=== PATIENT | female | born 1950 | race Caucasian/White ===

== ENCOUNTER 2016-12-22 18:09 | Inpatient (IN) | payer OTHER ==
[2016-12-22] VITALS (7 sets, daily range): BP systolic 102–161; BP diastolic 65–124; PULSE 98–127; RESP 16–33; O2SAT 88–100
[~2016-12-22] VITALS: Ht 152.4 cm; Wt 63.0 kg
--- NOTE | 2016-12-22 18:13 | ED.REPORT ---
HPI-General Illness Date of Service Dec 22, 2016 ED Provider: Migue Nj MD A 66 year old female with a history of hypertension and COPD is brought to the ED via EMS due to unresponsiveness. The pt was found by EMS minimally responsive with a heart rate in the 130's and an oxygen saturation of 62% on room air. She also had a productive cough and coarse breath sounds. The pt was given a DuoNeb. History is severely limited due to pt condition. Nursing Notes Stated Complaint: ALTERED MENTAL STATUS Nursing Notes Reviewed: Yes Allergies: Coded Allergies: No Known Allergies (Unverified , 12/22/16) Scheduled Hydrochlorothiazide (Hydrochlorothiazide) 25 Mg Tablet 25 MG PO QAM Lisinopril (Lisinopril) 40 Mg Tablet 40 MG PO HS Metoprolol Tartrate (Metoprolol Tartrate) 50 Mg Tablet 100 MG PO QAM TAKE METOPROLOL 100 MG PO QAM, AND 50 MG PO QHS Metoprolol Tartrate (Metoprolol Tartrate) 50 Mg Tablet 50 MG PO QPM TAKE METOPROLOL 100 MG PO QAM, AND 50 MG PO QHS Tiotropium [place] (Spiriva Respimat) 4 Gm Mist.inhal 2 PUFFS INHALATION DAILY Scheduled PRN Albuterol Sulfate (Ventolin HFA Inhaler) 200 Puff/18 Gm Inhaler 2 PUFFS INHALATION Q4H PRN PRN For Shortness of Breath General Time Seen by MD: 18:12 Chief Complaint Other (Unresponsive) Hx Obtained From: EMS Arrived By: Ambulance Sudden in Onset?: No Onset Occurred: Onset unknown Symptom Duration: Since onset Recent Healthcare: No recent hospitalization, Recent doctor visit Similar Sx Previous: No Past Medical History Past Medical History COPD Hypertension Past Surgical History cyst removal Family History noncontributory Smoking History Current Every Day Smoker, Heavy Tobacco Smoker Social History Other Social History: Good social support, , Local resident Ambulatory Status Independent Review of Systems Unable to Obtain ROS Patient condition Physical Exam Vital Signs Vital Signs Date Time Temp Pulse Resp B/P Pulse Ox O2 Delivery O2 Flow Rate FiO2 12/22/16 18:16 36.6 127 33 160/104 88 Room Air Initial VS: Reviewed General/Constitutional: No acute distress Alertness: Positive: Somnolent 02 sat of 88% on 2 liters by nasal cannula unable to be aroused groans to sternal rub protecting airway Head / Eyes: Atraumatic, Normocephalic, PERRL, EOMI ENT: Atraumatic, Airway patent, Mucous membranes moist Neck: Atraumatic, Supple, Full range of motion Respiratory / Chest: Atraumatic, No respiratory distress coarse breath sounds throughout both lung wooten Cardiovascular: Heart rate NL, Regular rhythm, Heart sounds NL, No gallop, No murmurs, No rubs Abdomen: Atraumatic, Soft, Non-tender, No distention Back: Atraumatic, Full range of motion Upper Extremities Upper Extremity / MS: Atraumatic, Full range of motion Lower Extremity / Pelvis / MS: Atraumatic, Full range of motion, No swelling, Non-tender 2+ pitting edema of lower extremities Skin: Atraumatic, Color NL, No rash, Warm, Dry Neurologic: No motor deficits minimally responsive Interpretation & Diagnostics Lab Results Interpretation Result Diagram: 12/22/16 1830 12/22/162005 Test 12/22/16 18:30 12/22/16 18:46 12/22/16 20:06 White Blood Count 8.7th/mm3 (3.8-10.1) Red Blood Count 5.09mil/mm3 (3.90-5.20) Hemoglobin 16.7g/dL (12.0-15.6) Hematocrit 47.0% (35.0-46.0) Mean Corpuscular Volume 92.3fL (81-100) Mean Corpuscular Hemoglobin 32.8pg (27.0-35.0) Mean Corpuscular Hemoglobin Concent 35.5% (32.0-37.0) Red Cell Distribution Width 12.2% (12.3-15.4) Platelet Count 94bil/L (150-400) Neutrophils (%) (Auto) 58.3% (40-74) Lymphocytes (%) (Auto) 24.9% (14-46) Monocytes (%) (Auto) 13.6% (4-12) Eosinophils (%) (Auto) 1.7% (0-5) Basophils (%) (Auto) 0.6% (0-3) D-Dimer > 32.5mg/L (<0.50) Pro-B-Type Natriuretic Peptide 7256pg/mL (0-287) Alcohols < 10mg/dL (0-10) Lactic Acid Level 1.3mmol/L (0.4-2.0) Sodium Level 124mEq/L (134-144) Potassium Level 3.0mEq/L (3.5-5.2) Chloride Level 79mEq/L (97-108) Carbon Dioxide Level 30mmol/L (18-29) Blood Urea Nitrogen 17mg/dL (8-27) Creatinine 0.46mg/dL (0.57-1.00) Estimat Glomerular Filtration Rate 196mL/min (>59) Glucose Level 119mg/dL (60-99) Calcium Level 8.6mg/dL (8.5-10.1) Total Bilirubin 0.8mg/dL (0.0-1.2) Aspartate Amino Transf (AST/SGOT) 27U/L (0-50) Alanine Aminotransferase (ALT/SGPT) 13U/L (0-32) Alkaline Phosphatase 67U/L (25-165) Troponin T < 0.010ug/L (0.0-0.011) Total Protein 6.0g/dL (6.4-8.4) Albumin 3.3g/dL (3.4-5.0) Procalcitonin 0.04ng/mL (0.00-0.08) Lab Results Interpretation: blood gas 1955: pH 7.297/pCO2 78/pO2 79.5/cHCO3- 37.0/cBase 7.5 blood gas 2128: pH 7.476/pCO2 48/pO2 185.0/cHCO3- 35.1/cBase 10.1 ECG Interpretation ECG Interpretation: atrial fibrillation with a rate of 132 normal axis normal intervals no ST segment changes or T wave abnormalities poor baseline quality with occasional PVCs Time: 19:19 Interpreted by: ED physician X-Ray Chest Interpretation Chest Xray Interpretation: IMPRESSION: Small patchy airspace opacities in the right lung base and small right-sided pleural effusion suspicious for pneumonia. Dictated by: Rosaura Wisdom MD, PhD on 12/22/2016 at 18:51 Approved by: Rosaura Wisdom MD, PhD on 12/22/2016 at 18:52 Interpretation / Wet Read by: Interpret - Radiologist Chest Xray Interpretation: IMPRESSION: 1. ET tube 4.1 cm superior to the ifrah. 1. Nodular density projecting over left midlung and retrocardiac mass. Recommend standard 2 view of the chest when clinically feasible. Dictated by: Rosaura Wisdom MD, PhD on 12/22/2016 at 20:58 Approved by: Rosaura Wisdom MD, PhD on 12/22/2016 at 21:00 Interpretation / Wet Read by: Interpret - Radiologist CT Head Interpretation IMPRESSION: No acute intracranial disease process. Dictated by: Rosaura Wisdom MD, PhD on 12/22/2016 at 20:12 Approved by: Rosaura Wisdom MD, PhD on 12/22/2016 at 20:14 Interpretation / Wet Read by: Interpret - Radiologist Procedures Intubation Time: 20:12 Procedure Performed by: ED physician Consent / Setup / Site Prep: No consent - emergent, Time-out performed, Oxygen administered, Pulse oximeter applied, shelter monitor applied, Hand hygiene observed Patient Position: Neutral position Blade / ET Tube / Route: [place] scope Procedural Sedation/Analgesia: Sedation: Etomidate ET Confirmation: Direct visualization, CXR, Rising O2 sat Secured / Marked: Adhesive tape Complications: None Post-Procedure: Condition improved, Tolerated procedure well, Patient stable Re-Eval/Medical Decision Med Decision/Clinical Course A 66 year old female with a history of hypertension and COPD is brought to the ED via EMS due to unresponsiveness. The pt was found by EMS minimally responsive with a heart rate in the 130's and an oxygen saturation of 62% on room air. She also had a productive cough and coarse breath sounds. The pt was given a DuoNeb. History is limited due to her profound altered mental status. Upon arrival she groans and opens her eyes to sternal rub and appears to minimally be protecting her airway. She is hypoxic on room air tachycardic in the 130s and tachypnea with a respiratory rate of 33. Arterial blood gas demonstrates respiratory acidosis. EKG was obtained and interpreted by myself as documented above. Chest x-ray demonstrated small patchy airspace opacities in the right lung base and small right-sided pleural effusion suspicious for pneumonia. Patient was treated with the below medications: IV fluids ceftriaxone azithromycin DuoNeb Laboratory studies notable as below: cbc: no leukocytosis hematocrit 47 chloride 73 sodium 122 potassium 3.0 co2 34 creat .54 bun 18 lactate 1.3 neg trop bnp 7256 UA: positive benzodiazepines u dip unconvincing for UTI CT scan of the patient's had been treated no acute intracranial process. Patient's heart rate improved moderately with aggressive fluid resuscitation and she was started on broad-spectrum antibiotics for community-acquired pneumonia. Given the patient's profound respiratory failure and altered mental status she was emergently intubated using etomidate and rocuronium as documented above and she was placed on a propofol drip. She maintained good oxygen saturation with definitive airway. She remained hemodynamically stable. Cause of the patient's profound altered mental status remains unclear at this time though I suspect that acute respiratory failure with hypercarbia is a significant factor here. The patient has been admitted to the ICU for further workup and management. She was transferred in stabilized condition. Source of Hx: Old records Time of Eval: 20:12 Re-Evaluation/Progress Note: Pt rechecked, whose condition remains the same. Intubation is performed without complications. Consultation : Referral / Consult Name: Ramona Soto MD Consulted With: Hospitalist Call Returned at: 20:22 [place] Spot[place]: Agrees with eval, Agrees with plan, Accepts admit Note: Spoke with Dr. Soto, hospitalist, regarding pt's case. Dr. Soto agrees with the evaluation and agrees to admit the pt. Counseled Regarding: Diagnosis, Lab results, Need for admission Discharge & Departure Primary Impression: Altered mental status Altered mental status type: unspecified Qualified Code: R41.82 - Altered mental status, unspecified Additional Impressions: Pneumonia Pneumonia type: due to unspecified organism Laterality: unspecified laterality Lung location: unspecified part of lung Qualified Code: B99.9 - Unspecified infectious disease Atrial fibrillation with RVR Acute respiratory failure Respiratory failure complication: hypoxia and hypercapnia Qualified Code: J96.01 - Acute respiratory failure with hypoxia Hypoxia Hypercarbia Disposition: ADMITTED TO HOSPITAL Discharge Condition All VS Reviewed: Yes Condition: Stable Referrals: Feliz Mays MD (PCP) Crit Care Except Billable Proc Time Spent: 165-194 minutes Services Performed: Patient management by me, Time spent at bedside, Reviewing test results, Reviewing imaging, Discussing patient care, Documentation in record, Time with fam/surrogate Scribe Attestation Portions of this note were transcribed by Lara Morales. I, Dr. Nj personally performed the history, physical exam and medical decision-making; I reviewed and confirmed the accuracy of the information in the transcribed note. Signed by: Dariana Vicente, 12/23/2016 and 0006. copies to: Feliz Mays MD, Beck O MD Dec 22, 2016 18:13 LARA MORALES Dec 22, 2016 19:56
[2016-12-22 18:45] LABS: EOSINOPHILS % (AUTO) 1.7 % (0-5)
[2016-12-22 18:50] LABS: BASOPHILS % (AUTO) 0.6 % (0-3); MONOCYTES % (AUTO) 13.6 % (4-12); Mean Corpuscular Hemoglobin 32.8 pg (27.0-35.0); Mean Corpuscular Volume 92.3 fL (81-100); NEUTROPHILS % (AUTO) 58.3 % (40-74); Platelet Count 94 bil/L (150-400)
--- NOTE | 2016-12-22 18:54 | DRSVH ---
PROCEDURE: X-RAY CHEST ONE VIEW, PORTABLE ([id number]) INDICATIONS: cough TECHNIQUE: One view of the chest was acquired. COMPARISON: [facility], CR, XR CHEST 2VW, 12/12/2015, 9:03. FINDINGS: Surgical changes and devices: None. Lungs and pleura: Small right-sided pleural fluid collection is noted. Patchy airspace opacity note d in the right lung base. Mediastinum: Mediastinal contours appear normal. Heart size is normal. Bones and chest wall: No suspicious bony lesions. Overlying soft tissues appear unremarkable. IMPRESSION: Small patchy airspace opacities in the right lung base and small right-sided pleural eff usion suspicious for pneumonia. Dictated by: Rosaura Wisdom MD, PhD on 12/22/2016 at 18:51 Approved by: Rosaura Wisdom MD, PhD on 12/22/2016 at 18:52
[2016-12-22 19:11] LABS: TROPONIN T < 0.010 ug/L (0.0-0.011)
[2016-12-22] MEDS ORDERED: 0.9% Sodium Chloride 1,000 ML IV ONE (19:49)
[2016-12-22] MEDS ORDERED: cefTRIAXone Inj 2,000 MG in Dextrose 5% Minibag Plus 50 ML IV ONE (19:50)
[2016-12-22] MEDS ORDERED: Azithromycin Inj 500 MG in Dextrose 5% w/Vial Mate 250 ML IV ONE (19:50)
[2016-12-22] MEDS ORDERED: Albuterol-Ipratropium 3 mL Inhalation Solution NEB ONE (19:50)
[2016-12-22] MEDS ORDERED: Alum-Mag Hydrox-Simeth 30 mL Suspension PO PRN (19:50)
[2016-12-22] MEDS ORDERED: Ondansetron 2 mg/mL 2 mL Inj IVPUSH PRN (19:50)
--- NOTE | 2016-12-22 20:00 | ABG ---
DateTimeAnalyzed 19:56:00 -_ pH ____7.297 - 7.350 7.450 pCO2 ___77.9__ -mmHg 35.0 45.0 pO2 ___79.5__ -mmHg 69.0 116 HCO3- ___37.0__ -mmol/L 22.0 26.0 ABE ____7.5__ -mmol/L -2.0 2.0 tHb ___14.4__ -g/dL O2Hb ___90.6__ -% COHb ____2.8__ -% MetHb ____0.7__ -% sO2 ___93.9__ -% FIO2 ___36.0__ -% Drawn By AF - Date/Time Notified____ 20:00:00 -_ Spontaneous_RR ___27.0__ -b/min Oxygen Device 1 __CANNULA - Notified By AF - Notified Whom ___Dr. De Lamere - B 752 -mmHg tO2 ___18.4__ -Vol% Lance test _Positive -
[2016-12-22] MEDS ORDERED: Rocuronium 10 mg/mL 5 mL Inj IVPUSH ONE (20:05)
[2016-12-22] MEDS ORDERED: Propofol Inj 1,000,000 MCG in IV Premix 1 EACH IV SCH (20:05)
--- NOTE | 2016-12-22 20:15 | DRSVH ---
PROCEDURE: CT BRAIN WITHOUT CONTRAST ([id number]) INDICATIONS: Acute mental status changes. Unresponsive. TECHNIQUE: Noncontrast 4.5 mm thick angled axial sections acquired from the foramen magnum to the vertex, with c oronal reformats. COMPARISON: None. FINDINGS: Image quality: Excellent. CSF spaces: Basal cisterns are patent. No extra-axial fluid collections. The ventricles are symmet walt in size and shape. Brain: No intracranial bleeds or masses. There is cerebral volume loss for age, with resultant vent ricular and sulcal prominence. There are periventricular and deep white matter chronic small vessel ischemic changes. There is intracranial internal carotid artery and vertebral artery atherosclerosis . Skull and face: Calvarium and visualized facial bones appear intact, without suspicious lesions. Sinuses: Visualized sinuses and mastoids are clear. IMPRESSION: No acute intracranial disease process. Dictated by: Rosaura Wisdom MD, PhD on 12/22/2016 at 20:12 Approved by: Rosaura Wisdom MD, PhD on 12/22/2016 at 20:14
[2016-12-22] MEDS ORDERED: METO50TA3 PO ×2 (20:27)
[2016-12-22] MEDS ORDERED: HYDR25TA4 PO (20:27)
[2016-12-22] MEDS ORDERED: TIOT4MIS2 INHALATION (20:27)
[2016-12-22] MEDS ORDERED: LISI40TA PO (20:27)
[2016-12-22] MEDS ORDERED: ALBU18HF INHALATION (20:27)
[2016-12-22] MEDS ORDERED: Albuterol 2.5 mg/3 mL Inhalation Solution NEB PRN (20:55)
[2016-12-22] MEDS: Propofol Inj 1,000,000 MCG in IV Premix 1 EACH IV SCH (20:55)
[2016-12-22 20:58] LABS: TROPONIN T < 0.010 ug/L (0.0-0.011)
--- NOTE | 2016-12-22 21:01 | DRSVH ---
PROCEDURE: X-RAY CHEST ONE VIEW ([id number]) INDICATIONS: intubated TECHNIQUE: One view of the chest was acquired. COMPARISON: None. FINDINGS: Surgical changes and devices: ET tube projects 4.1 cm superior to the ifrah. Lungs and pleura: No pleural effusions or pneumothorax. Lungs are clear. Retrocardiac mass is noted which may represent hiatal hernia. Nodular density projects over the left midlung which may represe nt nipple. Mediastinum: Mediastinal contours appear normal. Heart size is normal. Bones and chest wall: No suspicious bony lesions. Overlying soft tissues appear unremarkable. IMPRESSION: 1. ET tube 4.1 cm superior to the ifrah. 1. Nodular density projecting over left midlung and retrocardiac mass. Recommend standard 2 view of the chest when clinically feasible. Dictated by: Rosaura Wisdom MD, PhD on 12/22/2016 at 20:58 Approved by: Rosaura Wisdom MD, PhD on 12/22/2016 at 21:00
--- NOTE | 2016-12-22 21:31 | ABG ---
DateTimeAnalyzed 21:29:00 -_ pH ____7.476 - 7.350 7.450 pCO2 ___48.1__ -mmHg 35.0 45.0 pO2 185 -mmHg 69.0 116 HCO3- ___35.1__ -mmol/L 22.0 26.0 ABE ___10.1__ -mmol/L -2.0 2.0 tHb ___14.2__ -g/dL O2Hb ___96.4__ -% COHb ____2.7__ -% MetHb ____0.7__ -% sO2 ___99.8__ -% FIO2 ___60.0__ -% PEEP ____5.0__ -cmH2O Set_RR ___18.0__ -b/min Vt __380.0__ -L Drawn By AF - Date/Time Notified____ 21:31:00 -_ Spontaneous_RR ___18.0__ -b/min Oxygen Device 1 VENTILATOR - Notified By AF - Notified Whom ___Dr. [place] - B 753 -mmHg tO2 ___19.6__ -Vol% Lance test _Positive -
[2016-12-22 21:34] LABS: APPEARANCE,URINE HAZY (CLEAR,HAZY); COLOR,URINE YELLOW (YELLOW); OCCULT BLOOD,URINE NEGATIVE (NEGATIVE); PH,URINE 6.5 (5.0-8.0)
[2016-12-22] MEDS ORDERED: Piperacillin-Tazo 3.375 Gm Inj 3.375 GM in Dextrose 5% Minibag Plus 50 ML IV SCH (21:35)
--- NOTE | 2016-12-22 21:50 | PCM.HPMED ---
Subjective Date of Service Dec 22, 2016 Primary Provider: Admitting Physician: Ramona Soto MD Primary Care Physician: Feliz Mays MD Attending Physician: Ramona Soto MD Admit Status: From the Emergency Department, Full Admit, Critical Care Chief Complaint: Increasing lethargy and hypoxic room air 62% History of Present Illness: Is a 66-year-old female who does have a history of COPD by previous records appears to not be steroid and O2 dependent. I am not able to get a history from her as she is intubated and is not reachable at this point in time. Apparently he did call 911 because his was having increasing lethargy over the past few days. When EMS got there her room air sat was 62%. She became less responsive while here and required intubation for respiratory failure and also for protection of her airway. Her chest x-ray did show possible right lower lobe infiltrate with right pleural effusion. EKG showed A. fib at a rate of 132. No old EKG for comparison. She has been afebrile here. Blood pressure initially 160/104 with a respiratory rate of 33. White count is 8.7 with 58% polys 25% lymphs. She was noted to be hyponatremic to 122 with a potassium of 3.0 chloride was 73 bicarbonate was 34. BUN was 18 creatinine 0.54 with a calculated GFR of 163. LFTs were normal troponin was less than 0.010. ProBNP was 7256. Lactic acid was 1.3. Initial ABG showed: RAPHAEL SLATER 1950 Female DateTimeAnalyzed 19:56:00 -_ pH ____7.297 - 7.350 7.450 pCO2 ___77.9__ -mmHg 35.0 45.0 pO2 ___79.5__ -mmHg 69.0 116 HCO3- ___37.0__ -mmol/L 22.0 26.0 ABE ____7.5__ -mmol/L -2.0 2.0 tHb ___14.4__ -g/dL O2Hb ___90.6__ -% COHb ____2.8__ -% MetHb ____0.7__ -% sO2 ___93.9__ -% FIO2 ___36.0__ -% Drawn By AF - Date/Time Notified____ 20:00:00 -_ Spontaneous_RR ___27.0__ -b/min Oxygen Device 1 __CANNULA - Notified By AF - Notified Whom ___Dr. [place] - B 752 -mmHg tO2 ___18.4__ -Vol% Lance test _Positive - The only finding was the patient did have some lower extremity edema left greater than right. Both sides had some mild erythema noted. Allergies Coded Allergies: No Known Allergies (Unverified , 12/22/16) Home Medications Ventolin HFA 2 puffs inhaled every 4 hours when necessary Hydrochlorothiazide 25 mg by mouth daily Lisinopril 40 mg by mouth daily Metoprolol 100 mg by mouth in a.m. and 50 mg by mouth in p.m. Spiriva 2 puffs inhaled daily PMH History of COPD History of hypertension Unable to discern any other history Family History Unobtainable Social History Hx Alcohol Use: Yes Alcoholic Drinks Per Day: 4 beers/day Hx Substance Use: No Smoking Status: Current Every Day Smoker, Heavy Tobacco Smoker Living Arrangement: with Family Exam Vital Signs Vital Sign - Last Date Time Temp Pulse Resp B/P Pulse Ox O2 Delivery O2 Flow Rate FiO2 12/22/16 21:17 36.2 101 18 138/87 100 Mechanical Ventilator ET Tube Exam Constitutional: Middle-aged woman who is currently intubated Head: Normocephalic atraumatic Neck: Carotids 2+ over 4 without bruits Chest: Diffuse rhonchi Cor: Irregular regular rate and rhythm S1-S2 without murmur Abdomen: Slightly distended but soft, bowel sounds hypoactive Extremities: 1+ bilateral pedal edema left greater than right with some erythema noted Skin: No rashes Psych: Unable to assess Neuro: She is intubated sedated as responding to painful stimuli in all extremities Lab and Diagnostics Labs Laboratory Tests 72 Hours Test 12/22/16 18:30 12/22/16 18:46 12/22/16 20:06 12/22/16 21:21 White Blood Count 8.7th/mm3 (3.8-10.1) Red Blood Count 5.09mil/mm3 (3.90-5.20) Hemoglobin 16.7g/dL (12.0-15.6) Hematocrit 47.0% (35.0-46.0) Mean Corpuscular Volume 92.3fL (81-100) Mean Corpuscular Hemoglobin 32.8pg (27.0-35.0) Mean Corpuscular Hemoglobin Concent 35.5% (32.0-37.0) Red Cell Distribution Width 12.2% (12.3-15.4) Platelet Count 94bil/L (150-400) Neutrophils (%) (Auto) 58.3% (40-74) Lymphocytes (%) (Auto) 24.9% (14-46) Monocytes (%) (Auto) 13.6% (4-12) Eosinophils (%) (Auto) 1.7% (0-5) Basophils (%) (Auto) 0.6% (0-3) Sodium Level 122mEq/L (134-144) 124mEq/L (134-144) Potassium Level 3.0mEq/L (3.5-5.2) 3.0mEq/L (3.5-5.2) Chloride Level 73mEq/L (97-108) 79mEq/L (97-108) Carbon Dioxide Level 34mmol/L (18-29) 30mmol/L (18-29) Blood Urea Nitrogen 18mg/dL (8-27) 17mg/dL (8-27) Creatinine 0.54mg/dL (0.57-1.00) 0.46mg/dL (0.57-1.00) Estimat Glomerular Filtration Rate 163mL/min (>59) 196mL/min (>59) Glucose Level 102mg/dL (60-99) 119mg/dL (60-99) Calcium Level 9.5mg/dL (8.5-10.1) 8.6mg/dL (8.5-10.1) Total Bilirubin 1.0mg/dL (0.0-1.2) 0.8mg/dL (0.0-1.2) Aspartate Amino Transf (AST/SGOT) 36U/L (0-50) 27U/L (0-50) Alanine Aminotransferase (ALT/SGPT) 17U/L (0-32) 13U/L (0-32) Alkaline Phosphatase 89U/L (25-165) 67U/L (25-165) Troponin T < 0.010ug/L (0.0-0.011) < 0.010ug/L (0.0-0.011) Pro-B-Type Natriuretic Peptide 7256pg/mL (0-287) Total Protein 7.5g/dL (6.4-8.4) 6.0g/dL (6.4-8.4) Albumin 4.2g/dL (3.4-5.0) 3.3g/dL (3.4-5.0) Lactic Acid Level 1.3mmol/L (0.4-2.0) Procalcitonin 0.04ng/mL (0.00-0.08) Urine Color Yellow (YELLOW) Urine Appearance Hazy (CLEAR,HAZY) Urine pH 6.5 (5.0-8.0) Urine Specific [place] 1.030 (1.003-1.035) Urine Protein 100mg/dL (NEG,TRACE) Urine Glucose (UA) Negativemg/dL (NEGATIVE) Urine Ketones Negativemg/dL (NEGATIVE) Urine Occult Blood Negative (NEGATIVE) Urine Nitrite Negative (NEGATIVE) Urine Bilirubin Negative (NEGATIVE) Urine Urobilinogen 2.0mg/dL (NORMAL) Urine Leukocyte Esterase Negative (NEGATIVE) Urine RBC 3-10/hpf (0-2) Urine WBC 0-5/hpf (0-5) Urine Epithelial Cells Few/hpf (NONE-MOD) Urine Crystals None seen (NONE SEEN) Urine Bacteria Few/hpf (NONE-FEW) Urine Hyaline Casts None/lpf (NONE) Urine Granular Casts None seen (NONE SEEN) Urine Waxy Casts None seen (NONE SEEN) Urine Red Blood Cell Casts None seen (NONE SEEN) Urine White Blood Cell Casts None seen (NONE SEEN) Urine Mucus None seen (None Seen) Urine Trichomonas None seen (NONE SEEN) Urine Yeast None (NONE SEEN) Urinalysis Comment None Urine Culture Reflexed Not indicated Urine Opiates Screen Negative Urine Methadone Screen Negative Urine Barbiturates Screen Negative Urine Amphetamines Screen Negative Urine Benzodiazepines Screen Negative Urine Cocaine Metabolite Screen Negative Urine Cannabinoids Screen Negative Result Diagram: 12/22/16 1830 12/22/162005 X-Rays, CTs and MRIs Patient Name: RAPHAEL SLATER MR#: [id number] Location: SED Ordering Phys: Migue Nj MD Date of Service: 12/22/16 1830 PROCEDURE: X-RAY CHEST ONE VIEW, PORTABLE ([id number]) INDICATIONS: cough TECHNIQUE: One view of the chest was acquired. COMPARISON: [facility], CR, XR CHEST 2VW, 12/12/2015, 9:03. FINDINGS: Surgical changes and devices: None. Lungs and pleura: Small right-sided pleural fluid collection is noted. Patchy airspace opacity noted in the right lung base. Mediastinum: Mediastinal contours appear normal. Heart size is normal. Bones and chest wall: No suspicious bony lesions. Overlying soft tissues appear unremarkable. IMPRESSION: Small patchy airspace opacities in the right lung base and small right-sided pleural effusion suspicious for pneumonia. Dictated by: Rosaura Wisdom MD, PhD on 12/22/2016 at 18:51 Approved by: Rosaura Wisdom MD, PhD on 12/22/2016 at 18:52 Patient Name: RAPHAEL SLATER MR#: [id number] Location: SED Ordering Phys: Migue Nj MD Date of Service: 12/22/16 1950 PROCEDURE: CT BRAIN WITHOUT CONTRAST ([id number]) INDICATIONS: Acute mental status changes. Unresponsive. TECHNIQUE: Noncontrast 4.5 mm thick angled axial sections acquired from the foramen magnum to the vertex, with coronal reformats. COMPARISON: None. FINDINGS: Image quality: Excellent. CSF spaces: Basal cisterns are patent. No extra-axial fluid collections. The ventricles are symmetric in size and shape. Brain: No intracranial bleeds or masses. There is cerebral volume loss for age , with resultant ventricular and sulcal prominence. There are periventricular and deep white matter chronic small vessel ischemic changes. There is intracranial internal carotid artery and vertebral artery atherosclerosis. Skull and face: Calvarium and visualized facial bones appear intact, without suspicious lesions. Sinuses: Visualized sinuses and mastoids are clear. IMPRESSION: No acute intracranial disease process. Dictated by: Rosaura Wisdom MD, PhD on 12/22/2016 at 20:12 Approved by: Rosaura Wisdom MD, PhD on 12/22/2016 at 20:14 12-lead ECG As noted in history of present illness Assessment & Plan # Acute on chronic respiratory failure with hypoxia and hypercapnia, present on admission - Patient does have a history of COPD and looking at her bicarbonate level she seems to be a possible CO2 retainer -Unable to get a good history of events at this time but possible right lower lobe pneumonia will cover with IV Zosyn and IV Levaquin -Check sputum studies including a PCR respiratory, urine for strep pneumonia, urine for Legionella, sputum Gram stain and culture - Patient currently requires ventilatory support will monitor blood gases and adjust accordingly - We will use IV propofol when necessary and IV fentanyl drip when necessary - We will get stat d-dimer and if elevated initiate IV heparin PE protocol and consider CT of chest PE protocol to further investigate -Also need to consider possible COPD exacerbation as etiology and will place on IV Solu-Medrol, duo nebs every 4 hours and albuterol nebs every 2 hours when necessary # Acute encephalopathy, present on admission - Possibly related to her hypercapnia but must also consider other etiologies - CT of head without contrast was negative -No focal deficits present on exam - Check alcohol level and urine tox screen # RVR A. fib, acute, present on admission - Not clear if she has a history of atrial fibrillation -We will write for IV metoprolol when necessary heart rate greater than 120 -Also evaluate for PE is possible etiology - Check serial troponins # Hyponatremia and acute, present on admission -Check TSH and Cortrosyn stim test - May be related to dehydration and will pursue giving IV normal saline at 125 mils per hour # Hypokalemia,Acute, present on admission - We will replete as needed # DVT prophylaxis - Week determination of subcutaneous prophylactic Lovenox versus IV heparin PE protocol #CODE STATUS Patient is full code Pain Evaluation: Adequate Pain Control GI Prophylaxis: H2 cielo VTE Prophylaxis: Other (currently assessing for stat d-dimer and possible need for IV heparin PE protocol) Resuscitation Status: CPR: Attempt Resuscitation Time spent 60 minutes Ramona Soto MD Dec 22, 2016 21:50
[2016-12-22] MEDS ORDERED: Heparin Protocol Boluses IVPUSH PRN (22:50)
[2016-12-22] MEDS ORDERED: Heparin Initial Bolus IVPUSH ONE (22:50)
[2016-12-22] MEDS: 0.9% Sodium Chloride 1,000 ML IV SCH (22:51)
[2016-12-22] MEDS: levoFLOXacin Inj 750 MG in IV Premix 1 EACH IV SCH (22:55)
[2016-12-22] MEDS ORDERED: KCl 40 mEq/500 mL D5W (K < 3 & Creat <2) IV ONE (22:55)
[2016-12-22] MEDS: fentaNYL 2,500 mCg/250 mL 2,500 MCG in IV Premix 1 EACH IV SCH (23:51)
[2016-12-22] MEDS: Albuterol-Ipratropium 3 mL Inhalation Solution NEB SCH (23:57)
[2016-12-23] VITALS (11 sets, daily range): BP systolic 93–141; BP diastolic 47–76; PULSE 66–138; RESP 16–20; O2SAT 96–100
[2016-12-23] MEDS ORDERED: Cosyntropin 0.25 mg/mL Inj IV ONE (00:15)
[2016-12-23] MEDS: Heparin 25K Unit/500mL 0.45 NS 25,000 UNIT in IV Premix 1 EACH IV SCH (02:05)
[2016-12-23] MEDS: Insulin Human REGular 300 Unit/3 mL Inj SUBQ SCH ×4 (02:30→20:30)
[2016-12-23] MEDS: MethylprednisoLONE Sodium Succinate 62.5 mg/mL 2 mL Inj IVPUSH SCH ×3 (03:06→16:29)
[2016-12-23] MEDS: Albuterol-Ipratropium 3 mL Inhalation Solution NEB SCH ×5 (04:04→22:00)
[2016-12-23] MEDS: MeTOProlol 1 mg/mL 5 mL Inj IVPUSH PRN (05:16)
[2016-12-23] MEDS: 0.9% Sodium Chloride 1,000 ML IV SCH ×2 (05:58→20:14)
[2016-12-23] MEDS ORDERED: MeTOProlol 1 mg/mL 5 mL Inj IV ONE (06:00)
[2016-12-23 08:10] LABS: Free Thyroxine Index 2.8 (1.2-4.9); Thyroxine (T4) 7.1 ug/dL (4.5-12.0)
--- NOTE | 2016-12-23 08:14 | DRSVH ---
PROCEDURE: X-RAY CHEST ONE VIEW, PORTABLE ([id number]) INDICATIONS: pnemonia,intubated TECHNIQUE: One view of the chest was acquired. COMPARISON: [facility], CR, XR CHEST 1VW, 12/22/2016, 20:17. [facility], CR, XR CHEST 1VW (PORTABLE), 12/22/2016, 18:39. FINDINGS: Surgical changes and devices: ETT tip projected 3.9 cm above the ifrah. Expected positioning of alejo ogastric tube. Lungs and pleura: Moderate edema is present similar prior examination. No pneumothorax. Mediastinum: Mediastinal contours appear normal. Heart size is enlarged. Bones and chest wall: No suspicious bony lesions. Overlying soft tissues appear unremarkable. IMPRESSION: Interval placement of nasogastric tube and moderate pulmonary edema persists. Differenti al include atypical infection. Correlate clinically. Dictated by: Shankar BARRETO Interpreted: Sobia Plunkett MD on 12/23/2016 at 8:12 Transcribed by: SILVANA on 12/23/2016 at 8:13 Approved by: Sobia Plunkett M.D. on 12/23/2016 at 21:20
[2016-12-23] MEDS ORDERED: ESMOLOL IV ONE (08:23)
[2016-12-23] MEDS ORDERED: SODIUM CHLORIDE IV ONE (08:23)
[2016-12-23] MEDS ORDERED: Amiodarone 150 mg/100 mL D5W Premix IV ONE (08:53)
[2016-12-23] MEDS ORDERED: Amiodarone 360 mg/200 mL D5W Premix IV ONE (08:54)
[2016-12-23] MEDS ORDERED: Dexmedetomidine 400 mCg/100 mL NS Premix IV ONE (09:39)
--- NOTE | 2016-12-23 09:58 | DRSVH ---
PROCEDURE: US VENOUS LEG DUPLEX BILATERAL INDICATIONS: edema TECHNIQUE: Real-time imaging, as well as color and pulse Doppler interrogation, were performed of the deep veins of both legs from the inguinal ligament to the popliteal fossa. COMPARISON: None. FINDINGS: The deep veins are normally compressible, and free of intraluminal thrombus. Color and pu lse Doppler demonstrate normal phasic intravascular flow. There is normal augmentation response to d istal compression maneuver. IMPRESSION: No deep venous thrombosis identified within either the left or right lower extremities. Dictated by: Shankar BARRETO Interpreted: Sobia Plunkett MD on 12/23/2016 at 9:58 Transcribed by: SILVANA on 12/23/2016 at 9:58 Approved by: Sobia Plunkett M.D. on 12/23/2016 at 21:49
[2016-12-23] MEDS ORDERED: Amiodarone 150 mg/100 mL D5W 150 MG in IV Premix 1 EACH IV ONE (10:15)
[2016-12-23] MEDS: Piperacillin-Tazo 3.375 Gm Inj 3.375 GM in Dextrose 5% Minibag Plus 50 ML IV SCH ×2 (10:47→16:33)
[2016-12-23] MEDS: Famotidine Inj 20 MG in IV Premix 1 EACH IV SCH ×2 (10:48→20:13)
[2016-12-23] MEDS: Dexmedetomidine 400 mCg/100 mL 400 MCG in IV Premix 1 EACH IV SCH (10:55)
--- NOTE | 2016-12-23 11:09 | DRSVH ---
[facility] [address] [place] [address] Echocardiogram Report Name: RAPHAEL SLATER KStudy Date: 12/23/2016 Height: 6 0 in Hospital Exam Location: [facility] Weight: 1 12 lb Gender: Female BSA: 1.5 m2 : 1950 Age: 66 yrs BP: 91/66 mmHg Reason For Study: Congestive Heart Failure Ordering Physician: [facility]PITALIST [facility] Performed By: Latesha Lua Referring Physician: Dr. Feliz Mays Interpretation Summary The ejection fraction is estimated to be 55-60%. Flattened septum is consistent with RV pressure/volume overload. The right ventricle is moderately dilated. Right ventricular systolic function is moderately reduced. The aortic valve is slightly calcified. The aortic valve is not well visualized. There is moderate tricuspid regurgitation. Right ventricular systolic pressure is estimated to be 39 mmHg plus the clinically estimated CVP which cannot be estimated on this exam. RV thrombus is suspected. Procedure: A two-dimensional transthoracic echocardiogram with color flow and Doppler was performed. The study quality was technically difficult. There is no prior echocardiogram noted for this patient. The patient had occasional PVCs during the exam. The patient was in atrial fibrillation with heart rates between 121-167 bpm during the exam. Left Ventricle: The left ventricular cavity is small. Left ventricular wall thickness is borderline increased. The ejection fraction is estimated to be 55-60%. Flattened septum is consistent with RV pressure/volume overload. Diastolic function could not be accurately assessed due to tachycardia. Right Ventricle: The right ventricle is moderately dilated. Right ventricular systolic function is moderately reduced. Atria: The left atrium is not well visualized. The left atrium grossly appears normal in size. The right atrium is mildly dilated. There is no Doppler evidence for an atrial septal defect. Mitral Valve: The mitral valve is normal in structure and function. There is trace mitral regurgitation. Aortic Valve: The aortic valve is not well visualized. The aortic valve is slightly calcified. Spectral Doppler could not be obtained due to suboptimal angle of interrogation. No aortic regurgitation is present. Tricuspid Valve: There is moderate tricuspid regurgitation. Right ventricular systolic pressure is estimated to be 39 mmHg plus the clinically estimated CVP which cannot be estimated on this exam. Pulmonic Valve: The pulmonic valve is not well visualized. Great Vessels: The aortic root is normal size. The ascending aorta could not be visualized. The IVC has a measurement of 21 mm. Inspiratory collapse cannot be assessed because of mechanical ventilation, thus CVP cannot be estimated.. Pericardium/ Pleura There is a trivial pericardial effusion noted. There is a small right-sided pleural effusion. MMode/2D Measurements & Calculations LVIDd: 3.3 cm RA long axis LVOT diam LVIDs: 2.2 cm LA A4 area: 18.0 cm FS: 33.1 % LA length (vol): 5.1 cm RA area AoV Opening IVSd: 0.85 cm IVC diam: 2.1 cm LVPWd: 1.0 cm : 16.3 cm Ao root diam RA vol: 47.7 ml: 3.2 cm RA : 32.7 mm2 LV kc. diameter/BSA LV sys. diameter/BSA RVD1 (basal) TAPSE: 1.2 cm (cm/m^2): 2.3 (cm/m^2): 1.5 Doppler Measurements & Calculations LVOT Max Colby MV E max colby Med Peak E' Colby TR max colby : 58.8 cm/sec : 71.9 cm/sec : 311.7 cm/sec E/E' med: 8.2 TR max PG : 39.0 mmHg PA V2 max : 62.9 cm/sec PA mean PG : 0.89 mmHg PA Accel Time : 0.06 sec MV dec time LV V1 max PG PA V2 mean : 0.09 sec : 44.3 cm/sec LV V1 VTI: 10.5 cm Electronically signed by: Isra Valdez on Reading Physician:12/23/2016 11:08 AM
[2016-12-23] MEDS ORDERED: Norepinephrine 8,000 mCg/250 mL NS Premix IV ONE (12:02)
--- NOTE | 2016-12-23 12:23 | DRSVH ---
PROCEDURE: X-RAY CHEST ONE VIEW, PORTABLE ([id number]) INDICATIONS: right IJ placed TECHNIQUE: One view of the chest was acquired. COMPARISON: [facility], CR, XR CHEST 1VW (PORTABLE), 12/23/2016, 5:18. FINDINGS: Surgical changes and devices: Right-sided central venous catheters present with distal tip overlying the proximal SVC. There has been interval placement of a second right-sided catheter lateral to the p reviously mentioned catheter with distal tip overlying the distal SVC. Nasogastric tube is unchanged. Lungs and pleura: Persistent appearance of edema. No pneumothorax. Mediastinum: Mediastinal contours appear normal. Heart size is normal. Bones and chest wall: No suspicious bony lesions. Overlying soft tissues appear unremarkable. IMPRESSION: Line placement as above. Dictated by: Sobia Plunkett M.D. on 12/23/2016 at 12:20 Approved by: Sobia Plunkett M.D. on 12/23/2016 at 12:22
[2016-12-23 12:35] LABS: BASOPHILS % (AUTO) 0.1 % (0-3); EOSINOPHILS % (AUTO) 0 % (0-5); MONOCYTES % (AUTO) 2.3 % (4-12); Mean Corpuscular Hemoglobin 32.2 pg (27.0-35.0); NEUTROPHILS % (AUTO) 92.3 % (40-74); Platelet Count 155 bil/L (150-400)
[2016-12-23] MEDS ORDERED: Sodium Chloride LOK Flush 10 mL Syringe IVFLUSH PRN ×2 (12:35)
[2016-12-23] MEDS: Norepineph 8,000 mCg/250 mL NS 8,000 MCG in IV Premix 1 EACH IV SCH (12:48)
[2016-12-23 13:18] LABS: TROPONIN T < 0.010 ug/L (0.0-0.011)
--- NOTE | 2016-12-23 13:40 | DRSVH ---
PROCEDURE: CT ANGIO CHEST PULMONARY EMBOLISM ([id number]) INDICATIONS: ACUTE RESPIRATORY FAILURE, likely PE TECHNIQUE: After the administration of intravenous contrast, 2 mm thick sections acquired from the pulmonary api jay to the posterior costophrenic angles. 3-dimensional maximum intensity projection (MIP) coronal a nd sagittal reformats were then acquired through the thorax. For radiation dose reduction, the follo wing was used: automated exposure control, adjustment of mA and/or kV according to patient size. COMPARISON: None. FINDINGS: Image quality: Excellent. Pulmonary arteries: Pulmonary arteries are normal in size, and demonstrate no intraluminal filling d efects to suggest central pulmonary embolism. Lungs and pleura: Small bilateral pleural effusions are present. No pneumothorax. Mild deep and bilat eral lower lobe atelectasis is present. There is mild diffuse interstitial pulmonary opacity. Mild em physema with apical predominance. There is a subpleural nodule within the left lower lobe posteriorly measuring 8 mm. Central and peripheral airways are patent. Mediastinum: Heart size is enlarged, without pericardial effusion. There is calcification of the cor onary vasculature. No mediastinal or hilar adenopathy. Thoracic aorta is normal in caliber and enhan cement. Esophagus is normal in caliber, without hiatal hernia. Bones and chest wall: No suspicious bony lesions. Ribs and thoracic spine appear intact throughout. Thyroid gland demonstrates multiple small low density nodules bilaterally. No axillary or supracla vicular adenopathy. Abdomen: Visualized portions of the upper abdomen demonstrate a small amount of ascites, as well as reflux of contrast into the hepatic venous vasculature. NGT within the gastric lumen is present. IMPRESSION: 1. No pulmonary embolus. 2. Mild pulmonary edema associated with small bilateral pleural effusions. 3. Small amount of ascites. 4. Coronary artery disease. Cardiomegaly. Right heart failure. Dictated by: Julieta Gunn M.D. on 12/23/2016 at 13:33 Approved by: Julieta Gunn M.D. on 12/23/2016 at 13:39
[2016-12-23 13:42] LABS: Magnesium 1.1 mg/dL (1.6-2.6)
[2016-12-23] MEDS ORDERED: 0.9% Sodium Chloride 1,000 ML IV SCH (13:50)
[2016-12-23] MEDS ORDERED: Magnesium Sulfate 4 Gm/100 mL Water Premix IV ONE (13:50)
[2016-12-23] MEDS ORDERED: Magnesium Sulf 4 Gm/100 mL H2O 4 GM in IV Premix 1 EACH IV ONE (13:50)
[2016-12-23] MEDS ORDERED: ESMOLOL IV PRN (14:00)
[2016-12-23] MEDS ORDERED: [UNRECOGNIZED DRUG - OTHER] IV PRN (14:00)
[2016-12-23] MEDS: Amiodarone 360 mg/200 mL D5W 360 MG in IV Premix 1 EACH IV SCH (16:39)
--- NOTE | 2016-12-23 16:42 | PCM.CHPMED ---
Subjective Date of Service: Dec 23, 2016 Provider requesting consult: Saritha Orr MD Primary Physician: Admitting Physician: Ramona Soto MD Primary Care Physician: Feliz Mays MD Attending Physician: Ramona Soto MD Chief Complaint: Chief Complaint: Ventilator Management. . History of Present Illness: Pulmonology/Intensive Care Consultation Note: Attending Dr. Mart Ling is a 66-year-old female with a past medical history significant for hypertension and COPD who was brought to [facility] Emergency Department due to unresponsiveness requiring intubation. Hospital day #1. Subjective exam and review of systems are unobtainable as the patient is intubated and sedated. . Review of Systems: A comprehensive review of systems was not obtained due to the patients status. . H Past Medical History Unable to obtain from patient due to the patient being intubated and sedated, therefore, obtained from history of present illness on admission: History of COPD History of hypertension . Surgical History Unobtainable due to the patient being intubated and sedated. . Home Medications Obtained from history of present illness on admission: Ventolin HFA 2 puffs inhaled every 4 hours when necessary Hydrochlorothiazide 25 mg by mouth daily Lisinopril 40 mg by mouth daily Metoprolol 100 mg by mouth in a.m. and 50 mg by mouth in p.m. Spiriva 2 puffs inhaled daily . Allergies: Coded Allergies: No Known Allergies (Unverified , 12/22/16) Family History Family History Unobtainable due to the patient being intubated and sedated. . Social History Hx Alcohol Use: YesAlcoholic Drinks Per Day: 4 beers/dayHx Substance Use: No Smoking Status: Current Every Day Smoker Heavy Tobacco Smoker Living Arrangement: with Family Exam Vital Signs Vital Sign - Last Date Time Temp Pulse Resp B/P Pulse Ox O2 Delivery O2 Flow Rate FiO2 12/23/16 15:26 130 96/61 98 40 12/23/16 12:30 Ventilator 12/23/16 12:00 37.0 12/23/16 08:30 20 Intake and Output 12/22/16 12/22/16 12/23/16 Cumulative From/Thru 15:00 23:00 07:00 12/22/16 18:16 - 12/23/16 06:30 Intake Total 500 ml 1902 ml 2402 ml Output Total 500 ml 500 ml Balance 500 ml 1402 ml 1902 ml Intake IV Total 500 ml 1902 ml 2402 ml Tube Feeding 0 ml 0 ml Output Urine Total 500 ml 500 ml # Voids 0 0 Additional Information: General: Middle-aged thin female lying in bed and in no acute distress, intubated and sedated. HEENT: Normocephalic, atraumatic. External ears without defect. Pupils equal, round, and reactive to light. Anicteric sclerae, moist conjunctivae, and no lid lag. Endotracheal and oropharyngeal tube in place. Neck: Supple. No lymphadenopathy or thyromegaly. Cardiovascular: Irregular rhythm without murmurs, rubs, or gallops appreciated. Pulmonary: Diffuse bronchial breath sounds in anterior lung wooten improved. No wheeze or crackles. Abdomen: Soft, nondistended, bowel sounds active. Genitourinary: Johnson catheter in place. Extremities: No cyanosis, clubbing, or edema. Neurologic: Opens eyes and follows commands. Ventilator settings: PRVC. Tidal volume 280. Respiratory rate 16. FiO2 40%. PEEP 5.0. ABG: PH 7.476. PCO2 48.1. PO2 185. HCO3 35.1. On PRVC an FiO2 of 60% with an SPO2 of 99.8% IV drips and Sedatives: Norepinephrine. Precedex. Fentanyl. IV lines: Right IJ. I&O: Net +1902 mL. Microbiology: Blood culture 2 pending. MRSA screen, streptococcus pneumoniae and legionella urine antigens, sputum culture, respiratory viral PCR pending. . Lab and Diagnostics Labs Item Value Date Time Calcium Level 8.0 mg/dL L 12/23/16 1120 Magnesium Level 1.1 mg/dL *L 12/23/16 1120 Total Bilirubin 0.8 mg/dL 12/23/16 1120 Aspartate Amino Transf (AST/SGOT) 21 U/L 12/23/16 1120 Alanine Aminotransferase (ALT/SGPT) 10 U/L 12/23/16 1120 Alkaline Phosphatase 53 U/L 12/23/16 1120 Troponin T < 0.010 ug/L 12/23/16 1120 Total Protein 5.1 g/dL L 12/23/16 1120 Albumin 2.9 g/dL L 12/23/16 1120 Prealbumin 9 mg/dL L 12/23/16 1120 Procalcitonin 0.06 ng/mL 12/23/16 1120 Result Diagram: 12/23/16 1228 12/23/16 1120 X-Rays, CTs and MRIs CT ANGIO CHEST PULMONARY EMBOLISM IMPRESSION: 1. No pulmonary embolus. 2. Mild pulmonary edema associated with small bilateral pleural effusions. 3. Small amount of ascites. 4. Coronary artery disease. Cardiomegaly. Right heart failure. Dictated by: Julieta Gunn M.D. on 12/23/2016 at 13:33 US VENOUS LEG DUPLEX BILATERAL IMPRESSION: No deep venous thrombosis identified within either the left or right lower extremities. Dictated by: Shankar Mandujano [facility] Interpreted: Sobia Plunkett MD on 12/23/2016 at 9: 58 CT BRAIN WITHOUT CONTRAST IMPRESSION: No acute intracranial disease process. Dictated by: Rosaura Wisdom MD, PhD on 12/22/2016 at 20:12 X-RAY CHEST ONE VIEW, PORTABLE IMPRESSION: Small patchy airspace opacities in the right lung base and small right-sided pleural effusion suspicious for pneumonia. Dictated by: Rosaura Wisdom MD, PhD on 12/22/2016 at 18:51 Approved by: Rosaura Wisdom MD, PhD on 12/22/2016 at 18:52 . Additional Diagnostics: Echocardiogram Interpretation Summary: The ejection fraction is estimated to be 55-60%. Flattened septum is consistent with RV pressure/volume overload. The right ventricle is moderately dilated. Right ventricular systolic function is moderately reduced. The aortic valve is slightly calcified. The aortic valve is not well visualized. There is moderate tricuspid regurgitation. Right ventricular systolic pressure is estimated to be 39 mmHg plus the clinically estimated CVP which cannot be estimated on this exam. RV thrombus is suspected. Electronically signed by: Isra Valdez on Reading Physician:12/23/2016 11:08 AM . Assessment & Plan Assessment Virginia Ling is a 66-year-old female with a past medical history significant for hypertension and COPD who was brought to [facility] Emergency Department due to unresponsiveness requiring intubation. Hospital day #1. 1. Acute shock, unclear etiology, present on admission. Active. - Possibly cardiogenic versus less likely septic as patient has no source of infection or infectious markers. - Patient clinically volume overloaded with JVD and peripheral edema with echocardiographic and radiographic evidence of right sided heart failure. - Echocardiogram shows dilated right ventricle with right ventricular thrombus, as above. 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 - IV fluids with NS at 100 mL.hr with cardiology recommendations and the central venous pressure of 15-16 mmHg. However, need to be cautious with fluid resuscitation due to RV overload and to avoid to rapid over correction of sodium level and central pontine myelinosis. 2. Acute on chronic hypoxemic and hypercapnia respiratory failure, present on admission. Active. - Patient does have a history of COPD and based on CO2 on admission was hypercapnic and likely CO2 retainer. Differential diagnosis includes: PE versus hepatic encephalopathy (CT showed abdominal ascites and history of alcohol use on HPI) versus unlikely CAP versus ACS. - Unable to get a good history of events at this time but possible right lower lobe pneumonia will cover with IV Zosyn and Levaquin. - Sputum culture and Gram stain, respiratory viral PCR, strep pneumoniae and legionella urine antigens, and blood cultures 2 pending. - D-dimer elevated at >32.3 and IV heparin PE protocol initiated. - Echocardiogram revealed RVSP of 34 mmHg with evidence of RV overload and septal flattening with possible thrombus, as above. - CT angiography was negative for PE and revealed mild pulmonary edema associated with small bilateral pleural effusions and right heart failure, as above. - Also need to consider possible COPD exacerbation as etiology IV Solu-Medrol, duo nebs every 4 hours and albuterol nebs every 2 hours when necessary. - Continue ventilator at settings above but consider increasing flow by decreasing Ti from 0.90 to 0.75 and increase TV to 320. - Continue to monitor ABG daily for vent management. - Continue fentanyl for sedation, as above. Consider sedation vacation and SBT once stable. 3. Acute encephalopathy, present on admission. Active. - Possibly related to her hypercapnia but must also consider other etiologies. Differential diagnosis includes: PE versus hepatic encephalopathy (CT showed abdominal ascites and history of alcohol use on HPI) versus unlikely CAP versus ACS. - CT brain without contrast was negative for any acute intracranial abnormality , as above. - Non-focal on exam. - Alcohol level and urine drug screen negative. - Cautious with fluid resuscitation due to RV overload and to avoid to rapid over correction of sodium level and central pontine myelinosis. - Discontinued Precedex. Continue Fentanyl for sedation for now. 4. Pulmonary hypertension, acuity unknown, present on admission. Active. - Likely secondary to COPD but possibly PE/RV thrombus. - Cautious with fluid resuscitation. - Echocardiogram revealed RVSP of 34 mmHg with evidence of RV overload and septal flattening with possible thrombus, as above. 5. Acute respiratory alkalosis with partial metabolic compensation, present on admission. - Continue ventilator with settings as above. - Treat COPD as above under problem #2. 6. Atrial fibrillation with RVR, acuity unknown, present on admission. Active. - Unclear if she has a history of atrial fibrillation. - PE possible based on echocardiogram, however, CTA revealed no PE. - Serial troponins have been negative. - Amiodarone gtt may be started per primary medical team. 7. Acute hyponatremia, present on admission. Active. - Likely related to dehydration and possible beer potomania. - Continuing IV normal saline at 100 mL/hr and monitor sodium level closely to avoid to rapid over correction central pontine myelinosis. - Monitor sodium level daily. 8. Acute hypokalemia, present on admission. Active. - Possibly secondary to beer potomania. - Replete as needed. - Monitor potassium level daily. 9. Acute hypomagnesemia, present on admission. Active. - Possibly secondary to beer potomania. - Replete as needed. - Monitor magnesium level daily. Chronic problems with management per primary team. Disposition: Several days and depending upon clinical course. . Problems: Pain Evaluation: Adequate Pain Control GI Prophylaxis: H2 cielo VTE Prophylaxis: Other (currently assessing for stat d-dimer and possible need for IV heparin PE protocol) VTE Mechanical Devices: Intermittant Pneumatic CD Resuscitation Status: CPR: Attempt Resuscitation Attending Statement The patient was seen and examined together with Dr. Greene on 12/23/2016 and I agree with the history, exam and plan as outlined in the note above. Nneka Greene DO Dec 23, 2016 16:42 Kyle Cevallos MD Jan 02, 2017 10:55
--- NOTE | 2016-12-23 18:01 | ABG ---
DateTimeAnalyzed 17:57:00 -_ pH ____7.323 - 7.350 7.450 pCO2 ___56.0__ -mmHg 35.0 45.0 pO2 ___93.5__ -mmHg 69.0 116 HCO3- ___28.2__ -mmol/L 22.0 26.0 ABE ____1.4__ -mmol/L -2.0 2.0 tHb ___14.4__ -g/dL O2Hb ___94.9__ -% COHb ____1.6__ -% MetHb ____0.7__ -% sO2 ___97.1__ -% FIO2 ___40.0__ -% PEEP ____5.0__ -cmH2O Set_RR ___16.0__ -b/min Vt __280.0__ -L Drawn By NB - Date/Time Notified____ 18:00:00 -_ Oxygen Device 1 VENTILATOR - Notified By nb - Notified Whom DR Kendregan - B 763 -mmHg tO2 ___19.3__ -Vol% Lance test _Positive -
[2016-12-23 19:03] LABS: Magnesium 2.8 mg/dL (1.6-2.6); Phosphorus 4.2 mg/dL (2.5-4.9)
[2016-12-23] MEDS ORDERED: Thiamine Inj 200 MG in Dextrose 5% 50 ML IV SCH (19:20)
--- NOTE | 2016-12-23 19:31 | PCM.PNMED ---
Subjective Date of Service Dec 23, 2016 Subjective overnight: Patient admitted overnight for acute on chronic respiratory failure intubated and sedated on propofol and fentanyl drips elevated d-dimer patient was placed on the heparin PE protocol. today: Patient remained intubated and sedated echocardiogram showed possible thrombus in the right ventricle with volume overload. Echo also showed a dilated right heart and mild right heart failure as well as mild pulmonary hypertension. Central line placed after echocardiogram for norepinephrine and lab draws. CT PE protocol ordered after central line placement showed no pulmonary embolus however showed diffuse pulmonary infiltrates possibly consistent with fibrosis likely causing pulmonary hypertension. Ultrasound of the legs performed overnight read as no DVT. Patient was started on amiodarone after unresponsive to esmolol for A. fib with RVR. Exam Vital Signs Vital Sign - Last Date Time Temp Pulse Resp B/P Pulse Ox O2 Delivery O2 Flow Rate FiO2 12/23/16 04:04 96 105/74 100 40 12/23/16 04:00 37.0 16 Mechanical Ventilator Intake and Output 12/22/16 12/22/16 12/23/16 Cumulative From/Thru 15:00 23:00 07:00 12/22/16 18:16 - 12/23/16 06:30 Intake Total 500 ml 1902 ml 2402 ml Output Total 500 ml 500 ml Balance 500 ml 1402 ml 1902 ml Intake IV Total 500 ml 1902 ml 2402 ml Tube Feeding 0 ml 0 ml Output Urine Total 500 ml 500 ml # Voids 0 0 Exam General: thin female lying in bed intubated and sedated. Eyes: Pupils equal, round, and reactive to light. anicteric sclerae, moist conjunctivae HENT: Normocephalic, atraumatic. Endotracheal and oropharyngeal tube in place. External ears without defect. Neck: Supple. Mild JVD trachea, midline, No lymphadenopathy or thyromegaly. Cardiovascular: tachycardia without murmurs, rubs, or gallops appreciated. Pulmonary: Relatively clear to auscultation bilaterally. No wheeze or crackles. Abdomen: Soft, nondistended, bowel sounds normoactive. Genitourinary: Johnson catheter in place. Extremities: Moderate pitting Edema noted in legs bilaterally, No cyanosis, clubbing Neurologic: Opens eyes and follows commands. Psych: Unable to assess Lab and Diagnostics Result Diagram: 12/22/16 1830 12/22/162005 X-Rays, CTs and MRIs PROCEDURE: X-RAY CHEST ONE VIEW, PORTABLE ([id number]) IMPRESSION: Small patchy airspace opacities in the right lung base and small right-sided pleural effusion suspicious for pneumonia. Dictated by: Rosaura Wisdom MD, PhD on 12/22/2016 at 18:51 Approved by: Rosaura Wisdom MD, PhD on 12/22/2016 at 18:52 PROCEDURE: CT BRAIN WITHOUT CONTRAST ([id number]) IMPRESSION: No acute intracranial disease process. Dictated by: Rosaura Wisdom MD, PhD on 12/22/2016 at 20:12 Approved by: Rosaura Wisdom MD, PhD on 12/22/2016 at 20:14 PROCEDURE: US VENOUS LEG DUPLEX BILATERAL IMPRESSION: No deep venous thrombosis identified within either the left or right lower extremities. Dictated by: Shankar BARRETO Interpreted: Sobia Plunkett MD on 12/23/2016 at 9: 58 Transcribed by: SILVANA on 12/23/2016 at 9:58 PROCEDURE: CT ANGIO CHEST PULMONARY EMBOLISM ([id number]) IMPRESSION: 1. No pulmonary embolus. 2. Mild pulmonary edema associated with small bilateral pleural effusions. 3. Small amount of ascites. 4. Coronary artery disease. Cardiomegaly. Right heart failure. Dictated by: Julieta Gunn M.D. on 12/23/2016 at 13:33 Approved by: Julieta Gunn M.D. on 12/23/2016 at 13:39 12-lead ECG As noted in history of present illness Cardiac Echo Impressions Echocardiogram Report Interpretation Summary The ejection fraction is estimated to be 55-60%. Flattened septum is consistent with RV pressure/volume overload. The right ventricle is moderately dilated. Right ventricular systolic function is moderately reduced. The aortic valve is slightly calcified. The aortic valve is not well visualized. There is moderate tricuspid regurgitation. Right ventricular systolic pressure is estimated to be 39 mmHg plus the clinically estimated CVP which cannot be estimated on this exam. RV thrombus is suspected. Electronically signed by: Isra Valdez on Reading Physician:12/23/2016 11:08 AM Assessment & Plan 66-year-old female past medical history remarkable for COPD hypertension and alcohol dependency presents with acute respiratory failure. 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 - Pressor support with norepinephrine drip - IV fluids running at 100 mL's per hour, with cardiology recommendations and the central venous pressure of 15-16 mmHg - Consider formal cardiology consult tomorrow, without improvement - IV normal saline at 100 mils per hour with nursing checking CVP with goal of 15-16 # Acute on chronic respiratory failure with hypoxia and hypercapnia, present on admission, stable - Patient does have a history of COPD and looking at her bicarbonate level at admission she is likely CO2 retainer - CT PE protocol ordered failed to reveal pulmonary embolus - Unable to get a good history of events at this time but possible right lower lobe pneumonia will cover with IV Zosyn and IV Levaquin, sputum Gram stain and culture pending - a PCR respiratory, urine for strep pneumonia, urine for Legionella, all negative - Patient currently requires ventilatory support will monitor blood gases and adjust accordingly - We will use IV propofol drip when necessary and IV fentanyl drip when necessary - for possible COPD exacerbation as etiology continue IV Solu-Medrol, duo nebs every 4 hours and albuterol nebs every 2 hours when necessary - Even right heart failure consider likelihood for cor pulmonale with possible pulmonary fibrosis # Possible Right ventricular thrombus, present on admission, unstable - Seen on echocardiogram ordered for apparent volume overload due to right heart failure - CT PE protocol ordered failed to reveal pulmonary embolus - Heparin drip initially started for possible PE continued due to right ventricular thrombus # Acute encephalopathy, present on admission, considered stable - Possibly related to her hypercapnia but must also consider other etiologies - CT of head without contrast was negative - No focal deficits present on exam at admission - Patient remains intubated and sedated at this time - urine tox screen negative #Atrial fibrillation with rapid ventricular response, acute, present on admission, under evaluation stable - Not clear if she has a history of atrial fibrillation - Amiodarone drip # Hyponatremia and acute, present on admission, stable - May be related to dehydration and will pursue giving IV normal saline at 100 mils per hour with nursing checking CVP with goal of 15-16 # Alcohol dependency, present on admission, unstable - CIWA protocol ordered however patient is currently on fentanyl drip - Thiamine IV daily # Hypokalemia,Acute, present on admission - replete as needed DVT prophylaxis - IV heparin drip for right ventricular thrombus GI prophylaxis famotidine #CODE STATUS Patient is full code Disposition: patient will likely be inpatient for several more days requiring evaluation and treatment. GI Prophylaxis: H2 cielo VTE Prophylaxis: Other (currently assessing for stat d-dimer and possible need for IV heparin PE protocol) VTE Mechanical Devices: Intermittant Pneumatic CD Resuscitation Status: CPR: Attempt Resuscitation Attending Statement The patient was seen and examined together with Dr. Schneider on 12-23-16 and I agree with the history, exam and plan as outlined in the note above. Parth Schneider DO Dec 23, 2016 06:43 Saritha Orr MD Dec 24, 2016 12:35
--- NOTE | 2016-12-23 19:38 | PCM.PROC ---
Procedure Note Date of Service: Dec 23, 2016 Pre Procedure Diagnosis: Cardiogenic shock secondary to right sided heart failure Post Procedure Diagnosis: Cardiogenic shock secondary to right sided heart failure Procedure: Right central venous internal jugular line placement Provider and Assistant Professor Of Surgery: Dr. Parth Orr Indication for Procedure: Cardiogenic shock requiring intravenous pressor support Procedural Analgesia: 3mL of 1% lidocaine instilled in the subcutaneous skin Procedure Details: The patient was placed supine in a dependent position with her head rotated left appropriate for central line placement based on the right internal jugular vein to be cannulated. The patient's right IJ was then localized using ultrasound imaging and marked with a skin marker. The patients right neck was prepped with chlorhexidine and draped in sterile fashion. 1% Lidocaine was used to anesthetize the surrounding skin area. Initially a large bore introduction needle was used to gain access to the right IJ and the guide wire was able to successfully tread into the right IJ. An 11 blade scalpel was then used to phil the skin for the dilater catheter to be threaded over the guidewire. A triple lumen 7 cymro triple lumen catheter was the introduced into the the internal jugular using the Seldinger technique and under ultrasound guidance with a sterile probe cover. The catheter was threaded smoothly over the guide wire to the 4cm cristofer and appropriate blood return was obtained. Each lumen of the catheter was evacuated of air and flushed with sterile saline. The catheter was then secured in place to the skin with a sterile Tegaderm dressing applied. Perfusion to the extremity distal to the point of catheter insertion was checked and found to be adequate. Dr. Mario Alberto Cruz was present for the entire procedure. Dr. Orr was not present but immediately available for the entire procedure. Estimated Total Blood Loss: <15mL> A follow up chest xray resulted showed good placement of the catheter tip and no pneumothorax. The patient tolerated the procedure well and there were no complications. Post Procedure Plan: Stat chest x-ray to evaluate for pneumothorax and catheter tip placement Attending Statement The patient was seen and examined together with Dr. Schneider on 12-23-16 and I agree with the procedual note as written. I was available on the same floor, PCU?CCU, during the entirety of this procedure. Patient tolerated this procedure well, no complications noted, and placement was successful. Parth Schneider DO Dec 23, 2016 19:38 Saritha Orr MD Dec 24, 2016 16:51
[2016-12-23] MEDS: Thiamine Inj 200 MG in Dextrose 5% 50 ML IV SCH (20:13)
[2016-12-23] MEDS: Propofol Inj 1,000,000 MCG in IV Premix 1 EACH IV SCH (20:48)
[2016-12-23] MEDS: levoFLOXacin Inj 750 MG in IV Premix 1 EACH IV SCH (21:44)
[2016-12-24] VITALS (12 sets, daily range): BP systolic 105–165; BP diastolic 59–87; PULSE 116–138; RESP 16–17; O2SAT 95–98
[2016-12-24] MEDS: Albuterol-Ipratropium 3 mL Inhalation Solution NEB SCH ×5 (00:10→15:51)
[2016-12-24] MEDS: MethylprednisoLONE Sodium Succinate 62.5 mg/mL 2 mL Inj IVPUSH SCH ×3 (00:19→16:35)
[2016-12-24] MEDS: Piperacillin-Tazo 3.375 Gm Inj 3.375 GM in Dextrose 5% Minibag Plus 50 ML IV SCH ×3 (00:20→16:34)
[2016-12-24] MEDS: fentaNYL 2,500 mCg/250 mL 2,500 MCG in IV Premix 1 EACH IV SCH (00:26)
[2016-12-24] MEDS: Dexmedetomidine 400 mCg/100 mL 400 MCG in IV Premix 1 EACH IV SCH ×2 (00:26→11:32)
[2016-12-24] MEDS ORDERED: Amiodarone 150 mg/100 mL D5W 150 MG in IV Premix 1 EACH IV ONE ×2 (01:05→12:40)
[2016-12-24] MEDS: Insulin Human REGular 300 Unit/3 mL Inj SUBQ SCH ×4 (02:30→20:23)
[2016-12-24] MEDS: Heparin 25K Unit/500mL 0.45 NS 25,000 UNIT in IV Premix 1 EACH IV SCH (03:41)
[2016-12-24] MEDS: Amiodarone 360 mg/200 mL D5W 360 MG in IV Premix 1 EACH IV SCH ×2 (03:42→16:02)
[2016-12-24 05:27] LABS: BASOPHILS % (AUTO) 0 % (0-3); EOSINOPHILS % (AUTO) 0 % (0-5); Mean Corpuscular Hemoglobin 32.3 pg (27.0-35.0); Mean Corpuscular Volume 94.5 fL (81-100); NEUTROPHILS % (AUTO) 89.6 % (40-74); Platelet Count 142 bil/L (150-400)
[2016-12-24] MEDS: 0.9% Sodium Chloride 1,000 ML IV SCH (06:14)
[2016-12-24 06:28] LABS: Magnesium 1.9 mg/dL (1.6-2.6)
[2016-12-24] MEDS ORDERED: Potassium Chloride 40 mEq/100 mL Premix IV ONE ×2 (08:23→14:25)
[2016-12-24] MEDS ORDERED: KCl 40 mEq/100 mL (CENTRAL) 20 MEQ in IV Premix 1 EACH IV ONE (08:25)
[2016-12-24] MEDS: Famotidine Inj 20 MG in IV Premix 1 EACH IV SCH ×2 (08:25→20:21)
--- NOTE | 2016-12-24 09:08 | DRSVH ---
PROCEDURE: X-RAY CHEST ONE VIEW, PORTABLE ([id number]) INDICATIONS: pnemonia,intubated TECHNIQUE: One view of the chest was acquired. COMPARISON: [facility], CR, XR CHEST 1VW (PORTABLE), 12/23/2016, 5:18. [facility], CR, XR CHEST 1VW (PORTABLE), 12/22/2016, 18:39. [facility], CR, XR CHEST 1VW (PORT ABLE), 12/23/2016, 12:02. [facility], CT, CT ANGIO CHEST PE, 12/23/2016, 12:47. FINDINGS: Surgical changes and devices: Stable positioning of ETT, nasogastric tube and right IJ CVL. Lungs and pleura: Trace pleural effusions and bibasilar airspace opacities present medially slightly increased from prior chest radiograph. Mild edema redemonstrated. No pneumothorax. Mediastinum: Mediastinal contours appear normal. Heart size is normal. Bones and chest wall: No suspicious bony lesions. Overlying soft tissues appear unremarkable. IMPRESSION: 1. Persistent mild edema. 2. Small basal pleural effusions and airspace opacities consistent with patchy pulmonary edema versus atelectasis or pneumonia. Dictated by: Shankar Mandujano RRA Interpreted: Julieta Gunn MD on 12/24/2016 at 9:06 Transcribed by: ROB on 12/24/2016 at 9:07 Approved by: Julieta Gunn M.D. on 12/24/2016 at 11:07
--- NOTE | 2016-12-24 10:45 | PCM.PNMED ---
Subjective Date of Service Dec 24, 2016 Subjective Intensive Care/Pulmonology Consultation Note: Attending Dr. Aaliyah Ling is a 66-year-old female with a past medical history significant for hypertension and COPD who was brought to [facility] Emergency Department due to unresponsiveness requiring intubation. We were consulted for ventilator management. Hospital day #2. Overnight: The patient was given Ativan 2 mg IV 1 for agitation. There were no acute events. Telemetry overnight was atrial fibrillation, heart rate in 150s but slowly decreased to low 100s early this morning, with rare PVC. Subjective exam and review of systems are unobtainable as the patient is intubated and sedated. . Exam Vital Signs Vital Sign - Last Date Time Temp Pulse Resp B/P Pulse Ox O2 Delivery O2 Flow Rate FiO2 12/24/16 08:15 104 132/76 97 40 12/24/16 08:00 36.6 16 Mechanical Ventilator Intake and Output 12/23/16 12/23/16 12/24/16 Cumulative From/Thru 15:00 23:00 07:00 12/22/16 18:16 - 12/24/16 06:33 Intake Total 2227 ml 1969 ml 6598 ml Output Total 500 ml 750 ml 1750 ml Balance 1727 ml 1219 ml 4848 ml Intake IV Total 2227 ml 1969 ml 6598 ml Tube Feeding 0 ml Output Urine Total 450 ml 750 ml 1700 ml Gastric Drainage Total 50 ml 50 ml # Voids 0 Exam General: Middle-aged thin female lying in bed and in no acute distress, intubated and sedated. HEENT: Normocephalic, atraumatic. External ears without defect. Pupils equal, round, and reactive to light. Anicteric sclerae, moist conjunctivae, and no lid lag. Endotracheal and nasopharyngeal tube in place. Neck: Supple. Right IJ. Cardiovascular: Irregular rhythm without murmurs, rubs, or gallops appreciated. Pulmonary: Diffuse bronchial breath sounds in anterior lung wooten improved. No wheeze or crackles. Abdomen: Soft, nondistended, bowel sounds active. Genitourinary: Johnson catheter in place. Extremities: No cyanosis, clubbing, or edema. Neurologic: Easily arousable, opens eyes and follows commands. Ventilator settings: PRVC. Tidal volume 320. Respiratory rate 16. FiO2 40%. PEEP 5.0. ABG: PH 7.323. PCO2 56. PO2 93.5. HCO3 28.2. On PRVC an FiO2 of 40% with an SPO2 of 97.1% IV drips and Sedatives: Norepinephrine 0.2 mcg/kg/min. Precedex 0.7 mcg/kg/hr. Fentanyl 100mcg/hr. IV lines: Right IJ. I&O: Net +4848 mL. . IVs and Medications Medications Reviewed: Medications were reviewed in detail Lab and Diagnostics Item Value Date Time Calcium Level 8.4 mg/dL L 12/24/16 0500 Magnesium Level 1.9 mg/dL 12/24/16 0500 Total Bilirubin 0.7 mg/dL 12/24/16 0500 Aspartate Amino Transf (AST/SGOT) 18 U/L 12/24/16 0500 Alanine Aminotransferase (ALT/SGPT) 10 U/L 12/24/16 0500 Alkaline Phosphatase 52 U/L 12/24/16 0500 Total Protein 5.9 g/dL L 12/24/16 0500 Albumin 3.3 g/dL L 12/24/16 0500 Result Diagram: 12/24/16 0500 12/24/16 0500 Microbiology Blood culture 2 pending. MRSA screen negative. Streptococcus pneumoniae and legionella urine antigens negative. Sputum culture growing light normal prince. Respiratory viral PCR negative. . X-Rays, CTs and MRIs CT ANGIO CHEST PULMONARY EMBOLISM IMPRESSION: 1. No pulmonary embolus. 2. Mild pulmonary edema associated with small bilateral pleural effusions. 3. Small amount of ascites. 4. Coronary artery disease. Cardiomegaly. Right heart failure. Dictated by: Julieta Gunn M.D. on 12/23/2016 at 13:33 VENOUS LEG DUPLEX BILATERAL IMPRESSION: No deep venous thrombosis identified within either the left or right lower extremities. Dictated by: Shankar Mandujano [facility] Interpreted: Sobia Plunkett MD on 12/23/2016 at 9: 58 CT BRAIN WITHOUT CONTRAST IMPRESSION: No acute intracranial disease process. Dictated by: Rosaura Wisdom MD, PhD on 12/22/2016 at 20:12 X-RAY CHEST ONE VIEW, PORTABLE IMPRESSION: Small patchy airspace opacities in the right lung base and small right-sided pleural effusion suspicious for pneumonia. Dictated by: Rosaura Wisdom MD, PhD on 12/22/2016 at 18:51 Approved by: Rosaura Wisdom MD, PhD on 12/22/2016 at 18:52 . Cardiac Echo Impressions Echocardiogram Interpretation Summary: The ejection fraction is estimated to be 55-60%. Flattened septum is consistent with RV pressure/volume overload. The right ventricle is moderately dilated. Right ventricular systolic function is moderately reduced. The aortic valve is slightly calcified. The aortic valve is not well visualized. There is moderate tricuspid regurgitation. Right ventricular systolic pressure is estimated to be 39 mmHg plus the clinically estimated CVP which cannot be estimated on this exam. RV thrombus is suspected. Electronically signed by: Isra Valdez on Reading Physician:12/23/2016 11:08 AM . Assessment & Plan Virginia Ling is a 66-year-old female with a past medical history significant for hypertension and COPD who was brought to [facility] Emergency Department due to unresponsiveness requiring intubation. Hospital day #2. 1. Acute shock, unclear etiology, present on admission. Active. - Possibly cardiogenic versus less likely septic as patient has no source of infection or infectious markers. - Patient clinically volume overloaded with JVD and peripheral edema with echocardiographic and radiographic evidence of right sided heart failure. - Echocardiogram shows dilated right ventricle with right ventricular thrombus, as above. 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 - IV fluids with NS at 100 mL.hr with cardiology recommendations and the central venous pressure of 15-16 mmHg. However, need to be cautious with IV fluid resuscitation due to RV overload and to avoid to rapid over correction of sodium level and central pontine myelinosis. - Ordered VBG to assess etiology of shock, pending. 2. Acute on chronic hypoxemic and hypercapnia respiratory failure, present on admission. Active. - Patient does have a history of COPD and based on CO2 on admission was hypercapnic and likely CO2 retainer. Differential diagnosis includes: PE versus hepatic encephalopathy (CT showed abdominal ascites and history of alcohol use on HPI) versus unlikely CAP versus ACS. - Unable to get a good history of events at this time but possible right lower lobe pneumonia will cover with IV Zosyn and Levaquin. Per primary medical team may consider discontinuing. - Sputum culture and Gram stain, respiratory viral PCR, strep pneumoniae and legionella urine antigens all negative. Blood cultures 2 pending. - D-dimer elevated at >32.3 and IV heparin PE protocol initiated. - Echocardiogram revealed RVSP of 34 mmHg with evidence of RV overload and septal flattening with possible thrombus, as above. - CT angiography was negative for PE and revealed mild pulmonary edema associated with small bilateral pleural effusions and right heart failure, as above. - Also need to consider possible COPD exacerbation as etiology IV Solu-Medrol, duo nebs every 4 hours and albuterol nebs every 2 hours when necessary - Continue ventilator at settings above but consider increasing TV from 320 to 350. - Continue to monitor ABG daily for vent management. - Continue fentanyl and Precedex for sedation, as above. Consider sedation vacation and SBT once stable. 3. Acute encephalopathy, present on admission. Active. - Possibly related to her hypercapnia but must also consider other etiologies. Differential diagnosis includes: PE versus hepatic encephalopathy (CT showed abdominal ascites and history of alcohol use on HPI) versus unlikely CAP versus ACS. - CT brain without contrast was negative for any acute intracranial abnormality , as above. - Non-focal on exam. - Alcohol level and urine drug screen negative. - Cautious IV fluid resuscitation due to RV overload and to avoid to rapid over correction of sodium level and central pontine myelinosis. - Discontinued Precedex. Continue Fentanyl for sedation for now. 4. Pulmonary hypertension, acuity unknown, present on admission. Active. - Likely secondary to COPD but possibly PE/RV thrombus. - Cautious with fluid resuscitation. - Echocardiogram revealed RVSP of 34 mmHg with evidence of RV overload and septal flattening with possible thrombus, as above. 5. Acute respiratory alkalosis with partial metabolic compensation, present on admission. - Continue ventilator with settings as above. - Treat COPD as above under problem #2. - Also treat underlying etiology of shock under problem #1. 6. Atrial fibrillation with RVR, acuity unknown, present on admission. Active. - Unclear if she has a history of atrial fibrillation. - PE possible based on echocardiogram, however, CTA revealed no PE. - Serial troponins have been negative. - Amiodarone gtt started per primary medical team. 7. Acute hyponatremia, present on admission. Active. - Likely related to dehydration and possibly beer potomania. - Continuing IV normal saline at 100 mL/hr and monitor sodium level closely to avoid to rapid over correction central pontine myelinosis. - Monitor sodium level daily. 8. Acute hypokalemia, present on admission. Active. - Possibly secondary to beer potomania. - Replete as needed. - Monitor potassium level daily. 8. Acute hypomagnesemia, present on admission. Active. - Possibly secondary to beer potomania. - Replete as needed. - Monitor magnesium level daily. Chronic problems with management per primary team. Disposition: Several days and depending upon clinical course. . GI Prophylaxis: H2 cielo VTE Prophylaxis: Other (currently assessing for stat d-dimer and possible need for IV heparin PE protocol) VTE Mechanical Devices: Intermittant Pneumatic CD Resuscitation Status: CPR: Attempt Resuscitation Attending Statement I have seen and examined this patient with the resident physician. Vital signs , labs, imaging have been reviewed. I agree with the assessment and plan above. Please refer to my separately dictated progress note for any modifications to above. Yamini Fischer M.D. Pulmonary and Critical Care medicine Pager [phone] Nneka Greene DO Dec 24, 2016 10:45 Yamini Fischer MD Dec 24, 2016 18:10
--- NOTE | 2016-12-24 11:43 | ABG ---
DateTimeAnalyzed 06:00:00 -_ pH ____7.343 - 7.350 7.450 pCO2 ___52.6__ -mmHg 35.0 45.0 pO2 ___72.7__ -mmHg 69.0 116 HCO3- ___27.8__ -mmol/L 22.0 26.0 ABE ____1.5__ -mmol/L -2.0 2.0 tHb ___14.3__ -g/dL O2Hb ___91.8__ -% COHb ____1.4__ -% MetHb ____0.7__ -% sO2 ___93.8__ -% FIO2 ___21.0__ -% PEEP ____5.0__ -cmH2O Set_RR ___16.0__ -b/min Vt __320.0__ -L Drawn By MD - Date/Time Notified____ 11:43:00 -_ Spontaneous_RR ___16.0__ -b/min Oxygen Device 1 VENTILATOR - Notified By MD - Notified Whom MEGAN HERLICKSON, RN -_ B 760 -mmHg tO2 ___18.5__ -Vol% Lance test _Positive -
--- NOTE | 2016-12-24 11:44 | ABG ---
DateTimeAnalyzed 11:40:00 -_ pH ____7.392 - pCO2 ___49.2__ -mmHg pO2 ___42.9__ -mmHg HCO3- ___29.3__ -mmol/L ABE ____3.9__ -mmol/L tHb ___13.9__ -g/dL O2Hb ___76.9__ -% COHb ____1.4__ -% MetHb ____0.8__ -% sO2 ___78.6__ -% FIO2 ___40.0__ -% PEEP ____5.0__ -cmH2O Set_RR ___16.0__ -b/min Vt __400.0__ -L Drawn By as - Date/Time Notified____ 11:44:00 -_ Spontaneous_RR ___16.0__ -b/min Oxygen Device 1 VENTILATOR - Notified By AMS - Notified Whom YUSUF FONTANEZ, RN -__ B 756 -mmHg tO2 ___15.0__ -Vol% Lance test N/A -
[2016-12-24] MEDS: Norepineph 8,000 mCg/250 mL NS 8,000 MCG in IV Premix 1 EACH IV SCH (11:55)
[2016-12-24] MEDS ORDERED: Amiodarone 150 mg/100 mL D5W 150 MG in IV Premix 1 EACH IV PRN (12:41)
[2016-12-24] MEDS ORDERED: Furosemide 10 mg/mL 2 mL Inj IV ONE (14:00)
[2016-12-24] MEDS: Furosemide Inj 100 MG in 0.9% Sodium Chloride 90 ML IVPUSH SCH (15:22)
[2016-12-24] MEDS ORDERED: Sodium Chloride LOK Flush 10 mL Syringe IVFLUSH PRN (16:10)
[2016-12-24] MEDS: Chlorhexidine 0.12% 15 mL Oral Solution MT SCH ×2 (16:34→20:21)
--- NOTE | 2016-12-24 17:27 | PROG NOTE ---
[address] [address] PROGRESS NOTE PATIENT: RAPHAEL SLATER : 1950 MR#: [id number] ADMIT: 12/22/2016 JOB ID: [id number] DATE: 12/24/2016 PULMONARY CRITICAL CARE PROGRESS NOTE: The patient is a 66-year-old woman with a history of COPD, admitted with acute respiratory failure. The patient was seen and evaluated with resident physician, Nneka Greene DO. Please refer to her separate detailed note for additional information. INTERVAL HISTORY: She was successfully weaned off of vasopressors this morning. INTERVAL HISTORY: She was successfully weaned off of her vasopressor this morning. Remains in rapid atrial fibrillation, however, with heart rates around 150 despite amiodarone drip. REVIEW OF SYSTEMS: Unable to obtain since the patient is intubated. PHYSICAL EXAMINATION: Vital signs reviewed. Temperature 36.6, pulse 132, respirations 16, BP 126/60, saturation 96% on FiO2 40%, PEEP of 5 cm. General: Intubated sedated unresponsive. Chest: Bilateral wheezing. LABORATORIES: Reviewed. WBC 10.5. Chemistry also reviewed. Sodium is 126, potassium 2.9, creatinine 0.72. Procalcitonin 0.05 on three separate checks. Cultures: Respiratory viral PCR panel is negative. MRSA screen is negative. Blood cultures negative. Sputum cultures negative. Chest x-ray from today shows some patchy basilar infiltrates, but no focal abnormality. Cardiomegaly. Right IJ line in appropriate position. ET tube in appropriate position. CT of the chest, PE protocol, from December 23, 2016 shows no pulmonary embolism but the pulmonary artery diameter is large at 3.1 cm and larger than aortic diameter. She has small bilateral pleural effusions. She has interlobular septal thickening, more so in the upper lung zones, consistent with pulmonary edema/volume overload. Right ventricle is dilated, with flattening of the interventricular septum and reflux of contrast down the IVC into the hepatic vein consistent with RV pressure overload findings. ASSESSMENT: 1. Acute hypoxic respiratory failure. 2. Biventricular failure, likely right heart failure due to cor pulmonale and diastolic heart failure. 3. Shock, septic versus cardiogenic. 4. Rapid atrial fibrillation. RECOMMENDATIONS: This 66-year-old woman with history of COPD presented in respiratory failure with echo and CT evidence of RV dysfunction and high pressures, and also evidence of pulmonary edema based on BNP of [address] findings of interlobular septal thickening. I really think we should start diuresing her. We stopped all the IV fluids. We started Lasix drip and will titrate this up as tolerated now that she is off pressors. I still do not have a good explanation for her hypotension. Certainly seems to be no evidence of pneumonia and her procalcitonin has been negative times x3, as have been all cultures. She remains on antibiotics and if all of her testing remains negative then I think it is okay to stop antibiotics at this point, especially since she is off pressors. We tried increasing her PEEP slightly from 5 to 10 but this seemed to worsen her heart rate, so we went back down to five. She is on amiodarone drip at this point and we repeated a 2nd amiodarone bolus of 150 IV but her heart rate remains in the 150s. We may have to add a 2nd agent such as diltiazem if this does not help either. TIME: Critical care time 60 minutes.
[2016-12-24] MEDS ORDERED: Digoxin 0.25 mg/mL 2 mL Inj IV ONE ×2 (17:50→23:40)
[2016-12-24] MEDS: MeTOProlol 1 mg/mL 5 mL Inj IVPUSH PRN (20:20)
[2016-12-24] MEDS: Thiamine Inj 200 MG in Dextrose 5% 50 ML IV SCH (20:21)
[2016-12-24] MEDS: Propofol Inj 1,000,000 MCG in IV Premix 1 EACH IV SCH (20:55)
--- NOTE | 2016-12-24 21:41 | PCM.PNMED ---
Subjective Date of Service Dec 24, 2016 Subjective overnight: Heart rate increased to 160 to 180 with amiodarone bolus given, Ativan and Precedex treated restlessness heart rate improved. No acute events otherwise Today: Central venous oxygenation increased consideration for sepsis continued. Patient was able to be titrated off norepinephrine pressor support. Atrial fibrillation treated towards the end of the day with digoxin 0.25 mg with recommendations to try another 0.25 mg bolus after 6 hours of horizontal improve. We will consider cardiology evaluation in the a.m. IV Lasix drip started for volume overload. Exam Vital Signs Vital Sign - Last Date Time Temp Pulse Resp B/P Pulse Ox O2 Delivery O2 Flow Rate FiO2 12/24/16 04:00 36.0 121 16 125/59 98 Mechanical Ventilator 40 Intake and Output 12/23/16 12/23/16 12/24/16 Cumulative From/Thru 15:00 23:00 07:00 12/22/16 18:16 - 12/24/16 06:33 Intake Total 2227 ml 1969 ml 6598 ml Output Total 500 ml 750 ml 1750 ml Balance 1727 ml 1219 ml 4848 ml Intake IV Total 2227 ml 1969 ml 6598 ml Tube Feeding 0 ml Output Urine Total 450 ml 750 ml 1700 ml Gastric Drainage Total 50 ml 50 ml # Voids 0 Exam General: thin female lying in bed intubated and sedated. Eyes: Pupils equal, round, and reactive to light. anicteric sclerae, moist conjunctivae HENT: Normocephalic, atraumatic. Endotracheal and oropharyngeal tube in place. External ears without defect. Neck: Supple. Mild JVD trachea, midline, No lymphadenopathy or thyromegaly. Cardiovascular: tachycardia without murmurs, rubs, or gallops appreciated. Pulmonary: Relatively clear to auscultation bilaterally. No wheeze or crackles. Abdomen: Soft, nondistended, bowel sounds normoactive. Genitourinary: Johnson catheter in place. Extremities: Pulses intact in radial and and decreased dorsalis pedis bilaterally. Moderate pitting Edema noted in legs bilaterally worse on right than left, No cyanosis, clubbing Neurologic: Unable to assess Psych: Unable to assess Lab and Diagnostics Result Diagram: 12/24/16 0500 12/24/16 0500 X-Rays, CTs and MRIs PROCEDURE: X-RAY CHEST ONE VIEW, PORTABLE ([id number]) IMPRESSION: Small patchy airspace opacities in the right lung base and small right-sided pleural effusion suspicious for pneumonia. Dictated by: Rosaura Wisdom MD, PhD on 12/22/2016 at 18:51 Approved by: Rosaura Wisdom MD, PhD on 12/22/2016 at 18:52 PROCEDURE: CT BRAIN WITHOUT CONTRAST ([id number]) IMPRESSION: No acute intracranial disease process. Dictated by: Rosaura Wisdom MD, PhD on 12/22/2016 at 20:12 Approved by: Rosaura Wisdom MD, PhD on 12/22/2016 at 20:14 PROCEDURE: US VENOUS LEG DUPLEX BILATERAL IMPRESSION: No deep venous thrombosis identified within either the left or right lower extremities. Dictated by: Shankar Mandujano [facility] Interpreted: Sobia Plunkett MD on 12/23/2016 at 9: 58 Transcribed by: SILVANA on 12/23/2016 at 9:58 PROCEDURE: CT ANGIO CHEST PULMONARY EMBOLISM ([id number]) IMPRESSION: 1. No pulmonary embolus. 2. Mild pulmonary edema associated with small bilateral pleural effusions. 3. Small amount of ascites. 4. Coronary artery disease. Cardiomegaly. Right heart failure. Dictated by: Julieta Gunn M.D. on 12/23/2016 at 13:33 Approved by: Julieta Gunn M.D. on 12/23/2016 at 13:39 12-lead ECG As noted in history of present illness Cardiac Echo Impressions Echocardiogram Report Interpretation Summary The ejection fraction is estimated to be 55-60%. Flattened septum is consistent with RV pressure/volume overload. The right ventricle is moderately dilated. Right ventricular systolic function is moderately reduced. The aortic valve is slightly calcified. The aortic valve is not well visualized. There is moderate tricuspid regurgitation. Right ventricular systolic pressure is estimated to be 39 mmHg plus the clinically estimated CVP which cannot be estimated on this exam. RV thrombus is suspected. Electronically signed by: Isra Valdez on Reading Physician:12/23/2016 11:08 AM Assessment & Plan 66-year-old female past medical history remarkable for COPD hypertension and alcohol dependency presents with acute respiratory failure. 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 - Patient was able to be titrated off Pressor support with norepinephrine drip - Consider formal cardiology consult tomorrow, without improvement - Discontinued IV normal saline at 100 mils per hour given appearance of volume overload and now no longer requiring pressors - Two amiodarone boluses given today with limited improvement in heart rate - Digoxin 0.25 mg given with recommendations to readminister 0.25 mg if her heart rate fails to improve overnight - Discontinue of nebulizers given possibility of tachycardia due to albuterol - Initiate Lasix drip IV therapy for volume overload # Acute on chronic respiratory failure with hypoxia and hypercapnia, present on admission, stable - Patient does have a history of COPD and looking at her bicarbonate level at admission she is likely CO2 retainer - CT PE protocol ordered failed to reveal pulmonary embolus - Unable to get a good history of events at this time but possible right lower lobe pneumonia will cover with IV Zosyn and IV Levaquin, sputum Gram stain and culture pending - a PCR respiratory, urine for strep pneumonia, urine for Legionella, all negative - Patient currently requires ventilatory support will monitor blood gases and adjust accordingly - We will use IV propofol drip when necessary and IV fentanyl drip when necessary - for possible COPD exacerbation as etiology continue IV Solu-Medrol, however discontinue duo nebs every 4 hours and albuterol nebs every 2 hours due to tachycardia described above - right heart failure consider likelihood for cor pulmonale with possible pulmonary fibrosis - Initiate Lasix drip IV therapy for volume overload # Possible Right ventricular thrombus, present on admission, unstable - Seen on echocardiogram ordered for apparent volume overload due to right heart failure - CT PE protocol ordered failed to reveal pulmonary embolus - Heparin drip initially started for possible PE continued due to right ventricular thrombus # Acute encephalopathy, present on admission, considered stable - Possibly related to her hypercapnia but must also consider other etiologies - CT of head without contrast was negative - No focal deficits present on exam at admission - Patient remains intubated and sedated at this time - urine tox screen negative #Atrial fibrillation with rapid ventricular response, acute, present on admission, under evaluation stable - Not clear if she has a history of atrial fibrillation - Amiodarone drip - Two amiodarone boluses given today with limited improvement in heart rate - Digoxin 0.25 g given with recommendations to readminister 0.25 mg if her heart rate fails to improve overnight - Discontinue of nebulizers given possibility of tachycardia due to albuterol # Hyponatremia and acute, present on admission, stable - May be related to dehydration - Discontinue IV normal saline at 100 mils per hour given volume overload # Alcohol dependency, present on admission, unstable - CIWA protocol ordered however patient is currently on fentanyl drip - Thiamine IV daily # Hypokalemia,Acute, present on admission - replete as needed DVT prophylaxis - IV heparin drip for right ventricular thrombus GI prophylaxis famotidine #CODE STATUS Patient is full code Disposition: patient will likely be inpatient for several more days requiring evaluation and treatment. GI Prophylaxis: H2 cielo VTE Prophylaxis: Other (currently assessing for stat d-dimer and possible need for IV heparin PE protocol) VTE Mechanical Devices: Intermittant Pneumatic CD Resuscitation Status: CPR: Attempt Resuscitation Attending Statement The patient was seen and examined together with Dr. Schneider on 12-24-16 and I agree with the history, exam and plan as outlined in the note above. Parth Schneider DO Dec 24, 2016 07:57 Saritha Orr MD Dec 25, 2016 13:29
[2016-12-24] MEDS: levoFLOXacin Inj 750 MG in IV Premix 1 EACH IV SCH (22:15)
[2016-12-24] MEDS: Ipratropium 0.02% 0.5 mg/2.5 mL Inhalation Solution NEB PRN (23:24)
[2016-12-25] VITALS (12 sets, daily range): BP systolic 84–181; BP diastolic 44–111; PULSE 89–125; RESP 10–16; O2SAT 93–99
[2016-12-25] MEDS: Chlorhexidine 0.12% 15 mL Oral Solution MT SCH ×6 (00:12→21:01)
[2016-12-25] MEDS: Piperacillin-Tazo 3.375 Gm Inj 3.375 GM in Dextrose 5% Minibag Plus 50 ML IV SCH ×3 (00:14→16:04)
[2016-12-25] MEDS: MethylprednisoLONE Sodium Succinate 62.5 mg/mL 2 mL Inj IVPUSH SCH ×3 (00:35→16:03)
[2016-12-25] MEDS: Insulin Human REGular 300 Unit/3 mL Inj SUBQ SCH ×4 (02:30→21:05)
[2016-12-25] MEDS: MeTOProlol 1 mg/mL 5 mL Inj IVPUSH PRN ×2 (03:52→08:03)
[2016-12-25] MEDS: KCl 40 mEq/100 mL IV Premix (K < 3 & Creat <2) IV SCH ×2 (03:52→07:36)
[2016-12-25] MEDS: Amiodarone 360 mg/200 mL D5W 360 MG in IV Premix 1 EACH IV SCH ×2 (03:52→12:25)
[2016-12-25] MEDS: fentaNYL 2,500 mCg/250 mL 2,500 MCG in IV Premix 1 EACH IV SCH ×2 (06:52→20:55)
[2016-12-25 06:55] LABS: BASOPHILS % (AUTO) 0.1 % (0-3); EOSINOPHILS % (AUTO) 0 % (0-5); Mean Corpuscular Hemoglobin 32.4 pg (27.0-35.0); Mean Corpuscular Volume 93.6 fL (81-100); NEUTROPHILS % (AUTO) 93.1 % (40-74); Platelet Count 145 bil/L (150-400)
[2016-12-25] MEDS: Thiamine Inj 200 MG in Dextrose 5% 50 ML IV SCH (07:36)
[2016-12-25] MEDS: Dexmedetomidine 400 mCg/100 mL 400 MCG in IV Premix 1 EACH IV SCH ×3 (07:39→20:56)
[2016-12-25 07:40] LABS: Magnesium 1.2 mg/dL (1.6-2.6)
[2016-12-25] MEDS: Furosemide Inj 100 MG in 0.9% Sodium Chloride 90 ML IVPUSH SCH ×2 (07:44→14:48)
[2016-12-25] MEDS: Famotidine Inj 20 MG in IV Premix 1 EACH IV SCH ×2 (07:49→20:57)
[2016-12-25] MEDS ORDERED: Magnesium Sulf 4 Gm/100 mL H2O 4 GM in IV Premix 1 EACH IV ONE (08:05)
--- NOTE | 2016-12-25 08:32 | ABG ---
DateTimeAnalyzed 08:29:00 -_ pH ____7.536 - 7.350 7.450 pCO2 ___42.6__ -mmHg 35.0 45.0 pO2 ___57.8__ -mmHg 69.0 116 HCO3- ___36.0__ -mmol/L 22.0 26.0 ABE ___11.9__ -mmol/L -2.0 2.0 tHb ___14.7__ -g/dL O2Hb ___89.7__ -% COHb ____1.6__ -% MetHb ____0.9__ -% sO2 ___92.0__ -% FIO2 ___40.0__ -% PEEP ____5.0__ -cmH2O Set_RR ___16.0__ -b/min Vt __400.0__ -L Drawn By as - Date/Time Notified____ 08:32:00 -_ Spontaneous_RR ___16.0__ -b/min Oxygen Device 1 VENTILATOR - Notified By AMS - Notified Whom DR HASANDRAS - B 748 -mmHg tO2 ___18.5__ -Vol% Lance test _Positive -
[2016-12-25] MEDS: Norepineph 8,000 mCg/250 mL NS 8,000 MCG in IV Premix 1 EACH IV SCH (09:05)
--- NOTE | 2016-12-25 09:14 | DRSVH ---
PROCEDURE: X-RAY CHEST ONE VIEW, PORTABLE ([id number]) INDICATIONS: pnemonia,intubated TECHNIQUE: One view of the chest was acquired. COMPARISON: [facility], CR, XR CHEST 1VW (PORTABLE), 12/24/2016, 5:16. FINDINGS: Surgical changes and devices: Tubes and lines are stable compared to prior examination. Lungs and pleura: Patchy opacity noted in the left lung base which could represent atelectasis, pneum onia or aspiration. Right basilar opacity has almost completely resolved. Mediastinum: Mediastinal contours appear normal. Heart size is normal. Bones and chest wall: No suspicious bony lesions. Overlying soft tissues appear unremarkable. IMPRESSION: Stable left basilar opacity suspicious for aspiration versus pneumonia. Right basilar opa city has resolved. Dictated by: Rosaura Wisdom MD, PhD on 12/25/2016 at 9:12 Approved by: Rosaura Wsidom MD, PhD on 12/25/2016 at 9:13
[2016-12-25] MEDS: Heparin 25K Unit/500mL 0.45 NS 25,000 UNIT in IV Premix 1 EACH IV SCH (10:27)
--- NOTE | 2016-12-25 10:32 | ABG ---
DateTimeAnalyzed 10:29:00 -_ pH ____7.494 - 7.350 7.450 pCO2 ___45.9__ -mmHg 35.0 45.0 pO2 ___67.4__ -mmHg 69.0 116 HCO3- ___35.0__ -mmol/L 22.0 26.0 ABE ___10.3__ -mmol/L -2.0 2.0 tHb ___14.8__ -g/dL O2Hb ___91.8__ -% COHb ____1.5__ -% MetHb ____0.9__ -% sO2 ___94.1__ -% FIO2 ___40.0__ -% PEEP ___10.0__ -cmH2O Set_RR ___10.0__ -b/min Vt __400.0__ -L Drawn By as - Date/Time Notified____ 10:32:00 -_ Spontaneous_RR ___13.0__ -b/min Oxygen Device 1 VENTILATOR - Notified By ams - Notified Whom DR HASANDRAS - B 751 -mmHg tO2 ___19.1__ -Vol% Lance test _Positive -
[2016-12-25 12:51] LABS: Magnesium 3.1 mg/dL (1.6-2.6)
[2016-12-25] MEDS: KCl 40 mEq/100 mL Premix (K 3 - 3.7 & Creat < 2) IV SCH ×2 (14:07→17:14)
--- NOTE | 2016-12-25 14:55 | PROG NOTE ---
[address] [address] PROGRESS NOTE PATIENT: RAPHAEL SLATER : 1950 MR#: [id number] ADMIT: 12/22/2016 JOB ID: [id number] DATE: 12/25/2016 PROBLEMS: 1. Shock. 2. Acute on chronic hypoxemic hypercarbic respiratory failure. 3. Encephalopathy. 4. Pulmonary hypertension. Mild to moderate. 5. Atrial fibrillation with rapid ventricular response. 6. Hyponatremia. 7. Hypokalemia. 8. Hypomagnesemia. SUBJECTIVE: None. OBJECTIVE: Temperature 37.6, with T-max 38.5. Pulse 86-105. Respiratory rate 14-16. Blood pressure 139/85. O2 sat on FiO2 of 40%, PEEP of 10 is 95%. General appearance: Sedated on the ventilator. Responds to touch though no cognitive function. Chest: Somewhat decreased breath sounds. There are diffuse crackles throughout both lung wooten with a high-pitched expiratory crackle as well. Heart relatively regular rhythm. Heart tones seem normal. Abdomen soft. Bowel tones present. Extremities: No pretibial edema. LABORATORY DATA: Shows a white count of 18,300, which has been increasing. Marked neutrophilia with 93 polymorphonuclears, 2, lymphs, 4 monos. Hemoglobin 14.2 and stable over the last two days. Platelet count 145,000 and stable. Sodium 131, potassium 3.4, chloride 87, CO2 30, BUN 16, with a creatinine 0.7. Last lactate drawn yesterday at noon was 2.2. Calcium 8.6. Magnesium initially 1.2 but has risen to 3.1. Transaminases and alkaline phosphatase are normal. Procalcitonin is 0.06. Chest x-ray shows some patchy infiltrates at the left lower lung field. Improved right basilar opacity. ASSESSMENT: 1. Shock. Has resolved. Etiology of his shock unclear. Perhaps sepsis. Most likely a multifactorial problem. Remain concerned about pulmonary embolism as that might have broken up moved peripherally with reduction in the central pressures, but it is hard to put together all her findings and come up with cor pulmonale causing shock. 2. COPD. Likely severe. Peak inspiratory pressure is 30, with a plateau of 21, suggesting some degree of airflow obstruction. Will consider bronchodilators. Currently receiving ipratropium p.r.n., last administered dose being last night. 3. Rapid atrial fibrillation. Seems to have resolved. Now has an appropriate ventricular rate. Presumably due to the antiarrhythmics but may be just as important to have the oxygenation and ventilation controlled. 4. Cor pulmonale. Mild to moderate in degree of pressure elevation. Presumably from her COPD. However, I do not think that in and of itself adequately explains the initial shock. Probably due to ventricular rate, possibly PE. Does not seem to have significant underlying left ventricular cardiac disease. 5. Acute on chronic hypoxemic hypercarbic respiratory failure. On generous ventilator settings at this point. No evidence of auto PEEP. Has some mild to moderate obstructive airways disease. Will consider bronchodilators using the antimuscarinics in order to try to avoid a precipitation of repeat tachyarrhythmias. PLAN: 1. Continue current regimen. 2. Consider more frequent dosing of ipratropium. 3. Agree with continued diuresis. Time spent so far in critical care 64 minutes.
--- NOTE | 2016-12-25 16:39 | PCM.PNMED ---
Subjective Date of Service Dec 25, 2016 Subjective overnight: Patient alert rate sustained in the 150s given a second loading dose of digoxin 0.25 mg at midnight heart rate remained elevated overnight then gave 5 mg metoprolol with improved heart rate. No acute events otherwise noted. Today: Heart rate has stabilized in the 90s. Patient no longer required pressor support actually converted to more hypertensive pressures in the 160s. Metoprolol IV used to control both heart rate and blood pressure at this point. Discussed with pharmacy about the need for additional digoxin but appears to this is a 6 hour drug most likely out of the system at this point will no longer be required to control A. fib with RVR. This morning the patient developed a fever of 38.5 and the axillary, chest x-ray has improved on the right but still remains with a left lower pneumonia possibility. ProcalAmine started today. Leukocytosis originally thought to be due to steroid use could now be a sign of pneumonia. Patient has had hypertension with systolic blood pressures in the 160s improved on only Ativan likely consistent with alcohol withdrawal. Exam Vital Signs Vital Sign - Last Date Time Temp Pulse Resp B/P Pulse Ox O2 Delivery O2 Flow Rate FiO2 12/25/16 04:38 105 161/84 96 40 12/24/16 20:15 37.8 16 Mechanical Ventilator Intake and Output 12/24/16 12/24/16 12/25/16 Cumulative From/Thru 15:00 23:00 07:00 12/22/16 18:16 - 12/25/16 06:22 Intake Total 1812 ml 1143 ml 9553 ml Output Total 1255 ml 1625 ml 4630 ml Balance 557 ml -482 ml 4923 ml Intake IV Total 1812 ml 1143 ml 9553 ml Tube Feeding 0 ml 0 ml Output Urine Total 1250 ml 1625 ml 4575 ml Gastric Drainage Total 5 ml 55 ml # Voids 0 # Bowel Movements 0 0 0 Exam General: thin female lying in bed intubated and sedated. Eyes: Pupils equal, round, and reactive to light. anicteric sclerae, moist conjunctivae HENT: Normocephalic, atraumatic. Endotracheal and oropharyngeal tube in place. External ears without defect. Neck: Supple. no JVD, trachea, midline, No lymphadenopathy or thyromegaly. Cardiovascular: tachycardia without murmurs, rubs, or gallops appreciated. Pulmonary: Mild coarse breath sounds on the left lower axillary base clear on right to auscultation. Wheezing has improved. Abdomen: Soft, nondistended, bowel sounds normoactive. Genitourinary: Johnson catheter in place. Extremities: Pulses intact in radial and and decreased dorsalis pedis bilaterally. Moderate pitting Edema noted in legs bilaterally worse on right than left, No cyanosis, clubbing Neurologic: Unable to assess Psych: Unable to assess Lab and Diagnostics Result Diagram: 12/25/16 0625 12/25/16 0145 Microbiology Blood culture 2 pending. MRSA screen negative. Streptococcus pneumoniae and legionella urine antigens negative. Sputum culture growing light normal prince. Respiratory viral PCR negative. . X-Rays, CTs and MRIs PROCEDURE: X-RAY CHEST ONE VIEW, PORTABLE ([id number]) IMPRESSION: Small patchy airspace opacities in the right lung base and small right-sided pleural effusion suspicious for pneumonia. Dictated by: Rosaura Wisdom MD, PhD on 12/22/2016 at 18:51 Approved by: Rosaura Wisdom MD, PhD on 12/22/2016 at 18:52 PROCEDURE: CT BRAIN WITHOUT CONTRAST ([id number]) IMPRESSION: No acute intracranial disease process. Dictated by: Rosaura Wisdom MD, PhD on 12/22/2016 at 20:12 Approved by: Rosaura Wisdom MD, PhD on 12/22/2016 at 20:14 PROCEDURE: US VENOUS LEG DUPLEX BILATERAL IMPRESSION: No deep venous thrombosis identified within either the left or right lower extremities. Dictated by: Shankar BARRETO Interpreted: Sobia Plunkett MD on 12/23/2016 at 9: 58 Transcribed by: SILVANA on 12/23/2016 at 9:58 PROCEDURE: CT ANGIO CHEST PULMONARY EMBOLISM ([id number]) IMPRESSION: 1. No pulmonary embolus. 2. Mild pulmonary edema associated with small bilateral pleural effusions. 3. Small amount of ascites. 4. Coronary artery disease. Cardiomegaly. Right heart failure. Dictated by: Julieta Gunn M.D. on 12/23/2016 at 13:33 Approved by: Julieta Gunn M.D. on 12/23/2016 at 13:39 PROCEDURE: X-RAY CHEST ONE VIEW, PORTABLE ([id number]) IMPRESSION: Stable left basilar opacity suspicious for aspiration versus pneumonia. Right basilar opacity has resolved. Dictated by: Rosaura Wisdom MD, PhD on 12/25/2016 at 9:12 Approved by: Rosaura Wisdom MD, PhD on 12/25/2016 at 9:13 Cardiac Echo Impressions Echocardiogram Report Interpretation Summary The ejection fraction is estimated to be 55-60%. Flattened septum is consistent with RV pressure/volume overload. The right ventricle is moderately dilated. Right ventricular systolic function is moderately reduced. The aortic valve is slightly calcified. The aortic valve is not well visualized. There is moderate tricuspid regurgitation. Right ventricular systolic pressure is estimated to be 39 mmHg plus the clinically estimated CVP which cannot be estimated on this exam. RV thrombus is suspected. Electronically signed by: Isra Valdez on Reading Physician:12/23/2016 11:08 AM Assessment & Plan 66-year-old female past medical history remarkable for COPD hypertension and alcohol dependency presents with acute respiratory failure. 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 - Patient was able to be titrated off Pressor support with norepinephrine drip - Consider formal cardiology consult tomorrow, without improvement - Discontinued IV normal saline at 100 mils per hour given appearance of volume overload and now no longer requiring pressors - Two amiodarone boluses given today with limited improvement in heart rate - Digoxin 0.25 g given with readministered 0.25 mg due to to continued tachycardia - Discontinue of albuterol nebulizers given possibility of tachycardia due to albuterol, continue with ipratropium advisors - continue Lasix drip IV therapy for volume overload - Heart rate has been maintained on amiodarone drip with 1 dose of metoprolol 5 mg given today we will attempt to control heart rate with amiodarone only - Given time course between last dosing of digoxin please consult with pharmacy prior to any readministration of digoxin 2 Acute on chronic respiratory failure with hypoxia and hypercapnia, present on admission, stable - Patient does have a history of COPD and looking at her bicarbonate level at admission she is likely CO2 retainer - CT PE protocol ordered failed to reveal pulmonary embolus - Unable to get a good history of events at this time but possible right lower lobe pneumonia will cover with IV Zosyn and IV Levaquin, sputum Gram stain and culture pending - a PCR respiratory, urine for strep pneumonia, urine for Legionella, all negative - Patient currently requires ventilatory support will monitor blood gases and adjust accordingly - We will use IV propofol drip when necessary and IV fentanyl drip when necessary - for possible COPD exacerbation as etiology continue IV Solu-Medrol, however discontinue duo nebs every 4 hours and albuterol nebs every 2 hours due to tachycardia described above - right heart failure consider likelihood for cor pulmonale with possible pulmonary fibrosis - Initiate Lasix drip IV therapy for volume overload - Cannot discount the possibility of a pneumonia given consistent findings in Left lower lung on x-ray 3 Possible Right ventricular thrombus, present on admission, unstable - Seen on echocardiogram ordered for apparent volume overload due to right heart failure - CT PE protocol ordered failed to reveal pulmonary embolus - Heparin drip initially started for possible PE continued due to right ventricular thrombus 4 possible pneumonia, present on admission, considered stable - X-ray imaging after diuresis shows a possible left lower lobe pneumonia - Procalcitonin remains negative however increasing white blood cell count could be attributed to an infection in addition to steroid use for COPD exacerbation - Continue Zosyn 5 Acute encephalopathy, present on admission, considered stable - Possibly related to her hypercapnia but must also consider other etiologies - CT of head without contrast was negative - No focal deficits present on exam at admission - Patient remains intubated and sedated at this time - urine tox screen negative 6 Atrial fibrillation with rapid ventricular response, acute, present on admission, under evaluation stable - Not clear if she has a history of atrial fibrillation - Continue Amiodarone drip - Two amiodarone boluses given 12/24 with limited improvement in heart rate - Digoxin 0.25 g given with readministered 0.25 mg due to to continued tachycardia - Discontinue of albuterol nebulizers given possibility of tachycardia due to albuterol, continue with ipratropium neb - Heart rate has been maintained on amiodarone drip with 1 dose of metoprolol 5 mg given today we will attempt to control heart rate with amiodarone only - Given time course between last dosing of digoxin please consult with pharmacy prior to any readministration of digoxin 7 Hyponatremia and acute, present on admission, stable - May be related to dehydration - Discontinue IV normal saline at 100 mils per hour given volume overload 8 Alcohol dependency, present on admission, unstable - CIWA protocol ordered however patient is currently on fentanyl drip - Ativan 2 mg scheduled every 6 hours given improvement in blood pressure and history of alcohol withdrawal - Okay to decrease Ativan dosing on 12/26 consider Ativan 2 mg every 8 hours - Thiamine IV daily 9 Hypokalemia,Acute, present on admission - replete as needed DVT prophylaxis - IV heparin drip for right ventricular thrombus GI prophylaxis famotidine #CODE STATUS Patient is full code Disposition: patient will likely be inpatient for several more days requiring evaluation and treatment. GI Prophylaxis: H2 cielo VTE Prophylaxis: Other (currently assessing for stat d-dimer and possible need for IV heparin PE protocol) VTE Mechanical Devices: Intermittant Pneumatic CD Resuscitation Status: CPR: Attempt Resuscitation Attending Statement The patient was seen and examined together with Dr. Schneider on 12-25-16 and I agree with the history, exam and plan as outlined in the note above. Parth Schneider DO Dec 25, 2016 07:07 Saritha Orr MD Dec 26, 2016 10:36
[2016-12-25] MEDS: Propofol Inj 1,000,000 MCG in IV Premix 1 EACH IV SCH (20:55)
[2016-12-25] MEDS: levoFLOXacin Inj 750 MG in IV Premix 1 EACH IV SCH (22:11)
[2016-12-26] VITALS (12 sets, daily range): BP systolic 76–142; BP diastolic 43–69; PULSE 97–136; RESP 10–12; O2SAT 92–99
[2016-12-26] MEDS: Amiodarone 360 mg/200 mL D5W 360 MG in IV Premix 1 EACH IV SCH (00:28)
[2016-12-26] MEDS: Chlorhexidine 0.12% 15 mL Oral Solution MT SCH ×6 (00:30→20:57)
[2016-12-26] MEDS: Piperacillin-Tazo 3.375 Gm Inj 3.375 GM in Dextrose 5% Minibag Plus 50 ML IV SCH ×3 (00:35→15:30)
[2016-12-26] MEDS: MethylprednisoLONE Sodium Succinate 40 mg/mL Inj IVPUSH SCH ×3 (00:35→16:30)
[2016-12-26 01:25] LABS: Magnesium 1.6 mg/dL (1.6-2.6)
[2016-12-26] MEDS: Insulin Human REGular 300 Unit/3 mL Inj SUBQ SCH ×4 (02:30→20:57)
[2016-12-26] MEDS ORDERED: KCl 40 mEq/100 mL Premix (K 3 - 3.7 & Creat < 2) IV ONE (02:30)
[2016-12-26] MEDS: Ipratropium 0.02% 0.5 mg/2.5 mL Inhalation Solution NEB PRN ×5 (03:52→21:09)
[2016-12-26 03:54] LABS: BASOPHILS % (AUTO) 0.1 % (0-3); EOSINOPHILS % (AUTO) 0 % (0-5); MONOCYTES % (AUTO) 4.6 % (4-12); Mean Corpuscular Hemoglobin 32.4 pg (27.0-35.0); Mean Corpuscular Volume 97.6 fL (81-100); NEUTROPHILS % (AUTO) 92.2 % (40-74); Platelet Count 114 bil/L (150-400)
--- NOTE | 2016-12-26 03:58 | ABG ---
DateTimeAnalyzed 03:55:00 -_ pH ____7.427 - 7.350 7.450 pCO2 ___58.9__ -mmHg 35.0 45.0 pO2 ___89.8__ -mmHg 69.0 116 HCO3- ___38.2__ -mmol/L 22.0 26.0 ABE ___12.0__ -mmol/L -2.0 2.0 tHb ___10.8__ -g/dL O2Hb ___95.1__ -% COHb ____1.5__ -% MetHb ____0.9__ -% sO2 ___97.4__ -% FIO2 ___21.0__ -% PEEP ____5.0__ -cmH2O Set_RR ___10.0__ -b/min Vt __400.0__ -L Drawn By MD - Date/Time Notified____ 03:58:00 -_ Spontaneous_RR ___10.0__ -b/min Oxygen Device 1 VENTILATOR - Notified By MD - Notified Whom RN A.JEANNETTE - B 763 -mmHg tO2 ___14.6__ -Vol% Lance test N/A -
[2016-12-26 04:25] LABS: Magnesium 1.5 mg/dL (1.6-2.6)
[2016-12-26] MEDS ORDERED: Digoxin 0.25 mg/mL 2 mL Inj IV ONE (05:05)
[2016-12-26] MEDS: Norepineph 8,000 mCg/250 mL NS 8,000 MCG in IV Premix 1 EACH IV SCH (06:21)
[2016-12-26] MEDS ORDERED: Mag Sulf 4 Gm/100 mL IV Premix (Mag < 1.6 & Creat < 2) IV ONE (07:00)
--- NOTE | 2016-12-26 10:13 | PCM.PNMED ---
Subjective Date of Service Dec 26, 2016 Subjective Patient is intubated and sedated in the ICU so no ROS could be obtained. Overnight, patient became more hypotensive with a. fib with RVR. Lasxi drip was stopped and norepinephrine was increased again. One dose of digoxin was given for better rate control. Patient tolerated these interventions well. PEEP lowered to 5 due to hypotension. Low grade fever noted and treated with Tylenol. Tube feeding has continued at 45 ml/hr and patient is tolerating this well. Exam Vital Signs Vital Sign - Last Date Time Temp Pulse Resp B/P Pulse Ox O2 Delivery O2 Flow Rate FiO2 12/26/16 08:38 112 142/69 95 30 12/26/16 04:30 37.8 10 Mechanical Ventilator Intake and Output 12/25/16 12/25/16 12/26/16 Cumulative From/Thru 15:00 23:00 07:00 12/22/16 18:16 - 12/26/16 06:45 Intake Total 1315 ml 2427 ml 51706 ml Output Total 3200 ml 2100 ml 9930 ml Balance -1885 ml 327 ml 3365 ml Intake IV Total 1089 ml 1674 ml 70291 ml Tube Feeding 186 ml 593 ml 779 ml Tube Irrigant 40 ml 160 ml 200 ml Output Urine Total 3200 ml 2100 ml 9875 ml Gastric Drainage Total 55 ml # Voids 0 # Bowel Movements 0 Exam General: thin female lying in bed intubated and sedated. Eyes: PERRLA. Anicteric sclerae, moist conjunctivae HENT: Normocephalic, atraumatic. Endotracheal and oropharyngeal tube in place. External ears without defect. Neck: Supple. no JVD, trachea, midline, No lymphadenopathy or thyromegaly. Right IJ line in place. Cardiovascular: tachycardia without murmurs, rubs, or gallops appreciated. Pulmonary: Mild coarse breath sounds on the left lower axillary base clear on right to auscultation. Wheezing still present. Abdomen: Soft, nondistended, bowel sounds normoactive. Genitourinary: Johnson catheter in place. Extremities: Pulses intact in radial and and decreased dorsalis pedis bilaterally. Mild pitting edema noted in legs bilaterally, no cyanosis, clubbing Neuro: patient spontaneously moves upper extremities in bed despite restraints being in place Ventilator settings: FiO2 .40, PEEP 5, Rate 10, TV 400. IVs and Medications Medications Reviewed: Medications were reviewed in detail Lab and Diagnostics Result Diagram: 12/26/16 0345 12/26/16 0345 X-Rays, CTs and MRIs PROCEDURE: CT BRAIN WITHOUT CONTRAST ([id number]) IMPRESSION: No acute intracranial disease process. Dictated by: Rosaura Wisdom MD, PhD on 12/22/2016 at 20:12 PROCEDURE: US VENOUS LEG DUPLEX BILATERAL IMPRESSION: No deep venous thrombosis identified within either the left or right lower extremities. Dictated by: Shankar Mandujano [facility] Interpreted: Sobia Plunkett MD on 12/23/2016 at 9: 58 PROCEDURE: CT ANGIO CHEST PULMONARY EMBOLISM ([id number]) IMPRESSION: 1. No pulmonary embolus. 2. Mild pulmonary edema associated with small bilateral pleural effusions. 3. Small amount of ascites. 4. Coronary artery disease. Cardiomegaly. Right heart failure. Dictated by: Julieta Gunn M.D. on 12/23/2016 at 13:33 PROCEDURE: X-RAY CHEST ONE VIEW, PORTABLE ([id number]) IMPRESSION: Stable left basilar opacity suspicious for aspiration versus pneumonia. Right basilar opacity has resolved. Dictated by: Rosaura Wisdom MD, PhD on 12/25/2016 at 9:12 Cardiac Echo Impressions Echocardiogram Report Interpretation Summary The ejection fraction is estimated to be 55-60%. Flattened septum is consistent with RV pressure/volume overload. The right ventricle is moderately dilated. Right ventricular systolic function is moderately reduced. The aortic valve is slightly calcified. The aortic valve is not well visualized. There is moderate tricuspid regurgitation. Right ventricular systolic pressure is estimated to be 39 mmHg plus the clinically estimated CVP which cannot be estimated on this exam. RV thrombus is suspected. Electronically signed by: Isra Valdez on Reading Physician:12/23/2016 11:08 AM Assessment & Plan 66-year-old female past medical history remarkable for COPD hypertension and alcohol dependency presents with acute respiratory failure. Hospital day 5. 1. Acute shock, present on admission, ongoing. - Multifactorial with elements of septic and cardiogenic shock. - Patient appears volume overloaded with JVD and peripheral edema consistent with right heart failure. Now also has new fever, leukocytosis and continued hypotension. 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 Giving 500 ml bolus of LR with 100 ml/hr started as maintenance fluids. - Norepinephrine stopped and switched to phenylephrine drip. Will still attempt to titrate as tolerated by patient. Goal MAP >60. - Follow CBC, procalcitonin. - Repeat blood cultures, urine culture, and sputum culture. - Will consider CT chest/abd/pelvis, viral PCR tomorrow based on lab results. 2. Acute on chronic respiratory failure with hypoxia and hypercapnia, present on admission, ongoing. - Patient does have a history of COPD/emphysema and she is likely CO2 retainer. - ABG to be done in AM and as needed for ventilator management. - Fentanyl and Precedex for sedation. Titrate down dosing as tolerated by patient. Not using propofol due to hypotension. - Continue solu-medrol taper. 40 mg Q8 today. 40 mg Q12 tomorrow. Then 40 mg daily on 12/28. We will see if we can convert to PO prednisone at that time. - Atrovent nebs available Q6. - Dr. Cevallos of pulmonology has been consulted for assistance with vent management. 3. Possible Right ventricular thrombus, present on admission, unstable - Seen on echocardiogram ordered for apparent volume overload due to right heart failure. - Could consider ANA ROSA prior to extubation for better view of the RV. - Continue Heparin PE protocol drip for presumed RV thrombus. 4. Possible pneumonia, present on admission, improving. - X-ray imaging after diuresis shows a possible left lower lobe pneumonia. - Procalcitonin remains negative however increasing white blood cell count could be attributed to an infection or steroid use for COPD exacerbation - Continue Zosyn (day 4). Could consider stopping after tomorrow after 5 days of administration. 5. Acute encephalopathy, present on admission, considered stable - Possibly related to her hypercapnia but must also consider reversible other etiologies such as toxic ingestion, hypothyroidism. - Patient remains intubated and sedated at this time so this is difficult to fully evaluate. 6. Atrial fibrillation with rapid ventricular response, acute, present on admission, improving. - Not clear if she has a history of atrial fibrillation. - Continue Amiodarone drip. - Digoxin 0.25 g given with readministered 0.25 mg due to to continued tachycardia. Will re-evaluate need for continued doses and consult with pharmacy as needed. 7. Hyponatremia, acute, present on admission, improving. - May be related to dehydration - Continue to monitor BMP. 8. Alcohol dependency, present on admission, unstable - CIWA protocol ordered however patient is currently intubated and sedated. - Ativan 2 mg scheduled every 6 hours given improvement in blood pressure and history of alcohol withdrawal. - Continue thiamine IV daily. 9. Hypokalemia, acute, present on admission. Ongoing. - Continue to monitor with BMP and replete as needed. 10. Hypothyroidism, acute, present on admission. - Likely secondary to being critically ill. - Will need follow up labs approximately 6-8 weeks after hospital discharge. 11. Possible adrenal insufficiency, acute, present on admission. - ACTH-stim test shows low level of cortisol. - Patient already undergoing treatment with IV steroids. Will need to plan for slow taper and close outpatient follow up. - Antiemetic available PRN. - Antacid available PRN. - Tylenol available PRN mild pain, fever. Disposition: patient will likely continue to be in the CCU for several more days of mechanical ventilation and treatment of shock. GI Prophylaxis: H2 cielo VTE Prophylaxis: SCDs, Other (currently assessing for stat d-dimer and possible need for IV heparin PE protocol) Resuscitation Status: CPR: Attempt Resuscitation Attending Statement The patient was seen and examined together with Dr. Pierce on 12-26-16 and I agree with the history, exam and plan as outlined in the note above. Tiffanie Pierce DO Dec 26, 2016 10:13 Saritha Orr MD Jan 10, 2017 16:07 DVT prophylaxis - IV heparin drip for right ventricular thrombus GI prophylaxis famotidine #CODE STATUS Patient is full code Disposition: patient will likely be inpatient for several more days requiring evaluation and treatment. GI Prophylaxis: H2 cielo VTE Prophylaxis: Other (currently assessing for stat d-dimer and possible need for IV heparin PE protocol) VTE Mechanical Devices: Intermittant Pneumatic CD Resuscitation Status: CPR: Attempt Resuscitation Tiffanie Pierce DO Dec 26, 2016 10:13
[2016-12-26] MEDS: Famotidine Inj 20 MG in IV Premix 1 EACH IV SCH ×2 (10:14→20:56)
[2016-12-26] MEDS: Furosemide Inj 100 MG in 0.9% Sodium Chloride 90 ML IVPUSH SCH (10:16)
[2016-12-26] MEDS: Dexmedetomidine 400 mCg/100 mL 400 MCG in IV Premix 1 EACH IV SCH ×2 (10:17→18:49)
--- NOTE | 2016-12-26 11:13 | DRSVH ---
PROCEDURE: X-RAY CHEST ONE VIEW, PORTABLE ([id number]) INDICATIONS: pnemonia,intubated TECHNIQUE: One view of the chest was acquired. COMPARISON: [facility], CR, XR CHEST 1VW (PORTABLE), 12/25/2016, 3:59. FINDINGS: Surgical changes and devices: The endotracheal pubis 4.6 cm above ifrah. The nasogastric tube tip is in the stomach. There is an IJ central line in stable position. Lungs and pleura: Bilateral interstitial infiltrates. There is left basilar consolidation and small left pleural effusion, increased. Mediastinum: Mediastinal contours appear normal. Heart size is normal. Bones and chest wall: No suspicious bony lesions. Overlying soft tissues appear unremarkable. IMPRESSION: Increased left basilar consolidation and small left pleural effusion consistent with wors ening of pneumonia. Dictated by: Santiago Montanez M.D. on 12/26/2016 at 11:10 Approved by: Santiago Montanez M.D. on 12/26/2016 at 11:11
[2016-12-26 12:48] LABS: Magnesium 6.9 mg/dL (1.6-2.6)
[2016-12-26 13:16] LABS: APPEARANCE,URINE CLEAR (CLEAR,HAZY); COLOR,URINE STRAW (YELLOW); OCCULT BLOOD,URINE NEGATIVE (NEGATIVE); UROBILINOGEN,URINE NORMAL (NORMAL)
[2016-12-26 15:06] LABS: Magnesium 3.1 mg/dL (1.6-2.6)
[2016-12-26] MEDS ORDERED: KCl 40 mEq/100 mL (CENTRAL) 40 MEQ in IV Premix 1 EACH IV ONE (15:10)
[2016-12-26] MEDS ORDERED: Lactated Ringer's 500 ML IV ONE (15:10)
[2016-12-26] MEDS: Phenylephrine Inj 20,000 MCG in 0.9% Sodium Chloride 250 ML IV SCH (15:15)
--- NOTE | 2016-12-26 16:51 | PROG NOTE ---
[address] [address] PROGRESS NOTE PATIENT: RAPHAEL SLATER : 1950 MR#: [id number] ADMIT: 12/22/2016 JOB ID: [id number] DATE: 12/26/2016 PULMONARY CRITICAL CARE FOLLOWUP NOTE: PROBLEM LIST 1. Shock, multifactorial. 1. Acute on chronic hypoxemic hypercarbic respiratory failure. 2. Encephalopathy, probably due to alcoholism. 3. Pulmonary hypertension, mild to moderate. 4. Atrial fibrillation with rapid ventricular response. 5. Multiple electrolyte abnormalities. SUBJECTIVE: None. OBJECTIVE: Temperature 39.1, pulse 112-142, respiratory rate 10-12 with ventilator set at 10. Blood pressure 92/55 on nor epi at 0.1 mcg/kg/minute. O2 sat on FiO2 of 30%, PEEP of 10 is 92%. I and O shows 2.4 L in, 4.8 L out. General appearance: Sedated, on ventilator. Chest somewhat diminished breath sounds. Inspiratory high-pitched squeaks as well as some lower crackles. Expiratory sounds are inaudible. With tidal volume of 400, PEEP of 10, peak inspiratory pressure 33, plateau 24. PEEP is set at 10, measured at 10. Heart: Irregular rhythm. Abdomen soft. A few bowel tones noted. Extremities: Feet ar slightly cool. Some duskiness to toes. Seems more like this is due to trauma than hypoxemia. LABORATORY DATA: Shows a white count of 14,200 with marked neutrophilia. Hemoglobin 11, down from 14; subsequently 9.8. Platelet count 114,000 and dropping. Sodium 134, potassium 3.4, repeated after replacement, and remains 3.4, chloride 88, CO2 37, BUN 27 and rising. Creatinine 0.94 and rising. Lactic acid 1.8. Calcium 7.7 with an albumin of 2.5. Magnesium 1.5, repleted with 4 grams of magnesium resulting in a value of 6.9. Transaminases are normal as is the alkaline phosphatase. Pre-albumin low at 14. Procalcitonin low at 0.07. Sputum Gram stain shows few polys. Few normal prince. Viral respiratory panel is negative. Chest x-ray continues to show bilateral interstitial infiltrates with some increased opacification at left base. Arterial blood gases on unknown concentration of oxygen or PEEP since the blood gases do not reflect the current ventilator settings and are likely abnormal. Shows a pO2 of 89, pCO2 of 58, pH 7.42. (We will have to verify the FiO2 and PEEP of these blood gases in order to attempt interpretation.) ASSESSMENT: 1. Acute hypoxic respiratory failure with acute on chronic hypercarbic ventilatory failure. Doing reasonably well. In fact, with CO2 of 58, she remains normal pH, suggesting her normal CO2 might be in the mid 60s. I think we can back off her minute ventilation. Perhaps dropping the tidal volume which would help with decreasing the mean pleural pressure. That might improve venous return. In addition, might consider decreasing PEEP, raising FiO2 to keep an adequate O2 sat which, too, might improve venous return. Might help with the blood pressure and pressor needs. 2. Lab work. A bit difficult to believe today's lab work. Showing a significant anemia, electrolyte abnormalities tat are a little bit difficult to reliably evaluate with magnesium that defies explanation. I think we should just repeat the whole panel as the whole thing is unclear. Need to ascertain whether there has been a significant drop in hemoglobin. She is only about 2.5 to 3 L positive and I would not think the dilution would account for the significant drop in hemoglobin. 3. Thrombocytopenia. Likely represents DIC. She has been on heparin since admission. That was three days ago. A little short for HIT, though possible. PLAN: 1. Consider raising FiO2, dropping PEEP. 2. Consider dropping tidal volume, maybe by 50 mL. 3. Continue current pressors and fluids. 4. Repeat CBC, diff, platelets, as well as a BNP (would have to redraw for a full CMP). 5. Verify ventilator settings on last gas. Time spent so far in critical care is 46 minutes.
[2016-12-26] MEDS ORDERED: 0.9% Sodium Chloride 250 ML ONE ×2 (16:52→16:53)
[2016-12-26] MEDS: fentaNYL 2,500 mCg/250 mL 2,500 MCG in IV Premix 1 EACH IV SCH (18:00)
[2016-12-26] MEDS: Lactated Ringer's 1,000 ML IV SCH (18:15)
[2016-12-26] MEDS: Thiamine Inj 200 MG in Dextrose 5% 50 ML IV SCH (18:47)
[2016-12-26] MEDS: Heparin 25K Unit/500mL 0.45 NS 25,000 UNIT in IV Premix 1 EACH IV SCH (18:51)
[2016-12-26 21:00] LABS: BASOPHILS % (AUTO) 0.1 % (0-3); EOSINOPHILS % (AUTO) 0 % (0-5); MONOCYTES % (AUTO) 6.9 % (4-12); Mean Corpuscular Volume 101.5 fL (81-100); Platelet Count 103 bil/L (150-400)
[2016-12-26 22:03] LABS: Magnesium 2.6 mg/dL (1.6-2.6)
[2016-12-26] MEDS: levoFLOXacin Inj 750 MG in IV Premix 1 EACH IV SCH (22:33)
[2016-12-26] MEDS: Propofol Inj 1,000,000 MCG in IV Premix 1 EACH IV SCH (22:33)
[2016-12-27] VITALS (21 sets, daily range): BP systolic 77–123; BP diastolic 44–93; PULSE 85–130; RESP 10–14; O2SAT 99–100
[2016-12-27] MEDS: Amiodarone 360 mg/200 mL D5W 360 MG in IV Premix 1 EACH IV SCH ×2 (00:51→13:16)
[2016-12-27] MEDS: Chlorhexidine 0.12% 15 mL Oral Solution MT SCH ×6 (00:51→22:48)
[2016-12-27] MEDS: MethylprednisoLONE Sodium Succinate 40 mg/mL Inj IVPUSH SCH ×3 (00:53→22:49)
[2016-12-27] MEDS: Piperacillin-Tazo 3.375 Gm Inj 3.375 GM in Dextrose 5% Minibag Plus 50 ML IV SCH ×3 (00:53→16:19)
[2016-12-27] MEDS: Lactated Ringer's 1,000 ML IV SCH ×3 (00:54→22:51)
[2016-12-27] MEDS: Ipratropium 0.02% 0.5 mg/2.5 mL Inhalation Solution NEB PRN ×4 (01:25→16:25)
[2016-12-27] MEDS: Insulin Human REGular 300 Unit/3 mL Inj SUBQ SCH ×4 (02:32→22:49)
[2016-12-27] MEDS: Phenylephrine Inj 20,000 MCG in 0.9% Sodium Chloride 250 ML IV SCH ×3 (02:33→22:50)
[2016-12-27] MEDS ORDERED: 0.9% Sodium Chloride 250 ML ONE ×2 (03:39→22:39)
[2016-12-27] MEDS: Dexmedetomidine 400 mCg/100 mL 400 MCG in IV Premix 1 EACH IV SCH ×2 (05:06→16:28)
[2016-12-27 06:32] LABS: Phosphorus 3.1 mg/dL (2.5-4.9)
--- NOTE | 2016-12-27 07:35 | ABG ---
DateTimeAnalyzed 02:25:00 -_ pH ____7.295 - 7.350 7.450 pCO2 ___78.2__ -mmHg 35.0 45.0 pO2 109 -mmHg 70.0 100 HCO3- ___36.9__ -mmol/L 22.0 26.0 ABE ____9.5__ -mmol/L -2.0 2.0 tHb ____7.6__ -g/dL 12.0 18.0 O2Hb ___96.4__ -% 95.0 COHb ____1.5__ -% 1.5 MetHb ____0.9__ -% 0.4 1.5 sO2 ___98.8__ -% FIO2 ___50.0__ -% PRVC 370 - PEEP ____7.0__ -cmH2O Set_RR ___11.0__ -b/min Vt __370.0__ -L Drawn By jh - Date/Time Notified____ 02:28:00 -_ Spontaneous_RR ___10.0__ -b/min Oxygen Device 1 VENTILATOR - Notified By jh - Notified Whom ___abu rn - B 761 -mmHg tO2 ___10.5__ -Vol% Lance test _Positive -
[2016-12-27 08:19] LABS: BASOPHILS % (AUTO) 0.1 % (0-3); EOSINOPHILS % (AUTO) 0 % (0-5); MONOCYTES % (AUTO) 8.8 % (4-12); Mean Corpuscular Hemoglobin 31.6 pg (27.0-35.0); Mean Corpuscular Volume 97.8 fL (81-100); NEUTROPHILS % (AUTO) 84.6 % (40-74); Platelet Count 68 bil/L (150-400)
[2016-12-27] MEDS: Famotidine Inj 20 MG in IV Premix 1 EACH IV SCH ×2 (08:31→22:49)
--- NOTE | 2016-12-27 09:35 | DRSVH ---
PROCEDURE: X-RAY CHEST ONE VIEW, PORTABLE ([id number]) INDICATIONS: intubated patient, monitor tubes, lines TECHNIQUE: One view of the chest was acquired. COMPARISON: [facility], CR, XR CHEST 1VW (PORTABLE), 12/26/2016, 5:25. FINDINGS: Surgical changes and devices: A well-positioned ETT and right IJ CVL. Nasogastric tube tip traverses the GE junction. Lungs and pleura: Increase in size of moderate left pleural effusion and there is persistent left bas ilar consolidation as well as rounded focal opacity in mass cannot be excluded. Right lung is clear. No pneumothorax. Mediastinum: Mediastinal contours appear normal. Heart size is enlarged. Bones and chest wall: No suspicious bony lesions. Overlying soft tissues appear unremarkable. IMPRESSION: 1. Increase in size of moderate loculated left pleural effusion and persistent left basilar consolida tion as well as focal opacity and mass cannot be excluded. Continued radiographic surveillance to res olution is recommended. Dictated by: Shankar Mandujano [facility] Interpreted: Rosaura Wisdom MD on 12/27/2016 at 9:33 Transcribed by: JENNIFER on 12/27/2016 at 9:35 Approved by: Rosaura Wisdom MD, PhD on 12/27/2016 at 16:31
--- NOTE | 2016-12-27 10:14 | ABG ---
DateTimeAnalyzed 10:10:00 -_ pH ____7.380 - 7.350 7.450 pCO2 ___59.6__ -mmHg 35.0 45.0 pO2 ___91.6__ -mmHg 69.0 116 HCO3- ___34.5__ -mmol/L 22.0 26.0 ABE ____8.5__ -mmol/L -2.0 2.0 tHb ____8.7__ -g/dL O2Hb ___95.7__ -% COHb ____1.5__ -% MetHb ____1.0__ -% sO2 ___98.2__ -% FIO2 ___50.0__ -% PRVC 370 - PEEP ____7.0__ -cmH2O Set_RR ___14.0__ -b/min Drawn By JJ - Date/Time Notified____ 10:13:00 -_ Spontaneous_RR ___14.0__ -b/min Oxygen Device 1 VENTILATOR - Notified By JJ - Notified Whom DR HASSANDRA - B 758 -mmHg tO2 ___11.8__ -Vol% Lance test _Positive -
--- NOTE | 2016-12-27 10:23 | PCM.PNMED ---
Subjective Date of Service Dec 27, 2016 Subjective Intensive Care/Pulmonology Consultation Note: Attending Dr. Mart Ling is a 66-year-old female with a past medical history significant for hypertension and COPD who was brought to [facility] Emergency Department due to unresponsiveness requiring intubation. We were consulted for ventilator management. Hospital day #5. Overnight: The patient was hypotensive and the phenylephrine had to be increased. The patient received 1 unit of PRBC and a 500 mL LR bolus with good BP response and the phenylephrine was then titrated down. Telemetry overnight was atrial fibrillation, 80 to 100's, without ectopy. Subjective exam and review of systems are unobtainable as the patient is intubated and sedated. . Exam Vital Signs Vital Sign - Last Date Time Temp Pulse Resp B/P Pulse Ox O2 Delivery O2 Flow Rate FiO2 12/27/16 08:16 38.0 88 14 103/47 100 Mechanical Ventilator 12/27/16 07:22 50 Intake and Output 12/26/16 12/26/16 12/27/16 Cumulative From/Thru 15:00 23:00 07:00 12/22/16 18:16 - 12/27/16 06:08 Intake Total 2896 ml 4026 ml 54887 ml Output Total 865 ml 650 ml 45428 ml Balance 2031 ml 3376 ml 8772 ml Intake IV Total 1913 ml 2971 ml 98718 ml Tube Feeding 863 ml 655 ml 2297 ml Packed Cells 280 ml 280 ml Tube Irrigant 120 ml 120 ml 440 ml Output Urine Total 850 ml 650 ml 50927 ml Gastric Drainage Total 15 ml 70 ml # Voids 0 # Bowel Movements 0 0 Exam General: Middle-aged thin female lying in bed and in no acute distress, intubated and sedated. HEENT: Normocephalic, atraumatic. External ears without defect. Pupils equal, round, and reactive to light. Anicteric sclerae, moist conjunctivae, and no lid lag. Endotracheal and nasopharyngeal tube in place. Neck: Supple. Right IJ. Cardiovascular: Irregular rhythm without murmurs, rubs, or gallops appreciated. Pulmonary: Inspiratory high-pitched squeaks and bronchial breath sounds in anterior lung wooten and bibasilar crackles. No wheeze. Abdomen: Soft, nondistended, bowel sounds active. Genitourinary: Johnson catheter in place. Extremities: Mottled upper and lower extremities. No edema, cyanosis, or clubbing. Neurologic: Easily arousable, opens eyes and follows commands. Ventilator settings: PRVC. Tidal volume 370. Respiratory rate 14. FiO2 50%. PEEP 7.0. ABG: PH 7.295. PCO2 78.2. PO2 109. HCO3 36.9. On PRVC an FiO2 of 50% with an SPO2 of 98.8% IV drips and Sedatives: Norepinephrine 0.2 mcg/kg/min. Precedex 0.7 mcg/kg/hr. Fentanyl 100mcg/hr. IV lines: Right IJ. I&O: Net +8772 mL. . IVs and Medications Medications Reviewed: Medications were reviewed in detail Lab and Diagnostics Item Value Date Time Calcium Level 7.1 mg/dL L 12/27/16 0550 Phosphorus Level 3.1 mg/dL 12/27/16 0550 Magnesium Level 2.0 mg/dL 12/27/16 0550 Total Bilirubin 0.7 mg/dL 12/27/16 0550 Aspartate Amino Transf (AST/SGOT) 43 U/L 12/27/16 0550 Alanine Aminotransferase (ALT/SGPT) 15 U/L 12/27/16 0550 Alkaline Phosphatase 22 U/L L 12/27/16 0550 Total Protein 3.7 g/dL L 12/27/16 0550 Albumin 2.2 g/dL L 12/27/16 0550 Lipase 90 U/L H 12/27/16 0550 Procalcitonin 0.10 ng/mL H 12/27/16 0550 Result Diagram: 12/27/16 0800 12/27/16 0550 Microbiology Repeat sputum culture has no growth to date. Repeat blood culture 2 pending. Blood culture 2 showed no growth after 2 days. Sputum culture grew light normal prince. MRSA screen negative. Strep coccus pneumoniae and legionella urine antigens negative. Respiratory viral PCR negative. . X-Rays, CTs and MRIs X-RAY CHEST ONE VIEW, PORTABLE IMPRESSION: 1. Increase in size of moderate right pleural effusion and persistent right basilar consolidation as well as focal opacity and mass cannot be excluded. Continued radiographic surveillance to resolution is recommended. Dictated by: Shankar Mandujano RRAisha Interpreted: Rosaura Wisdom MD on 12/27/2016 at 9:33 CT ANGIO CHEST PULMONARY EMBOLISM IMPRESSION: 1. No pulmonary embolus. 2. Mild pulmonary edema associated with small bilateral pleural effusions. 3. Small amount of ascites. 4. Coronary artery disease. Cardiomegaly. Right heart failure. Dictated by: Julieta Gunn M.D. on 12/23/2016 at 13:33 US VENOUS LEG DUPLEX BILATERAL IMPRESSION: No deep venous thrombosis identified within either the left or right lower extremities. Dictated by: Shankar Mandujano RRA Interpreted: Sobia Plunkett MD on 12/23/2016 at 9: 58 CT BRAIN WITHOUT CONTRAST IMPRESSION: No acute intracranial disease process. Dictated by: Rosaura Wisdom MD, PhD on 12/22/2016 at 20:12 X-RAY CHEST ONE VIEW, PORTABLE IMPRESSION: Small patchy airspace opacities in the right lung base and small right-sided pleural effusion suspicious for pneumonia. Dictated by: Rosaura Wisdom MD, PhD on 12/22/2016 at 18:51 Approved by: Rosaura Wisdom MD, PhD on 12/22/2016 at 18:52 . Cardiac Echo Impressions Echocardiogram Interpretation Summary: The ejection fraction is estimated to be 55-60%. Flattened septum is consistent with RV pressure/volume overload. The right ventricle is moderately dilated. Right ventricular systolic function is moderately reduced. The aortic valve is slightly calcified. The aortic valve is not well visualized. There is moderate tricuspid regurgitation. Right ventricular systolic pressure is estimated to be 39 mmHg plus the clinically estimated CVP which cannot be estimated on this exam. RV thrombus is suspected. Electronically signed by: Isra Valdez on Reading Physician:12/23/2016 11:08 AM . Assessment & Plan Virginia Ling is a 66-year-old female with a past medical history significant for hypertension and COPD who was brought to [facility] Emergency Department due to unresponsiveness requiring intubation. Hospital day #5. 1. Acute shock, unclear etiology, present on admission. Active. - Possibly cardiogenic/obstructive versus septic shock. - Patient clinically volume overloaded with JVD and peripheral edema with echocardiographic and radiographic evidence of right sided heart failure. - Echocardiogram shows dilated right ventricle with right ventricular thrombus, as above. - Continue phenylephrine for vasopressor support and titrate off as tolerated. - IV fluids with LR at 100 mL/hr. Had to be cautious with IV fluid resuscitation due to RV overload and to avoid to rapid over correction of sodium level and central pontine myelinosis. - VBG showed an sVO2 of 78% which makes sepsis more likely or a mixed etiology with an obstructive/cardiogenic component. 2. Acute on chronic hypoxemic and hypercapnia respiratory failure, present on admission. Active. - Patient does have a history of COPD and based on CO2 on admission was hypercapnic and likely CO2 retainer. Differential diagnosis includes: PE versus hepatic encephalopathy (CT showed abdominal ascites and history of alcohol use on HPI) versus CAP versus ACS. - Blood glucose normal on admission. - Continue IV Zosyn and Levaquin per primary medical team. ID consulted in ICU rounds. - Sputum culture and Gram stain, respiratory viral PCR, strep pneumoniae and legionella urine antigens all negative. Blood cultures 2 pending. - D-dimer elevated at >32.3 and IV heparin PE protocol initiated. - Echocardiogram revealed RVSP of 34 mmHg with evidence of RV overload and septal flattening with suspected thrombus, as above. - CT angiography was negative for PE and revealed mild pulmonary edema associated with small bilateral pleural effusions and right heart failure, as above. - Also need to consider possible COPD exacerbation as etiology IV Solu-Medrol, duo nebs every 4 hours and albuterol nebs every 2 hours when necessary - Continue ventilator at settings above but consider increasing TV from 320 to 350. - Continue to monitor ABG daily for vent management. - Continue fentanyl and Precedex for sedation, as above. Consider sedation vacation and SBT once stable. 3. Acute encephalopathy, present on admission. Active. - Likely multifactorial and related to her hypercapnia, hyponatremia and possibly hepatic encephalopathy (CT showed abdominal ascites and history of alcohol use on HPI) and PE. Unlikely differentials include overdose and epilepsy. No trauma. - CT brain without contrast was negative for any acute intracranial abnormality , as above. Patient was also non-focal on exam, therefore, CVA very unlikely. - Alcohol level and urine drug screen negative. - IV fluids with LR at 100 mL/hr. Had to be cautious with IV fluid resuscitation due to RV overload and to avoid to rapid over correction of sodium level and central pontine myelinosis. - Continue Precedex and fentanyl for sedation. 4. Pulmonary hypertension, acuity unknown, present on admission. Active. - Likely secondary to COPD but possibly PE/RV thrombus. - Cautious with fluid resuscitation. - Echocardiogram revealed RVSP of 34 mmHg with evidence of RV overload and septal flattening with possible thrombus, as above. 5. Acute respiratory alkalosis with partial metabolic compensation, present on admission. - Continue ventilator with settings as above. - Treat COPD as above under problem #2. - Also treat underlying etiology of shock under problem #1. 6. Atrial fibrillation with RVR, acuity unknown, present on admission. Active. - Unclear if she has a history of atrial fibrillation. - RV thrombus possible based on echocardiogram. CTA revealed no PE. - Serial troponins have been negative. - Continue Amiodarone gtt for rhythm control per primary medical team. 7. Acute hyponatremia, present on admission. Active. - Likely related to dehydration and possibly beer potomania. - Continuing IV normal saline at 100 mL/hr and monitor sodium level closely to avoid to rapid over correction central pontine myelinosis. - Monitor sodium level daily. 8. Acute hypokalemia, present on admission. Active. - Possibly secondary to beer potomania. - Replete as needed. - Monitor potassium level daily. 8. Acute hypomagnesemia, present on admission. Active. - Possibly secondary to beer potomania. - Replete as needed. - Monitor magnesium level daily. Chronic problems with management per primary team. Disposition: Several days and depending upon clinical course. Critical Care time spent 45 minutes. . GI Prophylaxis: H2 cielo VTE Prophylaxis: SCDs, Other (currently assessing for stat d-dimer and possible need for IV heparin PE protocol) VTE Mechanical Devices: Intermittant Pneumatic CD Resuscitation Status: CPR: Attempt Resuscitation Attending Statement The patient was seen and examined together with Dr. Greene on 12/27/2016 and I agree with the history, exam and plan as outlined in the note above. Nneka Greene DO Dec 27, 2016 10:23 Kyle Cevallos MD Jan 02, 2017 11:09
--- NOTE | 2016-12-27 11:37 | CONS ---
[address] [address] CONSULTATION REPORT PATIENT: RAPHAEL SLATER : 1950 MR#: [id number] ADMIT: 12/22/2016 JOB ID: [id number] DATE OF SERVICE: 12/27/[address] Cevallos for this consult REASON FOR CONSULTATION: Ventilatory dependent respiratory failure, shock and high spiking fevers. HISTORY OF PRESENT ILLNESS: The patient is a complex, 66-year-old woman, who was admitted on December 22. At that time, she was found to be extremely short of breath after 911 was summoned to her house. She required emergent intubation for respiratory failure. Initial evaluation found that the patient was in atrial fibrillation with rapid ventricular response. A CT scan of the chest showed very tiny bilateral pleural effusions without much in the way of pulmonary infiltrate. It was thought that the patient had suffered a severe COPD exacerbation. An echocardiogram was obtained shortly after that admission which showed right ventricular failure with elevated RV pressures and volume overload. Also noted was what appeared to be a right ventricular thrombus, and the patient was started on anticoagulation in addition to her ongoing ventilator dependence. The patient was started on very broad-spectrum antibiotics with Zosyn and levofloxacin because of the possibility of infection, though there was no apparent preceding history of infection and initially the patient was afebrile. During her first couple of days in the ICU, the patient was free of any fever, but since then, she started to have progressive fevers, which have now reached 39.4 axillary this morning. These fevers have been associated with softening of the blood pressure requiring variable doses of vasopressor agents and, this morning, the patient's vasopressor requirements are much increased as her mean arterial pressure has been dropping. Throughout this admission, the main going diagnoses have been COPD exacerbation with ventilatory dependent respiratory failure as well as right heart failure secondary to pulmonary hypertension, with the clot in the right ventricle as another issue. This morning on rounds, there was considerable discussion of this case and what to do with her antibiotics as well as her now increasing fevers and decreasing blood pressure. A complicating feature of this case is that there is little family available. The patient's is not available today and apparently will not be for the remainder of the day, and so no more questioning can be done with him, and, of course, the patient herself is intubated, sedated and unable to provide any additional history. PAST MEDICAL HISTORY: 1. COPD, but not oxygen dependent COPD at home. 2. Hypertension. 3. 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 4. RV clot detected during this admission. SOCIAL HISTORY: The patient is a heavy consumer of alcohol in the form of beer, as well as an ongoing heavy cigarette smoker. She lives at home with her in the local area. FAMILY HISTORY: Cannot be obtained from this intubated, sedated woman. REVIEW OF SYSTEMS: Cannot be done in this intubated, sedated woman. PHYSICAL EXAMINATION: Reveals a critically ill woman, lying supine in the ICU. Her current temperature is 38.0 axillary, but earlier this morning she was 39.4 axillary. Pulse is currently in the 80s, and it is irregular, and atrial fibrillation seen on the monitor. She is currently on 50% FiO2 and 7 of PEEP. Blood pressure is 103/47 an hour ago, but right now, her mean arterial pressure has dropped into the low to mid 50s. During the time I was examining the patient, the cable installation technician was there and we carefully looked at the abdomen. The patient has very distended bowel with obvious peristalsis through the bowel. No peritoneal fluid whatsoever is seen. Additionally, with the help of 5 or 6 other people, sat the patient up to evaluate her pleural spaces. On the right, there is no pleural fluid at all. On the left, there is considerable loculated pleural effusion which the therapy technician felt would not be amenable to thoracentesis by ultrasound guidance. Examination of the patient's head reveals no temporal wasting nor evident trauma. The eyes are without conjunctivitis or scleral icterus. No conjunctival abnormalities are noted, though there is a hint of proptosis bilaterally. The neck is without adenopathy. There is bilateral JVD. The oral cavity is notable for the endotracheal tube and oral gastric tube. The right neck has a CVP type line in place which appears free of infection. In the left forearm, there is a peripheral IV which has been bleeding a bit. There is no A line and no chest tube is present. Lungs are notable for coarse breath sounds at the left base. Cardiac tones irregular rate and rhythm without notable murmur. The abdomen is somewhat distended without appreciable organomegaly. No ascites is noted. There is no suprapubic fullness. The patient has a Johnson catheter. External genitalia appear normal. There is no inguinal adenopathy. The patient has a mottled appearance to her skin, both on the arms and legs, and her feet are cool to touch with absent peripheral pulses. Very slow capillary refill is noted. The joints are without evidence of synovitis or inflammation. Aside from the mottling, there is no skin rash noted. The patient is completely unresponsive as she is heavily sedated as well as intubated at this point. There is no available neurologic exam for that reason. The thyroid is not appreciably large. LABORATORIES: Include a white count that was normal when she came in and remained normal for three days before rising. It is currently 13,000, which is off the peak of 16,000 yesterday. The diff includes 85% segs, but of course she is on steroids. The patient's platelet count came in at 155 and has continued to drop, and is now 68,000. Her creatinine is 1.08. Her LFTs are normal. Albumin 2.2. Procalcitonin has been normal x6 measurements, and at 0.1 today. Urine tox screen was negative. Urine Legionella antigen was negative. Urine pneumococcal antigen negative. Micro includes numerous negative blood cultures, negative MRSA screen, negative respiratory viral panel and 2 negative sputum samples without polys, growing only normal prince. Chest x-rays have shown right-sided infiltrate. That includes today's chest x-ray. The CT scan of the chest was done shortly after admission, on the , and showed no pulmonary embolism but there was some mild pulmonary edema and small pleural effusions as well as a very small amount of ascites. IMPRESSION: This is a difficult case of a woman who was admitted with what sounds like straightforward respiratory failure with atrial fibrillation and rapid ventricular response in the setting of underlying severe lung disease, and ongoing cigarette smoking. Unfortunately, the case has become more complicated over the past two or three days as she started to spike fevers and have a rising white count, as well as dropping platelets. Obviously, this would suggest some form of nosocomial infection or perhaps worsening of her pre-existing infection she was admitted with. All of this has occurred in spite of broad-spectrum antibiotics including levofloxacin and Zosyn for the last five days, and with normal procalcitonin. The differential diagnosis here is broad, but I am concerned about what we saw while examining the patient with the hand coremaker today. The patient has a loculated and unexplained left pleural effusion, and I am concerned that this could represent some infectious process which will not improve without drainage. Other possible sources of infection here would, of course, include a fungemia, as she has been in the hospital for several days on broad-spectrum antibiotics, pancreatitis, an Aspergillus infection involving the left chest, line infection, drug fever, or Clostridium diff. Clostridium diff seems unlikely as, even though the patient has distended bowel, she has not had any bowel movements whatsoever since admission. RECOMMENDATIONS: 1. We can continue the Zosyn and levofloxacin, at least through the next day or so while we attempt to sort things out, but I doubt these are producing much benefit in this patient who has actually developed fevers and worsening leukocytosis while on these antibiotics. 2. I see no reason to add a MRSA drug at this point, as the patient's MRSA screen was negative and she has not been a frequent flyer in the hospital or apparently a person who uses antibiotics often. 3. Fungal blood cultures will be ordered x2. 4. Lipase will be ordered. 5. Galactomannan will be checked as well as Aspergillus antibodies. 6. Urgent evaluation of the left pleural space is indicated as the initial CT scan showed only a small pleural effusion bilaterally, and we now have no pleural effusion on the right, but quite an extensive left-sided pleural effusion with loculation, which would be very worrisome for perhaps a serious empyema which is in need of drainage. Possible organisms here could include Staph, Strep or one of the Strep milleri specific pathogens. Gram-negative empyema or perhaps even mycobacterial or fungal process is also possible, especially given her normal procalcitonin. 7. We will also add a QuantiFERON Gold. Thank you very much for this complex consultation. Note that this case was discussed with the ICU team on rounds this morning as well as at the bedside with nursing, Radiology and the primary team. ANN MARIE
--- NOTE | 2016-12-27 13:22 | DRSVH ---
PROCEDURE: US CHEST/PLEURAL SONOGRAM INDICATIONS: left pleural effusion COMPARISON: [facility], CR, XR CHEST 1VW (PORTABLE), 12/26/2016, 5:25. [facility], CR, XR CHEST 1VW (PORTABLE), 12/27/2016, 5:31. FINDINGS: There are small loculated complex left pleural effusion, suspicious for hemothorax. IMPRESSION: Small loculated complex left pleural effusion consistent with hemothorax. Dictated by: Santiago Montanez M.D. on 12/27/2016 at 13:19 Approved by: Santiago Montanez M.D. on 12/27/2016 at 13:21
--- NOTE | 2016-12-27 15:03 | DRSVH ---
[facility] [address] [place] [address] Echocardiogram Report Name: RAPHAEL SLATER KStudy Date: 12/27/2016 Height: 60 in Hospital Exam Location: [facility] Weight: 122 lb Gender: Female BSA: 1.5 m2 : 1950 Age: 66 yrs BP: 93/56 mmHg Reason For Study: Thrombus Ordering Physician: HOSPITALIST SVHPerformed By: Maya Don Referring Physician: Yamini Fischer Interpretation Summary Probable large left abdominal ascites possibly surrounding the spleen. There are moderate-sized bilateral pleural effusions noted. There is no thrombus seen in the right ventricle. A calcified moderator band and papillary muscle are visualized. Borderline right ventricular enlargement. Right ventricular systolic function is mild to moderately reduced. The right ventricular systolic pressure is estimated at 68 mmHg assuming a right atrial pressure of 15 mm Hg. RVSP has increased increase since prior study. Procedure: A two-dimensional transthoracic echocardiogram with color flow and Doppler was performed in limited views only. The study quality was technically adequate. Comparison is made with the echocardiogram of 12/23/16. The patient was in normal sinus rhythm during the exam. Left Ventricle: The left ventricle is normal in size. The ejection fraction is estimated to be 65-70%. Flattened septum is consistent with RV pressure/volume overload. Right Ventricle: There is no thrombus seen in the right ventricle. A calcified moderator band and papillary muscle are visualized. Borderline right ventricular enlargement. Right ventricular systolic function is mild to moderately reduced. Tricuspid Valve: There is severe tricuspid regurgitation. The right ventricular systolic pressure is estimated at 68 mmHg assuming a right atrial pressure of 15 mm Hg. Great Vessels: The IVC is dilated (diameter is greater than 2.1 cm) and it collapses less than 50% with a sniff. This suggests a high right atrial pressure of 15 mm Hg. Pericardium/ Pleura There is no pericardial effusion. There are moderate- sized bilateral pleural effusions noted. Probable large left abdominal ascites possibly surrounding the spleen. MMode/2D Measurements & Calculations IVC diam: 2.5 cm RVDd major: 5.1 cm RVD1 (basal): 3.1 cm RVD2 (mid): 3.0 cm Doppler Measurements & Calculations TR max mary: 364.7 cm/sec TR max P.2 mmHg Reading Physician:HIRAM
[2016-12-27 17:08] LABS: Mean Corpuscular Hemoglobin 31.2 pg (27.0-35.0); Mean Corpuscular Volume 98.8 fL (81-100)
[2016-12-27 17:29] LABS: INR 1.33 ratio
--- NOTE | 2016-12-27 19:19 | CONS ---
[address] [address] CONSULTATION REPORT PATIENT: RAPHAEL SLATER : 1950 MR#: [id number] ADMIT: 12/22/2016 JOB ID: [id number] DATE OF SERVICE: 12/27/2016 REASON FOR CONSULTATION: I was asked to see the patient in consultation for a left pleural effusion. She has recent complex history. My history is obtained through the chart as the patient is intubated and there is no family present. HISTORY OF PRESENT ILLNESS: She has developed a left pleural effusion which is described as moderate and by ultrasound today is described as multiloculated and of a density suggestive of blood. In addition to that, she has been on full anticoagulation and she has developed thrombocytopenia with a platelet count of 68,000 today. Her hematocrit has dropped from 33 yesterday to 26 today. She has not had any left pleural space procedures. She is intubated because of combined respiratory and ventilatory failure in what is assumed to be a background of COPD with CO2 retention. There is also concern of her possibly having an empyema. The specific question that I was asked to address is whether she needs a chest tube today. She is currently on broad-spectrum antibiotics with Zosyn and Levaquin. She has been seen in consultation by Dr. Alo Magallanes from Infectious Disease. She is also followed by the hospitalist and CCU team. Her imaging studies from today are a chest x-ray and an ultrasound. She had a CT scan PE protocol on December 23 that showed small bilateral effusions. She has not had a repeat CT scan. PAST MEDICAL HISTORY: Unobtainable from the patient and, again, no family is present. I reviewed the chart which lists a history of COPD and hypertension. HABITS: According to her chart, she drinks up to four beers per day and she is a daily heavy tobacco smoker. REVIEW OF SYSTEMS: Unobtainable. CURRENT PHYSICAL EXAMINATION: VITAL SIGNS: Temperature 38.1, brachial blood pressure is 120/53, pulse 104, AFib, respiratory rate 14 on the ventilator. O2 sat 100%. BMI 23.4. HEENT: Sedated, intubated, feeding tube. LUNGS: Bilateral rhonchi. CARDIAC EXAM: Irregular rhythm. I did not appreciate any murmurs. ABDOMEN: Soft, nontender. LABORATORY RESULTS: As listed above. IMPRESSION: She very well may need a chest tube, but I do not think this is the time to do it as she has been on a heparin infusion until just now, and she has developed thrombocytopenia. If fluid is needed to rule out left pleural space infection, I would recommend a thoracentesis. I would also recommend repeating laboratories tomorrow and also consider repeating a CT scan of her chest to further evaluate her left pleural space.
--- NOTE | 2016-12-27 19:25 | PCM.PNMED ---
Subjective Date of Service Dec 27, 2016 Subjective overnight: Patient became tachycardic and hypotensive overnight phenylephrine drip and 500 mL bolus of normal saline corrected. Hemoglobin continued to drop overnight patient transfused 1 units packed RBCs and heparin drip stopped. Today: Hemoglobin stabilized. Chest x-ray shows worsening left pleural effusion. Abdominal ultrasound negative for free fluid and thoracic ultrasound shows loculated moderate pleural effusion consistent with hemothorax and possibly developing empyema. Gen. surgery consulted at this time for possible chest tube placement which was decided against given heparin use with thrombocytopenia. DIC panel ordered and pending. Exam Vital Signs Vital Sign - Last Date Time Temp Pulse Resp B/P Pulse Ox O2 Delivery O2 Flow Rate FiO2 12/27/16 06:00 39.4 85 14 123/53 12/27/16 04:33 100 50 12/27/16 04:30 Mechanical Ventilator Intake and Output 12/26/16 12/26/16 12/27/16 Cumulative From/Thru 15:00 23:00 07:00 12/22/16 18:16 - 12/27/16 06:08 Intake Total 2896 ml 4026 ml 41043 ml Output Total 865 ml 650 ml 34872 ml Balance 2031 ml 3376 ml 8772 ml Intake IV Total 1913 ml 2971 ml 10822 ml Tube Feeding 863 ml 655 ml 2297 ml Packed Cells 280 ml 280 ml Tube Irrigant 120 ml 120 ml 440 ml Output Urine Total 850 ml 650 ml 47904 ml Gastric Drainage Total 15 ml 70 ml # Voids 0 # Bowel Movements 0 0 Exam General: thin female appearing older than stated age lying in bed intubated and sedated. Eyes: PERRLA. Anicteric sclerae, moist conjunctivae HENT: Normocephalic, atraumatic. Endotracheal and oropharyngeal tube in place. External ears without defect. Neck: Supple. no JVD, trachea, midline, No lymphadenopathy or thyromegaly. Right IJ line in place. Cardiovascular: Irregular rhythm tachycardia without murmurs, rubs, or gallops appreciated. Pulmonary: Moderate coarse breath sounds with decreased air movement on the left lower axillary base, clear on right to auscultation. Diffuse Wheezing still present. Abdomen: Soft, nondistended, bowel sounds normoactive. Genitourinary: Johnson catheter in place. Extremities: Decreased pulses in radial and and decreased dorsalis pedis bilaterally. Mild pitting edema noted in legs bilaterally right worse than left , mild cyanosis and distal digits bilaterally, no clubbing Neuro: Unable to assess Lab and Diagnostics Result Diagram: 12/27/16 0155 12/27/16 0550 X-Rays, CTs and MRIs PROCEDURE: CT BRAIN WITHOUT CONTRAST ([id number]) IMPRESSION: No acute intracranial disease process. Dictated by: Rosaura Wisdom MD, PhD on 12/22/2016 at 20:12 PROCEDURE: US VENOUS LEG DUPLEX BILATERAL IMPRESSION: No deep venous thrombosis identified within either the left or right lower extremities. Dictated by: Shankar PELAEZ Interpreted: Sobia Plunkett MD on 12/23/2016 at 9: 58 PROCEDURE: CT ANGIO CHEST PULMONARY EMBOLISM ([id number]) IMPRESSION: 1. No pulmonary embolus. 2. Mild pulmonary edema associated with small bilateral pleural effusions. 3. Small amount of ascites. 4. Coronary artery disease. Cardiomegaly. Right heart failure. Dictated by: Julieta Gunn M.D. on 12/23/2016 at 13:33 PROCEDURE: X-RAY CHEST ONE VIEW, PORTABLE ([id number]) IMPRESSION: Stable left basilar opacity suspicious for aspiration versus pneumonia. Right basilar opacity has resolved. Dictated by: Rosaura Wisdom MD, PhD on 12/25/2016 at 9:12 Cardiac Echo Impressions Echocardiogram Report Interpretation Summary The ejection fraction is estimated to be 55-60%. Flattened septum is consistent with RV pressure/volume overload. The right ventricle is moderately dilated. Right ventricular systolic function is moderately reduced. The aortic valve is slightly calcified. The aortic valve is not well visualized. There is moderate tricuspid regurgitation. Right ventricular systolic pressure is estimated to be 39 mmHg plus the clinically estimated CVP which cannot be estimated on this exam. RV thrombus is suspected. Electronically signed by: Isra Valdez on Reading Physician:12/23/2016 11:08 AM Additional Diagnostics PROCEDURE: US CHEST/PLEURAL SONOGRAM FINDINGS: There are small loculated complex left pleural effusion, suspicious for hemothorax. IMPRESSION: Small loculated complex left pleural effusion consistent with hemothorax. Dictated by: Santiago Montanez M.D. on 12/27/2016 at 13:19 Approved by: Santiago Montanez M.D. on 12/27/2016 at 13:21 Assessment & Plan 66-year-old female past medical history remarkable for COPD hypertension and alcohol dependency presents with acute respiratory failure. Hospital day 6 1. Acute shock, present on admission, ongoing. - Multifactorial with elements of septic and cardiogenic shock. - Patient appears volume overloaded with JVD and peripheral edema consistent with right heart failure. Now also has new fever, leukocytosis and continued hypotension. 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 Giving 500 ml bolus of LR with 100 ml/hr started as maintenance fluids. - Norepinephrine stopped and switched to phenylephrine drip. Will still attempt to titrate as tolerated by patient. Goal MAP >60. - Follow CBC, procalcitonin. - Repeat blood cultures, urine culture, and sputum culture. - Chest x-ray on 12/27/2016 shows a worsening left pleural effusion, ultrasound used to fine fluid collection shows moderate loculations consistent with hemothorax possible developing empyema - Dropping hemoglobin, heparin drip discontinued with packed RBCs given 2. Acute blood loss anemia, not present on admission - Initial echo showed possible right ventricular thrombus - Heparin drip initiated for possible right ventricular thrombus - Decreasing hemoglobin from 12/25/2016 with hemoglobin of 14, to 12/27/2016 with hemoglobin of 7.6 heparin drip discontinued packed RBCs given - Chest x-ray on 12/27/2016 shows a worsening left pleural effusion, ultrasound used to fine fluid collection shows moderate loculations consistent with hemothorax possible developing empyema - Gen. surgery consulted for possible chest tube placement, will be reconsidered on 12/27/2016 - DIC panel ordered with note of bleeding from all IV sites - Haptoglobin pending fibrillation decreased but above 100 elevated d-dimer elevated PT INR and PTT consistent with acute DIC 1 unit of fresh frozen plasma given 3. Acute on chronic respiratory failure with hypoxia and hypercapnia, present on admission, ongoing. - Patient does have a history of COPD/emphysema and she is likely CO2 retainer. - ABG to be done in AM and as needed for ventilator management. - Fentanyl and Precedex for sedation. Titrate down dosing as tolerated by patient. Not using propofol due to hypotension. - Continue solu-medrol taper. 40 mg Q8 today. 40 mg Q12 tomorrow. Then 40 mg daily on 12/28. We will see if we can convert to PO prednisone at that time. - Atrovent nebs available Q6. - Dr. Cevallos of pulmonology has been consulted for assistance with vent management. - Chest x-ray on 12/27/2016 shows a worsening left pleural effusion, ultrasound used to fine fluid collection shows moderate loculations consistent with hemothorax possible developing empyema 4. Possible Right ventricular thrombus, present on admission, unstable - Seen on echocardiogram ordered for apparent volume overload due to right heart failure. - Discontinue Heparin PE protocol drip for presumed RV thrombus. - Limited echo fails to reveal right ventricular thrombus 5. Possible pneumonia, present on admission, improving. - X-ray imaging after diuresis shows a possible left lower lobe pneumonia. - Procalcitonin remains negative however increasing white blood cell count could be attributed to an infection or steroid use for COPD exacerbation - Continue Zosyn (day 5) - ultrasound used to fine fluid collection shows moderate loculations consistent with hemothorax possible developing empyema 6. Atrial fibrillation with rapid ventricular response, acute, present on admission, improving. - Not clear if she has a history of atrial fibrillation. - Continue Amiodarone drip. - Digoxin 0.25 g given with readministered 0.25 mg due to to continued tachycardia. Will re-evaluate need for continued doses and consult with pharmacy as needed. 7. Hyponatremia, acute, present on admission, improving. - May be related to dehydration - Continue to monitor BMP. 8. Alcohol dependency, present on admission, unstable - CIWA protocol ordered however patient is currently intubated and sedated. - Ativan 2 mg scheduled every 6 hours given improvement in blood pressure and history of alcohol withdrawal. - Continue thiamine IV daily. 9. Hypokalemia, acute, present on admission. Ongoing. - Continue to monitor with BMP and replete as needed. 10. Hypothyroidism, acute, present on admission. - Likely secondary to being critically ill. - Will need follow up labs approximately 6-8 weeks after hospital discharge. 11. Possible adrenal insufficiency, acute, present on admission. - ACTH-stim test shows low level of cortisol. - Patient already undergoing treatment with IV steroids. Will need to plan for slow taper and close outpatient follow up. 12. Acute encephalopathy, present on admission, considered stable - Possibly related to her hypercapnia but must also consider reversible other etiologies such as toxic ingestion, hypothyroidism. - Patient remains intubated and sedated at this time so this is difficult to fully evaluate. - Antiemetic available PRN. - Antacid available PRN. - Tylenol available PRN mild pain, fever. Disposition: patient will likely continue to be in the CCU for several more days of mechanical ventilation and treatment of shock. GI Prophylaxis: H2 cielo VTE Prophylaxis: SCDs, Other (currently assessing for stat d-dimer and possible need for IV heparin PE protocol) VTE Mechanical Devices: Intermittant Pneumatic CD Resuscitation Status: CPR: Attempt Resuscitation Attending Statement The patient was seen and examined together with Dr. Schneider on 12/27/2016 and I agree with the history, exam and plan as outlined in the note above. . Parth Schneider DO Dec 27, 2016 07:01 Feliz Rawls MD Jan 01, 2017 18:16
[2016-12-27] MEDS: Propofol Inj 1,000,000 MCG in IV Premix 1 EACH IV SCH (20:55)
[2016-12-27] MEDS: Thiamine Inj 200 MG in Dextrose 5% 50 ML IV SCH (22:48)
[2016-12-27] MEDS: levoFLOXacin Inj 750 MG in IV Premix 1 EACH IV SCH (22:50)
[2016-12-28] VITALS (21 sets, daily range): BP systolic 94–141; BP diastolic 44–65; PULSE 80–114; RESP 11–16; O2SAT 96–100
[2016-12-28] MEDS: fentaNYL 2,500 mCg/250 mL 2,500 MCG in IV Premix 1 EACH IV SCH ×2 (01:06→20:55)
[2016-12-28] MEDS: Piperacillin-Tazo 3.375 Gm Inj 3.375 GM in Dextrose 5% Minibag Plus 50 ML IV SCH ×3 (01:06→19:25)
[2016-12-28] MEDS: Chlorhexidine 0.12% 15 mL Oral Solution MT SCH ×6 (01:07→20:38)
[2016-12-28] MEDS: Amiodarone 360 mg/200 mL D5W 360 MG in IV Premix 1 EACH IV SCH (01:13)
--- NOTE | 2016-12-28 05:33 | ABG ---
DateTimeAnalyzed 05:30:00 -_ pH ____7.365 - 7.350 7.450 pCO2 ___62.5__ -mmHg 35.0 45.0 pO2 ___85.9__ -mmHg 69.0 116 HCO3- ___34.8__ -mmol/L 22.0 26.0 ABE ____8.8__ -mmol/L -2.0 2.0 tHb ____7.5__ -g/dL O2Hb ___95.1__ -% COHb ____1.4__ -% MetHb ____1.0__ -% sO2 ___97.4__ -% FIO2 ___21.0__ -% PRVC 370 - PEEP ____7.0__ -cmH2O Set_RR ___14.0__ -b/min Drawn By MD - Date/Time Notified____ 05:33:00 -_ Spontaneous_RR ___14.0__ -b/min Oxygen Device 1 VENTILATOR - Notified By MD - Notified Whom RN A.JEANNETTE - B 751 -mmHg tO2 ___10.1__ -Vol% Lance test N/A -
[2016-12-28] MEDS: Insulin Human REGular 300 Unit/3 mL Inj SUBQ SCH ×4 (06:01→20:30)
[2016-12-28] MEDS: Lactated Ringer's 1,000 ML IV SCH ×3 (06:01→12:46)
[2016-12-28 06:36] LABS: BASOPHILS % (AUTO) 0.1 % (0-3); EOSINOPHILS % (AUTO) 0.1 % (0-5); Mean Corpuscular Hemoglobin 31.2 pg (27.0-35.0); Mean Corpuscular Volume 98.7 fL (81-100); Platelet Count 69 bil/L (150-400)
[2016-12-28 06:49] LABS: D-DIMER 1.8 mg/L (<0.50); INR 1.27 ratio
[2016-12-28 07:19] LABS: Magnesium 1.9 mg/dL (1.6-2.6)
[2016-12-28] MEDS: Phenylephrine Inj 20,000 MCG in 0.9% Sodium Chloride 250 ML IV SCH ×2 (07:39→19:24)
[2016-12-28] MEDS: Famotidine Inj 20 MG in IV Premix 1 EACH IV SCH ×2 (07:41→20:38)
--- NOTE | 2016-12-28 09:57 | DRSVH ---
PROCEDURE: US ABDOMEN, LIMITED ([id number]) INDICATIONS: possible intra-abdominal bleed TECHNIQUE: Real-time focused scanning was performed of the abdomen, with image documentation. COMPARISON: None. FINDINGS: No peritoneal fluid is identified, although there is fluid-filled bowel seen throughout the abdomen and pelvis which limits the exam. The retroperitoneal base inadequately visualized. IMPRESSION: No free intraperitoneal fluid identified. If indicated CT could be performed to further assess for possible intraperitoneal or retroperitoneal bleed. Dictated by: Shankar BARRETO Interpreted: Harshil Pacheco MD on 12/28/2016 at 9:55 Transcribed by: GENE on 12/28/2016 at 9:56 Approved by: Harshil Pacheco M.D. on 12/28/2016 at 17:07
--- NOTE | 2016-12-28 10:29 | PROG NOTE ---
[address] [address] PROGRESS NOTE PATIENT: RAPHAEL SLAETR : 1950 MR#: [id number] ADMIT: 12/22/2016 JOB ID: [id number] DATE: 12/28/2016 INFECTIOUS DISEASE FOLLOW UP NOTE: REASON FOR FOLLOW UP: Ventilatory dependent respiratory failure, shock, fever and left pleural space process. INTERVAL HISTORY: Recall this is a very complicated patient we saw in consultation yesterday. She had been admitted for what was a COPD exacerbation with respiratory failure. Initially, she was free of any fever but then started to develop high fevers, shock and worsening respiratory failure. Yesterday during rounds, we were able to see the manufacturing technician, evaluate her pleural space and it was noted she had a very complex left pleural effusion which is going to require evaluation as we were concerned this could represent empyema though the possibility of a hemithorax still exists. Overnight, the patient has continued to be critically ill. She remains ventilator dependent on vasopressors and requiring vasopressor support. Her extremities continue to be mottled and cool and she remains in AFib/flutter. The patient was discussed in detail during ICU rounds and with the nurses at the bedside this morning. She is obviously not able to provide any additional history. PHYSICAL EXAMINATION: Reveals an intubated and sedated critically ill woman in the ICU with phenylephedrine going as of vasopressor agent. She was 38.5 earlier this morning, 38.2 axillary now. Pulse in the 90s, looks like flutter on the monitor. FiO2 50, PEEP 7, saturating 98%. Blood pressure 134/60. Examination of the eyes reveals no change. Oral endotracheal tube and orogastric tube are present. Central line is in good position. The patient does not have an A-line but probably needs one. Her hands and feet are cool and mottled bilaterally. The lungs are notable for decreased breath sounds diffusely but especially at the left base. Cardiac tones: Irregular rate and rhythm in the 90s. Abdomen without focal mass or apparent tenderness. She does have a Johnson catheter and modest urine output. LABORATORIES: Include a white count stable at 15,000, mild left shift. Creatinine 1.04. LFTs normal. BNP 1000. Procalcitonin 0.11. Urine pneumococcal antigen is negative. Urine Legionella antigen likewise negative. Cryptococcal antigen, Aspergillus antibodies and QuantiFERON Gold are all pending. Fungal blood cultures we had ordered yesterday are negative. Blood cultures negative. Respiratory viral PCR panel negative. IMAGING: Repeat chest x-ray is pending. I cannot see the images today but I understand that a surgeon has already seen him and has plans to put a chest tube into this abnormal pleural space as we saw on the ultrasound yesterday. The radiology report on the ultrasound from yesterday says probable hemothorax. IMPRESSION: This is an extremely complex woman with severe underlying cardiac as well as pulmonary disease who is intubated with ongoing shock requiring vasopressor agents, dropping platelet count, dropping hematocrit and evidence of a left pleural space abnormality which may be hemothorax or empyema. She has been receiving broad-spectrum antibiotics now for going on six days with levo and Zosyn but continues to spike fevers. Our evaluation for fungemia is underway and we have some specialized serologies pending but I think by far the most important thing here is to go ahead and sample whatever is going on in her left pleural space to make sure there is not empyema. RECOMMENDATIONS: 1. Will continue with Zosyn and levo but I am increasingly concerned these are not having any salutary effect. 2. I see no reason to add a MRSA drugs. 3. We await the many serologies and additional cultures that have been ordered. 4. Especially important here is the evaluation of the left pleural space which will be done later today reportedly utilizing a chest tube with appropriate samples and cultures to be obtained at that time.
--- NOTE | 2016-12-28 10:41 | DRSVH ---
PROCEDURE: X-RAY CHEST ONE VIEW, PORTABLE ([id number]) INDICATIONS: acute respiratory failure TECHNIQUE: One view of the chest was acquired. COMPARISON: [facility], CR, XR CHEST 1VW (PORTABLE), 12/27/2016, 5:31. FINDINGS: Surgical changes and devices: Endotracheal tube tip projected 0.3 cm above the ifrah. Stable positi oning of right IJ CVL and nasogastric tube tip traverses the GE junction. Lungs and pleura: Persistent loculated left pleural effusion and there is dense mid and basilar left lung airspace opacity as before. Right lung is clear. No pneumothorax. Mediastinum: Mediastinal contours appear normal. Heart size is normal. Bones and chest wall: No suspicious bony lesions. Overlying soft tissues appear unremarkable. IMPRESSION: 1. Persistent loculated left pleural effusion and mid/basilar consolidation likely related to stephen sive atelectasis but pneumonia or neoplasm cannot be excluded. Followup recommended. Dictated by: Shankar Mandujano Aisha Interpreted: Harshil Pacheco MD on 12/28/2016 at 10:39 Transcribed by: GENE on 12/28/2016 at 10:41 Approved by: Harshil Pacheco M.D. on 12/28/2016 at 17:08
--- NOTE | 2016-12-28 10:46 | PCM.PNMED ---
Subjective Date of Service Dec 28, 2016 Subjective Intensive Care/Pulmonology Consultation Note: Attending Dr. Mart Ling is a 66-year-old female with a past medical history significant for hypertension and COPD who was brought to [facility] Emergency Department due to unresponsiveness requiring intubation. We were consulted for ventilator management. Hospital day #6. Overnight: The patient continued to be febrile and hypotensive with the phenylephrine at 0.8 g/kg/min. The patient received 1 unit of FFP for probable DIC. Telemetry overnight was atrial fibrillation, 90's, without ectopy. Subjective exam and review of systems are unobtainable as the patient is intubated and sedated. . Exam Vital Signs Vital Sign - Last Date Time Temp Pulse Resp B/P Pulse Ox O2 Delivery O2 Flow Rate FiO2 12/28/16 08:07 90 134/60 98 50 12/28/16 08:02 Ventilator 12/28/16 07:55 38.2 14 Intake and Output 12/27/16 12/27/16 12/28/16 Cumulative From/Thru 15:00 23:00 07:00 12/22/16 18:16 - 12/28/16 06:30 Intake Total 2583 ml 3427 ml 54180 ml Output Total 500 ml 550 ml 46652 ml Balance 2083 ml 2877 ml 24437 ml Intake IV Total 1983 ml 2527 ml 36744 ml Tube Feeding 478 ml 567 ml 3342 ml Packed Cells 280 ml FFP 215 ml 215 ml Tube Irrigant 122 ml 118 ml 680 ml Output Urine Total 500 ml 550 ml 50952 ml Gastric Drainage Total 70 ml # Voids 0 # Bowel Movements 0 0 Exam General: Middle-aged thin female lying in bed and in no acute distress, intubated and sedated. HEENT: Normocephalic, atraumatic. External ears without defect. Pupils equal, round, and reactive to light. Anicteric sclerae, moist conjunctivae, and no lid lag. Endotracheal and nasopharyngeal tube in place. Neck: Supple. Right IJ. Cardiovascular: Irregular rhythm without murmurs, rubs, or gallops appreciated. Pulmonary: Inspiratory high-pitched squeaks and bronchial breath sounds in anterior lung wooten and bibasilar crackles. No wheeze. Abdomen: Soft, nondistended, bowel sounds active. Genitourinary: Johnson catheter in place. Extremities: Mottled upper and lower extremities. No edema, cyanosis, or clubbing. Neurologic: Unarousable, sedated. Ventilator settings: PRVC. Tidal volume 370. Respiratory rate 14. FiO2 50%. PEEP 7.0. Peak 38. Plateau 27. ABG: PH 7.365. PCO2 62.5. PO2 85.9. HCO3 34.8. On PRVC with an FiO2 of 50%, PEEP of 7.0 and a SPO2 of 97.4% IV drips and Sedatives:Phenylephrine 0.8 mcg/kg/min. Precedex 0.7 mcg/kg/hr. Fentanyl 100mcg/hr. IV lines: Right IJ. I&O: Net +72875 mL. . IVs and Medications Medications Reviewed: Medications were reviewed in detail Lab and Diagnostics Item Value Date Time Prothromb Time International Ratio 1.33 ratio 12/27/16 1655 Prothromb Time International Ratio 1.27 ratio 12/28/16 0610 Item Value Date Time Fibrinogen 112 mg/dL L 12/27/16 1655 Fibrinogen 148 mg/dL L 12/28/16 0610 Item Value Date Time D-Dimer 1.0 mg/L H 12/27/16 1655 D-Dimer 1.8 mg/L H 12/28/16 0610 Item Value Date Time Calcium Level 8.1 mg/dL L 12/28/16 0610 Magnesium Level 1.9 mg/dL 12/28/16 0610 Total Bilirubin 0.4 mg/dL 12/28/16 0610 Aspartate Amino Transf (AST/SGOT) 43 U/L 12/28/16 0610 Alanine Aminotransferase (ALT/SGPT) 22 U/L 12/28/16 0610 Alkaline Phosphatase 23 U/L L 12/28/16 0610 Ammonia 83 ug/dL H 12/27/16 1015 Pro-B-Type Natriuretic Peptide 998.5 pg/mL H 12/28/16 0610 Total Protein 4.3 g/dL L 12/28/16 0610 Albumin 2.7 g/dL L 12/28/16 0610 Procalcitonin 0.11 ng/mL H 12/28/16 0610 Lipase 90 U/L H 12/27/16 0550 Result Diagram: 12/28/16 0610 12/28/16 0610 Microbiology Repeat sputum culture has no growth to date. Repeat blood culture 2 have no growth after 24 hours. Blood culture 2 have no growth after 2 days. Sputum culture grew light normal prince. MRSA screen negative. Strep coccus pneumoniae and legionella urine antigens negative. Respiratory viral PCR negative. . X-Rays, CTs and MRIs X-RAY CHEST ONE VIEW, PORTABLE IMPRESSION: 1. Persistent loculated left pleural effusion and mid/basilar consolidation likely related to compressive atelectasis but pneumonia or neoplasm cannot be excluded. Followup recommended. Dictated by: Shankar BARRETO Interpreted: Harshil Pacheco MD on 12/28/2016 at 10 :39 US ABDOMEN, LIMITED IMPRESSION: No free intraperitoneal fluid identified. If indicated CT could be performed to further assess for possible intraperitoneal or retroperitoneal bleed Dictated by: Shankar BARRETO Interpreted: Harshil Pacheco MD on 12/28/2016 at 9: 55 US CHEST/PLEURAL SONOGRAM IMPRESSION: Small loculated complex left pleural effusion consistent with hemothorax. Dictated by: Santiago Montanez M.D. on 12/27/2016 at 13:19 CT ANGIO CHEST PULMONARY EMBOLISM IMPRESSION: 1. No pulmonary embolus. 2. Mild pulmonary edema associated with small bilateral pleural effusions. 3. Small amount of ascites. 4. Coronary artery disease. Cardiomegaly. Right heart failure. Dictated by: Julieta Gunn M.D. on 12/23/2016 at 13:33 US VENOUS LEG DUPLEX BILATERAL IMPRESSION: No deep venous thrombosis identified within either the left or right lower extremities. Dictated by: Shankar BARRETO Interpreted: Sobia Plunkett MD on 12/23/2016 at 9: 58 CT BRAIN WITHOUT CONTRAST IMPRESSION: No acute intracranial disease process. Dictated by: Rosaura Wisdom MD, PhD on 12/22/2016 at 20:12 X-RAY CHEST ONE VIEW, PORTABLE IMPRESSION: Small patchy airspace opacities in the right lung base and small right-sided pleural effusion suspicious for pneumonia. Dictated by: Rosaura Wisdom MD, PhD on 12/22/2016 at 18:51 Approved by: Rosaura Wisdom MD, PhD on 12/22/2016 at 18:52 . Cardiac Echo Impressions Echocardiogram Interpretation Summary: Probable large left abdominal ascites possibly surrounding the spleen. There are moderate-sized bilateral pleural effusions noted. There is no thrombus seen in the right ventricle. A calcified moderator band and papillary muscle are visualized. Borderline right ventricular enlargement. Right ventricular systolic function is mild to moderately reduced. The right ventricular systolic pressure is estimated at 68 mmHg assuming a right atrial pressure of 15 mm Hg. RVSP has increased increase since prior study. Reading Physician:PM Echocardiogram Interpretation Summary: The ejection fraction is estimated to be 55-60%. Flattened septum is consistent with RV pressure/volume overload. The right ventricle is moderately dilated. Right ventricular systolic function is moderately reduced. The aortic valve is slightly calcified. The aortic valve is not well visualized. There is moderate tricuspid regurgitation. Right ventricular systolic pressure is estimated to be 39 mmHg plus the clinically estimated CVP which cannot be estimated on this exam. RV thrombus is suspected. Electronically signed by: Isra Valdez on Reading Physician:12/23/2016 11:08 AM . Assessment & Plan Virginia Ling is a 66-year-old female with a past medical history significant for hypertension and COPD who was brought to [facility] Emergency Department due to unresponsiveness requiring intubation. Hospital day #6. 1. Acute shock, unclear etiology, present on admission. Active. - VBG showed an sVO2 of 78% likely employer relations representative of septic shock or a mixed etiology with an obstructive/cardiogenic component. - Patient clinically volume overloaded with JVD and peripheral edema with echocardiographic and radiographic evidence of right sided heart failure. - Repeat limited echocardiogram revealed worsening RV overload with increased RVSP of 64 mmHg without evidence of RV thrombus, as above. - Continue phenylephrine for vasopressor support and titrate off as tolerated. - IV fluids with LR at 100 mL/hr. Had to be cautious with IV fluid resuscitation due to RV overload and to avoid to rapid over correction of sodium level and central pontine myelinosis. 2. Acute on chronic hypoxemic and hypercapnia respiratory failure, present on admission. Active. - Patient does have a history of COPD and based on CO2 on admission was hypercapnic and likely CO2 retainer. Differential diagnosis includes: Hepatic encephalopathy (CT showed abdominal ascites and history of alcohol use on HPI) versus less likely PE versus CAP versus ACS. - Blood glucose normal on admission. - Sputum culture and Gram stain, blood culture x 4, respiratory viral PCR, strep pneumoniae and legionella urine antigens all negative. - D-dimer elevated at >32.3 and IV heparin PE protocol initiated. - Initial echocardiogram revealed RVSP of 34 mmHg with evidence of RV overload and septal flattening with suspected thrombus, as above. Repeat limited echocardiogram revealed worsening RV overload with increased RVSP of 64 mmHg without evidence of RV thrombus, as above. - CT angiography was negative for PE and revealed mild pulmonary edema associated with small bilateral pleural effusions and right heart failure, as above. - Also need to consider possible COPD exacerbation as etiology IV Solu-Medrol, duo nebs every 4 hours and albuterol nebs every 2 hours when necessary - The patient was auto PEEPing, therefore, RR and TV were decreased and flow was increased by decreasing Ti from 0.80 to 0.75. - Continue to monitor ABG daily for vent management. - Continue fentanyl and Precedex for sedation, as above. Consider sedation vacation and SBT once stable. - Continue levofloxacin and Zosyn per ID. - ID consulted and following we appreciate their time and care of the patient. 3. Acute moderate pleural effusion, present on admission. Active. - Likely employer relations representative of hemothorax but could possibly be an emphysema. - Ultrasound revealed small loculated complex left pleural effusion consistent with hemothorax. - Has been discussed with IR for possible diagnostic thoracentesis which is too small to tap. - Surgery has been consulted for possible chest tube placement today. 4. Acute encephalopathy, present on admission. Active. - Likely multifactorial and related to her hypercapnia, hyponatremia and possibly hepatic encephalopathy (CT showed abdominal ascites and history of alcohol use on HPI) and PE. Unlikely differentials include overdose and epilepsy. No trauma. - CT brain without contrast was negative for any acute intracranial abnormality , as above. Patient was also non-focal on exam, therefore, CVA very unlikely. - Alcohol level and urine drug screen negative. - IV fluids with LR at 100 mL/hr. Had to be cautious with IV fluid resuscitation due to RV overload and to avoid to rapid over correction of sodium level and central pontine myelinosis. - Continue Precedex and fentanyl for sedation. 5. Pulmonary hypertension, acuity unknown, present on admission. Active. - Likely secondary to COPD but possibly PE/RV thrombus. - Cautious with fluid resuscitation. - Repeat limited echocardiogram revealed worsening RV overload with increased RVSP of 64 mmHg without evidence of RV thrombus, as above. 6. Acute respiratory alkalosis with partial metabolic compensation, present on admission. - Continue ventilator with settings as above. - Treat COPD as above under problem #2. - Also treat underlying etiology of shock under problem #1. 7. Atrial fibrillation with RVR, acuity unknown, present on admission. Active. - Unclear if she has a history of atrial fibrillation. - RV thrombus possible based on echocardiogram. CTA revealed no PE. - Serial troponins have been negative. - Switch Amiodarone gtt to PO for rhythm control per primary medical team. 8. Acute hyponatremia, present on admission. Active. - Likely related to dehydration and possibly beer potomania. - Continuing IV normal saline at 100 mL/hr and monitor sodium level closely to avoid to rapid over correction central pontine myelinosis. - Monitor sodium level daily. 8. Acute hypokalemia, present on admission. Active. - Possibly secondary to beer potomania. - Replete as needed. - Monitor potassium level daily. 9. Acute hypomagnesemia, present on admission. Active. - Possibly secondary to beer potomania. - Replete as needed. - Monitor magnesium level daily. Chronic problems with management per primary team. Disposition: Several days and depending upon clinical course. Total critical care time spent 60 minutes. . GI Prophylaxis: H2 cielo VTE Prophylaxis: SCDs, Other (currently assessing for stat d-dimer and possible need for IV heparin PE protocol) VTE Mechanical Devices: Intermittant Pneumatic CD Resuscitation Status: CPR: Attempt Resuscitation Attending Statement The patient was seen and examined together with Dr. Greene on 12/28/2016 and I agree with the history, exam and plan as outlined in the note above. Nneka Greene DO Dec 28, 2016 10:46 Kyle Cevallos MD Jan 02, 2017 11:08 4. Possible Right ventricular thrombus, present on admission, unstable - Seen on echocardiogram ordered for apparent volume overload due to right heart failure. - Discontinue Heparin PE protocol drip for presumed RV thrombus. - Limited echo fails to reveal right ventricular thrombus 5. Possible pneumonia, present on admission, improving. - X-ray imaging after diuresis shows a possible left lower lobe pneumonia. - Procalcitonin remains negative however increasing white blood cell count could be attributed to an infection or steroid use for COPD exacerbation - Continue Zosyn (day 5) - ultrasound used to fine fluid collection shows moderate loculations consistent with hemothorax possible developing empyema 6. Atrial fibrillation with rapid ventricular response, acute, present on admission, improving. - Not clear if she has a history of atrial fibrillation. - Continue Amiodarone drip. - Digoxin 0.25 g given with readministered 0.25 mg due to to continued tachycardia. Will re-evaluate need for continued doses and consult with pharmacy as needed. 7. Hyponatremia, acute, present on admission, improving. - May be related to dehydration - Continue to monitor BMP. 8. Alcohol dependency, present on admission, unstable - CIWA protocol ordered however patient is currently intubated and sedated. - Ativan 2 mg scheduled every 6 hours given improvement in blood pressure and history of alcohol withdrawal. - Continue thiamine IV daily. 9. Hypokalemia, acute, present on admission. Ongoing. - Continue to monitor with BMP and replete as needed. 10. Hypothyroidism, acute, present on admission. - Likely secondary to being critically ill. - Will need follow up labs approximately 6-8 weeks after hospital discharge. 11. Possible adrenal insufficiency, acute, present on admission. - ACTH-stim test shows low level of cortisol. - Patient already undergoing treatment with IV steroids. Will need to plan for slow taper and close outpatient follow up. 12. Acute encephalopathy, present on admission, considered stable - Possibly related to her hypercapnia but must also consider reversible other etiologies such as toxic ingestion, hypothyroidism. - Patient remains intubated and sedated at this time so this is difficult to fully evaluate. - Antiemetic available PRN. - Antacid available PRN. - Tylenol available PRN mild pain, fever. Disposition: patient will likely continue to be in the CCU for several more days of mechanical ventilation and treatment of shock. GI Prophylaxis: H2 cielo VTE Prophylaxis: SCDs, Other (currently assessing for stat d-dimer and possible need for IV heparin PE protocol) VTE Mechanical Devices: Intermittant Pneumatic CD Resuscitation Status: CPR: Attempt Resuscitation Nneka Greene DO Dec 28, 2016 10:46
[2016-12-28 11:08] LABS: Cryptococcal Ag Negative (Negative)
--- NOTE | 2016-12-28 11:44 | PCM.CONPAL ---
Date of Service Dec 28, 2016 Date of Hospital Admission: Dec 22, 2016 at 20:56 Date of Palliative Consult: Dec 28, 2016 Requesting Provider: Feliz Rawls MD Reason Palliative Care Consult: Goals of Care Discussion Hospital Unit @time of consult: Critical Care Palliative Care Recommendation 66-year-old woman with history of COPD, chronic and ongoing tobacco use, hypertension, possible chronic alcohol abuse- admitted from home where she had become progressively lethargic over several days. Intubated in the emergency department due to her decreased level of consciousness and evidence of hypercarbic respiratory failure. Continues to be evaluated for potential contributing diagnoses while receiving ongoing aggressive intensive care. Palliative medicine consulted to assist the patient's family and determination of goals of care Summary of palliative recommendations: -Symptom management (Pain/other)- no evidence of distress at this time. Continued management per her medical/critical care teams. -DPOA/Advanced Directives/POLST- unknown what sort of documentation may exist. Will continue to try to contact her spouse/significant other Ezio Robles. Per her brother, would likely want to continue current treatment as long as there is reasonable chance of survival/recovery. Palliative medicine will continue to follow an attempt to communicate with family members. -Family/emotional support- spouse/significant other reports to nurses that he is too unnerved by looking at the patient in critical care setting and so cannot visit. We will continue to try to reach him by phone. -Spiritual support- offered and declined Contact info: Ezio Robles (significant other/spouse) [phone] Nicolas Ling (brother, closest living blood relative) [phone] Patient Goals: 1. Patient's family wants to be told the truth about her illness, even if it is unpleasant. 2. Patient's family would like to be told prognosis when it can be predicted, to better guide treatment decisions. Additional Medical Diagnoses with primary management by Hospitalist team include : 1. Acute shock, present on admission, ongoing. 2. Acute blood loss anemia, not present on admission 3. Acute on chronic respiratory failure with hypoxia and hypercapnia, present on admission, ongoing. 4. Possible Right ventricular thrombus, present on admission, unstable 5. Possible pneumonia, present on admission, improving. 6. Atrial fibrillation with rapid ventricular response, acute, present on admission, improving. 7. Hyponatremia, acute, present on admission, improving. 8. Alcohol dependency, present on admission, unstable 9. Hypokalemia, acute, present on admission. Ongoing. 10. Hypothyroidism, acute, present on admission. 11. Possible adrenal insufficiency, acute, present on admission. 12. Acute encephalopathy, present on admission, considered stable Problems: End of Life Preferences For now, continue full aggressive care pending further conversations with patient's family members Goals of Care Continue to appropriately evaluate and treat Disposition To be determined Resuscitation Status Resuscitation Status: CPR: Attempt Resuscitation POLST Updates/Changes Previous POLST?: No . Advanced Care Planning Address: POLST, Durable Power of [employer] Pain: None Symptom management: Drowsiness/sleepiness, Dyspnea Pt History History of Present Illness Per admission H&P: 66-year-old female who does have a history of COPD by previous records appears to not be steroid and O2 dependent. I am not able to get a history from her as she is intubated and is not reachable at this point in time. Apparently he did call 911 because his was having increasing lethargy over the past few days. When EMS got there her room air sat was 62%. She became less responsive while here and required intubation for respiratory failure and also for protection of her airway. Her chest x-ray did show possible right lower lobe infiltrate with right pleural effusion. EKG showed A. fib at a rate of 132. No old EKG for comparison. She has been afebrile here. Blood pressure initially 160/104 with a respiratory rate of 33. White count is 8.7 with 58% polys 25% lymphs. She was noted to be hyponatremic to 122 with a potassium of 3.0 chloride was 73 bicarbonate was 34. BUN was 18 creatinine 0.54 with a calculated GFR of 163. LFTs were normal troponin was less than 0.010. ProBNP was 7256. Lactic acid was 1.3. Patient has remained intubated and mechanically ventilated. She has developed persistent fevers with slowly rising WBC and modest elevation of procalcitonin, as well as enlarging left pleural effusion, raising concerns of empyema or other infection. Her level of consciousness has deteriorated since admission as well. Palliative medicine was consulted to assist patient's family in determination of goals of care. Prior to visiting, I reviewed her records in the EMR in detail, spoke with her medical/critical care teams as well as her bedside nurse. On my arrival, patient is sedated, unresponsive, lying in bed, intubated. No evidence of distress at this time. Through the day, I made multiple attempts to contact her spouse/significant other Ezio Robles but was unable to reach him. He had spoken with nurse in the casting and curing operator and left new contact phone number, for which voicemail is, unfortunately, not enabled. I was able to eventually reach her brother Nicolas Ling, however, and I reviewed her current status with him in detail, answered questions he had, and obtained more social history from him. 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 Despite multiple attempts, I have thus far been unable to reach him by telephone Patient has 1 sibling, her brother Nicolas Ling. Her parents are Nicolas's sense of her wishes is that, while she would be willing to be treated aggressively for 1-2 weeks, she would not want to be kept alive on machines or if she did not have a reasonable probability of full recovery and ability to return home to independent living. Of course, we will try to confirm and elaborate on this once have had a chance to speak with Mr. Robles Contact info: Ezio Robles [phone] Nicolas Ling [phone] Social Support: As noted Living Situation: Lives with her spouse/significant other Ezio Robles- we have conflicting information regarding whether or not they are formally They have been together greater than 20 years Her brother notes that they enjoy fishing, gardening and also have some farm animals Ezio is apparently medically disabled Spiritual Support Spiritual Support Her brother reports that the patient belongs to no roman catholic community/does not attend worship Palliative Performance Scale PPS Patient Status: Baseline PPS Ambulation: Reduced (limited by exertional dyspnea) PPS Activity: Unable to do normal job/work PPS Self-Care: Full Self Care PPS Intake: Normal PPS Conscious Level: Full Performance Scale: 70% ADLs ADL Patient Status: Baseline ADL Ambulation: Reduced ADL Dressing: Full ADL Feeding: Full ADL Hygene/bathing: Full ADL Transfers: Full POLST at Time of Admission Previous POLST?: No Allergy Allergies Reviewed: Yes Medications Current Medications: Current Medications Methylprednisolone Sodium Succinate 40 mg Q8 IVPUSH Last administered on 00:53; Admin Dose 40 MG; Start 12/26/16 at 16:30; Stop 12/27/16 at 00:30; Status DC Methylprednisolone Sodium Succinate 40 mg 40 mg Q12 IVPUSH Last administered on 12/27/16 22:49; Admin Dose 40 MG; Start 12/27/16 at 08:30; Stop 12/27/16 at 20: 31; Status DC Phenylephrine HCl 99491 mcg/Sodium Chloride 252 ml @ 19.54 mls/ hr [id number] IV Last administered on 12/28/16 07:39; Admin Dose 19.54 MLS/HR; Start 12/26/16 at 15:10 Lactated Ringer's 1,000 ml @ 100 mls/hr Q10H IV Last administered on 12/28/16 07:39; Admin Dose 100 MLS/HR; Start 12/26/16 at 15:10; Stop 12/28/16 at 10:28; Status DC Lactated Ringer's 1,000 ml @ 10 mls/hr Q24H IV; Start 12/28/16 at 10:30 Polyethylene Glycol 17 gm BID PO; Start 12/28/16 at 10:29 Scheduled Hydrochlorothiazide (Hydrochlorothiazide) 25 Mg Tablet 25 MG PO QAM Lisinopril (Lisinopril) 40 Mg Tablet 40 MG PO HS Metoprolol Tartrate (Metoprolol Tartrate) 50 Mg Tablet 100 MG PO QAM TAKE METOPROLOL 100 MG PO QAM, AND 50 MG PO QHS Metoprolol Tartrate (Metoprolol Tartrate) 50 Mg Tablet 50 MG PO QPM TAKE METOPROLOL 100 MG PO QAM, AND 50 MG PO QHS Tiotropium Fedora (Spiriva Respimat) 4 Gm Mist.inhal 2 PUFFS INHALATION DAILY Scheduled PRN Albuterol Sulfate (Ventolin HFA Inhaler) 200 Puff/18 Gm Inhaler 2 PUFFS INHALATION Q4H PRN PRN For Shortness of Breath Current Treatments Ventilator: Yes Oxygen: Yes IV Fluids: Yes Antibiotics: Yes Restraints: Yes Telemetry: Yes Critical Care Unit: Yes Objective Findings Exam Vital Sign - Last Date Time Temp Pulse Resp B/P Pulse Ox O2 Delivery O2 Flow Rate FiO2 12/28/16 10:42 101 110/52 99 50 12/28/16 08:02 Ventilator 12/28/16 07:55 38.2 14 Intake and Output 12/27/16 12/27/16 12/28/16 Cumulative From/Thru 15:00 23:00 07:00 12/22/16 18:16 - 12/28/16 06:30 Intake Total 2583 ml 3427 ml 51468 ml Output Total 500 ml 550 ml 53125 ml Balance 2083 ml 2877 ml 55993 ml Intake IV Total 1983 ml 2527 ml 29009 ml Tube Feeding 478 ml 567 ml 3342 ml Packed Cells 280 ml FFP 215 ml 215 ml Tube Irrigant 122 ml 118 ml 680 ml Output Urine Total 500 ml 550 ml 81359 ml Gastric Drainage Total 70 ml # Voids 0 # Bowel Movements 0 0 Objective Thin woman lying in CCU bed, intubated, unresponsive on sedation. Vital signs noted. Continues on IV phenylephrine. HEENT exam noncontributory-no acute changes noted. Pupils are small and minimally reactive. Scleral edema evident. Skin pale, warm and dry. Lungs with coarse rhonchi diffusely. Heart sounds regular and rapid. Chest is bony. Abdomen is rounded, without tenderness or rigidity. Bowel sounds quiet. Extremities diffusely with edema and puffiness. Neurologic exam limited due to heavy sedation. Lab/Diagnostics Lab and Imaging results reviewed in detail in EMR. Time spent Total time 75 minutes; >50% face to face with patient and family, providing counselling regarding plans and recommendations, and in care coordination with her medical teams. Of the above total time, 15 minutes counseling for advanced care planning with the patient's brother, reviewing his understanding of her wishes for care copies to: Feliz Mays MD, David F MD Dec 28, 2016 11:44
[2016-12-28] MEDS: Polyethylene Glycol (PEG) 17 Gm Powder PO SCH ×2 (12:47→20:38)
--- NOTE | 2016-12-28 12:47 | ABG ---
DateTimeAnalyzed 12:43:00 -_ pH ____7.282 - 7.350 7.450 pCO2 ___77.4__ -mmHg 35.0 45.0 pO2 ___73.1__ -mmHg 69.0 116 HCO3- ___35.4__ -mmol/L 22.0 26.0 ABE ____8.0__ -mmol/L -2.0 2.0 tHb ____7.2__ -g/dL O2Hb ___92.0__ -% COHb ____1.3__ -% MetHb ____0.9__ -% sO2 ___94.1__ -% FIO2 ___50.0__ -% PRVC 340 - PEEP ____7.0__ -cmH2O Set_RR ___11.0__ -b/min Vt __354.0__ -L Drawn By jmw - Date/Time Notified____ 12:46:00 -_ Spontaneous_RR ___11.0__ -b/min Oxygen Device 1 VENTILATOR - Notified By jmw - Notified Whom DR KENDREGAN - B 749 -mmHg tO2 ____9.5__ -Vol% OrderingPhysicianInitials bak - Lance test _Positive -
[2016-12-28] MEDS ORDERED: Lidocaine 1%-Epi 1:100,000 10 mL Inj NERVEBLOCK ONE (13:15)
--- NOTE | 2016-12-28 14:09 | PROG NOTE ---
[address] [address] PROGRESS NOTE PATIENT: RAPHAEL LING : 1950 MR#: [id number] ADMIT: 12/22/2016 JOB ID: [id number] DATE: 12/28/2016 SUBJECTIVE: The patient is seen in followup. She is off of heparin. She was given some FFP. Her hematocrit has dropped some more. Her platelet count is stable at 69,000. Her chest x-ray shows an increasing left pleural effusion. PHYSICAL EXAMINATION: Temperature is 38.5, brachial blood pressure 114/51, pulse 115, respiratory rate on the vent 111, O2 sat 98%. FiO2 0.5. IMPRESSION: Left hemothorax, increasing in size. PLAN: I discussed this with her brother as the patient is intubated and unable to speak for herself. I did speak with her brother, Nicolas Ling. I also called the phone number for Ezio Robles, who is listed as her significant other, but there was no answer. Shantal Wisdom RN,also confirmed with Nicolas Ling his permission to proceed with a left chest tube. I will place a left chest tube today. Will send it for culture, cell counts, and total protein and LDH. I explained to her brother the complications include, but are not limited to, perforation of the lung, bleeding, prolonged air leak. Patient seen for decision to operate. [facility] H[facility]PITALSaritha
[2016-12-28] MEDS: Dexmedetomidine 400 mCg/100 mL 400 MCG in IV Premix 1 EACH IV SCH ×2 (14:39→21:40)
[2016-12-28] MEDS ORDERED: 0.9% Sodium Chloride 250 ML IV SCH (14:55)
[2016-12-28 14:59] LABS: TOTAL PROTEIN,PLEURAL FLUID 3.5 g/dL
[2016-12-28 15:08] LABS: BFWBC 1889 /mm3; MONOCYTES,BODY FLUID 4 %; OTHER CELLS,BODY FLUID 0
--- NOTE | 2016-12-28 17:13 | DRSVH ---
PROCEDURE: X-RAY CHEST ONE VIEW, PORTABLE ([id number]) INDICATIONS: Post chest tube placement TECHNIQUE: One view of the chest was acquired. COMPARISON: [facility], CR, XR CHEST 1VW (PORTABLE), 12/28/2016, 2:14. FINDINGS: Surgical changes and devices: Left pleural drain has been placed. Stable positioning of ETT, nasogas tric tube and right IJ CVL. Lungs and pleura: Much of the loculated left pleural effusion has been evacuated with residual involv ing the left lung base where there also is likely compressive atelectasis versus pneumonia or neoplas m. Mediastinum: Mediastinal contours appear normal. Heart size is normal. Bones and chest wall: No suspicious bony lesions. Overlying soft tissues appear unremarkable. IMPRESSION: Placement of left pleural drain with significant reduction in size of loculated left pleu ral effusion. No pneumothorax. Dictated by: Shankar BARRETO Interpreted: Harshil Pacheco MD on 12/28/2016 at 17:10 Transcribed by: GENE on 12/28/2016 at 17:11 Approved by: Harshil Pacheco M.D. on 12/30/2016 at 10:09
--- NOTE | 2016-12-28 17:58 | OP ---
[address] [address] OPERATIVE REPORT PATIENT: RAPHAEL LING : 1950 MR#: [id number] ADMIT: 12/22/2016 JOB ID: [id number] DATE OF SURGERY: 12/28/2016 PREOPERATIVE DIAGNOSIS(ES): Left hemothorax. POSTOPERATIVE DIAGNOSIS(ES): Left hemothorax. PROCEDURE: Left thoracostomy tube. SURGEON: Blake Lazcano MD INDICATIONS: A 66-year-old female who is critically ill, on the ventilator. She was on a heparin infusion. She got a prolonged PTT and also developed thrombocytopenia. That led to the development of a large left pleural effusion and falling hematocrit. The combination was totally consistent with a left hemothorax. Her heparin was stopped and then today her pleural effusion appeared to increase. Although she has moderate thrombocytopenia, which is stable, I elected to proceed with placement of a left chest tube. Informed consent was obtained with her brother, Nicolas Ling, witnessed by Shantal Wisdom RN. FINDINGS: Large amount of liquified blood was drained, initially 2019-3669 mL. It was sent for culture, LDH, total protein, and cell counts. DESCRIPTION OF PROCEDURE: In the intensive care unit, a time-out was called. Her left side was marked. Essential imaging had been confirmed. She was sedated because of the ventilator. Her left chest was prepped with Betadine, infiltrated with 1% lidocaine with epinephrine. Along the anterior axillary line a transverse incision was made. Subcutaneous dissection was done up to approximately the 4th intercostal space. The left pleural space was entered bluntly and then a 28-Bengali chest tube was placed and secured with 2-0 nylon. Fluid was obtained for laboratories and cultures as stated above. It was connected to a reservoir which immediately drained 8809-5584 mL. The patient tolerated the procedure well. No apparent complications. The needles were all secured. A chest x-ray will be ordered.
[2016-12-28] MEDS: 0.9% Sodium Chloride 250 ML IV SCH (19:25)
[2016-12-28] MEDS: Thiamine Inj 200 MG in Dextrose 5% 50 ML IV SCH (20:38)
--- NOTE | 2016-12-28 20:48 | PCM.PNMED ---
Subjective Date of Service Dec 28, 2016 Subjective overnight: Patient remained febrile overnight while on continual pressor support with phenylephrine drip. No acute events otherwise noted Today: Seen by surgery with chest tube placement approximately 2 L of blood drained from the left thoracic cavity. 2 units of packed red blood cells and 1 unit of platelets given. Palliative care to get involved today. Exam Vital Signs Vital Sign - Last Date Time Temp Pulse Resp B/P Pulse Ox O2 Delivery O2 Flow Rate FiO2 12/28/16 07:55 38.2 87 14 119/63 100 Mechanical Ventilator 12/28/16 04:30 50 Intake and Output 12/27/16 12/27/16 12/28/16 Cumulative From/Thru 15:00 23:00 07:00 12/22/16 18:16 - 12/28/16 06:30 Intake Total 2583 ml 3427 ml 26885 ml Output Total 500 ml 550 ml 92112 ml Balance 2083 ml 2877 ml 47397 ml Intake IV Total 1983 ml 2527 ml 00011 ml Tube Feeding 478 ml 567 ml 3342 ml Packed Cells 280 ml FFP 215 ml 215 ml Tube Irrigant 122 ml 118 ml 680 ml Output Urine Total 500 ml 550 ml 85408 ml Gastric Drainage Total 70 ml # Voids 0 # Bowel Movements 0 0 Exam (Performed prior to chest tube placement) General: thin female appearing older than stated age lying in bed intubated and sedated. Eyes: PERRLA. Anicteric sclerae, moist conjunctivae HENT: Normocephalic, atraumatic. Endotracheal and oropharyngeal tube in place. External ears without defect. Neck: Supple. no JVD, trachea, midline, No lymphadenopathy or thyromegaly. Right IJ line in place. Cardiovascular: Irregular rhythm tachycardia without murmurs, rubs, or gallops appreciated. Pulmonary: Moderate coarse breath sounds with decreased air movement on the left lower axillary base, clear on right to auscultation. Diffuse Wheezing still present. Abdomen: Soft, nondistended, bowel sounds normoactive. Genitourinary: Johnson catheter in place. Extremities: Decreased pulses in radial and and decreased dorsalis pedis bilaterally. Mild pitting edema noted in right leg no edema in left, mild cyanosis and distal digits bilaterally, no clubbing Neuro: Unable to assess Lab and Diagnostics Result Diagram: 12/28/16 0610 12/28/16 0610 Microbiology Repeat sputum culture has no growth to date. Repeat blood culture 2 pending. Blood culture 2 showed no growth after 2 days. Sputum culture grew light normal prinec. MRSA screen negative. Strep coccus pneumoniae and legionella urine antigens negative. Respiratory viral PCR negative. . X-Rays, CTs and MRIs PROCEDURE: CT BRAIN WITHOUT CONTRAST ([id number]) IMPRESSION: No acute intracranial disease process. Dictated by: Rosaura Wisdom MD, PhD on 12/22/2016 at 20:12 PROCEDURE: US VENOUS LEG DUPLEX BILATERAL IMPRESSION: No deep venous thrombosis identified within either the left or right lower extremities. Dictated by: Shankar Mandujano [facility] Interpreted: Sobia Plunkett MD on 12/23/2016 at 9: 58 PROCEDURE: CT ANGIO CHEST PULMONARY EMBOLISM ([id number]) IMPRESSION: 1. No pulmonary embolus. 2. Mild pulmonary edema associated with small bilateral pleural effusions. 3. Small amount of ascites. 4. Coronary artery disease. Cardiomegaly. Right heart failure. Dictated by: Julieta Gunn M.D. on 12/23/2016 at 13:33 PROCEDURE: X-RAY CHEST ONE VIEW, PORTABLE ([id number]) IMPRESSION: Stable left basilar opacity suspicious for aspiration versus pneumonia. Right basilar opacity has resolved. Dictated by: Rosaura Wisdom MD, PhD on 12/25/2016 at 9:12 PROCEDURE: X-RAY CHEST ONE VIEW, PORTABLE ([id number]) IMPRESSION: Placement of left pleural drain with significant reduction in size of loculated left pleural effusion. No pneumothorax. Dictated by: Shankar Mandujano [facility]RA Interpreted: Harshil Pacheco MD on 12/28/2016 at 17 :10 Transcribed by: GENE on 12/28/2016 at 17:11 Cardiac Echo Impressions Echocardiogram Report Interpretation Summary The ejection fraction is estimated to be 55-60%. Flattened septum is consistent with RV pressure/volume overload. The right ventricle is moderately dilated. Right ventricular systolic function is moderately reduced. The aortic valve is slightly calcified. The aortic valve is not well visualized. There is moderate tricuspid regurgitation. Right ventricular systolic pressure is estimated to be 39 mmHg plus the clinically estimated CVP which cannot be estimated on this exam. RV thrombus is suspected. Electronically signed by: Isra Valdez on Reading Physician:12/23/2016 11:08 AM Additional Diagnostics PROCEDURE: US CHEST/PLEURAL SONOGRAM FINDINGS: There are small loculated complex left pleural effusion, suspicious for hemothorax. IMPRESSION: Small loculated complex left pleural effusion consistent with hemothorax. Dictated by: Santiago Montanez M.D. on 12/27/2016 at 13:19 Approved by: Santiago Montanez M.D. on 12/27/2016 at 13:21 Assessment & Plan 66-year-old female past medical history remarkable for COPD hypertension and alcohol dependency presents with acute respiratory failure. Hospital day 7 1. Acute shock, present on admission, ongoing. - Multifactorial with elements of septic and cardiogenic shock. - Patient appears volume overloaded with JVD and peripheral edema consistent with right heart failure. Now also has new fever, leukocytosis and continued hypotension. 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 Giving 500 ml bolus of LR with 100 ml/hr started as maintenance fluids. - Norepinephrine stopped and switched to phenylephrine drip. Will still attempt to titrate as tolerated by patient. Goal MAP >60. - Follow CBC, procalcitonin. - Repeat blood cultures, urine culture, and sputum culture. - Chest x-ray on 12/27/2016 shows a worsening left pleural effusion, ultrasound used to fine fluid collection shows moderate loculations consistent with hemothorax possible developing empyema - Dropping hemoglobin, heparin drip discontinued with packed RBCs given - General surgery placed a left-sided chest tube today with 2 L of blood it out immediately. 2 units of packed RBCs given with 1 unit of platelets 2. Acute blood loss anemia, not present on admission - Initial echo showed possible right ventricular thrombus - Heparin drip initiated for possible right ventricular thrombus - Decreasing hemoglobin from 12/25/2016 with hemoglobin of 14, to 12/27/2016 with hemoglobin of 7.6 heparin drip discontinued packed RBCs given - Chest x-ray on 12/27/2016 shows a worsening left pleural effusion, ultrasound used to fine fluid collection shows moderate loculations consistent with hemothorax possible developing empyema - Gen. surgery consulted for possible chest tube placement, will be reconsidered on 12/27/2016 - DIC panel ordered with note of bleeding from all IV sites - Haptoglobin pending fibrillation decreased but above 100 elevated d-dimer elevated PT INR and PTT consistent with acute DIC 1 unit of fresh frozen plasma given - General surgery placed a left-sided chest tube today with 2 L of blood it out immediately. 2 units of packed RBCs given with 1 unit of platelets 3. Acute on chronic respiratory failure with hypoxia and hypercapnia, present on admission, ongoing. - Patient does have a history of COPD/emphysema and she is likely CO2 retainer. - ABG to be done in AM and as needed for ventilator management. - Fentanyl and Precedex for sedation. Titrate down dosing as tolerated by patient. Not using propofol due to hypotension. - Continue solu-medrol taper. 40 mg Q8 today. 40 mg Q12 tomorrow. Then 40 mg daily on 12/28. We will see if we can convert to PO prednisone at that time. - Atrovent nebs available Q6. - Dr. Cevallos of pulmonology has been consulted for assistance with vent management. - Chest x-ray on 12/27/2016 shows a worsening left pleural effusion, ultrasound used to fine fluid collection shows moderate loculations consistent with hemothorax possible developing empyema - General surgery placed a left-sided chest tube today with 2 L of blood it out immediately. 2 units of packed RBCs given with 1 unit of platelets 4. Left sided Hemothorax, not present on admission, drained considered stable - Initial protein evaluation 3.5 compared to total protein of blood 4.3 consistent with exudative effusion - Substantial RBCs consistent with hemothorax - Pleural fluid sent for cultures - Consider likely secondary to heparin drip - Patient has a noted air leak consistent with a pneumothorax given hemothorax and severe emphysema noted on CT, possible ventilator lung injury from increase tidal volume initiated around admission 5. Possible pneumonia, present on admission, improving. - X-ray imaging after diuresis shows a possible left lower lobe pneumonia. - Procalcitonin remains negative however increasing white blood cell count could be attributed to an infection or steroid use for COPD exacerbation - Continue Zosyn (day 6) - ultrasound used to fine fluid collection shows moderate loculations consistent with hemothorax possible developing empyema 6. Atrial fibrillation with rapid ventricular response, acute, present on admission, improving. - Not clear if she has a history of atrial fibrillation. - Discontinue Amiodarone drip. - Digoxin 0.25 g given with readministered 0.25 mg due to to continued tachycardia. - Convert to amiodarone orally through 2 7. Hyponatremia, acute, present on admission, improving. - May be related to dehydration - Continue to monitor BMP. 8. Alcohol dependency, present on admission, unstable - CIWA protocol ordered however patient is currently intubated and sedated. - Ativan 2 mg scheduled every 6 hours given improvement in blood pressure and history of alcohol withdrawal. - Continue thiamine IV daily. 9. Hypokalemia, acute, present on admission. Ongoing. - Continue to monitor with BMP and replete as needed. 10. Hypothyroidism, acute, present on admission. - Likely secondary to being critically ill. - Will need follow up labs approximately 6-8 weeks after hospital discharge. 11. Possible adrenal insufficiency, acute, present on admission. - ACTH-stim test shows low level of cortisol. - Patient already undergoing treatment with IV steroids. Will need to plan for slow taper and close outpatient follow up. 12. Acute encephalopathy, present on admission, considered stable - Possibly related to her hypercapnia but must also consider reversible other etiologies such as toxic ingestion, hypothyroidism. - Patient remains intubated and sedated at this time so this is difficult to fully evaluate. 13. Possible Right ventricular thrombus, present on admission, unstable - Seen on echocardiogram ordered for apparent volume overload due to right heart failure. - Discontinue Heparin PE protocol drip for presumed RV thrombus. - Limited echo fails to reveal right ventricular thrombus - Consideration for either no thrombus on initial echo versus less likely dislodge of thrombis likely now PE given no increased oxygen requirements - Antiemetic available PRN. - Antacid available PRN. - Tylenol available PRN mild pain, fever. Disposition: patient will likely continue to be in the CCU for several more days of mechanical ventilation and treatment of shock. GI Prophylaxis: H2 cielo VTE Prophylaxis: SCDs VTE Mechanical Devices: Intermittant Pneumatic CD Resuscitation Status: CPR: Attempt Resuscitation Attending Statement The patient was seen and examined together with Dr. Schneider on 12/28/2016 and I agree with the history, exam and plan as outlined in the note above. . Parth Schneider DO Dec 28, 2016 07:59 Feliz Rawls MD Jan 01, 2017 18:19
[2016-12-28] MEDS: Propofol Inj 1,000,000 MCG in IV Premix 1 EACH IV SCH (20:55)
[2016-12-28] MEDS: levoFLOXacin Inj 750 MG in IV Premix 1 EACH IV SCH (21:41)
[2016-12-29] VITALS (14 sets, daily range): BP systolic 89–124; BP diastolic 46–64; PULSE 76–120; RESP 11–17; O2SAT 95–100
[2016-12-29] MEDS: Chlorhexidine 0.12% 15 mL Oral Solution MT SCH ×6 (00:52→19:44)
[2016-12-29] MEDS: Piperacillin-Tazo 3.375 Gm Inj 3.375 GM in Dextrose 5% Minibag Plus 50 ML IV SCH ×3 (00:52→17:00)
[2016-12-29] MEDS: Insulin Human REGular 300 Unit/3 mL Inj SUBQ SCH ×4 (02:30→19:52)
--- NOTE | 2016-12-29 03:55 | ABG ---
DateTimeAnalyzed 03:50:00 -_ pH ____7.313 - 7.350 7.450 pCO2 ___73.1__ -mmHg 35.0 45.0 pO2 139 -mmHg 69.0 116 HCO3- ___36.0__ -mmol/L 22.0 26.0 ABE ____8.3__ -mmol/L -2.0 2.0 tHb ___10.2__ -g/dL O2Hb ___97.0__ -% COHb ____1.2__ -% MetHb ____1.0__ -% sO2 ___99.2__ -% FIO2 ___50.0__ -% PRVC 340 - PEEP ____7.0__ -cmH2O Set_RR ___11.0__ -b/min Vt __411.0__ -L Drawn By RB - Date/Time Notified____ 03:54:00 -_ Spontaneous_RR ___11.0__ -b/min Oxygen Device 1 VENTILATOR - Notified By RB - Notified Whom MICHELLE K, RN - B 749 -mmHg tO2 ___14.2__ -Vol% Lance test _Positive -
[2016-12-29 04:09] LABS: BASOPHILS % (AUTO) 0.2 % (0-3); EOSINOPHILS % (AUTO) 0 % (0-5); MONOCYTES % (AUTO) 12.2 % (4-12); Mean Corpuscular Hemoglobin 30.7 pg (27.0-35.0); Mean Corpuscular Volume 93.5 fL (81-100); NEUTROPHILS % (AUTO) 78.5 % (40-74); Platelet Count 92 bil/L (150-400)
[2016-12-29] MEDS: Polyethylene Glycol (PEG) 17 Gm Powder PO SCH ×2 (08:34→19:47)
[2016-12-29] MEDS: Famotidine Inj 20 MG in IV Premix 1 EACH IV SCH ×2 (08:34→19:52)
--- NOTE | 2016-12-29 08:47 | PROG NOTE ---
[address] [address] PROGRESS NOTE PATIENT: RAPHAEL SLATER : 1950 MR#: [id number] ADMIT: 12/22/2016 JOB ID: [id number] DATE: 12/29/2016 INFECTIOUS DISEASE FOLLOW UP NOTE: REASON FOR FOLLOWUP: Shock, ventilator dependent respiratory failure, fever and multiple possible sources of infection. INTERVAL HISTORY: Overnight, the patient has remained critically ill in the ICU. She remains sedated on the ventilator. The unexplained left pleural effusion is now explained as a chest tube was placed by Dr. Lazcano yesterday. In between and 2 L of bloody fluid was evacuated. This confirms the suspicion that this was a hemothorax but there was always concern that this could represent an empyema but that apparently is not the case. Meanwhile the patient remains on low-dose vasopressor agents as well as amiodarone, is receiving blood products including red cells and platelets. This case was discussed at the bedside with the ICU nurse and with the ICU attending. The patient remains intubated, sedated, no additional history is available from her and no family members are available to discuss the case with. PHYSICAL EXAMINATION: The patient has been afebrile now for about 24 hours. Recall she had high spiking fevers prior to that time, which we are trying to sort out. Current temperature 36.2, pulse 82. Blood pressure 108/52, on low-dose phenylephedrine. She is on 40% FiO2 and 7 of PEEP and saturating 99%. The patient's eyes without notable abnormality. The oral endotracheal tube, orogastric tube in good position. Her IV lines appear benign. New left chest tube is present. Lungs with decreased breath sounds at the left base which is hard to auscultate now as there is a massive reinforced dressing over the left hemothorax. Cardiac tones: Marginally regular though what appears on the monitor is A flutter. The patient's abdomen is slightly distended without focal mass or evident ascites. Johnson catheter is present. The extremities are mottled and cool though not as bad as yesterday. LABORATORIES: Include a white count still 18,000, platelet 92,000. The differential is largely unremarkable on that white count. Creatinine 0.87. LFTs entirely normal. Albumin 2.7. Pro calcitonin 0.09. Urine without white cells. Crypto antigen has returned negative. Urine Legionella antigen negative. Aspergillus antibodies and QuantiFERON Gold pending. Many cultures are negative. In fact all cultures are negative including multiple cultures of blood and sputum. Respiratory viral PCR negative. MRSA screen negative and blood fungal cultures from the negative. The pleural fluid Gram stain from yesterday shows no polys and organisms and was primarily just blood. IMAGING: Was carefully reviewed on the view screen today. I see a decrease in the left pleural effusion, of course, with the chest tube now present. No new infiltrates are seen elsewhere. IMPRESSION: I am beginning to doubt that the patient has any infection. She is a terribly complex woman with cardiac as well as pulmonary disease and a coagulopathy. She has had fevers over the past several days in association with the development of a large left pleural effusion which turns out to be hemothorax related to her coagulopathy. The etiology of her persistent fevers, which now seem to be resolving, remains unclear. We have many negative cultures as well as white count which is probably completely explained by her steroids and multiple negative procalcitonin levels. There is no evidence for pancreatitis, line infection or C. difficile at this point. She has received roughly one week of levofloxacin plus Zosyn without any significant positive or negative effect that I can discern and I think we are nearing the point where he could reasonably consider stopping antibiotics and observing, though I am a bit reluctant to in someone so critically ill, who recently had fevers without explanation. RECOMMENDATIONS: 1. Will allow one more day for cultures to mature. 2. Depending on her clinical course overnight, we may consider stopping all antibiotics and observing tomorrow. 3. This case discussed in detail with the ICU team as well as Dr. Cevallos and the ICU nurse.
--- NOTE | 2016-12-29 08:56 | DRSVH ---
PROCEDURE: X-RAY CHEST ONE VIEW, PORTABLE ([id number]) INDICATIONS: acute respiratory failure TECHNIQUE: One view of the chest was acquired. COMPARISON: [facility], CR, XR CHEST 1VW (PORTABLE), 12/28/2016, 14:00. FINDINGS: Surgical changes and devices: Stable position of left pleural drain, ETT, right IJ CVL and nasogastri c tube with the side-port likely positioned within the distal esophagus. Lungs and pleura: No left pneumothorax. Decreasing left basilar airspace opacity. Right lung remain s clear. Mediastinum: Mediastinal contours appear normal. Heart size is enlarged. Bones and chest wall: No suspicious bony lesions. Overlying soft tissues appear unremarkable. Gase ous distention of bowel in the upper abdomen. IMPRESSION: 1. Stable position of left pleural drain and no left pneumothorax is present. 2. Decreasing retrocardiac atelectasis versus pneumonia. 3. Of note, gaseous distention of bowel loops within the upper abdomen noted. Recommend clinical cor relation and if indicated acute abdominal series could be performed for further bowel characterizatio n. Dictated by: Shankar Mandujano [facility] Interpreted: Santiago Montanez MD on 12/29/2016 at 8:54 Transcribed by: LEANNA on 12/29/2016 at 8:56 Approved by: Santiago Montanez M.D. on 12/29/2016 at 13:43
--- NOTE | 2016-12-29 09:53 | PROG NOTE ---
[address] [address] PROGRESS NOTE PATIENT: RAPHAEL SLATER : 1950 MR#: [id number] ADMIT: 12/22/2016 JOB ID: [id number] DATE: 12/29/2016 SUBJECTIVE: The patient is seen following placed of a left chest tube for a hemothorax. She drained 2320 cc yesterday of old blood and overnight 270 cc. There is no air leak. Examination: Remains on the ventilator. Her chest tube is secure and again no air leak. 270 cc of serosanguineous fluid. Chest x-ray shows excellent drainage of her left hemothorax. She still has some basilar atelectasis. IMPRESSION: Improved. DATE: PLAN: Leave chest tube in today.
[2016-12-29] MEDS: Budesonide 0.5 mg/2 mL Inhalation Solution NEB SCH ×2 (10:07→20:05)
[2016-12-29] MEDS: Lactated Ringer's 1,000 ML IV SCH (10:30)
[2016-12-29] MEDS: Sodium Biphos-Phos 133 mL Enema RECTAL PRN (10:36)
[2016-12-29] MEDS: Dexmedetomidine 400 mCg/100 mL 400 MCG in IV Premix 1 EACH IV SCH (11:12)
--- NOTE | 2016-12-29 11:27 | PROG NOTE ---
[address] [address] PROGRESS NOTE PATIENT: RAPHAEL SLATER : 1950 MR#: [id number] ADMIT: 12/22/2016 JOB ID: [id number] DATE: 12/29/2016 PULMONARY CRITICAL CARE FOLLOW UP NOTE: PROBLEM LIST: 1. Hypoxemic hypercarbic respiratory failure requiring intubation and mechanical ventilation. 2. Pulmonary hypertension, mild to moderate. 3. Alcohol abuse. 4. Encephalopathy. 5. Atrial fibrillation. 6. Multiple electrolyte abnormalities. SUBJECTIVE: None. OBJECTIVE: Temperature 36.8. Pulse mid 80s. Respiratory rate 11-17 with ventilator set at 11. Blood pressure 110/57, on phenylephrine 0.03 mcg/kg per minute. O2 sat on FiO2 40%, PEEP of 7, is 100%. General appearance: Frail, chronically ill female. Unresponsive to tactile stimuli. Other examiners report she follows commands. Eyes: Conjunctivae are pink. No scleral icterus. Pupils react to light. Chest: Markedly diminished breath sounds. Coarse crackles throughout both lung wooten, maybe more so on the left. Chest tube draining serosanguineous fluid. No air leak. Heart: Regular rhythm though monitor shows atrial fibrillation but there is a reasonably regular ventricular rate. Heart tones seem normal. Abdomen is soft. Nondistended. Nontender. Liver not palpable. Bowel tones active. Extremities: No pedal edema. Mottling of knees and to some extent the feet and hands. LABORATORY DATA: Shows a white count of 18,400 with 78 polymorphonuclears, no bands, 8 lymphocytes, 12 monocytes. Hemoglobin 9.9 and slowly rising. Platelet count at 92,000 after a 6 unit of platelet transfusion to 91,000. Stable over six hours. Sodium 142, potassium 4.6, chloride 101, CO2 is 33, BUN 38, creatinine 0.8. Calcium 8.4 with albumin of 2.7. Transaminases normal at 46 and 26 respectively. AST and ALT, total bilirubin normal at 0.7. Alkaline phos normal at 25. Ammonia level moderately elevated at 83. Arterial blood gases on an FiO2 of 0.5 tidal volume of 340, respiratory rate of 11 and PEEP of 7 show a pO2 of 139, a pCO2 of 73, pH of 7.31. ASSESSMENT: 1. Hypoxemic hypercarbic respiratory failure, probably acute on chronic. Some stabilization of the situation. Acid base status is not particularly terrible with pH of 7.31. PCO2 is 73, bicarbonate of 36. It is probably a little higher CO2 than she is used to but probably runs CO2s in the low to mid 60s. Continue the current vent settings. Flow volume loops on the ventilator show severe obstructive airways disease with marked impediment of expiratory flow. Will increase ipratropium, add inhaled steroids to her already scheduled systemic steroids. Hopefully, we can reduce the latter soon. 2. Hepatic failure. Has an elevated ammonia level. Bleeding from all IV sites and the chest tube site. Chest tube site has been reinforced. Suspect we are dealing with fibrinolysis. In addition, we gave her platelets yesterday with some affect maybe. She had already received fresh frozen plasma. Bleeding seems to have abated at this point. Platelets were given because of the active bleed and the question of functional platelets in a patient who is actively bleeding. Consideration was given to cryoprecipitate and possibly even tranexamic acid. However, neither were felt to be warranted as the bleeding seems to have abated. However, I think she is at high risk of hematologic problems given her underlying liver disease. Fibrinogen looks pretty good at this point. PTT has normalized as has INR to some extent. PT still seems a little long, hard to tell DIC from liver disease. She has been wandering around with a platelet count of 50,000-60,000. Whether this represents toxic effect of alcohol with marrow suppression, sepsis, splenic sequestration is unclear. Abdominal ultrasound done two days ago shows no peritoneal fluid. There is marked fluid filled bowel. She had been getting heparin as were operating under the specter of a right intraventricular thrombus that is best treated with thrombolytic therapy. She did, however, not receive that but rather received regular anticoagulation which drops mortality rate from the 40% to the 20% level though not as good as with thrombolytic therapy where mortality rate is closer to 10%. In any case, that seems to have been a spectral abnormality now resolved either by its imaginary presence, the affect of heparin or possibly fragmentation with peripheral embolization. Doubt the latter as I would expect that to have been a terminal event in this patient. 3. Creatinine is improving. BUN rising. Probably related to the amount of bleeding. Situation rather unclear at this point. Unclear whether there is blood in the gut. Certainly she is impacted and perhaps more aggressive therapy would be warranted. If there is no sense of a structural impaction, perhaps a lower bowel attack on her significant fluid-filled bowel would be in order. 4. Hypertension. Doing better with the lower dose of phenylephrine. Monitoring system seems to have abandoned us and I do not believe any of its values. Therefore, can be ignored. Would consider a saline bolus to see how she did. Will talk to the hospitalist about a one individual directed attack on her hypotension be it pressors or fluids as our predominant modality. 5. Ventilatory failure. Still auto peeping to some extent. Measured PEEP is around 12 or 13 with a set PEEP being 7. Will add increased bronchodilators as she is on minimal tidal volumes and rates. With a CO2 already at 73, would be concerned about giving her a more severe respiratory acidosis. PLAN: 1. Consider a saline bolus fluid. 2. Nebulized Atrovent q.6 hours and nebulized budesonide q.2 hours. TIME SPENT: So far in critical care is 47 minutes.
--- NOTE | 2016-12-29 11:32 | PCM.PALLBR ---
Palliative Care Recommendation 66-year-old woman with history of COPD, chronic and ongoing tobacco use, hypertension, possible chronic alcohol abuse- admitted from home where she had become progressively lethargic over several days. Intubated in the emergency department due to her decreased level of consciousness and evidence of hypercarbic respiratory failure. Status post left chest tube placement for apparent hemothorax on 12/28. Clinically slightly improved today. Palliative medicine consulted to assist the patient's family and determination of goals of care Summary of palliative recommendations: -Symptom management (Pain/other)- no evidence of distress at this time. Continued management per her medical/critical care teams. -DPOA/Advanced Directives/POLST- confirmed today with her partner/significant other Ezio that there is no formal documentation of their relationship, nor of her care wishes. Ezio and the patient never and so her brother Nicolas Ling is default POA. I reviewed her status in detail with Mr. Ling today. Ezio tells me that the patient had told him in the past that she never wanted to be in the hospital on machines; this has also been her brother's perception of her wishes, though there is no documentation regarding these wishes. Mr. Ling and I talked at length today about patient's status, both in hospital and premorbid. Consistent with the patient's previously stated wishes and with the agreement of both her significant other Ezio and her brother/POA Nicolas, I have changed her CODE STATUS to DO NOT RESUSCITATE/DO NOT REINTUBATE, which best reflects her previously stated wishes. If she recovers sufficiently to participate in discussions, we will review these decisions with her when she is decisional. -Family/emotional support- significant other reports to nurses that he is too unnerved by looking at the patient in critical care setting and so cannot visit. -Spiritual support- offered and declined Contact info: Ezio Travis (significant other/house mate though they have no legal andrade) (Note that Ezio admits that he cannot read or write and does not understand much of what is going on, so very willingly deferred decision-making to patient's brother) Nicolas Ling (brother, closest biological relative) [phone](lives in [place]) Patient Goals: 1. Patient's family wants to be told the truth about her illness, even if it is unpleasant. 2. Patient's family would like to be told prognosis when it can be predicted, to better guide treatment decisions. Additional Medical Diagnoses with primary management by Hospitalist team include : 1. Acute shock, present on admission, ongoing. 2. Acute blood loss anemia, not present on admission 3. Acute on chronic respiratory failure with hypoxia and hypercapnia, present on admission, ongoing. 4. Possible Right ventricular thrombus (now disproved) 5. Possible pneumonia, present on admission, improving. 6. Atrial fibrillation with rapid ventricular response, acute, present on admission, improving. 7. Hyponatremia, acute, present on admission, improving. 8. Alcohol dependency, present on admission, unstable 9. Hypokalemia, acute, present on admission. Ongoing. 10. Hypothyroidism, acute, present on admission. 11. Possible adrenal insufficiency, acute, present on admission. 12. Acute encephalopathy, present on admission, considered stable 13. Left hemothorax, status post chest tube placement Problems: End of Life Preferences DO NOT RESUSCITATE/DO NOT REINTUBATE- continue other current medical treatment Goals of Care Hope for improvement and recovery Disposition To be determined Resuscitation Status Resuscitation Status: DNR/DNI:Do Not Resuscitate/Intubate POLST Updates/Changes Previous POLST?: No . Advanced Care Planning Address: Code status change, Durable Power of Emergency Management Consultant Pain: None Symptom management: Drowsiness/sleepiness, Dyspnea Total time 80 minutes; >50% face to face with patient and family, providing counselling regarding plans and recommendations, and in care coordination with her medical teams. Of the above total time, 50 minutes counseling for advanced care planning with the patient's significant other and brother, reviewing POA status and advanced resuscitation issues Palliative Brief Note Date of Service Dec 29, 2016 . Returned to reevaluate patient. Prior to visiting, reviewed her updated records in the EMR in detail, reviewed her course in status with the medical/critical care team was on morning rounds, and spoke with her bedside nurse. I also contacted her significant other Ezio Robles by phone, spoke with him at length, and then contacted her brother/default POA Nicolas Ling by phone and reviewed her status with him. Also informed him that the patient and Ezio had never and for that reason Mr. Ling would be patient's POA by default. He understood this and accepted it and expressed his willingness to continue helping however he could. Patient today is a bit more alert and intermittently responds to simple commands. She remains intubated and mechanically ventilated with sedation being reduced. Vital signs noted. Skin is pink, warm and dry. Chest tube output markedly diminished. Head and neck exam without acute focal findings. Lungs with scattered rhonchi bilaterally and a few scattered wheezes. Heart sounds rapid and irregular. Abdomen is rounded, soft, without apparent tenderness or rigidity. Extremities with diffuse edema and puffiness. Neurologic exam limited. Reviewed in detail her lab, imaging and other specialists notes. Manuel Calzada MD Dec 29, 2016 11:32
[2016-12-29] MEDS: 0.9% Sodium Chloride 1,000 ML IV SCH ×2 (11:37→22:02)
[2016-12-29] MEDS: Ipratropium 0.02% 0.5 mg/2.5 mL Inhalation Solution NEB SCH ×3 (12:10→20:04)
[2016-12-29] MEDS: Micafungin Inj 100 MG in 0.9% Sodium Chloride 100 ML IV SCH (13:17)
[2016-12-29] MEDS: 0.9% Sodium Chloride 250 ML IV SCH (15:34)
--- NOTE | 2016-12-29 18:05 | PCM.PNMED ---
Subjective Date of Service Dec 29, 2016 Subjective overnight: Patient was maintained on phenylephrine drip overnight patient continued in a regular A. fib flutter with PVCs. Chest tube continued with drainage approximately 270 mL out, without air leak or respiratory tidal volume variation. Patient tolerated 2 units of blood transfusion 1 units of platelets and 1 unit of fresh frozen plasma post chest tube placement with overnight blood counts stable. Today: Patient was able to follow some commands today which is improvement over previous days. Patient was able to be titrated off phenylephrine drip. Cultures came back positive for fungating anemia ID following discussed case will pull central venous line and culture tip and start micafungin. Continue with sedation vacations and pressure support trials. Surgery following chest tube placement will leave chest tube in place on more day minimal. Exam Vital Signs Vital Sign - Last Date Time Temp Pulse Resp B/P Pulse Ox O2 Delivery O2 Flow Rate FiO2 12/29/16 04:30 36.2 82 11 108/52 99 Mechanical Ventilator 40 Intake and Output 12/28/16 12/28/16 12/29/16 Cumulative From/Thru 15:00 23:00 07:00 12/22/16 18:16 - 12/29/16 05:12 Intake Total 3235 ml 1913 ml 27995 ml Output Total 2970 ml 720 ml 61305 ml Balance 265 ml 1193 ml 55523 ml Intake IV Total 1651 ml 623 ml 19946 ml Tube Feeding 632 ml 1050 ml 5024 ml Packed Cells 280 ml FFP 215 ml Platelets 792 ml 792 ml Tube Irrigant 160 ml 240 ml 1080 ml Output Urine Total 650 ml 450 ml 31445 ml Gastric Drainage Total 70 ml Chest Tube Drainage Total 2320 ml 270 ml 2590 ml # Voids 0 # Bowel Movements 0 0 0 Exam General: thin female appearing older than stated age lying in bed intubated and sedated. Eyes: PERRLA. Anicteric sclerae, moist conjunctivae HENT: Normocephalic, atraumatic. Endotracheal and oropharyngeal tube in place. External ears without defect. Neck: Supple. no JVD, trachea, midline, No lymphadenopathy or thyromegaly. Cardiovascular: Irregular rhythm tachycardia without murmurs, rubs, or gallops appreciated. Pulmonary: Moderate coarse breath sounds bilaterally with decreased air movement on the left lower axillary base with clean dry bandage and chest tube with serosanguineous fluid and limited tidal volume variation in tubing with no early. No wheezing noted Abdomen: Soft, nondistended, bowel sounds normoactive. Genitourinary: Johnson catheter in place. Extremities: Decreased pulses in radial and and decreased dorsalis pedis bilaterally. Mild pitting edema noted in right leg no edema in left, mild cyanosis and distal digits bilaterally, no clubbing Neuro: Pupils equal round reactive to light follow some commands able to move hands and feet Lab and Diagnostics Result Diagram: 12/29/16 0400 12/29/16 0400 Microbiology Repeat sputum culture has no growth to date. Sputum culture grew light normal prince. MRSA screen negative. Strep coccus pneumoniae and legionella urine antigens negative. Respiratory viral PCR negative. _ Microbiology DAVE CULT BLOOD FUNGUS Preliminary 12/29/16-1132 Organism 1 POSITIVE BLOOD CULTURE GRAM STAIN RESULT YEAST BC BOTTLE Isolated from Aerobic Bottle of Set Drawn DATE CALLED: 12/29/16 TIME CALLED: 1129 CALLED BY: VS FLOOR/DOCTOR: DIDIER/MANDEEP ZHANG READ BACK Y TYPE OF DRAW PERIPHERAL DRAW TIME OF POSITIVITY 1112 _ X-Rays, CTs and MRIs PROCEDURE: CT BRAIN WITHOUT CONTRAST ([id number]) IMPRESSION: No acute intracranial disease process. Dictated by: Rosaura Wisdom MD, PhD on 12/22/2016 at 20:12 PROCEDURE: US VENOUS LEG DUPLEX BILATERAL IMPRESSION: No deep venous thrombosis identified within either the left or right lower extremities. Dictated by: Shankar BARRETO Interpreted: Sobia Plunkett MD on 12/23/2016 at 9: 58 PROCEDURE: CT ANGIO CHEST PULMONARY EMBOLISM ([id number]) IMPRESSION: 1. No pulmonary embolus. 2. Mild pulmonary edema associated with small bilateral pleural effusions. 3. Small amount of ascites. 4. Coronary artery disease. Cardiomegaly. Right heart failure. Dictated by: Julieta Gunn M.D. on 12/23/2016 at 13:33 PROCEDURE: X-RAY CHEST ONE VIEW, PORTABLE ([id number]) IMPRESSION: Stable left basilar opacity suspicious for aspiration versus pneumonia. Right basilar opacity has resolved. Dictated by: Rosaura Wisdom MD, PhD on 12/25/2016 at 9:12 PROCEDURE: X-RAY CHEST ONE VIEW, PORTABLE ([id number]) IMPRESSION: Placement of left pleural drain with significant reduction in size of loculated left pleural effusion. No pneumothorax. Dictated by: Shankar BARRETO Interpreted: Harshil Pacheco MD on 12/28/2016 at 17 :10 Transcribed by: GENE on 12/28/2016 at 17:11 Cardiac Echo Impressions Echocardiogram Report Interpretation Summary The ejection fraction is estimated to be 55-60%. Flattened septum is consistent with RV pressure/volume overload. The right ventricle is moderately dilated. Right ventricular systolic function is moderately reduced. The aortic valve is slightly calcified. The aortic valve is not well visualized. There is moderate tricuspid regurgitation. Right ventricular systolic pressure is estimated to be 39 mmHg plus the clinically estimated CVP which cannot be estimated on this exam. RV thrombus is suspected. Electronically signed by: Isra Valdez on Reading Physician:12/23/2016 11:08 AM Additional Diagnostics PROCEDURE: US CHEST/PLEURAL SONOGRAM FINDINGS: There are small loculated complex left pleural effusion, suspicious for hemothorax. IMPRESSION: Small loculated complex left pleural effusion consistent with hemothorax. Dictated by: Santiago Montanez M.D. on 12/27/2016 at 13:19 Approved by: Santiago Montanez M.D. on 12/27/2016 at 13:21 Assessment & Plan 66-year-old female past medical history remarkable for COPD hypertension and alcohol dependency presents with acute respiratory failure. Hospital day 9 1. Acute shock, present on admission, ongoing. - Multifactorial with elements of septic and cardiogenic shock. - Patient appeared volume overloaded at admission with JVD and peripheral edema consistent with right heart failure. Now also has new fever, leukocytosis and continued hypotension. 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 Giving 500 ml bolus of LR with 100 ml/hr started as maintenance fluids. - Norepinephrine stopped and switched to phenylephrine drip which was able to be discontinued 12/29/2016 - urine culture, and sputum culture negative today - Chest x-ray on 12/27/2016 shows a worsening left pleural effusion, ultrasound used to fine fluid collection shows moderate loculations consistent with hemothorax possible developing empyema - Dropping hemoglobin, heparin drip discontinued with packed RBCs given - General surgery placed a left-sided chest tube today with 2 L of blood it out immediately. 2 units of packed RBCs given with 1 unit of platelets, blood count 2 stable after transfusions - blood cultures shows decreased in one of 3 bottles drawn from peripheral site - Follow CBC, procalcitonin. 2. Acute blood loss anemia, not present on admission - Initial echo showed possible right ventricular thrombus - Heparin drip initiated for possible right ventricular thrombus - Decreasing hemoglobin from 12/25/2016 with hemoglobin of 14, to 12/27/2016 with hemoglobin of 7.6 heparin drip discontinued packed RBCs given - Chest x-ray on 12/27/2016 shows a worsening left pleural effusion, ultrasound used to fine fluid collection shows moderate loculations consistent with hemothorax possible developing empyema - Gen. surgery consulted for possible chest tube placement, will be reconsidered on 12/27/2016 - DIC panel ordered with note of bleeding from all IV sites - Haptoglobin pending fibrillation decreased but above 100 elevated d-dimer elevated PT INR and PTT consistent with acute DIC 1 unit of fresh frozen plasma given - General surgery placed a left-sided chest tube today with 2 L of blood it out immediately. 2 units of packed RBCs given with 1 unit of platelets - blood count stable 2 after transfusions 3. Acute on chronic respiratory failure with hypoxia and hypercapnia, present on admission, ongoing. - Patient does have a history of COPD/emphysema and she is likely CO2 retainer. - ABG to be done in AM and as needed for ventilator management. - Fentanyl and Precedex for sedation. Titrate down dosing as tolerated by patient. Not using propofol due to hypotension. - Continue solu-medrol taper. 40 mg Q8 today transition to 40 mg Q12 tomorrow. Now at 40 mg daily. Convert to oral when possible - Atrovent nebs available Q6. - Dr. Cevallos of pulmonology has been consulted for assistance with vent management. - Chest x-ray on 12/27/2016 shows a worsening left pleural effusion, ultrasound used to fine fluid collection shows moderate loculations consistent with hemothorax possible developing empyema - General surgery placed a left-sided chest tube today with 2 L of blood it out immediately. 2 units of packed RBCs given with 1 unit of platelets - Post chest tube placement x-rays show stable lung volumes with improved left pleural effusion 4. Left sided Hemothorax, not present on admission, drained considered stable - Initial protein evaluation 3.5 compared to total protein of blood 4.3 consistent with exudative effusion - Substantial RBCs consistent with hemothorax - Pleural fluid sent for cultures - Consider likely secondary to heparin drip - Patient had a noted air leak consistent with a pneumothorax and given findings consistent with hemothorax and severe emphysema noted on CT, possible barotrauma ventilator lung injury from increase tidal volume initiated around admission 5. Possible pneumonia, present on admission, improving. - X-ray imaging after diuresis shows a possible left lower lobe pneumonia. - Procalcitonin remains negative however increasing white blood cell count could be attributed to an infection or steroid use for COPD exacerbation - Continue Zosyn 1 more day (day 7) - ultrasound used to fine fluid collection shows moderate loculations consistent with hemothorax possible developing empyema - Yeast in blood not consistent with pneumonia as a source, candidiasis does not cause pneumonia 6. Atrial fibrillation with rapid ventricular response, acute, present on admission, improving. - Not clear if she has a history of atrial fibrillation. - Discontinue Amiodarone drip. - Digoxin 0.25 g given with readministered 0.25 mg due to to continued tachycardia. - Convert to amiodarone orally through 2 7. Fungemia, likely present on admission, under evaluation - 1 out of 3 bottles from December 27 positive for yeast likely Lashae - Initiate micafungin IV - Infectious disease following - Lashae is not a likely pathogen that causes pneumonia. Central venous line removed and sent for culture. 8. Alcohol dependency, present on admission, unstable - CIWA protocol ordered however patient is currently intubated and sedated. - Ativan 2 mg scheduled every 6 hours given improvement in blood pressure and history of alcohol withdrawal. - Continue thiamine IV daily. 9. Hypokalemia, acute, present on admission. Ongoing. - Continue to monitor with BMP and replete as needed. 10. Hypothyroidism, acute, present on admission. - Likely secondary to being critically ill. - Will need follow up labs approximately 6-8 weeks after hospital discharge. 11. Possible adrenal insufficiency, acute, present on admission. - ACTH-stim test shows low level of cortisol. - Patient already undergoing treatment with IV steroids. Will need to plan for slow taper and close outpatient follow up. 12. Acute encephalopathy, present on admission, considered stable - Possibly related to her hypercapnia but must also consider reversible other etiologies such as toxic ingestion, hypothyroidism. - Patient remains intubated and sedated at this time so this is difficult to fully evaluate. 13. Possible Right ventricular thrombus, present on admission, unstable - Seen on echocardiogram ordered for apparent volume overload due to right heart failure. - Discontinue Heparin PE protocol drip for presumed RV thrombus. - Limited echo fails to reveal right ventricular thrombus - Consideration for either no thrombus on initial echo versus less likely dislodge of thrombis likely now PE given no increased oxygen requirements 14. Hyponatremia, acute, present on admission, improving. - May be related to dehydration - Continue to monitor BMP. - Antiemetic available PRN. - Antacid available PRN. - Tylenol available PRN mild pain, fever. Disposition: patient will likely continue to be in the CCU for several more days of mechanical ventilation and treatment of shock. GI Prophylaxis: H2 cielo VTE Prophylaxis: SCDs VTE Mechanical Devices: Intermittant Pneumatic CD Resuscitation Status: CPR: Attempt Resuscitation Attending Statement The patient was seen and examined together with Dr. Schneider on 12/29/2016 and I agree with the history, exam and plan as outlined in the note above. . Parth Schneider DO Dec 29, 2016 06:43 Feliz Rawls MD Jan 01, 2017 18:19
[2016-12-29] MEDS: fentaNYL-PF 50 mCg/mL 2 mL Inj IVPUSH PRN ×2 (18:31→19:08)
[2016-12-29] MEDS ORDERED: fentaNYL-PF 50 mCg/mL 2 mL Inj IVPUSH ONE (19:05)
[2016-12-29] MEDS: Phenylephrine Inj 20,000 MCG in 0.9% Sodium Chloride 250 ML IV SCH (19:47)
[2016-12-29] MEDS: levoFLOXacin Inj 750 MG in IV Premix 1 EACH IV SCH (22:02)
[2016-12-30] VITALS (12 sets, daily range): BP systolic 117–156; BP diastolic 52–83; PULSE 90–121; RESP 14–18; O2SAT 94–99
[2016-12-30] MEDS: Piperacillin-Tazo 3.375 Gm Inj 3.375 GM in Dextrose 5% Minibag Plus 50 ML IV SCH (00:18)
[2016-12-30] MEDS: Chlorhexidine 0.12% 15 mL Oral Solution MT SCH ×6 (00:18→21:09)
[2016-12-30] MEDS: Ipratropium 0.02% 0.5 mg/2.5 mL Inhalation Solution NEB SCH ×6 (01:06→19:59)
[2016-12-30] MEDS: Dexmedetomidine 400 mCg/100 mL 400 MCG in IV Premix 1 EACH IV SCH ×3 (01:12→22:50)
[2016-12-30 02:09] LABS: Hepatitis A Antibody IgM Negative (Negative); Hepatitis B Core Antibody IgM Negative (Negative)
[2016-12-30] MEDS: Insulin Human REGular 300 Unit/3 mL Inj SUBQ SCH ×4 (02:38→22:04)
[2016-12-30 04:50] LABS: Magnesium 1.6 mg/dL (1.6-2.6)
--- NOTE | 2016-12-30 04:59 | ABG ---
DateTimeAnalyzed 04:47:00 -_ pH ____7.393 - 7.350 7.450 pCO2 ___60.5__ -mmHg 35.0 45.0 pO2 ___85.7__ -mmHg 69.0 116 HCO3- ___36.1__ -mmol/L 22.0 26.0 ABE ____9.8__ -mmol/L -2.0 2.0 tHb ___10.4__ -g/dL O2Hb ___95.3__ -% COHb ____1.8__ -% MetHb ____0.9__ -% sO2 ___97.9__ -% FIO2 ___30.0__ -% PRVC 340 - PEEP ____7.0__ -cmH2O Set_RR ___11.0__ -b/min Vt __411.0__ -L Drawn By RB - Date/Time Notified____ 04:58:00 -_ Spontaneous_RR ___11.0__ -b/min Oxygen Device 1 VENTILATOR - Notified By RB - Notified Whom MICHELLE K, RN - B 758 -mmHg tO2 ___14.1__ -Vol% Lance test _Positive -
[2016-12-30 05:59] LABS: BASOPHILS % (AUTO) 1.3 % (0-3); EOSINOPHILS % (AUTO) 0.6 % (0-5); MONOCYTES % (AUTO) 14.2 % (4-12); Mean Corpuscular Hemoglobin 31.3 pg (27.0-35.0); Mean Corpuscular Volume 93.4 fL (81-100); NEUTROPHILS % (AUTO) 71.5 % (40-74); Platelet Count 113 bil/L (150-400)
[2016-12-30] MEDS ORDERED: MethylprednisoLONE Sodium Succinate 40 mg/mL Inj IVPUSH ONE (07:05)
[2016-12-30] MEDS: Budesonide 0.5 mg/2 mL Inhalation Solution NEB SCH ×2 (07:28→19:59)
[2016-12-30] MEDS: Polyethylene Glycol (PEG) 17 Gm Powder PO SCH ×2 (08:30→21:09)
[2016-12-30] MEDS: Micafungin Inj 100 MG in 0.9% Sodium Chloride 100 ML IV SCH (08:58)
[2016-12-30] MEDS: Famotidine Inj 20 MG in IV Premix 1 EACH IV SCH ×2 (08:58→21:09)
[2016-12-30] MEDS: 0.9% Sodium Chloride 1,000 ML IV SCH ×2 (08:58→16:56)
--- NOTE | 2016-12-30 09:04 | PROG NOTE ---
[address] [address] PROGRESS NOTE PATIENT: RAPHAEL SLATER : 1950 MR#: [id number] ADMIT: 12/22/2016 JOB ID: [id number] DATE: 12/30/2016 INFECTIOUS DISEASE FOLLOW UP NOTE: REASON FOR FOLLOWUP: Complex ICU patient with persistent fever and tachycardia. INTERVAL HISTORY: Late yesterday we received word that one of our up fungal blood cultures we had ordered as part of a fever workup a couple days ago had returned positive for yeast. On this basis, I spoke to the perea team and recommended micafungin be started immediately and that her central line be discontinued. These things were done. Today, the patient seems a bit more stable. She continues to be heavily sedated, however, and in speaking to the nurses, they report when her sedation is lightened in any way, she becomes quite agitated and difficult to manage on the ventilator. Therefore, the patient is not arousable this morning as her sedation is being maintained at steady levels. This case was discussed, however, with the ICU team and the nurse as well as respiratory therapy in great detail. PHYSICAL EXAMINATION: Reveals a chronically ill-appearing woman lying supine and intubated in the ICU. Her current temperature is 36.5, and she has not been febrile now for roughly 48 hours. Her vasopressor agents have been stopped and her blood pressure is 145/77. Pulse is currently 120 and appears regular. She is on 30% and 7 of PEEP which is improved over yesterday. Examination of the eyes reveal no conjunctival abnormalities. The oral endotracheal tube and orogastric tube are in good position. The central line has been discontinued. Two peripheral IV lines have been substituted. The lungs are notable for decreased breath sounds on the left side where the chest tube remains present and is draining small amounts of bloody pleural fluid. Cardiac tones notable for tachycardia and I cannot appreciate a murmur at these high rates. The abdomen is not distended and there is no focal mass. Tenderness cannot be assessed as the patient is sedated. She has a Johnson catheter. Extremities seem reasonably well perfused this morning. LABORATORIES: Include a white count of 21,000. Platelet count has risen to 113,000. Creatinine is 0.67, which is much improved over the last couple of days. LFTs are normal. BNP is 2775. Procalcitonin remains extremely low at less than 0.1. Hep C negative. Micro studies include many negative blood cultures dating back to her admission now almost nine days ago. We also have negative sputum cultures, negative MRSA swab, negative viral PCR and numerous endotracheal aspirates which had minimal white cells and normal prince. The pleural fluid that was obtained on the is culture negative at two days. AFB smears on that were negative. One of two fungal blood cultures from the , however, is now growing a yeast and I have asked the lab to identify this and send it to the [facility] for susceptibility testing. IMAGING: Includes yesterday's x-ray which shows left chest tube and decreasing atelectasis on the left side. Distention of the bowel loops is noted. I personally reviewed today's chest x-ray on the screen and note the presence of the left chest drain with a minimal left lower lobe infiltrate but really nothing else of significance. Note this has not yet been officially read. IMPRESSION: This has been a mystifying case over the last several days with persistent fevers despite negative procalcitonins and cultures. Three days ago we worked on her fever workup that included fungal blood cultures and one of these has now returned positive for yeast which I think explains her fever, tachycardia and many other untoward events of the last several days. Also we had evaluated her left pleural space which was thought to be either hemothorax or empyema and turns out to be clearly hemothorax. At this point there is no evidence for bacterial infection and she has received basically a week of very broad-spectrum antibiotics without any clear-cut diagnosis. Undoubtedly these broad-spectrum antibiotics as well as central lines in her critical illness contributed to her fungemia. In fact, we plan to go ahead and discontinue all antibacterial agents today and to treat the patient with micafungin while we await fungal susceptibilities and identification. RECOMMENDATIONS: 1. Stop the levofloxacin and Zosyn that she has been receiving for a week or so. 2. Will continue with micafungin on a once daily basis while we await our fungal susceptibilities. 3. Will continue to closely follow the many cultures which are pending which include, of course, her pleural fluid cultures but at this point, I am not especially concerned about the possibility of an untreated bacterial infection and I am focusing on the treatment of the fungal infection and hopefully getting the patient extubated and her chest tube removed over the next few days.
[2016-12-30] MEDS: Phenylephrine Inj 20,000 MCG in 0.9% Sodium Chloride 250 ML IV SCH ×2 (09:28→22:22)
--- NOTE | 2016-12-30 09:50 | PCM.PNMED ---
Subjective Date of Service Dec 30, 2016 Subjective Intensive Care/Pulmonology Consultation Note: Attending Dr. Mart Ling is a 66-year-old female with a past medical history significant for hypertension and COPD who was brought to [facility] Emergency Department due to unresponsiveness requiring intubation. We were consulted for ventilator management. Hospital day #9. Overnight: The patient had a peripheral IV leak and became increasingly agitated and tachycardic as she was not receiving Precedex. A new IV was started , Precedex was resumed, and the patient rested more comfortably. Telemetry overnight was atrial fibrillation, 90-120's, with RVR up to 150's and bigeminal PVC's. Subjective exam and review of systems are unobtainable as the patient is intubated and sedated. An SBT was initiated yesterday but the patient failed miserably within 1 minute due to tachypnea. . Exam Vital Signs Vital Sign - Last Date Time Temp Pulse Resp B/P Pulse Ox O2 Delivery O2 Flow Rate FiO2 12/30/16 05:06 106 145/77 99 30 12/30/16 04:30 Ventilator 12/30/16 04:30 36.5 17 Intake and Output 12/29/16 12/29/16 12/30/16 Cumulative From/Thru 15:00 23:00 07:00 12/22/16 18:16 - 12/30/16 05:10 Intake Total 1628 ml 2383 ml 24763 ml Output Total 825 ml 710 ml 99727 ml Balance 803 ml 1673 ml 44333 ml Intake IV Total 992 ml 1690 ml 68522 ml Tube Feeding 556 ml 573 ml 6153 ml Packed Cells 280 ml FFP 215 ml Platelets 792 ml Tube Irrigant 80 ml 120 ml 1280 ml Output Urine Total 600 ml 650 ml 12206 ml Gastric Drainage Total 70 ml Chest Tube Drainage Total 225 ml 60 ml 2875 ml # Voids 0 # Bowel Movements 2 1 3 Exam General: Middle-aged thin female lying in bed and in no acute distress, intubated and sedated. HEENT: Normocephalic, atraumatic. External ears without defect. Pupils equal, round, and reactive to light. Anicteric sclerae, moist conjunctivae, and no lid lag. Endotracheal and nasopharyngeal tube in place. Neck: Supple. Right IJ. Cardiovascular: Irregular rhythm without murmurs, rubs, or gallops appreciated. Pulmonary: Inspiratory high-pitched squeaks and bronchial breath sounds in anterior lung wooten and bibasilar crackles. No wheeze. Abdomen: Soft, nondistended, bowel sounds active. Genitourinary: Johnson catheter in place. Extremities: Mottled upper and lower extremities. No edema, cyanosis, or clubbing. Neurologic: Unarousable, sedated. Ventilator settings: PRVC. Tidal volume 340. Respiratory rate 11. FiO2 30%. PEEP 7.0. Peak 37. Plateau 27. ABG:PH 7.393. PCO2 60.5. PO2 85.7. HCO3 36.1. On PRVC with an FiO2 30%, PEEP of 7.0, and SPO2 97.9%. IV drips and Sedatives: Precedex 0.7 mcg/kg/hr. Fentanyl gtt off. Phenylephrine off. IV lines: Left foot and right radial peripheral IV. I&O: Net +42200 mL. . IVs and Medications Medications Reviewed: Medications were reviewed in detail Lab and Diagnostics Item Value Date Time Calcium Level 8.2 mg/dL L 12/30/16 0340 Phosphorus Level 3.0 mg/dL 12/30/16 0340 Magnesium Level 1.6 mg/dL 12/30/16 0340 Total Bilirubin 0.7 mg/dL 12/30/16 0340 Aspartate Amino Transf (AST/SGOT) 36 U/L 12/30/16 0340 Alanine Aminotransferase (ALT/SGPT) 21 U/L 12/30/16 0340 Alkaline Phosphatase 22 U/L L 12/30/16 0340 Total Protein 3.6 g/dL L 12/30/16 0340 Albumin 2.1 g/dL L 12/30/16 0340 Result Diagram: 12/30/16 0530 12/30/16 0340 Microbiology Sputum culture grew light normal prince. Repeat sputum culture has no growth to date. MRSA screen negative. Strep coccus pneumoniae and legionella urine antigens negative. Respiratory viral PCR negative. Blood culture 2 has no growth after 5 days. Repeat blood culture 2 has no growth after 2 days. Fungal blood culture positive for Lashae. Pleural fungal culture pending. Pleural acid-fast culture negative. . X-Rays, CTs and MRIs X-RAY CHEST ONE VIEW, PORTABLE IMPRESSION: 1. Stable position of left pleural drain and no left pneumothorax is present. 2. Decreasing retrocardiac atelectasis versus pneumonia. 3. Of note, gaseous distention of bowel loops within the upper abdomen noted. Recommend clinical correlation and if indicated acute abdominal series could be performed for further bowel characterization. Dictated by: Shankar BARRETO Interpreted: Santiago Montanez MD on 12/29/2016 at 8:54 US ABDOMEN, LIMITED IMPRESSION: No free intraperitoneal fluid identified. If indicated CT could be performed to further assess for possible intraperitoneal or retroperitoneal bleed Dictated by: Shankar BARRETO Interpreted: Harshil Pacheco MD on 12/28/2016 at 9: 55 US CHEST/PLEURAL SONOGRAM IMPRESSION: Small loculated complex left pleural effusion consistent with hemothorax. Dictated by: Santiago Montanez M.D. on 12/27/2016 at 13:19 CT ANGIO CHEST PULMONARY EMBOLISM IMPRESSION: 1. No pulmonary embolus. 2. Mild pulmonary edema associated with small bilateral pleural effusions. 3. Small amount of ascites. 4. Coronary artery disease. Cardiomegaly. Right heart failure. Dictated by: Julieta Gunn M.D. on 12/23/2016 at 13:33 US VENOUS LEG DUPLEX BILATERAL IMPRESSION: No deep venous thrombosis identified within either the left or right lower extremities. Dictated by: Shankar BARRETO Interpreted: Sobia Plunkett MD on 12/23/2016 at 9: 58 CT BRAIN WITHOUT CONTRAST IMPRESSION: No acute intracranial disease process. Dictated by: Rosaura Wisdom MD, PhD on 12/22/2016 at 20:12 X-RAY CHEST ONE VIEW, PORTABLE IMPRESSION: Small patchy airspace opacities in the right lung base and small right-sided pleural effusion suspicious for pneumonia. Dictated by: Rosaura Wisdom MD, PhD on 12/22/2016 at 18:51 Approved by: Rosaura Wisdom MD, PhD on 12/22/2016 at 18:52 . Cardiac Echo Impressions Echocardiogram Interpretation Summary: Probable large left abdominal ascites possibly surrounding the spleen. There are moderate-sized bilateral pleural effusions noted. There is no thrombus seen in the right ventricle. A calcified moderator band and papillary muscle are visualized. Borderline right ventricular enlargement. Right ventricular systolic function is mild to moderately reduced. The right ventricular systolic pressure is estimated at 68 mmHg assuming a right atrial pressure of 15 mm Hg. RVSP has increased increase since prior study. Reading Physician:PM Echocardiogram Interpretation Summary: The ejection fraction is estimated to be 55-60%. Flattened septum is consistent with RV pressure/volume overload. The right ventricle is moderately dilated. Right ventricular systolic function is moderately reduced. The aortic valve is slightly calcified. The aortic valve is not well visualized. There is moderate tricuspid regurgitation. Right ventricular systolic pressure is estimated to be 39 mmHg plus the clinically estimated CVP which cannot be estimated on this exam. RV thrombus is suspected. Electronically signed by: Isra Valdez on Reading Physician:12/23/2016 11:08 AM . Assessment & Plan Virginia Ling is a 66-year-old female with a past medical history significant for hypertension and COPD who was brought to [facility] Emergency Department due to unresponsiveness requiring intubation. Hospital day #9. 1. Acute shock, unclear etiology, present on admission. Active. - VBG showed an sVO2 of 78% likely medical field representative of septic shock or a mixed etiology with an obstructive/cardiogenic component. - Patient clinically volume overloaded with JVD and peripheral edema with echocardiographic and radiographic evidence of right sided heart failure. - Repeat limited echocardiogram revealed worsening RV overload with increased RVSP of 64 mmHg without evidence of RV thrombus, as above. - Off phenylephrine for vasopressor support but needed this for extended period of approximately 8 days. - IV fluids with LR at 100 mL/hr. Had to be cautious with IV fluid resuscitation due to RV overload and to avoid to rapid over correction of sodium level and central pontine myelinosis. 2. Acute on chronic hypoxemic and hypercapnia respiratory failure, present on admission. Active. - Patient does have a history of COPD and based on CO2 on admission was hypercapnic and likely CO2 retainer. Differential diagnosis includes: Hepatic encephalopathy (CT showed abdominal ascites and history of alcohol use on HPI) versus less likely PE versus CAP versus ACS. - Blood glucose normal on admission. - Sputum culture and Gram stain, blood culture x 4, respiratory viral PCR, strep pneumoniae and legionella urine antigens all negative. - D-dimer elevated at >32.3 and IV heparin PE protocol initiated. - Initial echocardiogram revealed RVSP of 34 mmHg with evidence of RV overload and septal flattening with suspected thrombus, as above. Repeat limited echocardiogram revealed worsening RV overload with increased RVSP of 64 mmHg without evidence of RV thrombus, as above. - CT angiography was negative for PE and revealed mild pulmonary edema associated with small bilateral pleural effusions and right heart failure, as above. - Also need to consider possible COPD exacerbation as etiology IV Solu-Medrol, duo nebs every 4 hours and albuterol nebs every 2 hours when necessary - The patient continues to have airway issue and is auto PEEPing secondary to severe COPD, therefore, considering tracheostomy. - Continue to monitor ABG daily for vent management. - Continue Precedex gtt and fentanyl pushes for sedation, as above. Consider sedation vacation and SBT again today. - Discontinue antibiotics today per ID. - ID consulted and following we appreciate their time and care of the patient. 3. Acute left sided hemothorax, not present on admission. Active. - Initial echocardiogram was read as suspected right ventricular thrombus, therefore, a heparin gtt was initiated. - Decreasing hemoglobin from 12/25/2016 with hemoglobin of 14 to 12/27/2016 with hemoglobin of 7.6. Heparin drip discontinued and the patient was given 2 units of PRBCs. - Chest x-ray on 12/27/2016 demonstrated an acute worsening left pleural effusion with an ultrasound revealing small loculated complex left pleural effusion consistent with hemothorax. - General surgery was consulted for chest tube placement with 2 L of blood status post placement. Given 2 units of PRBCs and 1 unit of platelets. - Hemoglobin and hematocrit stable status post transfusions. 4. Acute blood loss anemia, not present on admission. Stable. - Likely secondary to hyperfibrinolysis from liver disease and heparin gtt. - Chest x-ray on 12/27/2016 demonstrated an acute worsening left pleural effusion with an ultrasound revealing small loculated complex left pleural effusion consistent with hemothorax. - General surgery was consulted for chest tube placement with 2 L of blood status post placement. Given 2 units of PRBCs and 1 unit of platelets. - Hemoglobin and hematocrit stable status post transfusions. 5. Acute fungemia, not present on admission. Active - 1:3 bottles from 12/27/2016 positive for yeast likely Lashae. - Continue micafungin x 2 weeks after negative blood cultures are obtained per ID. - Central venous line removed and sent for culture without growth as above. - ID consulted and following we appreciate their time and care of the patient. 6. Alcohol dependency, present on admission. Presumed stable. - CIWA protocol was in place but outside of withdrawal window at this point. - Ativan 2 mg every 6 hours was given but discontinued to allow her to be less sedated and to assess her cognition. - Continue thiamine IV daily. 7. Acute encephalopathy, present on admission. Presumed stable. - Likely multifactorial and related to her hypercapnia, hyponatremia and possibly hepatic encephalopathy (CT showed abdominal ascites and history of alcohol use on HPI) and PE. Unlikely differentials include overdose and epilepsy. No trauma. - CT brain without contrast was negative for any acute intracranial abnormality , as above. Patient was also non-focal on exam, therefore, CVA very unlikely. - Alcohol level and urine drug screen negative. - IV fluids with LR at 100 mL/hr. Had to be cautious with IV fluid resuscitation due to RV overload and to avoid to rapid over correction of sodium level and central pontine myelinosis. - Continue Precedex and fentanyl for sedation. 8. Pulmonary hypertension, acuity unknown, present on admission. Active. - Likely secondary to COPD but possibly PE/RV thrombus. - Cautious with fluid resuscitation. - Repeat limited echocardiogram revealed worsening RV overload with increased RVSP of 64 mmHg without evidence of RV thrombus, as above. 9. Acute respiratory alkalosis with partial metabolic compensation, present on admission. Resolved. - Continue ventilator with settings as above. - Treat COPD as above under problem #2. - Also treat underlying etiology of shock under problem #1. 10. Atrial fibrillation with RVR, acuity unknown, present on admission. Active. - Unclear if she has a history of atrial fibrillation. - RV thrombus possible based on echocardiogram. CTA revealed no PE. - Serial troponins have been negative. - Continue amiodarone PO for rhythm control per primary medical team. 11. Acute hyponatremia, present on admission. Active. - Likely related to dehydration and possibly beer potomania. - Continuing IV normal saline at 100 mL/hr and monitor sodium level closely to avoid to rapid over correction central pontine myelinosis. - Monitor sodium level daily. 12. Acute hypokalemia, present on admission. Active. - Possibly secondary to beer potomania. - Replete as needed. - Monitor potassium level daily. 13. Acute hypomagnesemia, present on admission. Active. - Possibly secondary to beer potomania. - Replete as needed. - Monitor magnesium level daily. Chronic problems with management per primary team. Disposition: Several days and depending upon clinical course. Total critical care time spent 60 minutes. . GI Prophylaxis: H2 cielo VTE Prophylaxis: SCDs VTE Mechanical Devices: Intermittant Pneumatic CD Resuscitation Status: CPR: Attempt Resuscitation Attending Statement The patient was seen and examined together with Dr. Greene on 12/30/2016 and I agree with the history, exam and plan as outlined in the note above. Nneka Greene DO Dec 30, 2016 09:49 Kyle Cevallos MD Jan 31, 2017 13:02 4. Left sided Hemothorax, not present on admission, drained considered stable - Initial protein evaluation 3.5 compared to total protein of blood 4.3 consistent with exudative effusion - Substantial RBCs consistent with hemothorax - Pleural fluid sent for cultures - Consider likely secondary to heparin drip - Patient had a noted air leak consistent with a pneumothorax and given findings consistent with hemothorax and severe emphysema noted on CT, possible barotrauma ventilator lung injury from increase tidal volume initiated around admission 5. Possible pneumonia, present on admission, improving. - X-ray imaging after diuresis shows a possible left lower lobe pneumonia. - Procalcitonin remains negative however increasing white blood cell count could be attributed to an infection or steroid use for COPD exacerbation - Continue Zosyn 1 more day (day 7) - ultrasound used to fine fluid collection shows moderate loculations consistent with hemothorax possible developing empyema - Yeast in blood not consistent with pneumonia as a source, candidiasis does not cause pneumonia 6. Atrial fibrillation with rapid ventricular response, acute, present on admission, improving. - Not clear if she has a history of atrial fibrillation. - Discontinue Amiodarone drip. - Digoxin 0.25 g given with readministered 0.25 mg due to to continued tachycardia. - Convert to amiodarone orally through 2 7. Fungemia, likely present on admission, under evaluation - 1 out of 3 bottles from December 27 positive for yeast likely Lashae - Initiate micafungin IV - Infectious disease following - Lashae is not a likely pathogen that causes pneumonia. Central venous line removed and sent for culture. 8. Alcohol dependency, present on admission, unstable - CIWA protocol ordered however patient is currently intubated and sedated. - Ativan 2 mg scheduled every 6 hours given improvement in blood pressure and history of alcohol withdrawal. - Continue thiamine IV daily. 9. Hypokalemia, acute, present on admission. Ongoing. - Continue to monitor with BMP and replete as needed. 10. Hypothyroidism, acute, present on admission. - Likely secondary to being critically ill. - Will need follow up labs approximately 6-8 weeks after hospital discharge. 11. Possible adrenal insufficiency, acute, present on admission. - ACTH-stim test shows low level of cortisol. - Patient already undergoing treatment with IV steroids. Will need to plan for slow taper and close outpatient follow up. 12. Acute encephalopathy, present on admission, considered stable - Possibly related to her hypercapnia but must also consider reversible other etiologies such as toxic ingestion, hypothyroidism. - Patient remains intubated and sedated at this time so this is difficult to fully evaluate. 13. Possible right ventricular thrombus, present on admission, unstable - Seen on echocardiogram ordered for apparent volume overload due to right heart failure. - Discontinue Heparin PE protocol drip for presumed RV thrombus. - Limited echo fails to reveal right ventricular thrombus - Consideration for either no thrombus on initial echo versus less likely dislodge of thrombis likely now PE given no increased oxygen requirements 14. Hyponatremia, acute, present on admission, improving. - May be related to dehydration - Continue to monitor BMP. GI Prophylaxis: H2 cielo VTE Prophylaxis: SCDs VTE Mechanical Devices: Intermittant Pneumatic CD Resuscitation Status: CPR: Attempt Resuscitation Nneka Greene DO Dec 30, 2016 09:49
--- NOTE | 2016-12-30 10:41 | DRSVH ---
PROCEDURE: X-RAY CHEST ONE VIEW, PORTABLE ([id number]) INDICATIONS: acute respiratory failure TECHNIQUE: One view of the chest was acquired. COMPARISON: [facility], CR, XR CHEST 1VW (PORTABLE), 12/29/2016, 5:34. FINDINGS: Surgical changes and devices: Stable position of left pleural drain, ETT, right IJ CVL and nasogastri c tube with the side-port likely positioned within the distal esophagus. Lungs and pleura: No left pneumothorax. Decreasing left basilar airspace opacity. Right lung remain s clear. Mediastinum: Mediastinal contours appear normal. Heart size is enlarged. Bones and chest wall: No suspicious bony lesions. Overlying soft tissues appear unremarkable. Gase ous distention of bowel in the upper abdomen. IMPRESSION: 1. Stable position of left pleural drain. 2. Decreased retrocardiac opacity. 3. Gaseous distention of bowel loops within the upper abdomen redemonstrated. Dictated by: Shankar Mandujano [facility] Interpreted: Rosaura Wisdom MD on 12/30/2016 at 10:40 Transcribed by: JENNIFER on 12/30/2016 at 10:40 Approved by: Rosaura Wisdom MD, PhD on 12/30/2016 at 16:51
--- NOTE | 2016-12-30 11:34 | PROG NOTE ---
[address] [address] PROGRESS NOTE PATIENT: RAPHAEL SLATER : 1950 MR#: [id number] ADMIT: 12/22/2016 JOB ID: [id number] DATE: 12/30/2016 SUBJECTIVE: The patient is seen in followup of her left chest tube placed for hemothorax. She remains intubated. Yesterday, she had 500 cc out her chest tube, the first 8 hours of today 60 cc. DATE: IMPRESSION: So far left chest tube doing its job. PLAN: I would leave the tube in today but maybe in the next several days it can be removed if drainage becomes minimal.
[2016-12-30] MEDS: Lactated Ringer's 1,000 ML IV SCH (12:15)
[2016-12-30] MEDS: fentaNYL 2,500 mCg/250 mL 2,500 MCG in IV Premix 1 EACH IV SCH (13:10)
--- NOTE | 2016-12-30 14:56 | PATH ---
SURGICAL PATHOLOGY Attending Physician:Bhakti Fernández CASE STATUS: Signed Out PATIENT NAME: Virginia Ling PID: [id number] : 1950 DATE COLLECTED:12/28/2016 00:00 SPECIMEN: Pleural Fluid CLINICAL HISTORY: Pleural Fluid-- Left Lung Chest Tube ICD-10 code not given FINAL DIAGNOSIS: LEFT PLEURAL FLUID (ONE THINPREP SLIDE, ONE CYTOCENTRIFUGE PREPARATION, AND ONE CELL BLOCK: NEGATIVE FOR MALIGNANT CELLS. MESOTHELIAL CELLS AND INFLAMMATORY CELLS ARE PRESENT. ICD10 CODE J90 GROSS DESCRIPTION: Received fresh on 12/29/2016 is approximately 30 cc of cloudy hemorrhagic fluid. Prepared are one cell block, one ThinPrep and one Cytospin slides. Vo ICD-9 CODES: CPT CODES: 1: 98769, 37589, 72007 Electronically Signed Out Michael Crowe MD [facility] Pathology [facility] [address], [place] [address] Technical component performed at [facility], [facility] [address], [place], [address]
--- NOTE | 2016-12-30 18:30 | PCM.PNMED ---
Subjective Date of Service Dec 30, 2016 Subjective overnight: Patient remains intubated and sedated on Precedex nursing staff notes patient is mildly responsive. Chest to continues to put out serous fluid approximately 170 mL overnight. No acute events otherwise noted Today: Patient continued on ventilator. Patient is likely considered to be a long ventilator state given her poor chronic lung function with severe emphysema and now hemothorax with her chest tube placement. Her brother was called to discuss the likely requirement of a tracheostomy and possible transfer to a long-term care facility. The brother agreed to both of these plans but will require consent prior to tracheostomy. Exam Vital Signs Vital Sign - Last Date Time Temp Pulse Resp B/P Pulse Ox O2 Delivery O2 Flow Rate FiO2 12/30/16 05:06 106 145/77 99 30 12/30/16 04:30 Ventilator 12/30/16 04:30 36.5 17 Intake and Output 12/29/16 12/29/16 12/30/16 Cumulative From/Thru 15:00 23:00 07:00 12/22/16 18:16 - 12/30/16 05:10 Intake Total 1628 ml 2383 ml 42295 ml Output Total 825 ml 710 ml 69428 ml Balance 803 ml 1673 ml 12564 ml Intake IV Total 992 ml 1690 ml 74173 ml Tube Feeding 556 ml 573 ml 6153 ml Packed Cells 280 ml FFP 215 ml Platelets 792 ml Tube Irrigant 80 ml 120 ml 1280 ml Output Urine Total 600 ml 650 ml 49417 ml Gastric Drainage Total 70 ml Chest Tube Drainage Total 225 ml 60 ml 2875 ml # Voids 0 # Bowel Movements 2 1 3 Exam General: thin female appearing older than stated age lying in bed intubated and sedated. Eyes: PERRLA. Anicteric sclerae, moist conjunctivae HENT: Normocephalic, atraumatic. Endotracheal and oropharyngeal tube in place. External ears without defect. Neck: Supple. no JVD, trachea, midline, No lymphadenopathy or thyromegaly. Cardiovascular: Irregular rhythm tachycardia without murmurs, rubs, or gallops appreciated. Pulmonary: Moderate coarse breath sounds bilaterally with decreased air movement on the left lower axillary base with clean dry bandage and chest tube with serosanguineous fluid and limited tidal volume variation in tubing with no early. No wheezing noted Abdomen: Soft, nondistended, bowel sounds normoactive. Genitourinary: Johnson catheter in place. Extremities: Decreased pulses in radial and and decreased dorsalis pedis bilaterally. Mild pitting edema noted in right leg no edema in left, mild cyanosis and distal digits bilaterally, no clubbing Neuro: Pupils equal round reactive to light not following commands at this time Lab and Diagnostics Result Diagram: 12/30/16 0530 12/30/16 0340 Microbiology Repeat sputum culture has no growth to date. Sputum culture grew light normal prince. MRSA screen negative. Strep coccus pneumoniae and legionella urine antigens negative. Respiratory viral PCR negative. _ Microbiology DAVE CULT BLOOD FUNGUS Preliminary 12/29/16-1132 Organism 1 POSITIVE BLOOD CULTURE GRAM STAIN RESULT YEAST BC BOTTLE Isolated from Aerobic Bottle of Set Drawn DATE CALLED: 12/29/16 TIME CALLED: 1129 CALLED BY: VS FLOOR/DOCTOR: DIDIER/MANDEEP ZHANG READ BACK Y TYPE OF DRAW PERIPHERAL DRAW TIME OF POSITIVITY 1112 _ X-Rays, CTs and MRIs PROCEDURE: CT BRAIN WITHOUT CONTRAST ([id number]) IMPRESSION: No acute intracranial disease process. Dictated by: Rosaura Wisdom MD, PhD on 12/22/2016 at 20:12 PROCEDURE: US VENOUS LEG DUPLEX BILATERAL IMPRESSION: No deep venous thrombosis identified within either the left or right lower extremities. Dictated by: Shankar BARRETO Interpreted: Sobia Plunkett MD on 12/23/2016 at 9: 58 PROCEDURE: CT ANGIO CHEST PULMONARY EMBOLISM ([id number]) IMPRESSION: 1. No pulmonary embolus. 2. Mild pulmonary edema associated with small bilateral pleural effusions. 3. Small amount of ascites. 4. Coronary artery disease. Cardiomegaly. Right heart failure. Dictated by: Julieta Gunn M.D. on 12/23/2016 at 13:33 PROCEDURE: X-RAY CHEST ONE VIEW, PORTABLE ([id number]) IMPRESSION: Stable left basilar opacity suspicious for aspiration versus pneumonia. Right basilar opacity has resolved. Dictated by: Rosaura Wisdom MD, PhD on 12/25/2016 at 9:12 PROCEDURE: X-RAY CHEST ONE VIEW, PORTABLE ([id number]) IMPRESSION: Placement of left pleural drain with significant reduction in size of loculated left pleural effusion. No pneumothorax. Dictated by: Shankar BARRETO Interpreted: Harshil Pacheco MD on 12/28/2016 at 17 :10 Transcribed by: GENE on 12/28/2016 at 17:11 Cardiac Echo Impressions Echocardiogram Report Interpretation Summary The ejection fraction is estimated to be 55-60%. Flattened septum is consistent with RV pressure/volume overload. The right ventricle is moderately dilated. Right ventricular systolic function is moderately reduced. The aortic valve is slightly calcified. The aortic valve is not well visualized. There is moderate tricuspid regurgitation. Right ventricular systolic pressure is estimated to be 39 mmHg plus the clinically estimated CVP which cannot be estimated on this exam. RV thrombus is suspected. Electronically signed by: Isra Valdez on Reading Physician:12/23/2016 11:08 AM Additional Diagnostics PROCEDURE: US CHEST/PLEURAL SONOGRAM FINDINGS: There are small loculated complex left pleural effusion, suspicious for hemothorax. IMPRESSION: Small loculated complex left pleural effusion consistent with hemothorax. Dictated by: Santiago Montanez M.D. on 12/27/2016 at 13:19 Approved by: Santiago Montanez M.D. on 12/27/2016 at 13:21 Assessment & Plan 66-year-old female past medical history remarkable for COPD hypertension and alcohol dependency presents with acute respiratory failure. Hospital day 10 1. Acute shock, present on admission, ongoing. - Multifactorial with elements of septic and cardiogenic shock. - Patient appeared volume overloaded at admission with JVD and peripheral edema consistent with right heart failure. Now also has new fever, leukocytosis and continued hypotension. 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 Giving 500 ml bolus of LR with 100 ml/hr started as maintenance fluids. - Norepinephrine stopped and switched to phenylephrine drip which was able to be discontinued 12/29/2016 - urine culture, and sputum culture negative today - Chest x-ray on 12/27/2016 shows a worsening left pleural effusion, ultrasound used to fine fluid collection shows moderate loculations consistent with hemothorax possible developing empyema - Dropping hemoglobin, heparin drip discontinued with packed RBCs given - General surgery placed a left-sided chest tube today with 2 L of blood it out immediately. 2 units of packed RBCs given with 1 unit of platelets, blood count 2 stable after transfusions - blood cultures shows yeast in one of 3 bottles drawn from peripheral site - Follow CBC, procalcitonin. 2. Acute blood loss anemia, not present on admission - Initial echo showed possible right ventricular thrombus - Heparin drip initiated for possible right ventricular thrombus - Decreasing hemoglobin from 12/25/2016 with hemoglobin of 14, to 12/27/2016 with hemoglobin of 7.6 heparin drip discontinued packed RBCs given - Chest x-ray on 12/27/2016 shows a worsening left pleural effusion, ultrasound used to fine fluid collection shows moderate loculations consistent with hemothorax possible developing empyema - Gen. surgery consulted for possible chest tube placement, will be reconsidered on 12/27/2016 - DIC panel ordered with note of bleeding from all IV sites - Haptoglobin increased fibrillation decreased but above 100 elevated d-dimer elevated PT INR and PTT consistent with acute DIC 1 unit of fresh frozen plasma given - General surgery placed a left-sided chest tube today with 2 L of blood it out immediately. 2 units of packed RBCs given with 1 unit of platelets - blood count stable after chest tube and transfusions 3. Acute on chronic respiratory failure with hypoxia and hypercapnia, present on admission, ongoing. - Patient does have a history of COPD/emphysema and she is likely CO2 retainer. - ABG to be done in AM and as needed for ventilator management. - Fentanyl and Precedex for sedation. Titrate down dosing as tolerated by patient. Not using propofol due to hypotension. - Continue solu-medrol taper. 40 mg Q8 today transition to 40 mg Q12 tomorrow. Now at 40 mg daily. Convert to oral when possible - Atrovent nebs available Q6. - Dr. Cevallos of pulmonology has been consulted for assistance with vent management. - Chest x-ray on 12/27/2016 shows a worsening left pleural effusion, ultrasound used to fine fluid collection shows moderate loculations consistent with hemothorax possible developing empyema - General surgery placed a left-sided chest tube today with 2 L of blood it out immediately. 2 units of packed RBCs given with 1 unit of platelets - Post chest tube placement x-rays show stable lung volumes with improved left pleural effusion - Brother called today to discuss possible need for tracheostomy and transfer patient to long-term care facility, brother was entered in agreement that this is the proper course of action after explaining risks and benefits 4. Left sided Hemothorax, not present on admission, drained considered stable - Initial protein evaluation 3.5 compared to total protein of blood 4.3 consistent with exudative effusion - Substantial RBCs consistent with hemothorax - Pleural fluid sent for cultures - Consider likely secondary to heparin drip - Patient had a noted air leak consistent with a pneumothorax and given findings consistent with hemothorax and severe emphysema noted on CT, possible barotrauma ventilator lung injury from increase tidal volume initiated around admission 5. Possible pneumonia, present on admission, improving. - X-ray imaging after diuresis shows a possible left lower lobe pneumonia. - Procalcitonin remains negative however increasing white blood cell count could be attributed to an infection or steroid use for COPD exacerbation - discontinue Zosyn - ultrasound used to fine fluid collection shows moderate loculations consistent with hemothorax possible developing empyema - Yeast in blood not consistent with pneumonia as a source, candidiasis does not cause pneumonia 6. Atrial fibrillation with rapid ventricular response, acute, present on admission, improving. - Not clear if she has a history of atrial fibrillation. - Discontinue Amiodarone drip. - Digoxin 0.25 g given with readministered 0.25 mg due to to continued tachycardia. - Convert to amiodarone orally through 2 7. Fungemia, likely present on admission, under evaluation - 1 out of 3 bottles from December 27 positive for yeast likely Lashae - Initiate micafungin IV - Infectious disease following - Lashae is not a likely pathogen that causes pneumonia. Central venous line removed and sent for culture. 8. Alcohol dependency, present on admission, unstable - CIWA protocol ordered however patient is currently intubated and sedated. - Ativan 2 mg scheduled every 6 hours given improvement in blood pressure and history of alcohol withdrawal. - Continue thiamine IV daily. 9. Hypokalemia, acute, present on admission. Ongoing. - Continue to monitor with BMP and replete as needed. 10. Hypothyroidism, acute, present on admission. - Likely secondary to being critically ill. - Will need follow up labs approximately 6-8 weeks after hospital discharge. 11. Possible adrenal insufficiency, acute, present on admission. - ACTH-stim test shows low level of cortisol. - Patient already undergoing treatment with IV steroids. Will need to plan for slow taper and close outpatient follow up. 12. Acute encephalopathy, present on admission, considered stable - Possibly related to her hypercapnia but must also consider reversible other etiologies such as toxic ingestion, hypothyroidism. - Patient remains intubated and sedated at this time so this is difficult to fully evaluate. 13. Possible Right ventricular thrombus, present on admission, unstable - Seen on echocardiogram ordered for apparent volume overload due to right heart failure. - Discontinue Heparin PE protocol drip for presumed RV thrombus. - Limited echo fails to reveal right ventricular thrombus - Consideration for either no thrombus on initial echo versus less likely dislodge of thrombis likely now PE given no increased oxygen requirements 14. Hyponatremia, acute, present on admission, improving. - May be related to dehydration - Continue to monitor BMP. - Antiemetic available PRN. - Antacid available PRN. - Tylenol available PRN mild pain, fever. Disposition: patient will likely continue to be in the CCU for several more days of mechanical ventilation and treatment of shock. GI Prophylaxis: H2 cielo VTE Prophylaxis: SCDs VTE Mechanical Devices: Intermittant Pneumatic CD Resuscitation Status: CPR: Attempt Resuscitation Attending Statement The patient was seen and examined together with Dr. Schneider on 12/30/2016 and I agree with the history, exam and plan as outlined in the note above. . Parth Schneider DO Dec 30, 2016 07:00 Feliz Rawls MD Jan 01, 2017 08:42
--- NOTE | 2016-12-30 18:30 | PCM.PALLBR ---
Palliative Care Recommendation 66-year-old woman with history of COPD, chronic and ongoing tobacco use, hypertension, possible chronic alcohol abuse- admitted from home where she had become progressively lethargic over several days. Intubated in the emergency department due to her decreased level of consciousness and evidence of hypercarbic respiratory failure. Status post left chest tube placement for apparent hemothorax on 12/28. Clinically slightly improved today. Palliative medicine consulted to assist the patient's family and determination of goals of care Summary of palliative recommendations: 12/30/16-- patient not doing well on weaning parameters and Dr. Cevallos suggested evaluation for tracheostomy. Antibiotic therapy winding down antifungal therapy to continue-ID following Will most likely need long-term ventilator support based on severity of lung disease Disposition now aiming for [facility] if possible. -Symptom management (Pain/other)- no evidence of distress at this time. Continued management per her medical/critical care teams. -DPOA/Advanced Directives/POLST- confirmed today with her partner/significant other Ezio that there is no formal documentation of their relationship, nor of her care wishes. Ezio and the patient never and so her brother Nicolas Ling is default POA. I reviewed her status in detail with Mr. Ling today. Ezio tells me that the patient had told him in the past that she never wanted to be in the hospital on machines; this has also been her brother's perception of her wishes, though there is no documentation regarding these wishes. Mr. Ling and I talked at length today about patient's status, both in hospital and premorbid. Consistent with the patient's previously stated wishes and with the agreement of both her significant other Ezio and her brother/POA Nicolas, I have changed her CODE STATUS to DO NOT RESUSCITATE/DO NOT REINTUBATE, which best reflects her previously stated wishes. If she recovers sufficiently to participate in discussions, we will review these decisions with her when she is decisional. -Family/emotional support- significant other reports to nurses that he is too unnerved by looking at the patient in critical care setting and so cannot visit. -Spiritual support- offered and declined Contact info: Ezio Robles (significant other/house mate though they have no legal andrade) (Note that Ezio admits that he cannot read or write and does not understand much of what is going on, so very willingly deferred decision-making to patient's brother) Nicolas Ling (brother, closest biological relative) [phone](lives in [place]) Patient Goals: 1. Patient's family wants to be told the truth about her illness, even if it is unpleasant. 2. Patient's family would like to be told prognosis when it can be predicted, to better guide treatment decisions. Additional Medical Diagnoses with primary management by Hospitalist team include : 1. Acute shock, present on admission, ongoing. 2. Acute blood loss anemia, not present on admission 3. Acute on chronic respiratory failure with hypoxia and hypercapnia, present on admission, ongoing. 4. Possible Right ventricular thrombus (now disproved) 5. Possible pneumonia, present on admission, improving. 6. Atrial fibrillation with rapid ventricular response, acute, present on admission, improving. 7. Hyponatremia, acute, present on admission, improving. 8. Alcohol dependency, present on admission, unstable 9. Hypokalemia, acute, present on admission. Ongoing. 10. Hypothyroidism, acute, present on admission. 11. Possible adrenal insufficiency, acute, present on admission. 12. Acute encephalopathy, present on admission, considered stable 13. Left hemothorax, status post chest tube placement Problems: End of Life Preferences DO NOT RESUSCITATE/DO NOT REINTUBATE- continue other current medical treatment Goals of Care Case management checking on possible oscar placement Disposition To be determined Resuscitation Status Resuscitation Status: DNR/DNI:Do Not Resuscitate/Intubate POLST Updates/Changes Previous POLST?: No Total time 20 minutes; >50% face to face with patient and/or family, providing counselling regarding plans and recommendations, and in care coordination with his/her medical teams. I also spent an additional [ ] minutes counseling for advanced care planning with the patient/the patients family/the surrogate decision maker. Palliative Brief Note Date of Service Dec 30, 2016 . 66-year-old patient with known severe COPD ongoing smoker history of alcohol overuse admitted for altered mental status requiring intubation for respiratory failure chest tube for hemopneumothorax and amiodarone for A. fib with RVR. Was started on antibiotics for pneumonia Zosyn just finishing course. She is now a DNR/DNI see Dr. Calzada's prior note. O: Intubated on vent A. fib heart rate in the 90s unresponsive decrease breath sounds Anasarca including abdominal wall edema. Abdomen somewhat distended right upper quadrant firm with presumed hepatomegaly Chest tube in place Positive blood cultures for Lashae Echo noting right heart failure INR of 1.33 Elevated ammonia Josiane Eaton MD Dec 30, 2016 18:30
[2016-12-31] VITALS (15 sets, daily range): BP systolic 122–163; BP diastolic 64–95; PULSE 78–115; RESP 14–33; O2SAT 95–100
[2016-12-31] MEDS: Chlorhexidine 0.12% 15 mL Oral Solution MT SCH ×6 (00:05→20:57)
[2016-12-31] MEDS: Ipratropium 0.02% 0.5 mg/2.5 mL Inhalation Solution NEB SCH ×6 (00:33→21:13)
[2016-12-31] MEDS: Insulin Human REGular 300 Unit/3 mL Inj SUBQ SCH ×4 (02:30→20:30)
--- NOTE | 2016-12-31 04:38 | ABG ---
DateTimeAnalyzed 04:33:00 -_ pH ____7.456 - 7.350 7.450 pCO2 ___54.4__ -mmHg 35.0 45.0 pO2 ___79.5__ -mmHg 69.0 116 HCO3- ___37.8__ -mmol/L 22.0 26.0 ABE ___12.3__ -mmol/L -2.0 2.0 tHb ___10.4__ -g/dL O2Hb ___94.5__ -% COHb ____2.0__ -% MetHb ____0.9__ -% sO2 ___97.3__ -% FIO2 ___30.0__ -% PRVC 11 - CPAP ____7.0__ -cmH2O Vt __340.0__ -L Drawn By RB - Spontaneous_RR ___13.0__ -b/min Oxygen Device 1 VENTILATOR - Notified By RB - Notified Whom MEGAN H, RN - B 751 -mmHg tO2 ___13.8__ -Vol% Lance test _Positive -
[2016-12-31 05:21] LABS: BASOPHILS % (AUTO) 0.1 % (0-3); EOSINOPHILS % (AUTO) 0 % (0-5); Mean Corpuscular Hemoglobin 31.2 pg (27.0-35.0); Mean Corpuscular Volume 95.8 fL (81-100); NEUTROPHILS % (AUTO) 83.4 % (40-74); Platelet Count 135 bil/L (150-400)
[2016-12-31 05:39] LABS: INR 1.05 ratio
[2016-12-31 05:47] LABS: ERYTHROCYTE SEDIMENTATION RATE 24 mm/hr (0-40)
[2016-12-31] MEDS ORDERED: Furosemide 10 mg/mL 10 mL Inj IVPUSH ONE (08:15)
[2016-12-31] MEDS: MethylprednisoLONE Sodium Succinate 40 mg/mL Inj IVPUSH SCH (08:20)
[2016-12-31] MEDS: Polyethylene Glycol (PEG) 17 Gm Powder PO SCH ×2 (08:22→20:57)
--- NOTE | 2016-12-31 08:25 | PROG NOTE ---
[address] [address] PROGRESS NOTE PATIENT: RAPHAEL SLATER : 1950 MR#: [id number] ADMIT: 12/22/2016 JOB ID: [id number] DATE: 12/31/2016 SUBJECTIVE: The patient is seen in followup. She remains intubated and ventilated. Events overnight included the ongoing fever to 38.0 this morning. Tube feeds were held overnight in anticipation for possible tracheostomy and PEG tube placement today. OBJECTIVE: Temperature 38.0, pulse 85, blood pressure 150/80, saturation 100% on 30% FiO2. General: She is sedated and intubated. Neck shows jugular venous distention. Chest: She has coarse breath sounds with wheezes bilaterally. Heart: Regular rate and rhythm. No murmurs. Abdomen is distended and tympanic. LABORATORIES: White blood cell count 13.8, hematocrit 32.3 platelets 135, creatinine 0.68, glucose 122. ProBNP is 5529, procalcitonin 0.08, INR 1.05. IMAGING: Chest x-ray today has not been read but shows significant gaseous distention of small bowel loops just under the diaphragm in the upper abdomen. ASSESSMENT/PLAN: A 66-year-old woman with respiratory failure on the ventilator with fungemia, worsening heart failure based on rising BNP, ileus with distended small bowel loops under the diaphragm. For those three reasons, I do not recommend proceeding with tracheostomy and PEG today. I think it should be deferred until Tuesday or later. Trach and PEG is essentially an elective operation, so it should be done when all other things are stable. A PEG tube placement is not technically possible right now because of her small bowel distention in the upper abdomen, resulting in no safe window for feeding tube placement. That needs to wait until her abdominal distention has resolved. Tube feeds can be resumed, and general surgery will follow over the weekend to determine if she is safe for tracheostomy and PEG tube placement on Tuesday or not.
--- NOTE | 2016-12-31 08:36 | PROG NOTE ---
[address] [address] PROGRESS NOTE PATIENT: RAPHAEL SLATER : 1950 MR#: [id number] ADMIT: 12/22/2016 JOB ID: [id number] DATE: 12/31/2016 INFECTIOUS DISEASE FOLLOW UP NOTE: REASON FOR FOLLOWUP: Fungemia in the setting of critical illness. INTERVAL HISTORY: Overnight, the patient has been relatively stable. Recall yesterday we stopped all broad-spectrum antibiotics and have been treating her exclusively with micafungin on the basis of positive blood culture for yeast. The patient has been stable on the ventilator overnight and remained sedated. At times, according to the nurse, the patient will awaken and follow some commands and open her eyes, but this morning when I examine her, the patient just flutters her eyes when her name is called but does not keep her eyes open or meaningfully interact. In discussing the situation with the nurse, the patient continues to have a chest tube on the left with 50 cc output of bloody fluid overnight. Her urine output is still good. Because of her fungemia, of course, we removed her central line and now she has two new peripheral IVs, one in her right forearm and one in her left foot. This case was also discussed with the surgical pathologist who is going to defer her trach and PEG until Tuesday because of her ongoing fevers. PHYSICAL EXAMINATION: The patient was febrile overnight to 37.9. She has not had any temperatures above 38 for the past two days since we instituted the antifungal therapy. Current temperature is 37.2, blood pressure 150/80, pulse in the 80s, and wildly irregular. She is on 30% and 7 of PEEP on the ventilator. The eyes without scleral icterus or conjunctivitis. The oral endotracheal tube, orogastric tube in good position. Lungs with a few crackles at the bases but really fairly clear. Cardiac tones: Irregular rate and rhythm without appreciable murmur. The abdomen: Soft and nontender. Johnson catheter is present. A left chest tube present. Extremities still mottled but warmer than they have been in terms of her feet and ankles. There is also some mottling around the knees. LABORATORIES: Include a white count which has dropped quite a bit down to 13,800 today from 21,000 yesterday. Still with a minimal left shift. Creatinine 0.68, steadily improving. LFTs normal. CRP is 1.5. Her BNP has bumped to 5530 and it has been 1000 and then 2700 on the last two measurements before the 5530, so this is an increase. Procalcitonin remains negative. Hep C antibody is negative. QuantiFERON Gold indeterminate. Cryptococcal antigen negative. Galactomannan negative. Micro studies are essentially negative except for the single blood culture on the which grew Lashae. This led to removal of the central line and the institution of micafungin. IMPRESSION: This complex patient has had a wide variety of complications after admission including a left hemothorax which is being drained with a chest tube and fungemia. At this point, we stopped her broad-spectrum antibiotics and instituted micafungin while removing her central line and she seems overall improved. The concerns today would her lingering fever which I am not that impressed by given that her fevers are gradually coming down as is her white count, as well as a rising BNP. I did review her chest x-ray carefully this morning and it appears improved over prior days actually and her lungs do not sound too wet, so I am a little confused by the rising BNP. RECOMMENDATIONS: 1. No broad-spectrum antibiotics are indicated. 2. Will continue with micafungin and will increase the dose to 150 a day. Whether to use 100 or 150 is little bit ambiguous in the literature but I think in view of her critical illness and the absence of known severe liver problems, we should go ahead and use the maximal dose. 3. We will have the Lashae isolate sent to [facility] for susceptibility testing which should be back in a few days, and depending on those results, we can consider switching to fluconazole at some point. 4. Repeat blood cultures will be indicated to make sure that the isolette found on the is no longer present. The optimal time of those blood cultures would try be starting tomorrow, January 01, and will continue for a couple days with fungal blood cultures just to ensure that the fungemia has resolved. The total duration of antifungal therapy will be at least two weeks from the date of the first negative culture.
[2016-12-31] MEDS: Budesonide 0.5 mg/2 mL Inhalation Solution NEB SCH ×2 (08:47→21:13)
--- NOTE | 2016-12-31 09:38 | DRSVH ---
PROCEDURE: X-RAY CHEST ONE VIEW, PORTABLE ([id number]) INDICATIONS: acute respiratory failure TECHNIQUE: One view of the chest was acquired. COMPARISON: [facility], CR, XR CHEST 1VW (PORTABLE), 12/30/2016, 5:11. FINDINGS: Surgical changes and devices: Stable position of left pleural drain, ETT, right IJ CVL and nasogastri c tube with the side-port likely positioned within the distal esophagus. Lungs and pleura: No left pneumothorax. Persistent left basilar airspace opacity. Right lung remain s clear. Mediastinum: Mediastinal contours appear normal. Heart size is enlarged. Bones and chest wall: No suspicious bony lesions. Overlying soft tissues appear unremarkable. Gase ous distention of bowel in the upper abdomen. IMPRESSION: Stable chest. Dictated by: Shankar Mandujano RRA Interpreted: Rosaura Wisdom MD on 12/31/2016 at 9:37 Transcribed by: JENNIFER on 12/31/2016 at 9:38 Approved by: Rosaura Wisdom MD, PhD on 12/31/2016 at 17:05
[2016-12-31] MEDS: Dexmedetomidine 400 mCg/100 mL 400 MCG in IV Premix 1 EACH IV SCH ×2 (09:51→20:58)
[2016-12-31] MEDS: Micafungin Inj 150 MG in 0.9% Sodium Chloride 100 ML IV SCH (09:52)
--- NOTE | 2016-12-31 10:17 | PCM.PNMED ---
Subjective Date of Service Dec 31, 2016 Subjective Intensive Care/Pulmonology Consultation Note: Attending Dr. Aaliyah Ling is a 66-year-old female with a past medical history significant for hypertension and COPD who was brought to [facility] Emergency Department due to unresponsiveness requiring intubation. We were consulted for ventilator management. Hospital day #10. Overnight: Telemetry overnight was atrial fibrillation, 80 to 90's, with RVR up to 110 to 130's and occasional PVC's that are bigeminal intermittently. Subjective exam and review of systems are unobtainable as the patient is intubated and sedated. No SBT was performed yesterday as patient was being considered for tracheostomy. . Exam Vital Signs Vital Sign - Last Date Time Temp Pulse Resp B/P Pulse Ox O2 Delivery O2 Flow Rate FiO2 12/31/16 09:52 111 33 141/86 95 30 12/31/16 07:50 38.0 Mechanical Ventilator Intake and Output 12/30/16 12/30/16 12/31/16 Cumulative From/Thru 15:00 23:00 07:00 12/22/16 18:16 - 12/31/16 05:55 Intake Total 1470 ml 724 ml 83794 ml Output Total 1200 ml 800 ml 08302 ml Balance 270 ml -76 ml 57009 ml Intake IV Total 808 ml 464 ml 57507 ml Tube Feeding 582 ml 180 ml 6915 ml Packed Cells 280 ml FFP 215 ml Platelets 792 ml Tube Irrigant 80 ml 80 ml 1440 ml Output Urine Total 1100 ml 750 ml 86948 ml Gastric Drainage Total 70 ml Chest Tube Drainage Total 100 ml 50 ml 3025 ml # Voids 0 # Bowel Movements 1 4 Exam General: Middle-aged thin female lying in bed and in no acute distress, intubated and sedated. HEENT: Normocephalic, atraumatic. External ears without defect. Pupils equal, round, and reactive to light. Anicteric sclerae, moist conjunctivae, and no lid lag. Endotracheal and nasopharyngeal tube in place. Neck: Supple. Right IJ. Cardiovascular: Irregular rhythm without murmurs, rubs, or gallops appreciated. Chest tube in place on left. Pulmonary: Inspiratory wheezes in anterior lung wooten and bibasilar crackles. No wheeze. Abdomen: Soft, nondistended, bowel sounds active. Genitourinary: Johnson catheter in place. Extremities: Mottled upper and lower extremities. No edema, cyanosis, or clubbing. Neurologic: Unarousable, sedated. Ventilator settings: PRVC. Tidal volume 340. Respiratory rate 11. FiO2 30%. PEEP 7.0. Peak . Plateau . ABG: PH 7.456. PCO2 54.4. PO2 79.5. HCO3 37.8. On PRVC with an FiO2 30%, PEEP of 7.0, and SPO2 97.3%. IV drips and Sedatives: Precedex 0.7 mcg/kg/hr and Fentanyl gtt 50 mcg/hr. Phenylephrine off. IV lines: Left foot and right radial peripheral IV. I&O: Net +50387 mL. . IVs and Medications Medications Reviewed: Medications were reviewed in detail Lab and Diagnostics Item Value Date Time Calcium Level 9.4 mg/dL 12/31/16456 Total Bilirubin 0.9 mg/dL 12/31/16456 Aspartate Amino Transf (AST/SGOT) 31 U/L 12/31/16456 Alanine Aminotransferase (ALT/SGPT) 24 U/L 12/31/16456 Alkaline Phosphatase 39 U/L 12/31/16456 C-Reactive Protein 1.5 mg/dL H 12/31/16456 Pro-B-Type Natriuretic Peptide 5529 pg/mL H 12/31/16456 Total Protein 4.9 g/dL L 12/31/16456 Albumin 2.6 g/dL L 12/31/16456 Result Diagram: 12/31/1645612/31/16456 Microbiology Sputum culture grew light normal prince. Repeat sputum culture has no growth to date. MRSA screen negative. Strep coccus pneumoniae and legionella urine antigens negative. Respiratory viral PCR negative. Blood culture 2 has no growth after 5 days. Repeat blood culture 2 has no growth after 2 days. Fungal blood culture positive for Lashae. Pleural fungal culture pending. Pleural acid-fast culture negative. . X-Rays, CTs and MRIs X-RAY CHEST ONE VIEW, PORTABLE IMPRESSION: Stable chest. Dictated by: Shankar BARRETO Interpreted: Rosaura Wisdom MD on 12/31/2016 at 9:37 US ABDOMEN, LIMITED IMPRESSION: No free intraperitoneal fluid identified. If indicated CT could be performed to further assess for possible intraperitoneal or retroperitoneal bleed Dictated by: Shankar BARRETO Interpreted: Harshil Pacheco MD on 12/28/2016 at 9: 55 US CHEST/PLEURAL SONOGRAM IMPRESSION: Small loculated complex left pleural effusion consistent with hemothorax. Dictated by: Santiago Montanez M.D. on 12/27/2016 at 13:19 CT ANGIO CHEST PULMONARY EMBOLISM IMPRESSION: 1. No pulmonary embolus. 2. Mild pulmonary edema associated with small bilateral pleural effusions. 3. Small amount of ascites. 4. Coronary artery disease. Cardiomegaly. Right heart failure. Dictated by: Julieta Gunn M.D. on 12/23/2016 at 13:33 US VENOUS LEG DUPLEX BILATERAL IMPRESSION: No deep venous thrombosis identified within either the left or right lower extremities. Dictated by: Shankar BARRETO Interpreted: Sobia Plunkett MD on 12/23/2016 at 9: 58 CT BRAIN WITHOUT CONTRAST IMPRESSION: No acute intracranial disease process. Dictated by: Rosaura Wisdom MD, PhD on 12/22/2016 at 20:12 X-RAY CHEST ONE VIEW, PORTABLE IMPRESSION: Small patchy airspace opacities in the right lung base and small right-sided pleural effusion suspicious for pneumonia. Dictated by: Rosaura Wisdom MD, PhD on 12/22/2016 at 18:51 Approved by: Rosaura Wisdom MD, PhD on 12/22/2016 at 18:52 . Cardiac Echo Impressions Echocardiogram Interpretation Summary: Probable large left abdominal ascites possibly surrounding the spleen. There are moderate-sized bilateral pleural effusions noted. There is no thrombus seen in the right ventricle. A calcified moderator band and papillary muscle are visualized. Borderline right ventricular enlargement. Right ventricular systolic function is mild to moderately reduced. The right ventricular systolic pressure is estimated at 68 mmHg assuming a right atrial pressure of 15 mm Hg. RVSP has increased increase since prior study. Reading Physician:PM Echocardiogram Interpretation Summary: The ejection fraction is estimated to be 55-60%. Flattened septum is consistent with RV pressure/volume overload. The right ventricle is moderately dilated. Right ventricular systolic function is moderately reduced. The aortic valve is slightly calcified. The aortic valve is not well visualized. There is moderate tricuspid regurgitation. Right ventricular systolic pressure is estimated to be 39 mmHg plus the clinically estimated CVP which cannot be estimated on this exam. RV thrombus is suspected. Electronically signed by: Isra Valdez on Reading Physician:12/23/2016 11:08 AM . Assessment & Plan Virginia Ling is a 66-year-old female with a past medical history significant for hypertension and COPD who was brought to [facility] Emergency Department due to unresponsiveness requiring intubation. Hospital day #10. 1. Acute shock, unclear etiology, present on admission. Active. - VBG showed an sVO2 of 78% likely sales promotion representative of septic shock or a mixed etiology with an obstructive/cardiogenic component. - Patient clinically volume overloaded with JVD and peripheral edema with echocardiographic and radiographic evidence of right sided heart failure. - Repeat limited echocardiogram revealed worsening RV overload with increased RVSP of 64 mmHg without evidence of RV thrombus, as above. - Off phenylephrine for vasopressor support but needed this for extended period of approximately 8 days. - Discontinued IV fluids with LR at 100 mL/hr. Had to be cautious with IV fluid resuscitation due to RV overload and to avoid to rapid over correction of sodium level and central pontine myelinosis. 2. Acute on chronic hypoxemic and hypercapnia respiratory failure, present on admission. Active. - Patient does have a history of COPD and based on CO2 on admission was hypercapnic and likely CO2 retainer. Differential diagnosis includes: Hepatic encephalopathy (CT showed abdominal ascites and history of alcohol use on HPI) versus less likely PE versus CAP versus ACS. - Blood glucose normal on admission. - Sputum culture and Gram stain, blood culture x 4, respiratory viral PCR, strep pneumoniae and legionella urine antigens all negative. - D-dimer elevated at >32.3 and IV heparin PE protocol initiated. - Initial echocardiogram revealed RVSP of 34 mmHg with evidence of RV overload and septal flattening with suspected thrombus, as above. Repeat limited echocardiogram revealed worsening RV overload with increased RVSP of 64 mmHg without evidence of RV thrombus, as above. - CT angiography was negative for PE and revealed mild pulmonary edema associated with small bilateral pleural effusions and right heart failure, as above. - Possible COPD exacerbation may be contributing and continue IV Solu-Medrol, duo nebs every 4 hours, and albuterol nebs every 2 hours when necessary. - The patient continues to have airway issue and is auto PEEPing secondary to severe COPD, therefore, considering tracheostomy. - Continue to monitor ABG daily for vent management. - Continue Precedex gtt and fentanyl gtt, as above. Consider sedation vacation and SBT again today and may give fentanyl pushes for chest tube pain PRN during SBT. - Discontinued antibiotics per ID. - ID consulted and following we appreciate their time and care of the patient. 3. Acute left sided hemothorax, not present on admission. Active. - Initial echocardiogram was read as suspected right ventricular thrombus, therefore, a heparin gtt was initiated. - Decreasing hemoglobin from 12/25/2016 with hemoglobin of 14 to 12/27/2016 with hemoglobin of 7.6. Heparin drip discontinued and the patient was given 2 units of PRBCs. - Chest x-ray on 12/27/2016 demonstrated an acute worsening left pleural effusion with an ultrasound revealing small loculated complex left pleural effusion consistent with hemothorax. - General surgery was consulted for chest tube placement with 2 L of blood status post placement. Given 2 units of PRBCs and 1 unit of platelets. - Hemoglobin and hematocrit stable status post transfusions. Continue to monitor H&H daily. 4. Acute blood loss anemia, not present on admission. Stable. - Likely secondary to hyperfibrinolysis from liver disease and heparin gtt. - Chest x-ray on 12/27/2016 demonstrated an acute worsening left pleural effusion with an ultrasound revealing small loculated complex left pleural effusion consistent with hemothorax. - General surgery was consulted for chest tube placement with 2 L of blood status post placement. Given 2 units of PRBCs and 1 unit of platelets. - Hemoglobin and hematocrit stable status post transfusions. 5. Acute fungemia, not present on admission. Active - 1:3 bottles from 12/27/2016 positive for yeast likely Lashae. - Continue micafungin x 2 weeks after negative blood cultures are obtained per ID. - Central venous line removed and sent for culture without growth as above. - ID consulted and following we appreciate their time and care of the patient. 6. Alcohol dependency, present on admission. Presumed stable. - CIWA protocol was in place but outside of withdrawal window at this point. - Ativan 2 mg every 6 hours was given but discontinued to allow her to be less sedated and to assess her cognition. - Continue thiamine IV daily. 7. Acute encephalopathy, present on admission. Presumed stable. - Likely multifactorial and related to her hypercapnia, hyponatremia and possibly hepatic encephalopathy (CT showed abdominal ascites and history of alcohol use on HPI) and PE. Unlikely differentials include overdose and epilepsy. No trauma. - CT brain without contrast was negative for any acute intracranial abnormality , as above. Patient was also non-focal on exam, therefore, CVA very unlikely. - Alcohol level and urine drug screen negative. - IV fluids with LR at 100 mL/hr. Had to be cautious with IV fluid resuscitation due to RV overload and to avoid to rapid over correction of sodium level and central pontine myelinosis. - Continue Precedex and fentanyl for sedation. 8. Pulmonary hypertension, acuity unknown, present on admission. Active. - Likely secondary to COPD but possibly PE/RV thrombus. - Cautious with fluid resuscitation. - Repeat limited echocardiogram revealed worsening RV overload with increased RVSP of 64 mmHg without evidence of RV thrombus, as above. 9. Acute respiratory alkalosis with partial metabolic compensation, present on admission. Resolved. - Continue ventilator with settings as above. - Treat COPD as above under problem #2. - Also treat underlying etiology of shock under problem #1. 10. Atrial fibrillation with RVR, acuity unknown, present on admission. Active. - Unclear if she has a history of atrial fibrillation. - RV thrombus possible based on echocardiogram. CTA revealed no PE. - Serial troponins have been negative. - Continue amiodarone PO for rhythm control per primary medical team. 11. Acute hyponatremia, present on admission. Active. - Likely related to dehydration and possibly beer potomania. - Continuing IV normal saline at 100 mL/hr and monitor sodium level closely to avoid to rapid over correction central pontine myelinosis. - Monitor sodium level daily. 12. Acute hypokalemia, present on admission. Active. - Possibly secondary to beer potomania. - Replete as needed. - Monitor potassium level daily. 13. Acute hypomagnesemia, present on admission. Active. - Possibly secondary to beer potomania. - Replete as needed. - Monitor magnesium level daily. Chronic problems with management per primary team. Disposition: Several days and depending upon clinical course. Total critical care time spent 60 minutes. . GI Prophylaxis: H2 cielo VTE Prophylaxis: SCDs VTE Mechanical Devices: Intermittant Pneumatic CD Resuscitation Status: DNR/DNI:Do Not Resuscitate/Intubate Attending Statement I have seen and examined this patient with the resident physician. Vital signs , labs, imaging have been reviewed. I agree with the assessment and plan above. Please refer to my separately dictated progress note for any modifications to above. Yamini Fischer M.D. Pulmonary and Critical Care medicine Pager [phone] Nneka Greene DO Dec 31, 2016 10:17 Yamini Fischer MD Dec 31, 2016 16:05
[2016-12-31] MEDS: Lactated Ringer's 1,000 ML IV SCH (10:30)
[2016-12-31] MEDS ORDERED: Levalbuterol 1.25 mg/0.5mL Inhalation Solution NEB ONE (10:45)
[2016-12-31] MEDS: Phenylephrine Inj 20,000 MCG in 0.9% Sodium Chloride 250 ML IV SCH ×2 (11:16→19:31)
[2016-12-31] MEDS: Famotidine Inj 20 MG in IV Premix 1 EACH IV SCH ×2 (11:24→20:57)
[2016-12-31] MEDS ORDERED: MeTOProlol 1 mg/mL 5 mL Inj IVPUSH ONE (13:10)
--- NOTE | 2016-12-31 14:24 | PROG NOTE ---
[address] [address] PROGRESS NOTE PATIENT: RAPHAEL SLATER : 1950 MR#: [id number] ADMIT: 12/22/2016 JOB ID: [id number] DATE: 12/31/2016 PULMONARY CRITICAL CARE PROGRESS NOTE: This is a 66-year-old woman admitted to the hospital on December 22, with acute respiratory failure in the setting of known COPD and cor pulmonale. Patient was seen and evaluated with resident physician, Dr. Nneka Greene. Please refer to her separate detailed note for additional information. INTERVAL HISTORY: She continues to fail pressure support trials with tachypnea and respiratory distress. She had a low-grade fever of 38.1 this morning. She was seen by Surgery who recommended waiting on the trach and PEG until she is more clinically stable, not acutely infected. REVIEW OF SYSTEMS: Unable to obtain. PHYSICAL EXAMINATION: Vital signs reviewed. T-max 38.1. FiO2 is 30% on the vent. General: Intubated, sedated, unresponsive. Chest clear bilaterally. She has a chest tube on the left which has bloody fluid in the atrium but no respiratory variation or air leak. The tube put out 50 cc in the last 12 hours overnight. LABORATORIES: Reviewed. Notable for WBC down to 13.8 from 20.9. Chemistries: Normal procalcitonin, down to 0.08. Cultures: Blood culture from December 27 positive for yeast. IMAGING: Chest x-ray shows clear pulmonary parenchyma with left-sided chest tube. ASSESSMENT AND RECOMMENDATIONS: 1. Acute hypoxic respiratory failure. 2. Right heart failure and cor pulmonale. 3. Chronic obstructive pulmonary disease with exacerbation. 4. Paralytic ileus. 5. Fungemia with positive yeast blood culture on December 27. 6. Atrial fibrillation--controlled. 7. Suspected right ventricular thrombus, on anticoagulation. 8. Hemothorax. This 66-year-old woman with COPD was admitted with respiratory failure requiring mechanical ventilation on December 22. She remains on the ventilator and her hospitalization was complicated by a hemothorax on the left that occurred on December 27, requiring chest tube placement. This occurred while the patient was on a heparin drip for suspected right ventricular thrombus. Her lungs now look clear and chest tube output has been pretty minimal. We can reassess over the weekend and see if the tube can be taken out. I will discuss with Surgery. Agree with the assessment to postpone trach and PEG placement, especially with evidence of recent fungemia on December 27. She is on micafungin and Dr. Magallanes with ID is following. She is on Solu-Medrol 40 IV daily in addition to bronchodilators. We will continue with daily pressure support trials as tolerated and reassess necessity for trach and PEG next week. Her legal next of kin is her brother. CRITICAL CARE TIME: 45 minutes.
[2016-12-31] MEDS ORDERED: Digoxin 0.25 mg/mL 2 mL Inj IV ONE (14:35)
[2016-12-31] MEDS ORDERED: Magnesium Sulf 2 Gm/50mL Water 2 GM in IV Premix 1 EACH IV ONE (14:45)
--- NOTE | 2016-12-31 18:06 | PCM.PNMED ---
Subjective Date of Service Dec 31, 2016 Subjective Overnight: No acute events overnight Today: Patient continues on sedation and intubation however able to follow some commands including moving hands and feet. Patient seen by surgery for evaluation of chest tube and possible tracheostomy at some point in the future. Chest tube continues to put out serosanguineous fluid approximately 70 mL overnight. Exam Vital Signs Vital Sign - Last Date Time Temp Pulse Resp B/P Pulse Ox O2 Delivery O2 Flow Rate FiO2 12/31/16 04:20 85 163/88 100 30 12/31/16 04:00 37.9 24 Mechanical Ventilator Intake and Output 12/30/16 12/30/16 12/31/16 Cumulative From/Thru 15:00 23:00 07:00 12/22/16 18:16 - 12/31/16 05:55 Intake Total 1470 ml 724 ml 05653 ml Output Total 1200 ml 800 ml 43421 ml Balance 270 ml -76 ml 82539 ml Intake IV Total 808 ml 464 ml 49640 ml Tube Feeding 582 ml 180 ml 6915 ml Packed Cells 280 ml FFP 215 ml Platelets 792 ml Tube Irrigant 80 ml 80 ml 1440 ml Output Urine Total 1100 ml 750 ml 02714 ml Gastric Drainage Total 70 ml Chest Tube Drainage Total 100 ml 50 ml 3025 ml # Voids 0 # Bowel Movements 1 4 Exam General: thin female appearing older than stated age lying in bed intubated and sedated. Eyes: PERRLA. Anicteric sclerae, moist conjunctivae HENT: Normocephalic, atraumatic. Endotracheal and oropharyngeal tube in place. External ears without defect. Neck: Supple. no JVD, trachea, midline, No lymphadenopathy or thyromegaly. Cardiovascular: Irregular rhythm tachycardia without murmurs, rubs, or gallops appreciated. Pulmonary: Moderate coarse breath sounds bilaterally with decreased air movement on the left lower axillary base with clean dry bandage and chest tube with serosanguineous fluid and limited tidal volume variation in tubing with no early. No wheezing noted Abdomen: Soft, nondistended, bowel sounds normoactive. Genitourinary: Johnson catheter in place. Extremities: Decreased pulses in radial and and decreased dorsalis pedis bilaterally. Mild pitting edema noted in right leg no edema in left, no clubbing Neuro: Pupils equal round reactive to light not following commands at this time Psych: Unable to obtain Lab and Diagnostics Result Diagram: 12/31/16 0457 12/31/16 0457 Microbiology Repeat sputum culture has no growth to date. Sputum culture grew light normal prince. MRSA screen negative. Strep coccus pneumoniae and legionella urine antigens negative. Respiratory viral PCR negative. _ Microbiology DAVE CULT BLOOD FUNGUS Preliminary 12/29/16-1132 Organism 1 POSITIVE BLOOD CULTURE GRAM STAIN RESULT YEAST BC BOTTLE Isolated from Aerobic Bottle of Set Drawn DATE CALLED: 12/29/16 TIME CALLED: 1129 CALLED BY: VS FLOOR/DOCTOR: DIDIER/MANDEEP ZHANG READ BACK Y TYPE OF DRAW PERIPHERAL DRAW TIME OF POSITIVITY 1112 _ X-Rays, CTs and MRIs PROCEDURE: CT BRAIN WITHOUT CONTRAST ([id number]) IMPRESSION: No acute intracranial disease process. Dictated by: Rosaura Wisdom MD, PhD on 12/22/2016 at 20:12 PROCEDURE: US VENOUS LEG DUPLEX BILATERAL IMPRESSION: No deep venous thrombosis identified within either the left or right lower extremities. Dictated by: Shankar BARRETO Interpreted: Sobia Plunkett MD on 12/23/2016 at 9: 58 PROCEDURE: CT ANGIO CHEST PULMONARY EMBOLISM ([id number]) IMPRESSION: 1. No pulmonary embolus. 2. Mild pulmonary edema associated with small bilateral pleural effusions. 3. Small amount of ascites. 4. Coronary artery disease. Cardiomegaly. Right heart failure. Dictated by: Julieta Gunn M.D. on 12/23/2016 at 13:33 PROCEDURE: X-RAY CHEST ONE VIEW, PORTABLE ([id number]) IMPRESSION: Stable left basilar opacity suspicious for aspiration versus pneumonia. Right basilar opacity has resolved. Dictated by: Rosaura Wisdom MD, PhD on 12/25/2016 at 9:12 PROCEDURE: X-RAY CHEST ONE VIEW, PORTABLE ([id number]) IMPRESSION: Placement of left pleural drain with significant reduction in size of loculated left pleural effusion. No pneumothorax. Dictated by: Shankar BARRETO Interpreted: Harshil Pacheco MD on 12/28/2016 at 17 :10 Transcribed by: GENE on 12/28/2016 at 17:11 Cardiac Echo Impressions Echocardiogram Report Interpretation Summary The ejection fraction is estimated to be 55-60%. Flattened septum is consistent with RV pressure/volume overload. The right ventricle is moderately dilated. Right ventricular systolic function is moderately reduced. The aortic valve is slightly calcified. The aortic valve is not well visualized. There is moderate tricuspid regurgitation. Right ventricular systolic pressure is estimated to be 39 mmHg plus the clinically estimated CVP which cannot be estimated on this exam. RV thrombus is suspected. Electronically signed by: Isra Valdez on Reading Physician:12/23/2016 11:08 AM Additional Diagnostics PROCEDURE: US CHEST/PLEURAL SONOGRAM FINDINGS: There are small loculated complex left pleural effusion, suspicious for hemothorax. IMPRESSION: Small loculated complex left pleural effusion consistent with hemothorax. Dictated by: Santiago Montanez M.D. on 12/27/2016 at 13:19 Approved by: Santiago Montanez M.D. on 12/27/2016 at 13:21 Assessment & Plan 66-year-old female past medical history remarkable for COPD hypertension and alcohol dependency presents with acute respiratory failure. Hospital day 11 1. Acute on chronic respiratory failure with hypoxia and hypercapnia, present on admission, ongoing. - Patient does have a history of COPD/emphysema and she is likely CO2 retainer. - ABG to be done in AM and as needed for ventilator management. - Fentanyl and Precedex for sedation. Titrate down dosing as tolerated by patient. Not using propofol due to hypotension. - Continue solu-medrol taper 40 mg Q8 today transition to now 40 mg daily. Convert to oral when possible - Atrovent nebs available Q6. - Dr. Cevallos of pulmonology has been consulted for assistance with vent management. - Chest x-ray on 12/27/2016 shows a worsening left pleural effusion, ultrasound used to fine fluid collection shows moderate loculations consistent with hemothorax possible developing empyema - General surgery placed a left-sided chest tube today with 2 L of blood it out immediately. 2 units of packed RBCs given with 1 unit of platelets - Post chest tube placement x-rays show stable lung volumes with improved left pleural effusion - Brother called 12/30 to discuss possible need for tracheostomy and transfer patient to long-term care facility, brother was entered in agreement that this is the proper course of action after explaining risks and benefits 2. Left sided Hemothorax, not present on admission, drained considered stable - Initial protein evaluation 3.5 compared to total protein of blood 4.3 consistent with exudative effusion - Substantial RBCs consistent with hemothorax - Pleural fluid sent for cultures remains negative - Consider likely secondary to heparin drip - Patient had a noted air leak consistent with a pneumothorax and given findings consistent with hemothorax and severe emphysema noted on CT, possible barotrauma ventilator lung injury from increase tidal volume initiated around admission 3. Atrial fibrillation with rapid ventricular response, acute, present on admission, improving. - Not clear if she has a history of atrial fibrillation. - Discontinue Amiodarone drip. - Digoxin 0.25 g given with readministered 0.25 mg due to to continued tachycardia. - Convert to amiodarone orally through 2 4. Fungemia, likely present on admission, under evaluation - 1 out of 3 bottles from December 27 positive for yeast likely Lashae - Initiate micafungin IV - Infectious disease following - Lashae is not a likely pathogen that causes pneumonia. Central venous line removed and sent for culture. 5. Alcohol dependency, present on admission, unstable - CIWA protocol ordered however patient is currently intubated and sedated. - Ativan 2 mg scheduled every 6 hours given improvement in blood pressure and history of alcohol withdrawal. - Continue thiamine IV daily. 6. Acute blood loss anemia, not present on admission, improved - Initial echo showed possible right ventricular thrombus - Heparin drip initiated for possible right ventricular thrombus - Decreasing hemoglobin from 12/25/2016 with hemoglobin of 14, to 12/27/2016 with hemoglobin of 7.6 heparin drip discontinued packed RBCs given - Chest x-ray on 12/27/2016 shows a worsening left pleural effusion, ultrasound used to fine fluid collection shows moderate loculations consistent with hemothorax possible developing empyema - Gen. surgery consulted for possible chest tube placement, will be reconsidered on 12/27/2016 - DIC panel ordered with note of bleeding from all IV sites - Haptoglobin increased fibrillation decreased but above 100 elevated d-dimer elevated PT INR and PTT consistent with acute DIC 1 unit of fresh frozen plasma given - General surgery placed a left-sided chest tube today with 2 L of blood it out immediately. 2 units of packed RBCs given with 1 unit of platelets - blood count stable after chest tube and transfusions 7. Hypokalemia, acute, present on admission. Ongoing. - Continue to monitor with BMP and replete as needed. 8. Hypothyroidism, acute, present on admission. - Likely secondary to being critically ill. - Will need follow up labs approximately 6-8 weeks after hospital discharge. 9. Possible adrenal insufficiency, acute, present on admission. - ACTH-stim test shows low level of cortisol. - Patient already undergoing treatment with IV steroids. Will need to plan for slow taper and close outpatient follow up. 10. Acute encephalopathy, present on admission, considered stable - Possibly related to her hypercapnia but must also consider reversible other etiologies such as toxic ingestion, hypothyroidism. - Patient remains intubated and sedated at this time so this is difficult to fully evaluate. 11. Possible Right ventricular thrombus, present on admission, unstable - Seen on echocardiogram ordered for apparent volume overload due to right heart failure. - Discontinue Heparin PE protocol drip for presumed RV thrombus. - Limited echo fails to reveal right ventricular thrombus - Consideration for either no thrombus on initial echo versus less likely dislodge of thrombis likely now PE given no increased oxygen requirements 12. Hyponatremia, acute, present on admission, improving. - May be related to dehydration - Continue to monitor BMP. 13. Acute shock, present on admission, resolved - Multifactorial with elements of septic and cardiogenic shock. - Patient appeared volume overloaded at admission with JVD and peripheral edema consistent with right heart failure. Now also has new fever, leukocytosis and continued hypotension. 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 Giving 500 ml bolus of LR with 100 ml/hr started as maintenance fluids. - Norepinephrine stopped and switched to phenylephrine drip which was able to be discontinued 12/29/2016 - urine culture, and sputum culture negative today - Chest x-ray on 12/27/2016 shows a worsening left pleural effusion, ultrasound used to fine fluid collection shows moderate loculations consistent with hemothorax possible developing empyema - Dropping hemoglobin, heparin drip discontinued with packed RBCs given - General surgery placed a left-sided chest tube today with 2 L of blood it out immediately. 2 units of packed RBCs given with 1 unit of platelets, blood count 2 stable after transfusions - blood cultures shows yeast in one of 3 bottles drawn from peripheral site - Follow CBC, procalcitonin. 14 Possible pneumonia, present on admission, improving. - X-ray imaging after diuresis shows a possible left lower lobe pneumonia. - Procalcitonin remains negative however increasing white blood cell count could be attributed to an infection or steroid use for COPD exacerbation - discontinue Zosyn - ultrasound used to fine fluid collection shows moderate loculations consistent with hemothorax possible developing empyema - Yeast in blood not consistent with pneumonia as a source, candidiasis does not cause pneumonia - Antiemetic available PRN. - Antacid available PRN. - Tylenol available PRN mild pain, fever. Disposition: patient will likely continue to be in the CCU for several more days of mechanical ventilation and treatment of shock. GI Prophylaxis: H2 cielo VTE Prophylaxis: SCDs VTE Mechanical Devices: Intermittant Pneumatic CD Resuscitation Status: DNR/DNI:Do Not Resuscitate/Intubate Attending Statement The patient was seen and examined together with Dr. Schneider on 12/31/2016 and I agree with the history, exam and plan as outlined in the note above. . Parth Schneider DO Dec 31, 2016 06:43 Feliz Rawls MD Jan 01, 2017 18:20
[2016-12-31] MEDS: fentaNYL 2,500 mCg/250 mL 2,500 MCG in IV Premix 1 EACH IV SCH (19:36)
[2017-01-01] VITALS (11 sets, daily range): BP systolic 124–154; BP diastolic 66–92; PULSE 79–112; RESP 11–19; O2SAT 96–100
[2017-01-01] MEDS: Chlorhexidine 0.12% 15 mL Oral Solution MT SCH ×6 (00:29→20:54)
[2017-01-01] MEDS: Lactated Ringer's 1,000 ML IV SCH (00:29)
[2017-01-01] MEDS: Ipratropium 0.02% 0.5 mg/2.5 mL Inhalation Solution NEB SCH ×6 (00:55→20:13)
[2017-01-01] MEDS: Dexmedetomidine 400 mCg/100 mL 400 MCG in IV Premix 1 EACH IV SCH ×2 (04:21→16:17)
[2017-01-01] MEDS: Insulin Human REGular 300 Unit/3 mL Inj SUBQ SCH ×4 (04:24→20:30)
--- NOTE | 2017-01-01 04:53 | ABG ---
DateTimeAnalyzed 04:50:00 -_ pH ____7.513 - pCO2 ___46.8__ -mmHg pO2 ___45.3__ -mmHg HCO3- ___37.3__ -mmol/L ABE ___12.8__ -mmol/L tHb ___10.4__ -g/dL O2Hb ___81.7__ -% COHb ____2.8__ -% MetHb ____0.8__ -% sO2 ___84.8__ -% FIO2 ___21.0__ -% PRVC 340 - PEEP ____7.0__ -cmH2O Set_RR ___11.0__ -b/min Vt __411.0__ -L Drawn By AF - Date/Time Notified____ 04:53:00 -_ Spontaneous_RR ___11.0__ -b/min Oxygen Device 1 VENTILATOR - Notified By af - B 758 -mmHg tO2 ___12.0__ -Vol% Lance test N/A -
[2017-01-01 05:22] LABS: BASOPHILS % (AUTO) 0.1 % (0-3); EOSINOPHILS % (AUTO) 0 % (0-5); MONOCYTES % (AUTO) 9.9 % (4-12); Mean Corpuscular Hemoglobin 30.9 pg (27.0-35.0); NEUTROPHILS % (AUTO) 82.2 % (40-74); Platelet Count 172 bil/L (150-400)
[2017-01-01 05:50] LABS: Magnesium 2.1 mg/dL (1.6-2.6); Phosphorus 3.8 mg/dL (2.5-4.9)
[2017-01-01] MEDS: Budesonide 0.5 mg/2 mL Inhalation Solution NEB SCH ×2 (08:18→20:13)
[2017-01-01] MEDS: Polyethylene Glycol (PEG) 17 Gm Powder PO SCH ×2 (08:30→20:54)
[2017-01-01] MEDS: Famotidine Inj 20 MG in IV Premix 1 EACH IV SCH ×2 (08:43→20:54)
[2017-01-01] MEDS: MethylprednisoLONE Sodium Succinate 40 mg/mL Inj IVPUSH SCH (08:43)
[2017-01-01] MEDS: Micafungin Inj 150 MG in 0.9% Sodium Chloride 100 ML IV SCH (08:43)
[2017-01-01] MEDS: Heparin 5,000 Unit/mL Inj SUBQ SCH ×2 (08:44→20:55)
--- NOTE | 2017-01-01 11:30 | DRSVH ---
PROCEDURE: X-RAY CHEST ONE VIEW, PORTABLE ([id number]) INDICATIONS: SOB TECHNIQUE: One view of the chest was acquired. COMPARISON: [facility], CR, XR CHEST 1VW (PORTABLE), 12/31/2016, 3:42. FINDINGS: Surgical changes and devices: There is an endotracheal tube redemonstrated with the tip 3.5 cm from t he ifrah. Nasogastric tube demonstrated extending into the stomach. there is a left sided chest tub e again noted. Lungs and pleura: Evaluation limited by patient rotation. There are a few linear left retrocardiac opacities likely representing atelectasis. Mild interstitial prominence is suggestive of mild edema. No pleural effusions or pneumothorax. Mediastinum: Mediastinal contours appear prominent likely due to technique. Heart size is normal. Bones and chest wall: No suspicious bony lesions. Overlying soft tissues appear unremarkable. IMPRESSION: 1. Lines and tubes stable in position. 2. Mild interstitial prominence suggesting mild pulmonary edema versus chronic interstitial changes. Dictated by: Ravin Joshua M.D. on 01/01/2017 at 11:22 Approved by: Ravin Joshua M.D. on 01/01/2017 at 11:24
[2017-01-01] MEDS ORDERED: Cefepime Inj 2 GM in IV Premix 1 EACH IV SCH (11:50)
[2017-01-01] MEDS: Phenylephrine Inj 20,000 MCG in 0.9% Sodium Chloride 250 ML IV SCH (13:04)
[2017-01-01] MEDS: fentaNYL 2,500 mCg/250 mL 2,500 MCG in IV Premix 1 EACH IV SCH (13:10)
--- NOTE | 2017-01-01 13:28 | PROG NOTE ---
[address] [address] PROGRESS NOTE PATIENT: RAPHAEL SLATER : 1950 MR#: [id number] ADMIT: 12/22/2016 JOB ID: [id number] DATE: 01/01/2017 PULMONARY CRITICAL CARE PROGRESS NOTE: The patient is a 66-year-old woman with COPD, known cor pulmonale admitted to the hospital on December 22 with acute respiratory failure requiring mechanical ventilation. INTERVAL HISTORY: She had a fever last night to 38.5, failed a pressure support trial yesterday at 10/7 within minutes with tachypnea and respiratory distress. REVIEW OF SYSTEMS: Unable to obtain. PHYSICAL EXAMINATION: Vital signs reviewed. Temperature 38.5, pulse 89, respirations 19, BP 154/79, sats 100% on 30% FiO2. General: Intubated, sedated, not responsive at the moment. Chest: I hear some faint wheezing. Abdomen is still distended, nontender. LABORATORIES: Reviewed. WBC remains persistently elevated at 15, hemoglobin 10. Chemistry reviewed and within normal limits. Procalcitonin remains very low at 0.08. Cultures: No new growth. IMAGING: Chest x-ray shows left-sided chest tube in appropriate position. Basilar atelectasis but no obvious pneumonia or infiltrates. ET tube is in appropriate position. ASSESSMENT AND RECOMMENDATIONS: 1. Acute hypoxic respiratory failure on mechanical ventilation since December 22. 2. Fever, SIRS. 3. Right heart failure and cor pulmonale. 4. Chronic obstructive pulmonary disease exacerbation. 5. Paralytic ileus. 6. Fungemia with positive yeast blood culture on December 27. 7. Suspected right ventricular thrombus on anticoagulation. 8. Hemothorax status post chest tube placement on the left, December 27. A 66-year-old woman with COPD and cor pulmonale who was admitted with respiratory failure. Her hospitalization has been complicated by multiple issues including atrial fibrillation, suspected RV thrombus seen on echo for which she has been on anticoagulation. This resulted in a spontaneous hemothorax on the left chest necessitating chest tube placement. The patient continues to fail spontaneous breathing trials over this course. She also had a positive blood culture for yeast and has been on micafungin for that. She has started to spike fevers to 38.5 over the last couple of days and her white count continues to stay elevated. The source is unclear. Pleural fluid cultures have been negative. Chest x-ray does not show any obvious new infiltrates. Discussed with Dr. Rawls. I ordered sputum, blood and urine cultures for her. We are also going to get stool for C. difficile if she is having diarrhea and check a CT of the abdomen and pelvis with contrast looking for an abdominal source of infection. LFTs are within normal limits. She remains on methylprednisolone 40 mg daily IV. She is getting nebs through the tube. Legal next of kin is her brother. Discussions regarding trach and PEG have been ongoing, but at this point, with her potentially infected state, this discussion is on hold. CRITICAL CARE TIME: 45 minutes.
[2017-01-01] MEDS: Cefepime 2,000 mg/100 mL D5W Minibag Plus IV SCH ×2 (16:08)
--- NOTE | 2017-01-01 16:14 | DRSVH ---
PROCEDURE: CT CHEST, ABDOMEN AND PELVIS [facility] CONTRAST ([id number]) INDICATIONS: Abdominal distension TECHNIQUE: After the administration of oral and intravenous contrast, 5 mm thick sections acquired from the lung apices to the symphysis. 5 mm coronal and sagittal reformats were performed, with additional 7 mm c oronal MIP reformats through the lungs. For radiation dose reduction, the following was used: autom ated exposure control, adjustment of mA and/or kV according to patient size. COMPARISON: [facility], CT, CT ANGIO CHEST PE, 12/23/2016, 12:47. FINDINGS: Image quality: Excellent. CHEST: Lungs and pleura: There are small to moderate size bilateral pleural effusions redemonstrated with as sociated compressive atelectasis. There are clustered small posterior nodules bilaterally most promi nent in the right upper lobe suggestive of a mild infectious or inflammatory process. There is bilat eral septal thickening likely reflecting mild pulmonary edema. There is a left-sided chest tube with the tip extending to the lateral pleura surface along the left lingula. There is an endotracheal tu be present with the tip 3.6 cm from the ifrah. The trachea and central airways appear patent. Mediastinum: Heart size is normal. No pericardial effusion. There is coronary arterial vascular ca lcification. No mediastinal or hilar adenopathy by size criteria. Thoracic aorta and central pulmon sherrie arteries are normal in size. Esophagus is normal in caliber. No hiatal hernia. Chest wall: No axillary or supraclavicular adenopathy by size criteria. Thyroid gland is partially visualized with no discrete nodules identified. ABDOMEN: Solid organs: Liver and spleen are normal in size. There is mild periportal edema in the liver. Th e gallbladder appears within normal limits without calcified gallstones. Biliary system is non dilat ed. Pancreas enhances normally. No adrenal nodules. Kidneys demonstrate normal size and enhancemen t, without hydronephrosis. Peritoneum and bowel: There is a nasogastric tube extending into the stomach. There is prominent fl uid and gas distention of the stomach. Small bowel loops are normal in caliber and wall thickness. There is marked fluid distention of the colon with air-fluid levels. The cecum measures up to 10.7 c m in diameter. No bowel wall thickening. There is a rectal tube in place as totally with fluid and stool distention of the rectum. Nodes and vessels: No retroperitoneal or mesenteric adenopathy by size criteria. Aorta and inferior vena cava are normal in size. Miscellaneous: There is diffuse subcutaneous edema consistent with anasarca. No ventral hernias. PELVIS: Genitourinary: There is a Johnson catheter within a partially decompressed urinary bladder. Miscellaneous: No inguinal hernias or adenopathy. Bones: No suspicious bony lesions. No vertebral body compression fractures. IMPRESSION: 1. Marked fluid distention of the colon most prominent within the cecum. No bowel wall thickening o r evidence of small bowel obstruction. The findings are nonspecific and differential considerations include an ileus or functional obstruction distally versus [place]'s syndrome. 2. Small to moderate bilateral pleural effusions with associated compressive atelectasis. 3. Small clustered bilateral pulmonary nodules likely represent a mild infectious or inflammatory pr ocess. 4. Diffuse anasarca. Dictated by: Ravin Joshua M.D. on 01/01/2017 at 15:58 Approved by: Ravin Joshua M.D. on 01/01/2017 at 16:12
[2017-01-01 16:54] LABS: APPEARANCE,URINE CLEAR (CLEAR,HAZY); COLOR,URINE YELLOW (YELLOW); OCCULT BLOOD,URINE NEGATIVE (NEGATIVE); UROBILINOGEN,URINE NORMAL (NORMAL)
--- NOTE | 2017-01-01 17:40 | PCM.PNMED ---
Subjective Date of Service Jan 01, 2017 Subjective Overnight: No acute events Today: Patient continued to have fevers with elevated white blood cell count consistent with a possible infection. CT chest abdomen pelvis with contrast shows increased gaseous distention in the small bowel which is nonspecific, as well as bilateral pulmonary nodules consistent with possible infection. The patient was restarted on cefepime for possible pneumonia. Cultures were ordered on urine, blood, PCR for stool C. difficile. A call was placed to the patient's brother on 01/01/2017 for him to arrange a ride to [facility] to talk about his sister's poor condition, he is now aware that she is in poor shape however it was not specifically stated to plan for her , he will call the patient's nurse when he has scheduled to time to arrive as he does not drive, he is unsure if it will be January 02 or January 03 at this time. Exam Vital Signs Vital Sign - Last Date Time Temp Pulse Resp B/P Pulse Ox O2 Delivery O2 Flow Rate FiO2 01/01/17 04:56 78 139/66 98 30 01/01/17 04:30 38.4 19 Mechanical Ventilator Intake and Output 12/31/16 12/31/16 01/01/17 Cumulative From/Thru 15:00 23:00 07:00 12/22/16 18:16 - 01/01/17 05:30 Intake Total 1117 ml 1249 ml 22955 ml Output Total 2910 ml 585 ml 65348 ml Balance -1793 ml 664 ml 37813 ml Intake IV Total 612 ml 448 ml 19331 ml Tube Feeding 330 ml 531 ml 7776 ml Packed Cells 280 ml FFP 215 ml Platelets 792 ml Tube Irrigant 175 ml 270 ml 1885 ml Output Urine Total 2900 ml 575 ml 08371 ml Gastric Drainage Total 70 ml Chest Tube Drainage Total 10 ml 10 ml 3045 ml # Voids 0 # Bowel Movements 4 Exam General: thin female appearing older than stated age lying in bed intubated and sedated. Eyes: PERRLA. Anicteric sclerae, moist conjunctivae HENT: Normocephalic, atraumatic. Endotracheal and oropharyngeal tube in place. External ears without defect. Neck: Supple. no JVD, trachea, midline, No lymphadenopathy or thyromegaly. Cardiovascular: Irregular rhythm tachycardia without murmurs, rubs, or gallops appreciated. Pulmonary: Moderate coarse breath sounds bilaterally with decreased air movement on the left lower axillary base with clean dry bandage and chest tube with serosanguineous fluid and limited tidal volume variation in tubing with no early. No wheezing noted Abdomen: distended and tight, hypertympanic to percussion, bowel sounds normoactive. Genitourinary: Johnson catheter in place. Extremities: Decreased pulses in radial and and decreased dorsalis pedis bilaterally. moderate pitting edema noted gravity dependent legs bilaterally up to lumbar, no clubbing Neuro: Pupils equal round reactive to light, following commands at this time able to move hands and feet Psych: Unable to obtain Lab and Diagnostics Result Diagram: 01/01/176 01/01/17445 Microbiology Repeat sputum culture has no growth to date. Sputum culture grew light normal prince. MRSA screen negative. Streptococcus pneumoniae and Legionella urine antigens negative. Respiratory viral PCR negative. _ Microbiology DAVE CULT BLOOD FUNGUS Preliminary 01/01/17 Organism 1 LASHAE ALBICANS ISOLATED FROM ONE OF THREE BOTTLES COLLECTED 12/27/16 _ X-Rays, CTs and MRIs CT BRAIN WITHOUT CONTRAST ([id number]) IMPRESSION: No acute intracranial disease process. Dictated by: Rosaura Wisdom MD, PhD on 12/22/2016 at 20:12 US VENOUS LEG DUPLEX BILATERAL IMPRESSION: No deep venous thrombosis identified within either the left or right lower extremities. Dictated by: Shankar BARRETO Interpreted: Sobia Plunkett MD on 12/23/2016 at 9: 58 CT ANGIO CHEST PULMONARY EMBOLISM ([id number]) IMPRESSION: 1. No pulmonary embolus. 2. Mild pulmonary edema associated with small bilateral pleural effusions. 3. Small amount of ascites. 4. Coronary artery disease. Cardiomegaly. Right heart failure. Dictated by: Julieta Gunn M.D. on 12/23/2016 at 13:33 X-RAY CHEST ONE VIEW, PORTABLE ([id number]) IMPRESSION: Stable left basilar opacity suspicious for aspiration versus pneumonia. Right basilar opacity has resolved. Dictated by: Rosaura Wisdom MD, PhD on 12/25/2016 at 9:12 X-RAY CHEST ONE VIEW, PORTABLE ([id number]) IMPRESSION: Placement of left pleural drain with significant reduction in size of loculated left pleural effusion. No pneumothorax. Dictated by: Shankar BARRETO Interpreted: Harshil Pacheco MD on 12/28/2016 at 17 :10 Transcribed by: GENE on 12/28/2016 at 17:11 CT CHEST, ABDOMEN AND PELVIS WTIH CONTRAST ([id number]) IMPRESSION: 1. Marked fluid distention of the colon most prominent within the cecum. No bowel wall thickening or evidence of small bowel obstruction. The findings are nonspecific and differential considerations include an ileus or functional obstruction distally versus [place]'s syndrome. 2. Small to moderate bilateral pleural effusions with associated compressive atelectasis. 3. Small clustered bilateral pulmonary nodules likely represent a mild infectious or inflammatory process. 4. Diffuse anasarca. Dictated by: Ravin Joshua M.D. on 01/01/2017 at 15:58 Approved by: Ravin Joshua M.D. on 01/01/2017 at 16:12 Cardiac Echo Impressions Echocardiogram Report Interpretation Summary The ejection fraction is estimated to be 55-60%. Flattened septum is consistent with RV pressure/volume overload. The right ventricle is moderately dilated. Right ventricular systolic function is moderately reduced. The aortic valve is slightly calcified. The aortic valve is not well visualized. There is moderate tricuspid regurgitation. Right ventricular systolic pressure is estimated to be 39 mmHg plus the clinically estimated CVP which cannot be estimated on this exam. RV thrombus is suspected. Electronically signed by: Isra Valdez on :12/23/2016 11:08 AM Echocardiogram Report Interpretation Summary Probable large left abdominal ascites possibly surrounding the spleen. There are moderate-sized bilateral pleural effusions noted. There is no thrombus seen in the right ventricle. A calcified moderator band and papillary muscle are visualized. Borderline right ventricular enlargement. Right ventricular systolic function is mild to moderately reduced. The right ventricular systolic pressure is estimated at 68 mmHg assuming a right atrial pressure of 15 mm Hg. RVSP has increased increase since prior study. Additional Diagnostics ABG DateTimeAnalyzed 04:50:00 -_ pH ____7.513 - pCO2 ___46.8__ -mmHg pO2 ___45.3__ -mmHg HCO3- ___37.3__ -mmol/L Assessment & Plan Virginia Ling is a 66-year-old female with past medical history remarkable for COPD, hypertension, and alcohol dependency presents to schedule an hospital with acute respiratory failure secondary to right heart failure and cor pulmonale. Hospital day 12 1. Acute on chronic respiratory failure with hypoxia and hypercapnia, present on admission, ongoing. - Patient does have a history of COPD/emphysema and she is likely CO2 retainer. - Echocardiograms show pulmonary hypertension with right ventricular dilation and moderate reduced ejection fraction - ABG to be done in AM and as needed for ventilator management. - Fentanyl and Precedex for sedation. Titrate down dosing as tolerated by patient. Not using propofol due to hypotension. - Continue solu-medrol taper 40 mg Q8 today transition to now 40 mg daily. Convert to oral when possible - Atrovent nebs available Q6. - pulmonology critical care has been consulted for assistance with vent management. - Chest x-ray on 12/27/2016 shows a worsening left pleural effusion, ultrasound used to fine fluid collection shows moderate loculations consistent with hemothorax possible developing empyema currently culture negative - General surgery placed a left-sided chest tube 12/28/2016 with 2 L of blood it out immediately. 2 units of packed RBCs given with 1 unit of platelets - Post chest tube placement x-rays show stable lung volumes with improved left pleural effusion - Brother called 12/30 to discuss possible need for tracheostomy and transfer patient to long-term care facility, brother was entered in agreement that this is the proper course of action after explaining risks and benefits - CT chest abdomen and pelvis on 01/01 shows moderate bilateral pulmonary effusions, clustered pulmonary nodules, diffuse anasarca - CT scan and echo were reviewed with cardiology Dr. Pinto who will be brought on board to consult on 01/02, no right heart thrombus and pulmonary nodules do not appear as septic emboli - Findings of cor pulmonale with right heart failure have a significant morbidity and mortality associated with them consider discussion with palliative and hospice - A call was placed to the patient's brother on 01/01/2017 for him to arrange a ride to [facility] to talk about his sister's poor condition, he is now aware that she is in poor shape however it was not specifically stated to plan for her , he will call the patient's nurse when he has scheduled to time to arrive as he does not drive, he is unsure if it will be January 02 or January 03 at this time. 2. Possible pneumonia, present on admission, under evaluation - Patient initially presented with a possibility of pneumonia however after being treated with Zosyn and remaining with negative procalcitonin, pneumonia was considered less likely - increasing white blood cell counts could be attributed to an infection or steroid use for COPD exacerbation - Left lower quadrant consolidation visualized with ultrasound showed moderate loculations consistent with hemothorax possible developing empyema however has remained culture negative after chest tube placement - Yeast in blood not consistent with pneumonia as a source, candidiasis does not cause pneumonia - As described above CT chest performed on 01/01 shows bilateral pulmonary nodules, consistent with possible infection versus inflammatory process - Patient has been restarted on cefepime given recent treatment with Zosyn any pathogen may have significant antibiotic resistance 3. Likely ileus, not present on admission, under evaluation - CT abdomen and pelvis performed on 01/02 showed distended loops of bowel - Patient has recent new onset fevers which could be attributed to micafungin however also possibly new infectious source - C. difficile PCR ordered 4. Left sided Hemothorax, not present on admission, drained considered stable - Initial protein evaluation 3.5 compared to total protein of blood 4.3 consistent with exudative effusion - Substantial RBCs consistent with hemothorax - Pleural fluid sent for cultures remains negative - Consider likely secondary to heparin drip, which has been stopped on - findings consistent with hemothorax, culture negative so far 5. Atrial fibrillation with rapid ventricular response, acute, present on admission, improving. - Not clear if she has a history of atrial fibrillation. - Discontinue Amiodarone drip. - Digoxin 0.25 g given with readministered 0.25 mg due to to continued tachycardia. - Convert to amiodarone orally 200mg BID on 01/01 6. Fungemia, likely present on admission, under evaluation - 1 out of 3 bottles from December 27 positive for yeast likely Lashae - Initiate micafungin IV - Infectious disease following - Lashae is not a likely pathogen that causes pneumonia. Central venous line removed and sent for culture currently negative - Repeat blood cultures drawn on 01/01 if remained culture negative consider continuing micafungin for 2 weeks after 01/01/2017 7. Alcohol dependency, present on admission, stable - CIWA protocol ordered however patient is currently intubated and sedated - Continue thiamine IV daily. 8. Acute blood loss anemia, not present on admission, improved - Initial echo showed possible right ventricular thrombus AND a Heparin drip was initiated for possible right ventricular thrombus - Decreasing hemoglobin from 12/25/2016 with hemoglobin of 14, to 12/27/2016 with hemoglobin of 7.6 heparin drip discontinued packed RBCs given - Chest x-ray on 12/27/2016 shows a worsening left pleural effusion, ultrasound used to fine fluid collection shows moderate loculations consistent with hemothorax possible developing empyema - Gen. surgery consulted for possible chest tube placement, will be reconsidered on 12/27/2016 - DIC panel ordered with note of bleeding from all IV sites; Haptoglobin increased, fibrinogen decreased but above 100, elevated d-dimer, elevated PT, INR, and PTT consistent with acute DIC and 1 unit of fresh frozen plasma given - General surgery placed a left-sided chest tube today with 2 L of blood it out immediately. 2 units of packed RBCs given with 1 unit of platelets - blood count stable after chest tube and transfusions 9. Hypokalemia, acute, present on admission. Ongoing. - Continue to monitor with BMP and replete as needed. 0. Hypothyroidism, acute, present on admission. - Likely secondary to being critically ill. - Will need follow up labs approximately 6-8 weeks after hospital discharge. 11. Possible adrenal insufficiency, acute, present on admission. - ACTH-stim test shows low level of cortisol. - Patient already undergoing treatment with IV steroids. - Will need to plan for slow taper and close outpatient follow up. 12. Acute encephalopathy, present on admission, considered stable - Possibly related to her hypercapnia but must also consider reversible other etiologies such as toxic ingestion, hypothyroidism. - Patient remains intubated and sedated at this time so this is difficult to fully evaluate. 13. Possible Right ventricular thrombus, present on admission, unstable - Seen on echocardiogram ordered for apparent volume overload due to right heart failure. - Discontinue Heparin PE protocol drip for presumed RV thrombus. - Limited echo fails to reveal right ventricular thrombus - Consideration for either no thrombus on initial echo versus less likely dislodge of thrombi likely now PE given no increased oxygen requirements 14. Hyponatremia, acute, present on admission, monitoring - May be related to dehydration - Continue to monitor BMP. 15. Acute shock, present on admission, resolved - Multifactorial with elements of septic and cardiogenic shock. - Patient appeared volume overloaded at admission with JVD and peripheral edema consistent with right heart failure. Now also has new fever, leukocytosis and continued hypotension. 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 - Antacid available PRN. - Tylenol available PRN mild pain, fever. Disposition: patient will likely continue to be in the CCU for several more days of mechanical ventilation given severe COPD with emphysema, cor pulmonale, right-sided heart failure and now new possible bilateral nodular pneumonia. GI Prophylaxis: H2 cielo VTE Prophylaxis: Sub-Q Heparin (Unfractionated), SCDs VTE Mechanical Devices: Intermittant Pneumatic CD Resuscitation Status: DNR/DNI:Do Not Resuscitate/Intubate Attending Statement The patient was seen and examined together with Dr. Schneider on 01/01/2017 and I agree with the history, exam and plan as outlined in the note above. . Parth Schneider DO Jan 01, 2017 07:37 Feliz Rawls MD Jan 02, 2017 18:31
[2017-01-02] VITALS (12 sets, daily range): BP systolic 133–171; BP diastolic 68–92; PULSE 72–118; RESP 12–21; O2SAT 99–100
[2017-01-02] MEDS: Ipratropium 0.02% 0.5 mg/2.5 mL Inhalation Solution NEB SCH ×6 (00:23→20:49)
[2017-01-02] MEDS: Phenylephrine Inj 20,000 MCG in 0.9% Sodium Chloride 250 ML IV SCH ×2 (00:34→14:52)
[2017-01-02] MEDS: Chlorhexidine 0.12% 15 mL Oral Solution MT SCH ×6 (00:36→20:30)
[2017-01-02] MEDS: Cefepime 2,000 mg/100 mL D5W Minibag Plus IV SCH ×6 (00:37→17:57)
[2017-01-02] MEDS: fentaNYL 2,500 mCg/250 mL 2,500 MCG in IV Premix 1 EACH IV SCH (01:00)
[2017-01-02] MEDS: Dexmedetomidine 400 mCg/100 mL 400 MCG in IV Premix 1 EACH IV SCH ×3 (02:25→18:32)
[2017-01-02] MEDS: Insulin Human REGular 300 Unit/3 mL Inj SUBQ SCH ×4 (04:00→20:30)
--- NOTE | 2017-01-02 04:10 | ABG ---
DateTimeAnalyzed 04:06:00 -_ pH ____7.477 - 7.350 7.450 pCO2 ___52.8__ -mmHg 35.0 45.0 pO2 ___68.8__ -mmHg 69.0 116 HCO3- ___38.6__ -mmol/L 22.0 26.0 ABE ___13.3__ -mmol/L -2.0 2.0 tHb ___10.4__ -g/dL O2Hb ___92.8__ -% COHb ____1.9__ -% MetHb ____0.9__ -% sO2 ___95.5__ -% FIO2 ___30.0__ -% PRVC 11 - PEEP ____7.0__ -cmH2O Set_RR ___11.0__ -b/min Vt __340.0__ -L Drawn By MM - Date/Time Notified____ 04:09:00 -_ Spontaneous_RR ___12.0__ -b/min Oxygen Device 1 VENTILATOR - Notified By MM - Notified Whom ALEXA, RN - B 755 -mmHg tO2 ___13.6__ -Vol% Lance test N/A -
[2017-01-02 06:34] LABS: BASOPHILS % (AUTO) 0.2 % (0-3); EOSINOPHILS % (AUTO) 0.1 % (0-5); MONOCYTES % (AUTO) 10.1 % (4-12); Mean Corpuscular Hemoglobin 31.1 pg (27.0-35.0); NEUTROPHILS % (AUTO) 79.5 % (40-74); Platelet Count 182 bil/L (150-400)
--- NOTE | 2017-01-02 07:40 | DRSVH ---
PROCEDURE: X-RAY CHEST ONE VIEW, PORTABLE ([id number]) INDICATIONS: acute respiratory failure TECHNIQUE: One view of the chest was acquired. COMPARISON: [facility], CT, CT CHEST ABD PELVIS W CON, 01/01/2017, 14:37. [facility], CR, XR CHEST 1VW (PORTABLE), 01/01/2017, 5:15. FINDINGS: Surgical changes and devices: Left chest tube is present. Lungs and pleura: No pleural effusions or pneumothorax. Lungs are clear. Mediastinum: Mediastinal contours appear normal. Heart size is normal. Bones and chest wall: No suspicious bony lesions. Overlying soft tissues appear unremarkable. IMPRESSION: No acute process. Dictated by: Julieta Gunn M.D. on 01/02/2017 at 7:37 Approved by: Julieta Gunn M.D. on 01/02/2017 at 7:38
[2017-01-02] MEDS: Budesonide 0.5 mg/2 mL Inhalation Solution NEB SCH ×2 (08:08→20:49)
--- NOTE | 2017-01-02 08:14 | PCM.PNMED ---
Subjective Date of Service Jan 02, 2017 Subjective Patient intubated and sedated in the ICU so no ROS could be obtained. Overnight, patient appeared more agitated and required an increase dose of precedex. This maintained a heart rate in the 70-80s with BP in the 150s. Exam Vital Signs Vital Sign - Last Date Time Temp Pulse Resp B/P Pulse Ox O2 Delivery O2 Flow Rate FiO2 01/02/17 04:30 38.0 79 12 167/89 100 Mechanical Ventilator 30 Intake and Output 01/01/17 01/01/17 01/02/17 Cumulative From/Thru 15:00 23:00 07:00 12/22/16 18:16 - 01/02/17 05:17 Intake Total 1153 ml 511 ml 06515 ml Output Total 1080 ml 1388 ml 66096 ml Balance 73 ml -877 ml 03233 ml Intake IV Total 640 ml 511 ml 27547 ml Tube Feeding 353 ml 0 ml 8129 ml Packed Cells 280 ml FFP 215 ml Platelets 792 ml Tube Irrigant 160 ml 2045 ml Output Urine Total 1000 ml 1150 ml 84393 ml Gastric Drainage Total 200 ml 270 ml Chest Tube Drainage Total 80 ml 38 ml 3163 ml # Voids 0 # Bowel Movements 4 Exam General: thin female appearing older than stated age lying in CCU bed intubated and sedated. Eyes: PERRLA. Anicteric sclerae, moist conjunctivae HENT: Normocephalic, atraumatic. Endotracheal and oropharyngeal tube in place. External ears without defect. Neck: Supple. no JVD, trachea, midline, No lymphadenopathy or thyromegaly. Cardiovascular: Irregular rhythm tachycardia without murmurs, rubs, or gallops appreciated. Pulmonary: Improved coarse breath sounds bilaterally with decreased air movement on the left lower axillary base with clean dry bandage and chest tube with serosanguineous fluid. No wheezing noted Abdomen: Nontender, distended and tight, hypertympanic to percussion, bowel sounds normoactive. FMS tube in place. Genitourinary: Johnson catheter in place. Extremities: Decreased pulses in radial and and decreased dorsalis pedis bilaterally. moderate pitting edema noted gravity dependent legs bilaterally up to lumbar, no clubbing Neuro: Following commands at this time able to move hands and feet. Ventilator settings: FiO2 .40, PEEP 7, Rate 11, TV 340. IVs and Medications Medications Reviewed: Medications were reviewed in detail Lab and Diagnostics Result Diagram: 01/02/17 0530 01/02/17 0530 X-Rays, CTs and MRIs CT BRAIN WITHOUT CONTRAST IMPRESSION: No acute intracranial disease process. Dictated by: Rosaura Wisdom MD, PhD on 12/22/2016 at 20:12 US VENOUS LEG DUPLEX BILATERAL IMPRESSION: No deep venous thrombosis identified within either the left or right lower extremities. Dictated by: Shankar BARRETO Interpreted: Sobia Plunkett MD on 12/23/2016 at 9: 58 CT ANGIO CHEST PULMONARY EMBOLISM IMPRESSION: 1. No pulmonary embolus. 2. Mild pulmonary edema associated with small bilateral pleural effusions. 3. Small amount of ascites. 4. Coronary artery disease. Cardiomegaly. Right heart failure. Dictated by: Julieta Gunn M.D. on 12/23/2016 at 13:33 X-RAY CHEST ONE VIEW, PORTABLE IMPRESSION: Placement of left pleural drain with significant reduction in size of loculated left pleural effusion. No pneumothorax. Dictated by: Shankar BARRETO Interpreted: Harshil Pacheco MD on 12/28/2016 at 17 :10 CT CHEST, ABDOMEN AND PELVIS WTIH CONTRAST IMPRESSION: 1. Marked fluid distention of the colon most prominent within the cecum. No bowel wall thickening or evidence of small bowel obstruction. The findings are nonspecific and differential considerations include an ileus or functional obstruction distally versus Anjali's syndrome. 2. Small to moderate bilateral pleural effusions with associated compressive atelectasis. 3. Small clustered bilateral pulmonary nodules likely represent a mild infectious or inflammatory process. 4. Diffuse anasarca. Dictated by: Ravin Joshua M.D. on 01/01/2017 at 15:58 Cardiac Echo Impressions Echocardiogram Report Interpretation Summary Probable large left abdominal ascites possibly surrounding the spleen. There are moderate-sized bilateral pleural effusions noted. There is no thrombus seen in the right ventricle. A calcified moderator band and papillary muscle are visualized. Borderline right ventricular enlargement. Right ventricular systolic function is mild to moderately reduced. The right ventricular systolic pressure is estimated at 68 mmHg assuming a right atrial pressure of 15 mm Hg. RVSP has increased increase since prior study. Assessment & Plan Patient is a 66-year-old female with past medical history remarkable for COPD, hypertension, and alcohol dependency presents to schedule an hospital with acute respiratory failure secondary to right heart failure and cor pulmonale. Hospital day 12. 1. Acute on chronic respiratory failure with hypoxia and hypercapnia, present on admission, ongoing. - Patient does have a history of COPD/emphysema and she is likely CO2 retainer. May also be secondary to cor pulmonale. - Echocardiograms show pulmonary hypertension with right ventricular dilation and moderate reduced ejection fraction - ABG to be done in AM and as needed for ventilator management. - Fentanyl and Precedex for sedation. Titrate down dosing as tolerated by patient. - Continue solu-medrol taper 40 mg Q8 today transition to now 40 mg daily. Convert to oral when possible - Atrovent nebs available Q6. - Pulmonology has been consulted for assistance with vent management and we appreciate their assistance. - A call was placed to the patient's brother on 01/01/2017 for him to arrange a ride to [facility] to talk about his sister's poor condition, he is now aware that she is in poor shape however it was not specifically stated to plan for her , he will call the patient's nurse when he has scheduled to time to arrive as he does not drive, he is unsure if it will be January 02 or January 03 at this time. 2. Right heart failure and cor pulmonale, presume chronic, present on admission. - Uncertain of the precise etiology but patient has significant alcohol history as well as emphysema. - This will increase the morbidity and mortality of the patient in the setting of this prolonged ICU stay. - Dr. Pinto has been consulted and we appreciate her recommendations. 3. Possible pneumonia, present on admission, under evaluation - Patient initially presented with a possibility of pneumonia however after being treated with Zosyn and remaining with negative procalcitonin, pneumonia was considered less likely - increasing white blood cell counts could be attributed to an infection or steroid use for COPD exacerbation - Left lower quadrant consolidation visualized with ultrasound showed moderate loculations consistent with hemothorax possible developing empyema however has remained culture negative after chest tube placement - Yeast in blood not consistent with pneumonia as a source, candidiasis does not cause pneumonia - Continue cefepime (day 2). 4. Likely ileus, not present on admission, under evaluation - CT abdomen and pelvis performed on 01/02 showed distended loops of bowel - Patient has recent new onset fevers which could be attributed to micafungin however also possibly new infectious source - C. difficile PCR ordered - FMS will be discontinued today as no stool has been moving through it. - Tube feeding continues to be on hold. - Plan for enema today in an effort to encourage BM. 5. Left sided Hemothorax, not present on admission, drained considered stable - General surgery placed a left-sided chest tube 12/28/2016 with 2 L of blood it out immediately. 2 units of packed RBCs given with 1 unit of platelets - Initial protein evaluation 3.5 compared to total protein of blood 4.3 consistent with exudative effusion - Substantial RBCs consistent with hemothorax. Cultures negative at this time. - Pleural fluid sent for cultures remains negative - Consider likely secondary to heparin drip, which has been stopped. 6. Atrial fibrillation with rapid ventricular response, acute, present on admission, improving. - Not clear if she has a history of atrial fibrillation. - Patient's blood pressure does not tolerate the use of beta blockers. - Discontinue Amiodarone drip. Continue amiodarone 200 mg BID. - Digoxin 0.25 g given with readministered 0.25 mg due to to continued tachycardia. Can consider additional dosing of digoxin if amiodarone not sufficiently controlling rate. 7. Fungemia, likely present on admission, under evaluation - Continue micafungin day 5. - Infectious disease following and we appreciate Dr. Magallanes's recommendations. - Lashae is not a likely pathogen that causes pneumonia. Central venous line removed and sent for culture currently negative - Repeat blood cultures drawn on 01/01 if remained culture negative consider continuing micafungin for 2 weeks after 01/01/2017 8. Alcohol dependency, present on admission, stable - CIWA protocol ordered however patient is currently intubated and sedated - Continue thiamine IV daily. 9. Acute blood loss anemia, not present on admission, improved - Initial echo showed possible right ventricular thrombus AND a Heparin drip was initiated for possible right ventricular thrombus - Decreasing hemoglobin from 12/25/2016 with hemoglobin of 14, to 12/27/2016 with hemoglobin of 7.6 heparin drip discontinued packed RBCs given - Chest x-ray on 12/27/2016 shows a worsening left pleural effusion, ultrasound used to fine fluid collection shows moderate loculations consistent with hemothorax possible developing empyema - Gen. surgery consulted for possible chest tube placement, will be reconsidered on 12/27/2016 - DIC panel ordered with note of bleeding from all IV sites; Haptoglobin increased, fibrinogen decreased but above 100, elevated d-dimer, elevated PT, INR, and PTT consistent with acute DIC and 1 unit of fresh frozen plasma given - General surgery placed a left-sided chest tube today with 2 L of blood it out immediately. 2 units of packed RBCs given with 1 unit of platelets - Continue to monitor CBC. 10. Hypokalemia, acute, present on admission. Ongoing. - Continue to monitor with BMP and replete as needed. 11. Hypothyroidism, acute, present on admission. - Likely secondary to being critically ill. - Will need follow up labs approximately 6-8 weeks after hospital discharge. 12. Possible adrenal insufficiency, acute, present on admission. - ACTH-stim test shows low level of cortisol. - Patient already undergoing treatment with IV steroids. - Will need to plan for slow taper and close outpatient follow up. 13. Acute encephalopathy, present on admission, considered stable - Possibly related to her hypercapnia but must also consider reversible other etiologies such as toxic ingestion, hypothyroidism. - Patient remains intubated and sedated at this time so this is difficult to fully evaluate. 14. Possible Right ventricular thrombus, present on admission, unstable - Seen on initial echocardiogram ordered for apparent volume overload due to right heart failure. - Discontinue Heparin PE protocol drip for presumed RV thrombus. - Limited echo fails to reveal right ventricular thrombus - Consideration for either no thrombus on initial echo versus less likely dislodge of thrombi likely now PE given no increased oxygen requirements 15. Hyponatremia, acute, present on admission, monitoring - May be related to dehydration - Continue to monitor BMP. 16. Acute shock, present on admission, resolved - Multifactorial with elements of septic and cardiogenic shock. - Patient appeared volume overloaded at admission with JVD and peripheral edema consistent with right heart failure. Now also has new fever, leukocytosis and continued hypotension. 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 - Antacid available PRN. - Bowel regimen available PRN. - Tylenol available PRN mild pain, fever. Disposition: patient will likely continue to be in the CCU for several more days of mechanical ventilation given severe COPD with emphysema, cor pulmonale, right-sided heart failure and now new possible bilateral nodular pneumonia. Would like to plan for transfer to [place] if patient able to undergo surgery for trach and peg placement. Pain Evaluation: Adequate Pain Control GI Prophylaxis: H2 cielo VTE Prophylaxis: Sub-Q Heparin (Unfractionated), SCDs Resuscitation Status: DNR/DNI:Do Not Resuscitate/Intubate Attending Statement The patient was seen and examined together with Dr. Pierce on 01/02/2017 and I agree with the history, exam and plan as outlined in the note above. . Tiffanie Pierce DO Jan 02, 2017 07:51 Feliz Rawls MD Jan 02, 2017 17:35
[2017-01-02] MEDS: Micafungin Inj 150 MG in 0.9% Sodium Chloride 100 ML IV SCH (08:18)
[2017-01-02] MEDS: MethylprednisoLONE Sodium Succinate 40 mg/mL Inj IVPUSH SCH (08:19)
[2017-01-02] MEDS: Heparin 5,000 Unit/mL Inj SUBQ SCH ×2 (08:19→20:31)
[2017-01-02] MEDS: Famotidine Inj 20 MG in IV Premix 1 EACH IV SCH ×2 (08:19→20:30)
--- NOTE | 2017-01-02 08:42 | PCM.PNSURG ---
Subjective Visit Information: Reason for Visit Altered Mental Status, Pneumonia, Afib With Rvr Surgery/Surgery Date Post-Op Day # Date of Admission: Dec 22, 2016 at 20:56 Hospital Day # Subjective: still intubated, still febrile, L chest tube still in, had CT scan done yesterday --> distended colon, bilat pleural effusions Objective Objective Intubated on vent Abd: distended Vital Sign- Last 8 Hours Date Time Temp Pulse Resp B/P Pulse Ox O2 Delivery O2 Flow Rate FiO2 01/02/17 07:45 38.3 72 14 152/80 Mechanical Ventilator 40 01/02/17 07:45 Ventilator 01/02/17 04:30 38.0 79 12 167/89 100 Mechanical Ventilator 30 01/02/17 04:30 Ventilator 01/02/17 03:57 74 164/92 100 30 Intake and Output- Last 8 Hour 01/02/17 Cumulative From/Thru 07:00 12/22/16 18:16 - 01/02/17 05:17 Intake Total 511 ml 61190 ml Output Total 1388 ml 52898 ml Balance -877 ml 42200 ml Intake IV Total 511 ml 94287 ml Tube Feeding 0 ml 8129 ml Packed Cells 280 ml FFP 215 ml Platelets 792 ml Tube Irrigant 2045 ml Output Urine Total 1150 ml 35128 ml Gastric Drainage Total 200 ml 270 ml Chest Tube Drainage Total 38 ml 3163 ml # Voids 0 # Bowel Movements 4 Result Diagram: 01/02/17 0530 01/02/17 0530 Assessment & Plan Impression Resp failure on ventilator L hemothorax s/p L chest tube Fungemia Problems: Plan Pt still febrile, and given the distended colon adjacent to stomach there may not be a safe window to perform PEG Will ask Dr. Mota to evaluate tomorrow Continue L chest tube for now VTE Prophylaxis: Sub-Q Heparin (Unfractionated), SCDs Resuscitation Status: DNR/DNI:Do Not Resuscitate/Intubate Sander Hendrix MD Jan 02, 2017 08:42
[2017-01-02] MEDS: Polyethylene Glycol (PEG) 17 Gm Powder PO SCH ×2 (09:32→20:30)
[2017-01-02] MEDS: Lactated Ringer's 1,000 ML IV SCH (10:30)
[2017-01-02] MEDS: Sodium Biphos-Phos 133 mL Enema RECTAL PRN (10:30)
[2017-01-03] VITALS (12 sets, daily range): BP systolic 120–167; BP diastolic 65–102; PULSE 78–100; RESP 10–19; O2SAT 95–100
[2017-01-03] MEDS: Chlorhexidine 0.12% 15 mL Oral Solution MT SCH ×6 (00:13→21:24)
[2017-01-03] MEDS: Cefepime 2,000 mg/100 mL D5W Minibag Plus IV SCH ×4 (00:13→07:42)
[2017-01-03] MEDS: Ipratropium 0.02% 0.5 mg/2.5 mL Inhalation Solution NEB SCH ×6 (00:47→19:32)
[2017-01-03] MEDS: Phenylephrine Inj 20,000 MCG in 0.9% Sodium Chloride 250 ML IV SCH (03:46)
[2017-01-03] MEDS: Insulin Human REGular 300 Unit/3 mL Inj SUBQ SCH ×4 (04:00→20:30)
[2017-01-03 04:20] LABS: BASOPHILS % (AUTO) 0.1 % (0-3); EOSINOPHILS % (AUTO) 0 % (0-5); MONOCYTES % (AUTO) 10.6 % (4-12); Mean Corpuscular Hemoglobin 30.6 pg (27.0-35.0); Mean Corpuscular Volume 96.5 fL (81-100); NEUTROPHILS % (AUTO) 79.4 % (40-74); Platelet Count 198 bil/L (150-400)
--- NOTE | 2017-01-03 04:32 | ABG ---
DateTimeAnalyzed 04:27:00 -_ pH ____7.496 - 7.350 7.450 pCO2 ___48.9__ -mmHg 35.0 45.0 pO2 103 -mmHg 69.0 116 HCO3- ___37.4__ -mmol/L 22.0 26.0 ABE ___12.7__ -mmol/L -2.0 2.0 tHb ____9.9__ -g/dL O2Hb ___96.5__ -% COHb ____1.5__ -% MetHb ____0.8__ -% sO2 ___98.8__ -% FIO2 ___35.0__ -% PRVC 11 - PEEP ____7.0__ -cmH2O Set_RR ___11.0__ -b/min Vt __360.0__ -L Drawn By MM - Date/Time Notified____ 04:31:00 -_ Spontaneous_RR ___11.0__ -b/min Oxygen Device 1 VENTILATOR - Notified By MM - Notified Whom ALEXA, RN - B 754 -mmHg tO2 ___13.6__ -Vol% Lance test N/A -
[2017-01-03 05:22] LABS: Magnesium 1.9 mg/dL (1.6-2.6); Phosphorus 3.9 mg/dL (2.5-4.9)
[2017-01-03] MEDS: MethylprednisoLONE Sodium Succinate 40 mg/mL Inj IVPUSH SCH (07:41)
[2017-01-03] MEDS: Heparin 5,000 Unit/mL Inj SUBQ SCH ×2 (07:42→21:23)
[2017-01-03] MEDS: Micafungin Inj 150 MG in 0.9% Sodium Chloride 100 ML IV SCH (07:42)
[2017-01-03] MEDS: Polyethylene Glycol (PEG) 17 Gm Powder PO SCH ×2 (07:42→21:24)
[2017-01-03] MEDS: Famotidine Inj 20 MG in IV Premix 1 EACH IV SCH ×2 (07:46→21:24)
[2017-01-03] MEDS: Budesonide 0.5 mg/2 mL Inhalation Solution NEB SCH ×2 (08:05→19:32)
--- NOTE | 2017-01-03 09:00 | DRSVH ---
PROCEDURE: X-RAY CHEST ONE VIEW, PORTABLE ([id number]) INDICATIONS: intubated pt; monitor tubes and lines TECHNIQUE: One view of the chest was acquired. COMPARISON: [facility], CR, XR CHEST 1VW (PORTABLE), 01/02/2017, 5:32. FINDINGS: Surgical changes and devices: Left chest tube is present. Lungs and pleura: No pleural effusions or pneumothorax. Lungs are clear. Mediastinum: Mediastinal contours appear normal. Heart size is normal. Bones and chest wall: No suspicious bony lesions. Overlying soft tissues appear unremarkable. IMPRESSION: Stable chest. Dictated by: Shankar Mandujano RRA Interpreted: Rosaura Wisdom MD on 01/03/2017 at 8:59 Transcribed by: JENNIFER on 01/03/2017 at 8:59 Approved by: Rosaura Wisdom MD, PhD on 01/03/2017 at 18:05
[2017-01-03] MEDS ORDERED: Methylnaltrexone 12 mg/0.6 mL Inj SUBQ ONE (09:35)
[2017-01-03] MEDS: Dexmedetomidine 400 mCg/100 mL 400 MCG in IV Premix 1 EACH IV SCH ×3 (09:37→23:21)
--- NOTE | 2017-01-03 09:54 | PCM.PNMED ---
Subjective Date of Service Jan 03, 2017 Subjective Intensive Care/Pulmonology Consultation Note: Attending Dr. Aaliyah Ling is a 66-year-old female with a past medical history significant for hypertension and COPD who was brought to [facility] Emergency Department due to unresponsiveness requiring intubation and thought to be secondary to hypercapnia, hyponatremia and possibly hepatic encephalopathy. Now being treated for fungemia and acute on chronic hypoxemic hypercapnic respiratory failure Hospital day #13. Overnight: Telemetry overnight was atrial fibrillation, 80's, with RVR up to 130 's. Subjective exam and review of systems are unobtainable as the patient is intubated and sedated. No SBT was performed yesterday as patient was very agitated. The patient is lying in bed very alert and agitated biting on ET tube. She is unable to follow commands. . Exam Vital Signs Vital Sign - Last Date Time Temp Pulse Resp B/P Pulse Ox O2 Delivery O2 Flow Rate FiO2 01/03/17 08:06 94 167/93 98 35 01/03/17 04:30 Ventilator 01/03/17 04:30 37.8 13 Intake and Output 01/02/17 01/02/17 01/03/17 Cumulative From/Thru 15:00 23:00 07:00 12/22/16 18:16 - 01/03/17 06:06 Intake Total 825 ml 647 ml 95481 ml Output Total 1684 ml 1250 ml 95066 ml Balance -859 ml -603 ml 02180 ml Intake IV Total 685 ml 647 ml 22509 ml Tube Feeding 8129 ml Packed Cells 280 ml FFP 215 ml Platelets 792 ml Tube Irrigant 140 ml 2185 ml Output Urine Total 1600 ml 1250 ml 37991 ml Gastric Drainage Total 0 ml 0 ml 270 ml Chest Tube Drainage Total 84 ml 0 ml 3247 ml # Voids 0 # Bowel Movements 0 4 Exam General: Middle-aged thin female lying in bed, agitated and biting on endotracheal tube, intubated and sedated. HEENT: Normocephalic, atraumatic. External ears without defect. Pupils equal, round, and reactive to light. Anicteric sclerae, moist conjunctivae, and no lid lag. Endotracheal and nasopharyngeal tube in place. Neck: Supple. Cardiovascular: Irregular rhythm without murmurs, rubs, or gallops appreciated. Chest tube in place on left. Pulmonary: Clear to auscultation bilaterally. No wheeze or crackle. Abdomen: Soft, nondistended, bowel sounds active. Genitourinary: Johnson catheter in place. Extremities:No edema, cyanosis, or clubbing. Neurologic: Agitated. Does not follow commands but alert. Ventilator settings: PRVC. Tidal volume 340. Respiratory rate 11. FiO2 35%. PEEP 7.0. Peak 28. Plateau 21. ABG: PH 7.496. PCO2 48.9. PO2 103. HCO3 37.4. On PRVC with an FiO2 35%, PEEP of 7.0, and SPO2 98.8%. IV drips and Sedatives: Precedex 0.9 mcg/kg/hr and Fentanyl gtt 50 mcg/hr. IV lines: Left foot and right radial peripheral IV. I&O: Net +11879 mL. IVs and Medications Medications Reviewed: Medications were reviewed in detail Lab and Diagnostics Item Value Date Time Calcium Level 9.4 mg/dL 01/03/17339 Phosphorus Level 3.9 mg/dL 01/03/17339 Magnesium Level 1.9 mg/dL 01/03/17 034 Result Diagram: 01/03/17 03401/03/17 034 Microbiology Sputum culture is to grew light normal prince. Repeat sputum culture grew Lashae albicans. MRSA screen negative. Strep coccus pneumoniae and legionella urine antigens negative. Respiratory viral PCR negative. Blood culture 4 has no growth after 5 days. Fungal blood culture positive 2 for Lashae albicans. Pleural fungal culture negative. Pleural acid-fast culture negative. Catheter tip has no growth after 48 hours. . X-Rays, CTs and MRIs X-RAY CHEST ONE VIEW, PORTABLE IMPRESSION: Stable chest. Dictated by: Shankar Mandujano Aisha Interpreted: Rosaura Wisdom MD on 01/03/2017 at 8:59 CT CHEST, ABDOMEN AND PELVIS [facility] CONTRAST IMPRESSION: 1. Marked fluid distention of the colon most prominent within the cecum. No bowel wall thickening or evidence of small bowel obstruction. The findings are nonspecific and differential considerations include an ileus or functional obstruction distally versus Madrid's syndrome. 2. Small to moderate bilateral pleural effusions with associated compressive atelectasis. 3. Small clustered bilateral pulmonary nodules likely represent a mild infectious or inflammatory process. 4. Diffuse anasarca. Dictated by: Ravin Joshua M.D. on 01/01/2017 at 15:58 US ABDOMEN, LIMITED IMPRESSION: No free intraperitoneal fluid identified. If indicated CT could be performed to further assess for possible intraperitoneal or retroperitoneal bleed Dictated by: Shankar BARRETO Interpreted: Harshil Pacheco MD on 12/28/2016 at 9: 55 US CHEST/PLEURAL SONOGRAM IMPRESSION: Small loculated complex left pleural effusion consistent with hemothorax. Dictated by: Santiago Montanez M.D. on 12/27/2016 at 13:19 CT ANGIO CHEST PULMONARY EMBOLISM IMPRESSION: 1. No pulmonary embolus. 2. Mild pulmonary edema associated with small bilateral pleural effusions. 3. Small amount of ascites. 4. Coronary artery disease. Cardiomegaly. Right heart failure. Dictated by: Julieta Gunn M.D. on 12/23/2016 at 13:33 US VENOUS LEG DUPLEX BILATERAL IMPRESSION: No deep venous thrombosis identified within either the left or right lower extremities. Dictated by: Shankar BARRETO Interpreted: Sobia Plunkett MD on 12/23/2016 at 9: 58 CT BRAIN WITHOUT CONTRAST IMPRESSION: No acute intracranial disease process. Dictated by: Rosaura Wisdom MD, PhD on 12/22/2016 at 20:12 X-RAY CHEST ONE VIEW, PORTABLE IMPRESSION: Small patchy airspace opacities in the right lung base and small right-sided pleural effusion suspicious for pneumonia. Dictated by: Rosaura Wisdom MD, PhD on 12/22/2016 at 18:51 Approved by: Rosaura Wisdom MD, PhD on 12/22/2016 at 18:52 . Cardiac Echo Impressions Echocardiogram Interpretation Summary: Probable large left abdominal ascites possibly surrounding the spleen. There are moderate-sized bilateral pleural effusions noted. There is no thrombus seen in the right ventricle. A calcified moderator band and papillary muscle are visualized. Borderline right ventricular enlargement. Right ventricular systolic function is mild to moderately reduced. The right ventricular systolic pressure is estimated at 68 mmHg assuming a right atrial pressure of 15 mm Hg. RVSP has increased increase since prior study. Reading Physician:PM Echocardiogram Interpretation Summary: The ejection fraction is estimated to be 55-60%. Flattened septum is consistent with RV pressure/volume overload. The right ventricle is moderately dilated. Right ventricular systolic function is moderately reduced. The aortic valve is slightly calcified. The aortic valve is not well visualized. There is moderate tricuspid regurgitation. Right ventricular systolic pressure is estimated to be 39 mmHg plus the clinically estimated CVP which cannot be estimated on this exam. RV thrombus is suspected. Electronically signed by: Isra Valdez on Reading Physician:12/23/2016 11:08 AM . Assessment & Plan Virginia Ling is a 66-year-old female with a past medical history significant for hypertension and COPD who was brought to [facility] Emergency Department due to unresponsiveness requiring intubation and thought to be secondary to hypercapnia, hyponatremia and possibly hepatic encephalopathy. Now being treated for fungemia and acute on chronic hypoxemic hypercapnic respiratory failure Hospital day #13. 1. Acute fungemia, not present on admission. Active. - Likely secondary to broad spectrum antibiotics. - Blood culture 2:4 bottles and sputum culture positive for Lashae albicans. - Continue micafungin x 2 weeks after negative blood cultures are obtained per ID. - Central venous line removed and sent for culture without growth as above. - CT showed probable ileus without evidence of perforation, as above. Ordered one time dose of Relistor. - Ordered repeat limited echocardiogram to look for fungal endocarditis. - ID consulted and following we appreciate their time and care of the patient. 2. Acute on chronic hypoxemic and hypercapnia respiratory failure, present on admission. Active. - Patient does have a history of COPD with significant pulmonary hypertension as evident on echocardiogram. - Initial echocardiogram revealed RVSP of 34 mmHg with evidence of RV overload and septal flattening with suspected thrombus, as above. Repeat limited echocardiogram revealed worsening RV overload with increased RVSP of 64 mmHg without evidence of RV thrombus, as above. - CT angiography was negative for PE and revealed mild pulmonary edema associated with small bilateral pleural effusions and right heart failure, as above. - Repeat sputum culture grew Lashae albicans, as above. Continue micafungin and discontinue all antibiotics per ID. - Discontinued Solu-Medrol IV and she received a sufficient course for COPD exacerbation. - Continue ipratropium every 4 hours. - Continue to monitor ABG daily for ventilator management. - The patient continues to have airway issue and is auto PEEPing secondary to severe COPD, therefore, considering tracheostomy. However, due to fungemia and volume overload surgery is reluctant to place a tracheostomy. - Continue Precedex gtt and fentanyl gtt, as above. Consider sedation vacation and SBT again today and may give fentanyl pushes for chest tube pain PRN during SBT. - ID consulted and following we appreciate their time and care of the patient. 3. Pulmonary hypertension, acuity unknown, present on admission. Active. - Likely secondary to COPD. PE/RV thrombus was suspected early oon in hospitalization but ruled out with CTA and repeat echocardiogram. - Repeat limited echocardiogram revealed worsening RV overload with increased RVSP of 64 mmHg without evidence of RV thrombus, as above. - Continue to diuresis as patient is net +14L in hospitalization. Ordered Lasix 40 mg IV x 1. 4. Acute left sided hemothorax, status post chest tube, not present on admission. Resolving. - Initial echocardiogram was read as suspected right ventricular thrombus, therefore, a heparin gtt was initiated. - Decreasing hemoglobin from 12/25/2016 with hemoglobin of 14 to 12/27/2016 with hemoglobin of 7.6. Heparin drip discontinued and the patient was given 2 units of PRBCs. - Chest x-ray on 12/27/2016 demonstrated an acute worsening left pleural effusion with an ultrasound revealing small loculated complex left pleural effusion consistent with hemothorax, as above. - General surgery was consulted for chest tube placement with 2 L of blood status post placement. Given 2 units of PRBCs and 1 unit of platelets. - Hemoglobin and hematocrit stable status post transfusions. Continue to monitor H&H daily. 5. Acute blood loss anemia, not present on admission. Resolved. - Likely secondary to hyperfibrinolysis from liver disease and heparin gtt. - Chest x-ray on 12/27/2016 demonstrated an acute worsening left pleural effusion with an ultrasound revealing small loculated complex left pleural effusion consistent with hemothorax. - General surgery was consulted for chest tube placement with 2 L of blood status post placement. Given 2 units of PRBCs and 1 unit of platelets. - Hemoglobin and hematocrit stable status post transfusions. 6. Acute shock, unclear etiology, present on admission. Resolved. - Likely secondary to cardiogenic shock but there may have been a mixed etiology with an obstructive/cardiogenic component, hypovolemia from acute blood loss, and possibly septic as VBG showed an sVO2 of 78% although infectious source was not clear. - Patient clinically volume overloaded with JVD and peripheral edema with echocardiographic and radiographic evidence of right sided heart failure. - Repeat limited echocardiogram revealed worsening RV overload with increased RVSP of 64 mmHg without evidence of RV thrombus, as above. - Off phenylephrine for vasopressor support but needed this for extended period of approximately 8 days. - Discontinued IV fluids with LR at 100 mL/hr. Had to be cautious with IV fluid resuscitation due to RV overload and to avoid to rapid over correction of sodium level and central pontine myelinosis. 7. Alcohol dependency, present on admission. Presumed stable. - CIWA protocol was in place but outside of withdrawal window at this point. - Valium is ordered per [facility] protocol as needed for agitation or anxiety. - Continue thiamine IV daily. 8. Acute encephalopathy, present on admission. Presumed stable. - Likely multifactorial and related to her hypercapnia, hyponatremia and possibly hepatic encephalopathy (CT showed abdominal ascites and history of alcohol use on HPI). Less likely PE. Unlikely differentials include overdose and epilepsy. No trauma. - CT brain without contrast was negative for any acute intracranial abnormality , as above. Patient was also non-focal on exam, therefore, CVA very unlikely. - Alcohol level and urine drug screen negative. - Received IV fluids throughout course but were cautious with IV fluid resuscitation due to RV overload and to avoid to rapid over correction of sodium level and central pontine myelinosis. - Continue Precedex and fentanyl for sedation. 9. Acute respiratory alkalosis with partial metabolic compensation, present on admission. Resolved. - Continue ventilator with settings as above. - Treat COPD as above under problem #2. - Also treat underlying etiology of shock under problem #1. 10. Atrial fibrillation with RVR, acuity unknown, present on admission. Active. - Unclear if she has a history of atrial fibrillation. - RV thrombus possible based on echocardiogram. CTA revealed no PE. - Serial troponins have been negative. - Continue amiodarone switch from PO to IV due to ileus for rhythm control per primary medical team. 11. Acute hyponatremia, present on admission. Resolved. - Likely related to dehydration and possibly beer potomania. - Continuing IV normal saline at 100 mL/hr and monitor sodium level closely to avoid to rapid over correction central pontine myelinosis. - Monitor sodium level daily. 12. Acute hypokalemia, present on admission. Resolved. - Possibly secondary to beer potomania. - Replete as needed. - Monitor potassium level daily. 13. Acute hypomagnesemia, present on admission. Resolved. - Possibly secondary to beer potomania. - Replete as needed. - Monitor magnesium level daily. Chronic problems with management per primary team. Disposition: Several days and depending upon clinical course. Total critical care time spent 60 minutes. . GI Prophylaxis: H2 cielo VTE Prophylaxis: Sub-Q Heparin (Unfractionated), SCDs VTE Mechanical Devices: Intermittant Pneumatic CD Resuscitation Status: DNR/DNI:Do Not Resuscitate/Intubate Attending Statement I have seen and examined this patient with the resident physician. Vital signs , labs, imaging have been reviewed. I agree with the assessment and plan above. Please refer to my separately dictated progress note for any modifications to above. Yamini Fischer M.D. Pulmonary and Critical Care medicine Pager [phone] Nneka Greene DO Jan 03, 2017 09:54 Yamini Fischer MD Jan 03, 2017 13:56
[2017-01-03] MEDS ORDERED: Furosemide 10 mg/mL 4 mL Inj IVPUSH ONE (10:55)
[2017-01-03] MEDS ORDERED: Amiodarone 150 mg/100 mL D5W Premix IV ONE (10:59)
[2017-01-03] MEDS: Amiodarone 150 mg/100 mL D5W 150 MG in IV Premix 1 EACH IV SCH (11:01)
[2017-01-03] MEDS: Lactated Ringer's 1,000 ML IV SCH (11:06)
[2017-01-03] MEDS: fentaNYL 2,500 mCg/250 mL 2,500 MCG in IV Premix 1 EACH IV SCH (11:08)
--- NOTE | 2017-01-03 11:43 | DRSVH ---
[facility] [address] [place] [address] Echocardiogram Report Name: RAPHAEL SLATER KStudy Date: 01/03/2017 Height: 60 in Hospital Exam Location: [facility] Weight: 134 lb Gender: Female BSA: 1.6 m2 : 1950 Age: 66 yrs BP: 130/68 mmHg Reason For Study: Endocarditis Ordering Physician: HOSPITALIST [facility] Performed By: Jayson Engel Referring Physician: TERESA BARBOSA Interpretation Summary No evidence of endocarditis, consider ANA ROSA if clinically indicated. Procedure: A limited 2D color echocardiogram was performed to assess for endocarditis. Apical and subcostal images were difficult due to bandages. Overall quality is fair. Comparison is made with the echocardiogram of 12/27/16. The patient was in atrial fibrillation with rapid ventricular response during the exam with a heart rate exceeding 100 bpm. Left Ventricle: The left ventricular ejection fraction is grossly normal. Mitral Valve: The mitral valve leaflets are mildly calcified. There is mild mitral annular calcification. There is mild mitral regurgitation. Aortic Valve: The aortic valve is trileaflet. The aortic valve is slightly calcified. The aortic valve opens well. No aortic regurgitation is present. Tricuspid Valve: The tricuspid valve leaflets are thickened and/or calcified, but open well. There is moderate tricuspid regurgitation. Pulmonic Valve: The pulmonic valve is not well seen, but is grossly normal. Electronically signed by: Isra Valdez on Reading Physician:01/03/2017 11:42 AM
--- NOTE | 2017-01-03 12:05 | PROG NOTE ---
[address] [address] PROGRESS NOTE PATIENT: RAPHAEL SLATER : 1950 MR#: [id number] ADMIT: 12/22/2016 JOB ID: [id number] INFECTIOUS DISEASES FOLLOWUP: DATE: 01/03/2017 REASON FOR FOLLOWUP: Fungemia. INTERVAL HISTORY: Recall that this is an incredibly complicated 66-year-old woman who was admitted now 13 days ago with a wide variety of problems including ventilator-dependent respiratory failure. She subsequently had a number of complications including a left hemothorax, which required a chest tube, and more recently fungemia, which was discovered when she started to spike fevers well into her hospital stay. When the fungemia was discovered, we discontinued her central line, discontinued her broad-spectrum antibiotics, and started her on micafungin. We are a waiting susceptibility tests per the [facility] on this Lashae albicans. Over the weekend, the patient was restarted on cefepime because of persistent leukocytosis and concerns about an ongoing infection. Additional cultures and studies were ordered as well. This morning, the patient is agitated, which is a dramatic change in her mental status from late last week when she was intubated and deeply sedated. Despite her agitation, we were able to calm her down a little bit this morning and she denies having fever and also denies any change in vision. She states she is in some degree of pain and the nurse is getting her some pain meds, though it is not exactly clear what the source of this pain is. She clearly is unhappy about still being intubated and especially unhappy about being restrained. Beyond that, were unable to get much history from this very agitated and restrained woman. PHYSICAL EXAMINATION: General: Reveals an agitated woman who is actively pulling on her restraints. Vital signs: Her temperatures have been elevated since the with continual fevers around 38 to 38.5 degrees. Her pulse currently is 175 and there are periods of regularity mixed with irregularity. On the monitor, there is AFib/flutter. Her blood pressure is 140/92. She is saturating very well on 35% and 7 of PEEP, saturating 100%. Examination of the eyes reveals no scleral icterus or conjunctivitis. The patient's vision seems intact as she looks at people, looks at TV, and says she has no deficits in her vision. Oral endotracheal tube, orogastric tube in good position. There are no central lines. She has two peripheral IVs, one in her foot and one in arm. These appear uninfected. Lungs are relatively clear, surprisingly so considering what they sounded like last week. Cardiac tones very rapid with periods of irregularity. No murmur can be appreciated at this speed. Abdomen: A bit guarded perhaps, but no focal masses or tenderness. Johnson catheter is present. The extremities continue to be mottled and somewhat cool as they have been throughout her hospital stay, but they are not frankly ischemic. LABORATORIES: Include white blood count 14,000, platelet count 198,000. Creatinine 0.68. LFTs are normal. Procalcitonin 0.09. No white cells noted in most recent urine. Hep C antibody is negative. QuantiFERON Gold indeterminate. Microbiology: The patient's first positive blood culture for yeast was drawn on December 27. The followup blood cultures done on the are still growing yeast despite the fact she has been on micafungin now since the . So, we know that three days into her micafungin, she was still growing yeast, which is not surprising. More recently, a C. difficile is negative. Sputum is negative and that is it for followup cultures. IMAGING: Includes a chest x-ray from yesterday, which amazingly is read as clear. A CT of the chest, abdomen, and pelvis done on the shows distention of the colon, some compressive atelectasis, and some small clustered bilateral pulmonary nodules. IMPRESSION: This patient overall continues to slowly improve. Today, she is doing well on the ventilator with a reduced FiO2 and excellent oxygen saturation. She is much more awake, which is mostly a good thing, but of course, a bit of a problem as she is very agitated and requires restraints. She continues to have low-grade fevers and leukocytosis which I am not inordinately concerned about as we know she has been fungemic now for roughly one week and that she still had positive fungal blood cultures a couple of days ago. In no way do I think the patient has a bacterial infection nor do I think she has ever had one during this hospital stay. We have consistently negative procalcitonin levels and innumerable negative cultures for everything except yeast. RECOMMENDATIONS: 1. I would discontinue the cefepime. 2. Repeat fungal blood cultures will be needed today and I have ordered those. 3. We await the fungal susceptibilities from the [facility]. 4. Once her heart rate slows down and makes it feasible, we should get a transesophageal echo. I do not think the patient is at super high risk for fungal endocarditis, but if she were to develop fungal endocarditis, it would change our management in many ways, such would almost certainly require valve surgery if feasible. 5. Once the patient has improved enough, we should get a dilated eye exam to rule out fungal endophthalmitis. 6. This case discussed with the ICU team.
--- NOTE | 2017-01-03 13:23 | PROG NOTE ---
[address] [address] PROGRESS NOTE PATIENT: RAPHAEL SLATER : 1950 MR#: [id number] ADMIT: 12/22/2016 JOB ID: [id number] DATE: 01/03/2017 PULMONARY CRITICAL CARE PROGRESS NOTE: The patient is a 66-year-old woman with COPD and cor pulmonale admitted with acute respiratory failure on December 22. Her hospital stay has been complicated by fungemia, spontaneous left hydropneumothorax on heparin drip, and persistent respiratory failure requiring mechanical ventilation. Patient was seen and evaluated with resident physician Dr. Nneka Greene. Please refer to her separate detailed note for additional information. INTERVAL HISTORY: She continues to be febrile with temperatures as high as 38.6, and blood cultures remain positive with yeast. She had episodes of agitation and pain with which her heart rate shoots up from 100 to 190s and seems to subside with the pain and sedation meds. REVIEW OF SYSTEMS: Unable to obtain. PHYSICAL EXAMINATION: Vital signs reviewed. Temperature 36.0, pulse 97, respirations 15, BP 167/93, sats 98% on 35% FiO2 and 7 cm of PEEP. General: Opens her eyes. Tries to nod in responds to questions. On auscultation, she has occasional wheeze. Left-sided chest tube with no respiratory variation, no air leak, and minimal output. LABORATORIES: Reviewed. WBC remains elevated at 14.7. Chemistry also reviewed. Culture data notable for sputum culture and blood cultures from January 01, positive for Lashae albicans. Chest x-ray reviewed and shows clear pulmonary parenchyma. No infiltrates or effusions. Left-sided chest tube in place. ASSESSMENT AND RECOMMENDATIONS: 1. Acute hypoxic respiratory failure, on mechanical ventilation since December 22. 2. Lashae albicans bacteremia. 3. Sepsis due to number two. 4. Right heart failure and cor pulmonale. 5. Chronic obstructive pulmonary disease exacerbation. 6. Paralytic ileus. 7. Hemothorax, status post chest tube placement on the left on December 27. A 66-year-old woman with chronic obstructive pulmonary disease and cor pulmonale, admitted with respiratory failure requiring mechanical ventilation since December 22. She continues to fail pressure support trials and spontaneous breathing trials with respiratory distress. From a respiratory standpoint, it is not clear to me if pain from the left chest tube is contributing. This tube has been in now for seven days or more and is putting out almost nothing. I have the tube placed to water seal and we will repeat a chest x-ray in a few hours to see if there is any pneumothorax. If not, I spoke to Dr. Mota about removing the tube. I am hopeful that this will help pain control and her episodes of tachycardia. With regards to her fungemia, blood culture from January 01 is positive again with yeast despite being on micafungin for 4-5 days. We are going to repeat a limited echocardiogram looking at her valves to rule out endocarditis. I also asked Dr. Magallanes to see if sensitivities could be done on the Lashae albicans to ensure that it is sensitive to the micafungin. She had a CT chest, abdomen, and pelvis done yesterday which showed bilateral pleural effusions and dilated loops of bowel, but no evidence of obstruction or acute process. We will restart her tube feeds since they were held for possible abdominal sepsis. We will also repeat intravenous Lasix to diurese her since she is significantly volume up. With regards to her atrial fibrillation, she is on amiodarone by mouth, but due to her dilation in bowels, we are going to switch it to intravenous to make sure she is getting this absorbed. We are also going to ask Cardiology if there is any role to add other medications for heart rate such as digoxin. TIME: Critical care time is 45 minutes. MTDD
--- NOTE | 2017-01-03 14:05 | PROG NOTE ---
[address] [address] PROGRESS NOTE PATIENT: RAPHAEL SLATER : 1950 MR#: [id number] ADMIT: 12/22/2016 JOB ID: [id number] DATE: 01/03/2017 SUBJECTIVE: Discussed with primary care hospitalist as well as Pulmonary. At this point, it does not look like she is about to be extubated in the near future. However, they do want to hold off on proceeding with a tracheostomy at this point. It has been requested that we get her chest tube out even though she remains on positive pressure ventilation. I think this is reasonable. Right now she has a chest x-ray pending on water seal, and if this shows no change, we will get her chest tube out at the bedside later today.
--- NOTE | 2017-01-03 14:17 | DRSVH ---
PROCEDURE: X-RAY CHEST ONE VIEW, PORTABLE ([id number]) INDICATIONS: SOB, chest tube to water seal assess for pneumo TECHNIQUE: One view of the chest was acquired. COMPARISON: [facility], CR, XR CHEST 1VW (PORTABLE), 01/03/2017, 5:31. FINDINGS: Surgical changes and devices: Left chest tube is present. Stable positioning of ETT and nasogastric tube. Lungs and pleura: No pleural effusions or pneumothorax. Lungs are clear. Mediastinum: Mediastinal contours appear normal. Heart size is normal. Bones and chest wall: No suspicious bony lesions. Overlying soft tissues appear unremarkable. IMPRESSION: Stable chest, specifically no left pneumothorax is seen. Dictated by: Shankar Mandujano RRA Interpreted: Sobia Plunkett MD on 01/03/2017 at 14:16 Transcribed by: SILVANA on 01/03/2017 at 14:17 Approved by: Sobia Plunkett M.D. on 01/04/2017 at 10:40
--- NOTE | 2017-01-03 18:19 | PCM.PNMED ---
Subjective Date of Service Jan 03, 2017 Subjective overnight: Patient becomes tachycardic when agitated with heart rates into the 160s and 170s which improves after boluses of Precedex and fentanyl. She remains alert but it is on certain how oriented she is at this time given her intubation. Today: Patient remains afebrile overnight, we will continue with micafungin for prolonged fungemia, with repeat blood cultures testing positive for Angela. Limited echo was performed today looking for Angela endocarditis which was unremarkable. General surgery will possibly remove the chest tube today, after evaluation with an x-ray for pneumothorax for several hours on water seal only. Given the patient's pleural effusions and anasarca single dose of Lasix will be given. Continue with spontaneous breathing trials. Exam Vital Signs Vital Sign - Last Date Time Temp Pulse Resp B/P Pulse Ox O2 Delivery O2 Flow Rate FiO2 01/03/17 04:30 Ventilator 01/03/17 04:30 37.8 85 13 140/92 100 35 Intake and Output 01/02/17 01/02/17 01/03/17 Cumulative From/Thru 15:00 23:00 07:00 12/22/16 18:16 - 01/03/17 06:06 Intake Total 825 ml 647 ml 22361 ml Output Total 1684 ml 1250 ml 89433 ml Balance -859 ml -603 ml 61014 ml Intake IV Total 685 ml 647 ml 93294 ml Tube Feeding 8129 ml Packed Cells 280 ml FFP 215 ml Platelets 792 ml Tube Irrigant 140 ml 2185 ml Output Urine Total 1600 ml 1250 ml 41592 ml Gastric Drainage Total 0 ml 0 ml 270 ml Chest Tube Drainage Total 84 ml 0 ml 3247 ml # Voids 0 # Bowel Movements 0 4 Exam General: thin female appearing older than stated age lying in bed intubated but alert and mildly agitated Eyes: PERRLA. Anicteric sclerae, moist noninjected conjunctivae HENT: Normocephalic, atraumatic. Endotracheal and oropharyngeal tube in place. External ears without defect. Neck: Supple, mild JVD, trachea midline, No lymphadenopathy or thyromegaly. Cardiovascular: Tachycardia with Irregular rhythm tachycardia without murmurs, rubs, or gallops appreciated. Pulmonary: Mild coarse breath sounds bilaterally with significantly improved air movement on the left lower axillary base with clean dry bandage and chest tube with serosanguineous fluid and limited tidal volume variation in tubing with no early. No wheezing noted Abdomen: Mild distention, tympanic to percussion, bowel sounds normoactive. Genitourinary: Johnson catheter in place. Extremities: Decreased pulses in radial and and decreased dorsalis pedis bilaterally. moderate pitting edema noted gravity dependent legs bilaterally up to 5, no clubbing Neuro: Pupils equal round reactive to light, following commands at this time able to move hands and feet Psych: Unable to obtain Lab and Diagnostics Result Diagram: 01/03/17 0340 01/03/17 0340 Microbiology Repeat sputum culture has no growth to date. Sputum culture grew light normal prince. MRSA screen negative. Streptococcus pneumoniae and Legionella urine antigens negative. Respiratory viral PCR negative. _ Microbiology DAVE CULT BLOOD FUNGUS Preliminary 01/01/17-22 Organism 1 ANGELA ALBICANS ISOLATED FROM ONE OF THREE BOTTLES COLLECTED 12/27/16 _ X-Rays, CTs and MRIs CT BRAIN WITHOUT CONTRAST IMPRESSION: No acute intracranial disease process. Dictated by: Rosaura Wisdom MD, PhD on 12/22/2016 at 20:12 US VENOUS LEG DUPLEX BILATERAL IMPRESSION: No deep venous thrombosis identified within either the left or right lower extremities. Dictated by: Shankar BARRETO Interpreted: Sobia Plunkett MD on 12/23/2016 at 9: 58 CT ANGIO CHEST PULMONARY EMBOLISM IMPRESSION: 1. No pulmonary embolus. 2. Mild pulmonary edema associated with small bilateral pleural effusions. 3. Small amount of ascites. 4. Coronary artery disease. Cardiomegaly. Right heart failure. Dictated by: Julieta Gunn M.D. on 12/23/2016 at 13:33 X-RAY CHEST ONE VIEW, PORTABLE IMPRESSION: Placement of left pleural drain with significant reduction in size of loculated left pleural effusion. No pneumothorax. Dictated by: Shankar BARRETO Interpreted: Harshil Pacheco MD on 12/28/2016 at 17 :10 CT CHEST, ABDOMEN AND PELVIS WTIH CONTRAST IMPRESSION: 1. Marked fluid distention of the colon most prominent within the cecum. No bowel wall thickening or evidence of small bowel obstruction. The findings are nonspecific and differential considerations include an ileus or functional obstruction distally versus Portland's syndrome. 2. Small to moderate bilateral pleural effusions with associated compressive atelectasis. 3. Small clustered bilateral pulmonary nodules likely represent a mild infectious or inflammatory process. 4. Diffuse anasarca. Dictated by: Ravin Joshua M.D. on 01/01/2017 at 15:58 Cardiac Echo Impressions Echocardiogram Report Interpretation Summary Probable large left abdominal ascites possibly surrounding the spleen. There are moderate-sized bilateral pleural effusions noted. There is no thrombus seen in the right ventricle. A calcified moderator band and papillary muscle are visualized. Borderline right ventricular enlargement. Right ventricular systolic function is mild to moderately reduced. The right ventricular systolic pressure is estimated at 68 mmHg assuming a right atrial pressure of 15 mm Hg. RVSP has increased increase since prior study. Echocardiogram Report Interpretation Summary No evidence of endocarditis, consider ANA ROSA if clinically indicated. Electronically signed by: Isra Valdez on Reading Physician:01/03/2017 11:42 AM Additional Diagnostics ABG DateTimeAnalyzed 04:50:00 -_ pH ____7.513 - pCO2 ___46.8__ -mmHg pO2 ___45.3__ -mmHg HCO3- ___37.3__ -mmol/L Assessment & Plan Patient is a 66-year-old female with past medical history remarkable for COPD, hypertension, and alcohol dependency presents to schedule an hospital with acute respiratory failure secondary to right heart failure and cor pulmonale. Hospital day 13. 1. Acute on chronic respiratory failure with hypoxia and hypercapnia, present on admission, ongoing. - Patient does have a history of COPD/emphysema and she is likely CO2 retainer. May also be secondary to cor pulmonale. - Echocardiograms show pulmonary hypertension with right ventricular dilation and moderate reduced ejection fraction - ABG to be done in AM and as needed for ventilator management. - Fentanyl and Precedex for sedation. Titrate down dosing as tolerated by patient. - Continue solu-medrol taper 40 mg Q8 today transition to now 40 mg daily. Convert to oral when possible - Atrovent nebs available Q6. - Pulmonology has been consulted for assistance with vent management and we appreciate their assistance. - Family meeting with brother and medical decision maker on 01/02/2017 patient will continue to be treated with goals of extubation 2. Right heart failure and cor pulmonale, presume chronic, present on admission. - Uncertain of the precise etiology but patient has significant alcohol history as well as emphysema. - This will increase the morbidity and mortality of the patient in the setting of this prolonged ICU stay. - Dr. Pinto has been consulted and we appreciate her recommendations. - Lasix given for anasarca associated with right heart failure 3. Possible pneumonia, present on admission, under evaluation - Patient initially presented with a possibility of pneumonia however after being treated with Zosyn and remaining with negative procalcitonin, pneumonia was considered less likely - increasing white blood cell counts could be attributed to an infection or steroid use for COPD exacerbation - Left lower quadrant consolidation visualized with ultrasound showed moderate loculations consistent with hemothorax possible developing empyema however has remained culture negative after chest tube placement - Yeast in blood not consistent with pneumonia as a source, candidiasis does not cause pneumonia - discontinue cefepime (day 2). 4. Likely ileus, not present on admission, under evaluation - CT abdomen and pelvis performed on 01/02 showed distended loops of bowel - Patient has recent new onset fevers which could be attributed to micafungin however also possibly new infectious source - C. difficile PCR ordered - FMS will be discontinued today as no stool has been moving through it. - Tube feeding continues to be on hold. 5. Left sided Hemothorax, not present on admission, drained considered stable - General surgery placed a left-sided chest tube 12/28/2016 with 2 L of blood it out immediately. 2 units of packed RBCs given with 1 unit of platelets - Initial protein evaluation 3.5 compared to total protein of blood 4.3 consistent with exudative effusion - Substantial RBCs consistent with hemothorax. Cultures negative at this time. - Pleural fluid sent for cultures remains negative - Consider likely secondary to heparin drip, which has been stopped. - Gen. surgery will likely remove chest tube today depending on evaluation of chest x-ray after hours of waterseal on 6. Atrial fibrillation with rapid ventricular response, acute, present on admission, improving. - Not clear if she has a history of atrial fibrillation. - Patient's blood pressure does not tolerate the use of beta blockers. - Discontinue Amiodarone drip, converted to amiodarone 200 mg BID, will be converted again to amiodarone IV for loading and will be reassessed daily - Digoxin 0.25 g given with readministered 0.25 mg due to to continued tachycardia. Can consider additional dosing of digoxin if amiodarone not sufficiently controlling rate. - Dr. Pinto has been consulted and we appreciate her recommendations. 7. Fungemia, likely present on admission, under evaluation - Continue micafungin day 5. - Infectious disease following and we appreciate Dr. Magallanes's recommendations. - Angela is not a likely pathogen that causes pneumonia. Central venous line removed and sent for culture currently negative - Repeat blood cultures drawn on 01/01 have resulted in a positive Angela these will be redrawn serially until a negative culture is obtained and then continue micafungin for 2 weeks after first negative culture - Consider adding amphotericin if patient does not clear angela within next day or so 8. Alcohol dependency, present on admission, stable - CIWA protocol ordered however patient is currently intubated and sedated - Continue thiamine IV daily. 9. Acute blood loss anemia, not present on admission, improved - Initial echo showed possible right ventricular thrombus AND a Heparin drip was initiated for possible right ventricular thrombus - Decreasing hemoglobin from 12/25/2016 with hemoglobin of 14, to 12/27/2016 with hemoglobin of 7.6 heparin drip discontinued packed RBCs given - Chest x-ray on 12/27/2016 shows a worsening left pleural effusion, ultrasound used to fine fluid collection shows moderate loculations consistent with hemothorax possible developing empyema - Gen. surgery consulted for possible chest tube placement, will be reconsidered on 12/27/2016 - DIC panel ordered with note of bleeding from all IV sites; Haptoglobin increased, fibrinogen decreased but above 100, elevated d-dimer, elevated PT, INR, and PTT consistent with acute DIC and 1 unit of fresh frozen plasma given - General surgery placed a left-sided chest tube today with 2 L of blood it out immediately. 2 units of packed RBCs given with 1 unit of platelets - Continue to monitor CBC. 10. Hypokalemia, acute, present on admission. Resolved monitoring - Continue to monitor with BMP and replete as needed. 11. Hypothyroidism, acute, present on admission. - Likely secondary to being critically ill. - Will need follow up labs approximately 6-8 weeks after hospital discharge. 12. Possible adrenal insufficiency, acute, present on admission. - ACTH-stim test shows low level of cortisol. - Patient already undergoing treatment with IV steroids. - Will need to plan for slow taper and close outpatient follow up. 13. Acute encephalopathy, present on admission, considered stable - Possibly related to her hypercapnia but must also consider reversible other etiologies such as toxic ingestion, hypothyroidism. - Patient remains intubated and sedated at this time so this is difficult to fully evaluate. 14. Possible Right ventricular thrombus, present on admission, unstable - Seen on initial echocardiogram ordered for apparent volume overload due to right heart failure. - Discontinue Heparin PE protocol drip for presumed RV thrombus. - Limited echo fails to reveal right ventricular thrombus - Consideration for either no thrombus on initial echo versus less likely dislodge of thrombi/PE given no increased oxygen requirements 15. Hyponatremia, acute, present on admission, monitoring - May be related to dehydration - Continue to monitor BMP. 16. Acute shock, present on admission, resolved - Multifactorial with elements of septic and cardiogenic shock. - Patient appeared volume overloaded at admission with JVD and peripheral edema consistent with right heart failure. Now also has new fever, leukocytosis and continued hypotension. 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 - Antacid available PRN. - Bowel regimen available PRN. - Tylenol available PRN mild pain, fever. Disposition: patient will likely continue to be in the CCU for several more days of mechanical ventilation given severe COPD with emphysema, cor pulmonale, right-sided heart failure and now new possible bilateral nodular pneumonia. Would like to plan for transfer to [place] if patient able to undergo surgery for trach and peg placement. Pain Evaluation: Adequate Pain Control GI Prophylaxis: H2 cielo VTE Prophylaxis: Sub-Q Heparin (Unfractionated), SCDs VTE Mechanical Devices: Intermittant Pneumatic CD Resuscitation Status: DNR/DNI:Do Not Resuscitate/Intubate Attending Statement The patient was seen and examined together with Dr. Schneider on 01/03/2017 and I agree with the history, exam and plan as outlined in the note above. . Parth Schneider DO Jan 03, 2017 06:42 Feliz Rawls MD Jan 07, 2017 08:35
[2017-01-04] VITALS (15 sets, daily range): BP systolic 89–168; BP diastolic 48–97; PULSE 64–114; RESP 0–23; O2SAT 95–100
[2017-01-04] MEDS: Chlorhexidine 0.12% 15 mL Oral Solution MT SCH ×6 (00:05→21:47)
[2017-01-04] MEDS: Ipratropium 0.02% 0.5 mg/2.5 mL Inhalation Solution NEB SCH ×6 (00:07→20:57)
[2017-01-04] MEDS: Insulin Human REGular 300 Unit/3 mL Inj SUBQ SCH ×4 (03:00→20:30)
[2017-01-04 04:55] LABS: BASOPHILS % (AUTO) 0.1 % (0-3); EOSINOPHILS % (AUTO) 0 % (0-5); MONOCYTES % (AUTO) 7.4 % (4-12); Mean Corpuscular Hemoglobin 31.5 pg (27.0-35.0); Mean Corpuscular Volume 95.8 fL (81-100); NEUTROPHILS % (AUTO) 83.5 % (40-74); Platelet Count 215 bil/L (150-400)
--- NOTE | 2017-01-04 05:19 | ABG ---
DateTimeAnalyzed 05:13:00 -_ pH ____7.464 - 7.350 7.450 pCO2 ___55.2__ -mmHg 35.0 45.0 pO2 ___78.8__ -mmHg 69.0 116 HCO3- ___39.0__ -mmol/L 22.0 26.0 ABE ___13.5__ -mmol/L -2.0 2.0 tHb ___10.3__ -g/dL O2Hb ___94.2__ -% COHb ____1.5__ -% MetHb ____1.0__ -% sO2 ___96.6__ -% FIO2 ___35.0__ -% Drawn By LT - Date/Time Notified____ 05:18:00 -_ Notified By LT - Notified Whom ALEXA, RN - B 761 -mmHg tO2 ___13.7__ -Vol% Lance test _Positive -
[2017-01-04] MEDS: Amiodarone 150 mg/100 mL D5W 150 MG in IV Premix 1 EACH IV SCH (06:24)
[2017-01-04] MEDS ORDERED: KCl 40 mEq/100 mL (CENTRAL) 40 MEQ in IV Premix 1 EACH IV ONE (07:30)
[2017-01-04] MEDS: Budesonide 0.5 mg/2 mL Inhalation Solution NEB SCH ×2 (07:37→20:57)
[2017-01-04] MEDS ORDERED: Furosemide 10 mg/mL 4 mL Inj IVPUSH SCH (08:30)
--- NOTE | 2017-01-04 08:34 | PROG NOTE ---
[address] [address] PROGRESS NOTE PATIENT: RAPHAEL SLATER : 1950 MR#: [id number] ADMIT: 12/22/2016 JOB ID: [id number] DATE: 01/04/2017 INFECTIOUS DISEASE FOLLOW UP NOTE: REASON FOR FOLLOW UP: Fungemia, left hemothorax and prolonged ventilator dependence. INTERVAL HISTORY: Overnight, the patient has been reasonably stable. This morning when I examine her she is much more calm. Recall that yesterday she was rather frantic appearing with extreme agitation and pulling at her restraints and attempting to get out her endotracheal tube. During yesterday's examination, her pulse was 170-180 with an AFib flutter rhythm. This morning she is much more calm and clearly awake but does not respond to questions. She also does not follow commands such as to open her eyes or do anything else meaningful but as she does certainly appear to be awake and looks around the room a bit and seems to track, but in no way makes an attempt to communicate or shake her head. She is not at all agitated, however, this morning and appears quite comfortable. PHYSICAL EXAMINATION: Reveals an awake woman sitting about 45 degrees in her ICU bed. Still orally intubated. Her temperatures have fluctuated between 36 and 38.6 over the last 24 hours. Currently 37.8 with a chronic low grade fever. Blood pressure is 130/80, pulse 67, respiratory rate ventilator dependent. She is saturating very well this morning on 35 FiO2 and 7 of PEEP. She has no new skin rash. Her eyes are without conjunctivitis. Oral endotracheal tube, orogastric tube in good position. There are no herpetic lesions on the lips. Her lungs are notable for some decreased breath sounds at the left base where she has a chest tube. Cardiac tones irregular rate and rhythm without new murmur but now much slower so one can better appreciate her heart tones as her pulse is only about currently 108. The abdomen is soft and without tenderness. Johnson catheter is present. The extremities are much better perfused than they have been though the feet are still a little bit cool but they are clearly being perfused quite well. LABORATORIES: Include a white count which has dipped to 12,900. Her creatinine 0.8, total bilirubin up to 1.3. ALT to 39, albumin 3.2. Procalcitonin remains negative. Repeat urinalysis done a couple days ago was negative. Micro studies include now many positive blood cultures for yeast. Back on the , we had a single blood culture, which grew Lashae albicans. On the the yeast was identified from 4 of 4 blood culture bottles which is an extremely heavy fungemia. The chest x-ray done yesterday shows a left chest tube but otherwise clear lung wooten. IMPRESSION: This patient has developed a very high-grade fungemia, which was first detected on the . Two to three days later, we received the report of the blood cultures and, of course, immediately pulled her central line and she has had been managed with peripheral IVs since that time. She continues to have low-grade fevers, but we know that she was still very fungemic on the so I am not surprised by that and will continue with her micafungin at this point as our sole antifungal agent. We have sent susceptibility testing to the [facility], but essentially 100% of Lashae albicans are susceptible to both micafungin and fluconazole and, therefore, we anticipated those results. Her low-grade fevers and mild leukocytosis are all consistent with a diagnosis of fungemia. RECOMMENDATIONS: 1. Will continue to get blood cultures on a daily basis and these should be fungal blood cultures. 2. Once we get negative fungal blood cultures, will treat for two additional weeks. 3. Transthoracic echo should be performed to look for fungal endocarditis. If we should get any additional positive blood cultures, I will need to do a ANA ROSA even if the TE is negative because the probability of fungal endocarditis would be much higher. 4. Once the patient is extubated, a dilated eye examination should be done. 5. This case discussed in detail with the ICU team.
[2017-01-04] MEDS: Famotidine Inj 20 MG in IV Premix 1 EACH IV SCH ×2 (09:14→21:46)
[2017-01-04] MEDS: Heparin 5,000 Unit/mL Inj SUBQ SCH ×2 (09:47→21:47)
[2017-01-04] MEDS: Polyethylene Glycol (PEG) 17 Gm Powder PO SCH ×2 (09:47→21:47)
--- NOTE | 2017-01-04 09:57 | PCM.PNMED ---
Subjective Date of Service Jan 04, 2017 Subjective Intensive Care/Pulmonology Consultation Note: Attending Dr. Aaliyah Ling is a 66-year-old female with a past medical history significant for hypertension and COPD who was brought to [facility] Emergency Department due to unresponsiveness requiring intubation and thought to be secondary to hypercapnia, hyponatremia and possibly hepatic encephalopathy. Now being treated for fungemia and acute on chronic hypoxemic hypercapnic respiratory failure Hospital day/intubation day #14. Overnight: The patient was quite agitated requiring fentanyl and Precedex boluses and rested comfortably for several hours after each bolus. Telemetry overnight: Atrial fibrillation, baseline heart rate 70 to 80's, with frequent RVR up to 150's. Subjective exam and review of systems are unobtainable as the patient is intubated and sedated. The patient had a PST at 15/7 for 1 hour and 20 minutes yesterday with tidal volumes of 300 and was put back on PRVC for tachypnea. The patient continues to be very alert and agitated biting on ET tube but is unable to follow commands. . Exam Vital Signs Vital Sign - Last Date Time Temp Pulse Resp B/P Pulse Ox O2 Delivery O2 Flow Rate FiO2 01/04/17 08:24 37.8 114 23 148/82 100 Mechanical Ventilator 35 Intake and Output 01/03/17 01/03/17 01/04/17 Cumulative From/Thru 15:00 23:00 07:00 12/22/16 18:16 - 01/04/17 05:51 Intake Total 868 ml 576 ml 13632 ml Output Total 2750 ml 800 ml 53789 ml Balance -1882 ml -224 ml 40172 ml Intake IV Total 748 ml 576 ml 26762 ml Tube Feeding 0 ml 8129 ml Packed Cells 280 ml FFP 215 ml Platelets 792 ml Tube Irrigant 120 ml 2305 ml Output Urine Total 2350 ml 800 ml 47819 ml Gastric Drainage Total 200 ml 0 ml 470 ml Chest Tube Drainage Total 200 ml 0 ml 3447 ml # Voids 0 # Bowel Movements 4 Exam General: Middle-aged thin female lying in bed, agitated and biting on endotracheal tube, intubated and sedated. HEENT: Normocephalic, atraumatic. External ears without defect. Pupils equal, round, and reactive to light. Anicteric sclerae, moist conjunctivae, and no lid lag. Endotracheal tube in place. Neck: Supple. Cardiovascular: Irregular rhythm without murmurs, rubs, or gallops appreciated. Left chest tube in place. Pulmonary: Clear to auscultation bilaterally. No wheeze or crackle. Abdomen: Soft, nondistended, bowel sounds hypoactive. Genitourinary: Johnson catheter in place. Extremities: No edema, cyanosis, or clubbing. Neurologic: Agitated. Does not follow commands but alert. Ventilator settings: PRVC. Tidal volume 340. Respiratory rate 11. FiO2 35%. PEEP 7.0. Peak 28. Plateau 21. ABG: PH 7.46. PCO2 55.2. PO2 78.8. HCO3 39.0. On PRVC with an FiO2 35%, PEEP of 7.0, and SPO2 96.6%. IV drips and Sedatives: Precedex 0.9 mcg/kg/hr and Fentanyl 100 mcg/hr. IV lines: Left foot and right hand peripheral IV's. I&O: Net +32465 mL. . IVs and Medications Medications Reviewed: Medications were reviewed in detail Lab and Diagnostics Item Value Date Time Calcium Level 9.4 mg/dL 01/04/17429 Total Bilirubin 1.3 mg/dL H 01/04/17 043 Aspartate Amino Transf (AST/SGOT) 43 U/L 01/04/17429 Alanine Aminotransferase (ALT/SGPT) 39 U/L H 01/04/17 043 Alkaline Phosphatase 47 U/L 01/04/17 043 Total Protein 5.5 g/dL L 01/04/17 0430 Albumin 3.2 g/dL L 01/04/17 043 Procalcitonin 0.10 ng/mL H 01/04/17 043 Result Diagram: 01/04/1742901/04/17429 Microbiology Sputum culture is to grew light normal prince. Repeat sputum culture grew Lashae albicans. MRSA screen negative. Strep coccus pneumoniae and legionella urine antigens negative. Respiratory viral PCR negative. Blood culture 4 has no growth after 5 days. Fungal blood culture positive 2 for Lashae albicans. Pleural fungal culture negative. Pleural acid-fast culture negative. Catheter tip has no growth after 48 hours. . X-Rays, CTs and MRIs X-RAY CHEST ONE VIEW, PORTABLE IMPRESSION: Stable chest. Dictated by: Shankar Choffel RRA Interpreted: Santiago Montanez MD on 01/04/2017 at 10:30 CT CHEST, ABDOMEN AND PELVIS WTIH CONTRAST IMPRESSION: 1. Marked fluid distention of the colon most prominent within the cecum. No bowel wall thickening or evidence of small bowel obstruction. The findings are nonspecific and differential considerations include an ileus or functional obstruction distally versus Anjali's syndrome. 2. Small to moderate bilateral pleural effusions with associated compressive atelectasis. 3. Small clustered bilateral pulmonary nodules likely represent a mild infectious or inflammatory process. 4. Diffuse anasarca. Dictated by: Ravin Joshua M.D. on 01/01/2017 at 15:58 US ABDOMEN, LIMITED IMPRESSION: No free intraperitoneal fluid identified. If indicated CT could be performed to further assess for possible intraperitoneal or retroperitoneal bleed Dictated by: Shankar Mandujano RRA Interpreted: Harshil Pacheco MD on 12/28/2016 at 9: 55 US CHEST/PLEURAL SONOGRAM IMPRESSION: Small loculated complex left pleural effusion consistent with hemothorax. Dictated by: Santiago Montanez M.D. on 12/27/2016 at 13:19 CT ANGIO CHEST PULMONARY EMBOLISM IMPRESSION: 1. No pulmonary embolus. 2. Mild pulmonary edema associated with small bilateral pleural effusions. 3. Small amount of ascites. 4. Coronary artery disease. Cardiomegaly. Right heart failure. Dictated by: Julieta Gunn M.D. on 12/23/2016 at 13:33 US VENOUS LEG DUPLEX BILATERAL IMPRESSION: No deep venous thrombosis identified within either the left or right lower extremities. Dictated by: Shankar Mandujano RRA Interpreted: Sobia Plunkett MD on 12/23/2016 at 9: 58 CT BRAIN WITHOUT CONTRAST IMPRESSION: No acute intracranial disease process. Dictated by: Rosaura Wisdom MD, PhD on 12/22/2016 at 20:12 X-RAY CHEST ONE VIEW, PORTABLE IMPRESSION: Small patchy airspace opacities in the right lung base and small right-sided pleural effusion suspicious for pneumonia. Dictated by: Rosaura Wisdom MD, PhD on 12/22/2016 at 18:51 Approved by: Rosaura Wisdom MD, PhD on 12/22/2016 at 18:52 . Cardiac Echo Impressions Limited Echocardiogram Interpretation Summary: No evidence of endocarditis, consider ANA ROSA if clinically indicated. Electronically signed by: Isra Valdez on Reading Physician:01/03/2017 11:42 AM Limited Echocardiogram Interpretation Summary: Probable large left abdominal ascites possibly surrounding the spleen. There are moderate-sized bilateral pleural effusions noted. There is no thrombus seen in the right ventricle. A calcified moderator band and papillary muscle are visualized. Borderline right ventricular enlargement. Right ventricular systolic function is mild to moderately reduced. The right ventricular systolic pressure is estimated at 68 mmHg assuming a right atrial pressure of 15 mm Hg. RVSP has increased increase since prior study. Reading Physician:PM Echocardiogram Interpretation Summary: The ejection fraction is estimated to be 55-60%. Flattened septum is consistent with RV pressure/volume overload. The right ventricle is moderately dilated. Right ventricular systolic function is moderately reduced. The aortic valve is slightly calcified. The aortic valve is not well visualized. There is moderate tricuspid regurgitation. Right ventricular systolic pressure is estimated to be 39 mmHg plus the clinically estimated CVP which cannot be estimated on this exam. RV thrombus is suspected. Electronically signed by: Isra Valdez on Reading Physician:12/23/2016 11:08 AM . Assessment & Plan Virginia Ling is a 66-year-old female with a past medical history significant for hypertension and COPD who was brought to [facility] Emergency Department due to unresponsiveness requiring intubation and thought to be secondary to acute on chronic hypoxemic hypercapnic respiratory failure, hyponatremia and possibly hepatic encephalopathy. Now being treated additionally for fungemia. Hospital day and ventilator day #14. 1. Acute fungemia, not present on admission. Active. - Likely secondary to broad spectrum antibiotics. - Blood culture 2:4 bottles and sputum culture positive for Lashae albicans. - Continue micafungin x 2 weeks after negative blood cultures are obtained per ID. - Central venous line removed and sent for culture without growth as above. - CT showed probable ileus without evidence of perforation, as above. Received one time dose of Relistor with moderate BM. Continue scheduled bowel regimen. Start tube feeds. - Repeat limited echocardiogram showed no evidence of fungal endocarditis. - ID consulted and following we appreciate their time and care of the patient. 2. Acute on chronic hypoxemic and hypercapnia respiratory failure, present on admission. Active. - Patient does have a history of COPD with significant pulmonary hypertension as evident on echocardiogram. - Initial echocardiogram revealed RVSP of 34 mmHg with evidence of RV overload and septal flattening with suspected thrombus, as above. Repeat limited echocardiogram revealed worsening RV overload with increased RVSP of 64 mmHg without evidence of RV thrombus, as above. - CT angiography was negative for PE and revealed mild pulmonary edema associated with small bilateral pleural effusions and right heart failure, as above. - Repeat sputum culture grew Lashae albicans, as above. Continue micafungin per ID. - Received a sufficient course of Solu-Medrol for COPD exacerbation. - Chest x-ray revealed clear lungs bilaterally, as above. - Continue ipratropium every 4 hours. - Continue to monitor ABG daily for ventilator management. - The patient continues to have airway issue secondary to severe COPD, therefore , considering tracheostomy. However, due to fungemia and volume overload surgery is reluctant to place a tracheostomy. - Continue Precedex gtt and fentanyl gtt, as above. Continue sedation vacation and PST again today and may give fentanyl pushes for chest tube pain PRN during SBT. - ID consulted and following we appreciate their time and care of the patient. 3. Pulmonary hypertension, acuity unknown, present on admission. Active. - Likely secondary to COPD. PE/RV thrombus was suspected early oon in hospitalization but ruled out with CTA and repeat echocardiogram. - Repeat limited echocardiogram revealed worsening RV overload with increased RVSP of 64 mmHg without evidence of RV thrombus, as above. - Continue to diuresis with Lasix 40 mg IV twice a day as patient is net +12L in hospitalization. 4. Acute left sided hemothorax, status post chest tube, not present on admission. Resolving. - Initial echocardiogram was read as suspected right ventricular thrombus, therefore, a heparin gtt was initiated. - Decreasing hemoglobin from 12/25/2016 with hemoglobin of 14 to 12/27/2016 with hemoglobin of 7.6. Heparin drip discontinued and the patient was given 2 units of PRBCs. - Chest x-ray on 12/27/2016 demonstrated an acute worsening left pleural effusion with an ultrasound revealing small loculated complex left pleural effusion consistent with hemothorax, as above. - General surgery was consulted for chest tube placement with 2 L of blood status post placement. Given 2 units of PRBCs and 1 unit of platelets. - Hemoglobin and hematocrit stable status post transfusions. Continue to monitor H&H daily. - May possibly remove the chest tube (now set to water seal) in the next 1-2 days if output is negligible. 5. Acute hypomagnesemia, present on admission. Active. - Thought initially to be secondary to beer potomania but diuresis is also contributing. - Replete as needed. Ordered magnesium 2 g IV x 1 today. - Monitor magnesium level daily. 6. Acute hypokalemia, present on admission. Active. - Thought initially to be secondary to beer potomania but diuresis is also contributing. - Replete as needed.Ordered potassium 40 mEq IV x 1 today. Also supplementing 20 mEq PO daily. - Monitor potassium level daily. 7. Acute blood loss anemia, not present on admission. Resolved. - Likely secondary to hyperfibrinolysis from liver disease and heparin gtt. - Chest x-ray on 12/27/2016 demonstrated an acute worsening left pleural effusion with an ultrasound revealing small loculated complex left pleural effusion consistent with hemothorax. - General surgery was consulted for chest tube placement with 2 L of blood status post placement. Given 2 units of PRBCs and 1 unit of platelets. - Hemoglobin and hematocrit stable status post transfusions. 8. Acute shock, unclear etiology, present on admission. Resolved. - Likely secondary to cardiogenic shock but there may have been a mixed etiology with an obstructive/cardiogenic component, hypovolemia from acute blood loss, and possibly septic as VBG showed an sVO2 of 78% although infectious source was not clear. - Patient clinically volume overloaded with JVD and peripheral edema with echocardiographic and radiographic evidence of right sided heart failure. - Repeat limited echocardiogram revealed worsening RV overload with increased RVSP of 64 mmHg without evidence of RV thrombus, as above. - Off phenylephrine for vasopressor support but needed this for extended period of approximately 8 days. - Discontinued IV fluids with LR at 100 mL/hr. Had to be cautious with IV fluid resuscitation due to RV overload and to avoid to rapid over correction of sodium level and central pontine myelinosis. 9. Alcohol dependency, present on admission. Presumed stable. - CIWA protocol was in place but outside of withdrawal window at this point. - Valium is ordered per CIWA protocol as needed for agitation or anxiety. - Continue thiamine IV daily. 10. Acute encephalopathy, present on admission. Presumed stable. - Likely multifactorial and related to her hypercapnia, hyponatremia and possibly hepatic encephalopathy (CT showed abdominal ascites and history of alcohol use on HPI). Less likely PE. Unlikely differentials include overdose and epilepsy. No trauma. - CT brain without contrast was negative for any acute intracranial abnormality , as above. Patient was also non-focal on exam, therefore, CVA very unlikely. - Alcohol level and urine drug screen negative. - Received IV fluids throughout course but were cautious with IV fluid resuscitation due to RV overload and to avoid to rapid over correction of sodium level and central pontine myelinosis. - Continue Precedex and fentanyl for sedation. 11. Acute respiratory alkalosis with partial metabolic compensation, present on admission. Resolved. - Continue ventilator with settings as above. - Treat COPD as above under problem #2. - Also treat underlying etiology of shock under problem #1. 12. Atrial fibrillation with RVR, acuity unknown, present on admission. Active. - Unclear if she has a history of atrial fibrillation. - RV thrombus possible based on echocardiogram. CTA revealed no PE. - Serial troponins have been negative. - Continue amiodarone switch from PO to IV due to ileus for rhythm control per primary medical team. 13. Acute hyponatremia, present on admission. Resolved. - Likely related to dehydration and possibly beer potomania. - Monitor sodium level closely to avoid to rapid over correction central pontine myelinosis. - Monitor sodium level daily. Chronic problems with management per primary team. Disposition: Several days and depending upon clinical course. Total critical care time spent 60 minutes. . GI Prophylaxis: H2 cielo VTE Prophylaxis: Sub-Q Heparin (Unfractionated), SCDs VTE Mechanical Devices: Intermittant Pneumatic CD Resuscitation Status: DNR/DNI:Do Not Resuscitate/Intubate Attending Statement I have seen and examined this patient with the resident physician. Vital signs , labs, imaging have been reviewed. I agree with the assessment and plan above. Please refer to my separately dictated progress note for any modifications to above. Yamini Fischer M.D. Pulmonary and Critical Care medicine Pager [phone] Nneka Greene DO Jan 04, 2017 09:39 Yamini Fischer MD Jan 05, 2017 07:35
[2017-01-04] MEDS: Micafungin Inj 150 MG in 0.9% Sodium Chloride 100 ML IV SCH (09:58)
[2017-01-04] MEDS: Dexmedetomidine 400 mCg/100 mL 400 MCG in IV Premix 1 EACH IV SCH ×3 (10:10→21:46)
--- NOTE | 2017-01-04 10:31 | DRSVH ---
PROCEDURE: X-RAY CHEST ONE VIEW, PORTABLE ([id number]) INDICATIONS: acute respiratory failure TECHNIQUE: One view of the chest was acquired. COMPARISON: [facility], CR, XR CHEST 1VW (PORTABLE), 01/03/2017, 13:45. FINDINGS: Surgical changes and devices: Left chest tube is present. Stable positioning of ETT and nasogastric tube has been removed. Lungs and pleura: No pleural effusions or pneumothorax. Lungs are clear. Mediastinum: Mediastinal contours appear normal. Heart size is normal. Bones and chest wall: No suspicious bony lesions. Overlying soft tissues appear unremarkable. IMPRESSION: Stable chest. Dictated by: Shankar Mandujano RR Interpreted: Santiago Montanez MD on 01/04/2017 at 10:30 Transcribed by: LEANNA on 01/04/2017 at 10:31 Approved by: Santiago Montanez M.D. on 01/04/2017 at 11:29
[2017-01-04] MEDS: fentaNYL 2,500 mCg/250 mL 2,500 MCG in IV Premix 1 EACH IV SCH (10:34)
[2017-01-04] MEDS ORDERED: Magnesium Sulf 2 Gm/50mL Water 2 GM in IV Premix 1 EACH IV ONE ×2 (10:35→16:10)
[2017-01-04] MEDS ORDERED: KCl 40 mEq/500 mL D5W (Peripheral Line) IV ONE ×2 (11:05)
[2017-01-04] MEDS ORDERED: Potassium Chloride 20 mEq/15 mL 15mL Oral Soln TUBE ONE (11:05)
[2017-01-04] MEDS ORDERED: KCl 40 mEq/D5W 500 mL 40 MEQ in IV Premix 1 EACH IV ONE (11:20)
[2017-01-04] MEDS: Lactated Ringer's 1,000 ML IV SCH (11:26)
--- NOTE | 2017-01-04 11:34 | PROG NOTE ---
[address] [address] PROGRESS NOTE PATIENT: RAPHAEL SLATER : 1950 MR#: [id number] ADMIT: 12/22/2016 JOB ID: [id number] DATE: 01/04/2017 PULMONARY CRITICAL CARE PROGRESS NOTE: The patient is a 66-year-old woman seen for respiratory failure. She was admitted to the hospital on December 22 and intubated for COPD and cor pulmonale. Her hospital stay has been complicated by fungemia, spontaneous left hemopneumothorax on heparin drip and persistent respiratory failure. The patient was seen and evaluated with resident physician, Nneka Greene. Please refer to her separate detailed note for additional information. INTERVAL HISTORY: Continues to have fevers to 38.6. She tolerated a pressure support trial of 15/7 for about an hour. She is wide awake right now and trying to mouth something. REVIEW OF SYSTEMS: Unable to obtain. PHYSICAL EXAMINATION: Vital signs reviewed. She is alert, trying to communicate but obviously cannot understand her with the tube in place. Chest: She has bilateral wheezing. LABORATORIES: Reviewed. WBC 12.9 from 14.7. Chemistry also reviewed. Procalcitonin 0.1. Cultures: Last positive blood cultures with fungemia are from January 01 and cultures since then are so far negative. IMAGING: Chest x-ray shows no acute changes. Clear lungs with left-sided chest tube in place. ASSESSMENT AND RECOMMENDATIONS: 1. Acute hypoxic respiratory failure on mechanical ventilation since December 22. 2. 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 3. Severe sepsis. 4. Right heart failure and cor pulmonale. 5. Chronic obstructive pulmonary disease exacerbation. 6. Paralytic ileus. 7. Hemothorax on heparin drip with chest tube on the left since December 27. 8. Atrial fibrillation. Yesterday, we tried to have the chest tube taken out but she had put out 200 cc yesterday after many days of barely putting out 20-50 cc so we left the chest tube in. Will reassess over the next few days. She continues to have problems with AFib. While her resting heart rate is 100, she can jump up to the 150s or 160s quickly with agitation. She is on amiodarone which we switched back to IV because we are concerned about p.o. absorption with her ileus. I would want to ask Cardiology if there is anything we can add to this regimen for rate control. She is currently on micafungin alone. Last positive blood cultures were on January 01, and subsequent cultures are still negative. She had a limited echo yesterday to look at her valves for fungal endocarditis and there is no evidence of that. She had her PICC line removed last week once her blood cultures were positive for fungus. Will continue IV Lasix. She is getting tube feeds. She is on appropriate DVT and GI prophylaxis. CRITICAL CARE TIME: 45 minutes.
--- NOTE | 2017-01-04 11:40 | PCM.PNMED ---
Subjective Date of Service Jan 04, 2017 Subjective Overnight: Patient becomes agitated with A. fib with RVR and heart rates into the 130s 150s and systolic blood pressure into the 160s 180s. The patient was able to disengage the wrist restraints and a pull out an IV as well as her OG tube prior to nursing staff restraining her. The patient indicated to the nursing staff that she would like her ET tube to be removed. Today: Patient continues to remain febrile over the last 24 hours. Blood cultures drawn from the remain negative to date. Infectious disease recommendations are for a transesophageal echocardiogram with further positive angela blood cultures. ID also recommends an ophthalmologic exam in the future. The patient had a pressure support trial performed this morning which was failed reported to be a sincere lack of effort. The chest tube will be reevaluated today after consideration for removal yesterday the chest tube put out 200 mL of serosanguineous fluid with repositioning of the patient. Amiodarone IV with goal to transition back to higher dose oral amiodarone in the near future. Exam Vital Signs Vital Sign - Last Date Time Temp Pulse Resp B/P Pulse Ox O2 Delivery O2 Flow Rate FiO2 01/04/17 04:45 104 146/80 99 35 01/04/17 04:30 Ventilator 01/04/17 04:30 37.8 12 Intake and Output 01/03/17 01/03/17 01/04/17 Cumulative From/Thru 15:00 23:00 07:00 12/22/16 18:16 - 01/04/17 05:51 Intake Total 868 ml 576 ml 23232 ml Output Total 2750 ml 800 ml 55890 ml Balance -1882 ml -224 ml 97540 ml Intake IV Total 748 ml 576 ml 24337 ml Tube Feeding 0 ml 8129 ml Packed Cells 280 ml FFP 215 ml Platelets 792 ml Tube Irrigant 120 ml 2305 ml Output Urine Total 2350 ml 800 ml 02508 ml Gastric Drainage Total 200 ml 0 ml 470 ml Chest Tube Drainage Total 200 ml 0 ml 3447 ml # Voids 0 # Bowel Movements 4 Exam General: thin female appearing older than stated age lying in bed intubated but alert Eyes: PERRLA. Anicteric sclerae, moist noninjected conjunctivae HENT: Normocephalic, atraumatic. Endotracheal and oropharyngeal tube in place. External ears without defect. Neck: Supple, mild JVD, trachea midline, No lymphadenopathy or thyromegaly. Cardiovascular: Tachycardia with Irregular rhythm tachycardia without murmurs, rubs, or gallops appreciated. Pulmonary: Mild coarse breath sounds bilaterally with significantly improved air movement on the left lower axillary base with clean dry bandage and chest tube with serosanguineous fluid and limited tidal volume variation in tubing. No wheezing noted Abdomen: Mild distention, tympanic to percussion, bowel sounds normoactive. Genitourinary: Johnson catheter in place. Extremities: pulses intact at radial bilaterally and and decreased dorsalis pedis bilaterally. Neuro: Pupils equal round reactive to light, not following commands at this time Psych: Unable to obtain IVs and Medications Medications Reviewed: Medications were reviewed in detail Lab and Diagnostics Result Diagram: 01/04/1742901/04/17429 Microbiology Repeat sputum culture has no growth to date. Sputum culture grew light normal prince. MRSA screen negative. Streptococcus pneumoniae and Legionella urine antigens negative. Respiratory viral PCR negative. _ Microbiology DAVE CULT BLOOD FUNGUS Preliminary 01/01/17 Organism 1 ANGELA ALBICANS ISOLATED FROM ONE OF THREE BOTTLES COLLECTED 12/27/16 _ X-Rays, CTs and MRIs CT BRAIN WITHOUT CONTRAST IMPRESSION: No acute intracranial disease process. Dictated by: Rosaura Wisdom MD, PhD on 12/22/2016 at 20:12 US VENOUS LEG DUPLEX BILATERAL IMPRESSION: No deep venous thrombosis identified within either the left or right lower extremities. Dictated by: Shankar BARRETO Interpreted: Sobia Plunkett MD on 12/23/2016 at 9: 58 CT ANGIO CHEST PULMONARY EMBOLISM IMPRESSION: 1. No pulmonary embolus. 2. Mild pulmonary edema associated with small bilateral pleural effusions. 3. Small amount of ascites. 4. Coronary artery disease. Cardiomegaly. Right heart failure. Dictated by: Julieta Gunn M.D. on 12/23/2016 at 13:33 X-RAY CHEST ONE VIEW, PORTABLE IMPRESSION: Placement of left pleural drain with significant reduction in size of loculated left pleural effusion. No pneumothorax. Dictated by: Shankar BARRETO Interpreted: Harshil Pacheco MD on 12/28/2016 at 17 :10 CT CHEST, ABDOMEN AND PELVIS WTIH CONTRAST IMPRESSION: 1. Marked fluid distention of the colon most prominent within the cecum. No bowel wall thickening or evidence of small bowel obstruction. The findings are nonspecific and differential considerations include an ileus or functional obstruction distally versus Anjali's syndrome. 2. Small to moderate bilateral pleural effusions with associated compressive atelectasis. 3. Small clustered bilateral pulmonary nodules likely represent a mild infectious or inflammatory process. 4. Diffuse anasarca. Dictated by: Ravin Joshua M.D. on 01/01/2017 at 15:58 Cardiac Echo Impressions Echocardiogram Report Interpretation Summary Probable large left abdominal ascites possibly surrounding the spleen. There are moderate-sized bilateral pleural effusions noted. There is no thrombus seen in the right ventricle. A calcified moderator band and papillary muscle are visualized. Borderline right ventricular enlargement. Right ventricular systolic function is mild to moderately reduced. The right ventricular systolic pressure is estimated at 68 mmHg assuming a right atrial pressure of 15 mm Hg. RVSP has increased increase since prior study. Echocardiogram Report Interpretation Summary No evidence of endocarditis, consider ANA ROSA if clinically indicated. Electronically signed by: Isra Valdez on Reading Physician:01/03/2017 11:42 AM Additional Diagnostics ABG DateTimeAnalyzed 04:50:00 -_ pH ____7.513 - pCO2 ___46.8__ -mmHg pO2 ___45.3__ -mmHg HCO3- ___37.3__ -mmol/L Assessment & Plan Patient is a 66-year-old female with past medical history remarkable for COPD, hypertension, and alcohol dependency presents to schedule an hospital with acute respiratory failure secondary to right heart failure and cor pulmonale. Hospital day 14. 1. Acute on chronic respiratory failure with hypoxia and hypercapnia, present on admission, ongoing. - Patient does have a history of COPD/emphysema and she is likely CO2 retainer. May also be secondary to cor pulmonale. - Echocardiograms show pulmonary hypertension with right ventricular dilation and moderate reduced ejection fraction - ABG to be done in AM and as needed for ventilator management. - Fentanyl and Precedex for sedation. Titrate down dosing as tolerated by patient. - Continue solu-medrol taper 40 mg Q8 today transition to now 40 mg daily. - Atrovent nebs available Q6. - Pulmonology has been consulted for assistance with vent management and we appreciate their assistance. - Family meeting with brother and medical decision maker on 01/02/2017 patient will continue to be treated with goals of extubation 2. Right heart failure and cor pulmonale, presume chronic, present on admission. - Uncertain of the precise etiology but patient has significant alcohol history as well as emphysema. - This will increase the morbidity and mortality of the patient in the setting of this prolonged ICU stay. - Dr. Pinto has been consulted and we appreciate her recommendations. - continue Lasix given for anasarca associated with right heart failure 3. Possible pneumonia, present on admission, under evaluation - Patient initially presented with a possibility of pneumonia however after being treated with Zosyn and remaining with negative procalcitonin, pneumonia was considered less likely - increasing white blood cell counts could be attributed to an infection or steroid use for COPD exacerbation - Left lower quadrant consolidation visualized with ultrasound showed moderate loculations consistent with hemothorax possible developing empyema however has remained culture negative after chest tube placement - Yeast in blood not consistent with pneumonia as a source, candidiasis does not cause pneumonia 4. Likely ileus, not present on admission, under evaluation - CT abdomen and pelvis performed on 01/02 showed distended loops of bowel - Patient has recent new onset fevers which could be attributed to micafungin however also possibly new infectious source - C. difficile PCR ordered - FMS will be discontinued today as no stool has been moving through it. - Tube feeding continues to be on hold. - methylnaltrexone seems to have improved the patient's ileus 5. Left sided Hemothorax, not present on admission, drained considered stable - General surgery placed a left-sided chest tube 12/28/2016 with 2 L of blood it out immediately. 2 units of packed RBCs given with 1 unit of platelets - Initial protein evaluation 3.5 compared to total protein of blood 4.3 consistent with exudative effusion - Substantial RBCs consistent with hemothorax. Cultures negative at this time. - Pleural fluid sent for cultures remains negative - Consider likely secondary to heparin drip, which has been stopped. - Gen. surgery decided to leave the chest tube in place after return of 200 mL of serosanguineous fluid with repositioning of the patient yesterday - Gen. surgery to evaluate for removal of the chest tube today depending on evaluation of chest x-ray after hours of waterseal on 6. Atrial fibrillation with rapid ventricular response, acute, present on admission, improving. - Not clear if she has a history of atrial fibrillation. - Patient's blood pressure does not tolerate the use of beta blockers. - Discontinue Amiodarone drip, converted to amiodarone 200 mg BID, will be converted again to amiodarone IV for loading and will be reassessed daily - Dr. Pinto has been consulted and we appreciate her recommendations. 7. Fungemia, likely present on admission, under evaluation - Continue micafungin day 5. - Infectious disease following and we appreciate Dr. Magallanes's recommendations. - Angela is not a likely pathogen that causes pneumonia. Central venous line removed and sent for culture currently negative - Repeat blood cultures drawn on 01/01 have resulted in a positive Angela these will be redrawn serially until a negative culture is obtained and then continue micafungin for 2 weeks after first negative culture - With continued fungemia ID recommendations. Transesophageal echocardiogram for possible fungal endocarditis as well as an ophthalmologic exam - Consider adding amphotericin if patient does not clear angela within next day or so 8. Alcohol dependency, present on admission, stable - CIWA protocol ordered however patient is currently intubated and sedated - Continue thiamine IV daily. 9. Acute blood loss anemia, not present on admission, improved - Initial echo showed possible right ventricular thrombus AND a Heparin drip was initiated for possible right ventricular thrombus - Decreasing hemoglobin from 12/25/2016 with hemoglobin of 14, to 12/27/2016 with hemoglobin of 7.6 heparin drip discontinued packed RBCs given - Chest x-ray on 12/27/2016 shows a worsening left pleural effusion, ultrasound used to fine fluid collection shows moderate loculations consistent with hemothorax possible developing empyema - Gen. surgery consulted for possible chest tube placement, will be reconsidered on 12/27/2016 - DIC panel ordered with note of bleeding from all IV sites; Haptoglobin increased, fibrinogen decreased but above 100, elevated d-dimer, elevated PT, INR, and PTT consistent with acute DIC and 1 unit of fresh frozen plasma given - General surgery placed a left-sided chest tube today with 2 L of blood it out immediately. 2 units of packed RBCs given with 1 unit of platelets - Continue to monitor CBC. 10. Hypokalemia, acute, present on admission. Resolved monitoring - Continue to monitor with BMP and replete as needed. 11. Hypothyroidism, acute, present on admission. - Likely secondary to being critically ill. - Will need follow up labs approximately 6-8 weeks after hospital discharge. 12. Possible adrenal insufficiency, acute, present on admission. - ACTH-stim test shows low level of cortisol. - Patient already undergoing treatment with IV steroids. - Will need to plan for slow taper and close outpatient follow up. 13. Acute encephalopathy, present on admission, considered stable - Possibly related to her hypercapnia but must also consider reversible other etiologies such as toxic ingestion, hypothyroidism. - Patient remains intubated and mildly sedated at this time so this is difficult to fully evaluate. 14. Possible Right ventricular thrombus, present on admission, unstable - Seen on initial echocardiogram ordered for apparent volume overload due to right heart failure. - Discontinue Heparin PE protocol drip for presumed RV thrombus. - Limited echo fails to reveal right ventricular thrombus - Consideration for either no thrombus on initial echo versus less likely dislodge of thrombi/PE given no increased oxygen requirements 15. Hyponatremia, acute, present on admission, monitoring - May be related to dehydration - Continue to monitor BMP. 16. Acute shock, present on admission, resolved - Multifactorial with elements of septic and cardiogenic shock. - Patient appeared volume overloaded at admission with JVD and peripheral edema consistent with right heart failure. Now also has new fever, leukocytosis and continued hypotension. 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 - Antacid available PRN. - Bowel regimen available PRN. - Tylenol available PRN mild pain, fever. Disposition: patient will likely continue to be in the CCU for several more days of mechanical ventilation given severe COPD with emphysema, cor pulmonale, right-sided heart failure and now new possible bilateral nodular pneumonia. Would like to plan for transfer to [place] if patient able to undergo surgery for trach and peg placement. GI Prophylaxis: H2 cielo VTE Prophylaxis: Sub-Q Heparin (Unfractionated), SCDs VTE Mechanical Devices: Intermittant Pneumatic CD Resuscitation Status: DNR/DNI:Do Not Resuscitate/Intubate Time spent Greater than 35 minutes Attending Statement The patient was seen and examined together with Dr. Lomas on 01/04/17 and I agree with the history, exam and plan as outlined in the note above. Parth Schneider DO Jan 04, 2017 07:00 Madeline Ayala DO Jan 04, 2017 17:51
[2017-01-04] MEDS ORDERED: Vancomycin Dose per Pharmacist XX SCH (14:30)
[2017-01-04 15:32] LABS: Magnesium 1.9 mg/dL (1.6-2.6)
[2017-01-04] MEDS ORDERED: Vancomycin Inj 1,250 MG in 0.9% Sodium Chloride 250 ML IV ONE (16:00)
[2017-01-04] MEDS ORDERED: 0.9% Sodium Chloride 250 ML IV ONE (16:10)
--- NOTE | 2017-01-04 17:41 | PCM.CONPHA ---
Subjective Date of Service: Jan 04, 2017 Ventilator Management. . Reason for Pharmacy Consult: Vancomycin Dosing Objective Vital Signs Date Time Temp Pulse Resp B/P Pulse Ox O2 Delivery O2 Flow Rate FiO2 01/04/17 17:18 145 125/84 100 35 01/04/17 16:10 140 22 125/84 95 35 01/04/17 12:00 Ventilator 01/04/17 12:00 38.2 89 10 115/66 100 Mechanical Ventilator 35 01/04/17 11:43 83 107/62 100 35 01/04/17 09:55 79 139/82 100 35 01/04/17 09:55 0 95 35 01/04/17 09:15 95 35 01/04/17 08:24 37.8 114 23 148/82 100 Mechanical Ventilator 35 01/04/17 08:24 Ventilator 01/04/17 07:43 67 130/80 100 35 01/04/17 04:45 104 146/80 99 35 01/04/17 04:30 Ventilator 01/04/17 04:30 37.8 82 12 151/74 100 Mechanical Ventilator 35 01/04/17 00:30 38.1 102 20 168/96 98 Mechanical Ventilator 35 01/04/17 00:30 Ventilator 01/04/17 00:07 83 160/97 99 35 01/03/17 20:30 Ventilator 01/03/17 20:30 38.6 85 19 144/87 99 Mechanical Ventilator 35 01/03/17 19:33 83 139/78 99 35 Intake and Output 01/02/17 01/03/17 01/04/17 00:00 00:00 00:00 Intake Total 2402 ml 1336 ml 1515 ml Output Total 1665 ml 3072 ml 4000 ml Balance 737 ml -1736 ml -2485 ml Weight (Kilograms): 60.800 Height (Feet): 5 Height (Inches): 0.00 Test 12/22/16 18:30 12/22/16 20:06 12/22/16 21:07 12/22/16 21:21 Hemoglobin A1c 6.0% (4.8-5.6) Alcohols < 10mg/dL (0-10) Thyroid Stimulating Hormone (TSH) 0.012uIU/mL (0.450-4.500) Free Thyroxine Index 2.8 (1.2-4.9) Thyroxine (T4) 7.1ug/dL (4.5-12.0) Triiodothyronine (T3) Uptake 39% (24-39) Urine Legionella pneumophilia Ag Negative (Negative) Urine Opiates Screen Negative Urine Methadone Screen Negative Urine Barbiturates Screen Negative Urine Amphetamines Screen Negative Urine Benzodiazepines Screen Negative Urine Cocaine Metabolite Screen Negative Urine Cannabinoids Screen Negative Test 12/23/16 02:00 12/23/16 11:20 12/26/16 03:45 12/27/16 05:50 Cortisol Baseline 9.4ug/dL (.) Cortisol Stimulation Collect Time 2 8.8ug/dL (Not Estab.) Cortisol Stimulation Collect Time 3 8.7ug/dL (Not Estab.) Troponin T < 0.010ug/L (0.0-0.011) Prealbumin 14mg/dL (20-40) Lactic Acid Level 1.4mmol/L (0.4-2.0) Lactate Dehydrogenase 172U/L (100-190) Lipase 90U/L (13-60) Test 12/27/16 10:15 12/27/16 11:15 12/27/16 12:00 12/27/16 16:55 Ammonia 83ug/dL (18-53) Cryptococcus Antigen Negative (Negative) Aspergillus flavus Antibody Negative (Neg:<1:1) Aspergillus fumigatus Antibody Negative (Neg:<1:1) Aspergillus galactomannan Antigen 0.11Index (0.00-0.49) Aspergillus niger Antibody Negative (Neg:<1:1) TB Test (QFT) Gold In Tube Indeterminate (Negative) TB Test (QFT) Incubation Comment (.) TB Test (QFT) Mitogen 0.07IU/mL (.) TB Test (QFT) Antigen 0.06IU/mL (.) TB Test (QFT) Antigen Minus Nil <0.00IU/mL (.) TB Test (QFT) TB - Nil 0.14IU/mL (.) TB Test (QFT) Positive Criteria Comment (.) TB Test (QFT) Interpretation Comment (.) Hold Blue Top Tube Received (Received) Haptoglobin 81mg/dL (34-200) Heparin-PF4 Ab Optical Density 0.057OD (<0.4) Heparin-PF4 Antibody Interpretation Not indicated Test 12/28/16 06:10 12/28/16 13:45 12/29/16 04:00 12/30/16 05:30 Activated Partial Thromboplast Time 26.8sec (22.8-33.0) Fibrinogen 148mg/dL (157-380) D-Dimer 1.8mg/L (<0.50) Body Fluid Source Pleural fluid Body Fluid Color Red (Clear) Body Fluid Appearance Bloody Body Fluid pH 7.3 (Not Estab.) Body Fluid WBC 1889/mm3 Body Fluid RBC 738155/mm3 Body Fluid Polynuclear WBCs 92% Body Fluid Lymphocytes 4% Body Fluid Monocytes 4% Body Fluid Eosinophils 0% Body Fluid Basophils 0% Body Fluid Lactate Dehydrogenase 649U/L Pleural Fluid Total Protein 3.5g/dL Pleural Fluid Glucose 99mg/dL Hepatitis A IgM Antibody Negative (Negative) Hepatitis B Surface Antigen Negative (Negative) Hepatitis B Core IgM Antibody Negative (Negative) Hepatitis C Antibody <0.1s/co ratio (0.0-0.9) Hepatitis C Comment Comment (.) Band Neutrophils % 4% (1-5) Test 12/31/16 04:57 01/01/17 15:25 01/03/17 03:40 01/04/17 04:30 Erythrocyte Sedimentation Rate 24mm/hr (0-40) Prothrombin Time 11.3sec (8.1-12.5) Prothromb Time International Ratio 1.05ratio C-Reactive Protein 1.5mg/dL (0.0-0.5) Pro-B-Type Natriuretic Peptide 5529pg/mL (0-287) Urine Color Yellow (YELLOW) Urine Appearance Clear (CLEAR,HAZY) Urine pH 6.0 (5.0-8.0) Urine Specific [place] <1.005 (1.003-1.035) Urine Protein Tracemg/dL (NEG,TRACE) Urine Glucose (UA) Negativemg/dL (NEGATIVE) Urine Ketones Negativemg/dL (NEGATIVE) Urine Occult Blood Negative (NEGATIVE) Urine Nitrite Negative (NEGATIVE) Urine Bilirubin Negative (NEGATIVE) Urine Urobilinogen Normalmg/dL (NORMAL) Urine Leukocyte Esterase Negative (NEGATIVE) Urine RBC 0-2/hpf (0-2) Urine WBC 0-5/hpf (0-5) Urine Epithelial Cells Occasional/hpf (NONE-MOD) Urine Crystals None seen (NONE SEEN) Urine Bacteria None/hpf (NONE-FEW) Urine Hyaline Casts None/lpf (NONE) Urine Granular Casts None seen (NONE SEEN) Urine Waxy Casts None seen (NONE SEEN) Urine Red Blood Cell Casts None seen (NONE SEEN) Urine White Blood Cell Casts None seen (NONE SEEN) Urine Mucus None seen (None Seen) Urine Trichomonas None seen (NONE SEEN) Urine Yeast None (NONE SEEN) Urinalysis Comment None Urine Culture Reflexed Not indicated Phosphorus Level 3.9mg/dL (2.5-4.9) White Blood Count 12.9th/mm3 (3.8-10.1) Red Blood Count 3.59mil/mm3 (3.90-5.20) Hemoglobin 11.3g/dL (12.0-15.6) Hematocrit 34.4% (35.0-46.0) Mean Corpuscular Volume 95.8fL (81-100) Mean Corpuscular Hemoglobin 31.5pg (27.0-35.0) Mean Corpuscular Hemoglobin Concent 32.8% (32.0-37.0) Red Cell Distribution Width 14.4% (12.3-15.4) Platelet Count 215bil/L (150-400) Neutrophils (%) (Auto) 83.5% (40-74) Lymphocytes (%) (Auto) 8.8% (14-46) Monocytes (%) (Auto) 7.4% (4-12) Eosinophils (%) (Auto) 0% (0-5) Basophils (%) (Auto) 0.1% (0-3) Sodium Level 142mEq/L (134-144) Chloride Level 96mEq/L (97-108) Carbon Dioxide Level 34mmol/L (18-29) Blood Urea Nitrogen 30mg/dL (8-27) Creatinine 0.80mg/dL (0.57-1.00) Estimat Glomerular Filtration Rate 103mL/min (>59) Glucose Level 101mg/dL (60-99) Calcium Level 9.4mg/dL (8.5-10.1) Total Bilirubin 1.3mg/dL (0.0-1.2) Aspartate Amino Transf (AST/SGOT) 43U/L (0-50) Alanine Aminotransferase (ALT/SGPT) 39U/L (0-32) Alkaline Phosphatase 47U/L (25-165) Total Protein 5.5g/dL (6.4-8.4) Albumin 3.2g/dL (3.4-5.0) Procalcitonin 0.10ng/mL (0.00-0.08) Test 01/04/17 15:00 Potassium Level 4.6mEq/L (3.5-5.2) Magnesium Level 1.9mg/dL (1.6-2.6) Assessment/Plan Assessment/Plan Vanco per Rx Indication: Possible PNA ? Trough Goal : 15 - 20; Tmax 38.2; WBC trending down, to 12.9 Vd 42.5; LD 1250mg follow by 1000mg q18h 1st trough before the 4th dose, @ 2330 on 01/06; [place] @ 18 Pardeep Weber PharmD Jan 04, 2017 17:41
[2017-01-04 21:14] LABS: Magnesium 2.1 mg/dL (1.6-2.6)
[2017-01-05] VITALS (13 sets, daily range): BP systolic 85–118; BP diastolic 45–81; PULSE 63–114; RESP 11–21; O2SAT 88–100
[2017-01-05] MEDS: Amiodarone 150 mg/100 mL D5W 150 MG in IV Premix 1 EACH IV SCH ×2 (00:59→18:20)
[2017-01-05] MEDS: Chlorhexidine 0.12% 15 mL Oral Solution MT SCH ×6 (00:59→20:37)
[2017-01-05] MEDS: Ipratropium 0.02% 0.5 mg/2.5 mL Inhalation Solution NEB SCH ×6 (01:15→21:50)
[2017-01-05] MEDS: Insulin Human REGular 300 Unit/3 mL Inj SUBQ SCH ×4 (04:00→20:30)
[2017-01-05 04:28] LABS: BASOPHILS % (AUTO) 0.1 % (0-3); EOSINOPHILS % (AUTO) 0.2 % (0-5); MONOCYTES % (AUTO) 6.8 % (4-12); Mean Corpuscular Volume 98.1 fL (81-100); NEUTROPHILS % (AUTO) 79.4 % (40-74); Platelet Count 176 bil/L (150-400)
[2017-01-05 04:49] LABS: Magnesium 2.1 mg/dL (1.6-2.6); Phosphorus 2.7 mg/dL (2.5-4.9)
[2017-01-05] MEDS: Budesonide 0.5 mg/2 mL Inhalation Solution NEB SCH ×2 (05:16→21:50)
--- NOTE | 2017-01-05 05:26 | ABG ---
DateTimeAnalyzed 05:23:00 -_ pH ____7.462 - 7.350 7.450 pCO2 ___52.1__ -mmHg 35.0 45.0 pO2 ___62.6__ -mmHg 69.0 116 HCO3- ___36.7__ -mmol/L 22.0 26.0 ABE ___11.6__ -mmol/L -2.0 2.0 tHb ___10.0__ -g/dL O2Hb ___91.4__ -% COHb ____1.5__ -% MetHb ____0.9__ -% sO2 ___93.6__ -% FIO2 ___35.0__ -% PEEP ____7.0__ -cmH2O Set_RR ____8.0__ -b/min Vt __340.0__ -L Drawn By MK - Date/Time Notified____ 05:25:00 -_ Spontaneous_RR ___16.0__ -b/min Oxygen Device 1 VENTILATOR - Notified By MK - B 755 -mmHg tO2 ___12.9__ -Vol% Lance test _Positive -
[2017-01-05] MEDS: Polyethylene Glycol (PEG) 17 Gm Powder PO SCH ×2 (07:28→20:36)
[2017-01-05] MEDS: Heparin 5,000 Unit/mL Inj SUBQ SCH ×2 (07:29→20:37)
[2017-01-05] MEDS: Micafungin Inj 150 MG in 0.9% Sodium Chloride 100 ML IV SCH (07:42)
[2017-01-05] MEDS: Famotidine Inj 20 MG in IV Premix 1 EACH IV SCH ×2 (07:43→20:37)
[2017-01-05] MEDS ORDERED: Potassium Chloride 20 mEq/15 mL 15mL Oral Soln TUBE SCH (08:00)
--- NOTE | 2017-01-05 08:29 | PROG NOTE ---
[address] [address] PROGRESS NOTE PATIENT: RAPHAEL SLATER : 1950 MR#: [id number] ADMIT: 12/22/2016 JOB ID: [id number] DATE: 01/05/2017 REASON FOR FOLLOWUP: High-grade fungemia in a complex ICU patient. INTERVAL HISTORY: Overnight, the patient has been sedated a bit with benzodiazepines and has been less agitated. This morning, she seems quite sedated and I cannot rouse her, whereas yesterday she was quite animated. This morning, she does not respond at all during the physical and apparently she has not been aroused for a few hours, likely secondary to her increased sedation/agitation therapy. This case was discussed in great detail with the ICU nurse at the bedside. The patient continues to have minimal output from her chest tube on the left which was placed because of the hemothorax. Her urine output yesterday was tremendous and she had an excellent diuresis, but this has left her mildly hypotensive this morning with systolic pressures in the mid 80s. Nonetheless, she is not tachycardic and is oxygenating well. We are continuing to use two peripheral IVs, one in the right hand and one in the left foot. PHYSICAL EXAMINATION: Reveals a woman whose fevers are gradually moderating. Her highest temperature in the past 24 hours was 38.4 yesterday afternoon, and she is currently 37.7. Pulse 75, blood pressure 85/52. She is saturating 100% on 30 FiO2 and 7 of PEEP. Urine output was tremendous yesterday and may be part of the reason for her systolic blood pressure. Examination of the eyes unremarkable. Oral endotracheal tube, orogastric tube in good position. Note that she is back on tube feedings after a long hiatus in her feeding. Neck without notable new abnormality. Lungs with decreased breath sounds at the left base. Cardiac tones without significant new murmur. Abdomen is slightly distended, perhaps, but without focal tenderness or mass. Johnson catheter is present. The right hand IV appears benign. The left foot IV has a minimal amount area of erythematous streaking just above it. No other skin rash noted. LABORATORIES: Include white blood count 11,700, hematocrit 31, platelets 176. Creatinine 0.82. LFTs are normal. Albumin 2.5. Procalcitonin is 0. Urinalysis without white cells. No new serologies. Micro, in terms of her cultures, we have several blood cultures between December 27 and January 01 which are all growing Lashae albicans with pending susceptibilities. The C. diff is negative. Blood culture on the , 1/6 bottles is growing a coag-negative staph. Blood cultures on the negative at basically 28 hours. Yesterday's chest x-ray showed stable chest with clear lungs, and the left chest tube. Today's chest x-ray was compared on the computer to yesterday's, though there is no formal reading on today's. I see absolutely no change between yesterday's and today's except perhaps a little bit of clearing in the right base, but really the lung wooten appear clear, and the chest tube is still present, of course. IMPRESSION: Aside from the rather soft systolic blood pressure the last few hours, the patient seems quite stable. Her fevers are very low-grade and seem actually to be moderating. Her respiratory status seems quite stable as she is oxygenating very well on 30% and 7 of PEEP, and having minimal pulmonary secretions and basically a normal chest x-ray. The single coagulase-negative Staph isolated from one blood culture from the is almost certainly a contaminant and I do not think we need to treat it. Yesterday afternoon, I had started the patient on some vancomycin and repeated blood cultures when I was notified of this single positive blood culture, but I think at this point, we can stop the vancomycin. The patient's fungemia appears under control as we now have some negative fungal blood cultures and, if needed, a PICC or other similar central line could be placed and we could dispense with the peripheral IVs especially the one in the foot. As we still await the fungal susceptibilities from [facility], but this organism will certainly be susceptible and we could likely switch her to fluconazole in the near future, which could even be given by the oral route if desired. RECOMMENDATIONS: 1. Discontinue vancomycin. 2. We await the pending blood cultures and fungal susceptibilities. 3. Will continue with micafungin until we have back the fungal susceptibilities, but then will likely change to fluconazole for a prolonged course. 4. The patient is cleared for a PICC line at this point if it is needed, though I think we can hold off another day or two, and let the fungal blood cultures mature. That would not be unreasonable. 5. This case was discussed in detail with the ICU nurse at the bedside.
[2017-01-05] MEDS ORDERED: Methylnaltrexone 12 mg/0.6 mL Inj SUBQ SCH (08:30)
--- NOTE | 2017-01-05 10:21 | PCM.PNMED ---
Subjective Date of Service Jan 05, 2017 Subjective Intensive Care/Pulmonology Consultation Note: Attending Dr. Aaliyah Ling is a 66-year-old female with a past medical history significant for hypertension and COPD who was brought to [facility] Emergency Department due to unresponsiveness requiring intubation and thought to be secondary to hypercapnia, hyponatremia and possibly hepatic encephalopathy. Now being treated for fungemia and acute on chronic hypoxemic hypercapnic respiratory failure Hospital day/ventilator day #15. Overnight: The patient was agitated again overnight and received 1 mg of Ativan for which she rested very well. Telemetry overnight: Atrial fibrillation, baseline heart rate 50 to 60's, with RVR this morning up to 180's. Subjective exam and review of systems are unobtainable as the patient is intubated and sedated. The patient had a PST at 13/7 for 45 minutes yesterday with tidal volumes of 350 and was put back on PRVC for agitation and tachypnea. The patient is more alert and somewhat agitated in the afternoon and yesterday was able to follow commands. This morning she is rather somnolent but arousable. . Exam Vital Signs Vital Sign - Last Date Time Temp Pulse Resp B/P Pulse Ox O2 Delivery O2 Flow Rate FiO2 01/05/17 09:10 68 21 102/56 88 35 01/05/17 07:11 Ventilator 01/05/17 07:11 37.7 Intake and Output 01/04/17 01/04/17 01/05/17 Cumulative From/Thru 15:00 23:00 07:00 12/22/16 18:16 - 01/05/17 05:44 Intake Total 1563 ml 1510 ml 54538 ml Output Total 1880 ml 420 ml 25305 ml Balance -317 ml 1090 ml 19277 ml Intake Oral 0 ml 0 ml IV Total 1563 ml 1028 ml 17018 ml Tube Feeding 317 ml 8446 ml Packed Cells 280 ml FFP 215 ml Platelets 792 ml Tube Irrigant 165 ml 2470 ml Output Urine Total 1750 ml 400 ml 54554 ml Gastric Drainage Total 100 ml 570 ml Chest Tube Drainage Total 30 ml 20 ml 3497 ml # Voids 0 # Bowel Movements 4 Exam General: Middle-aged thin female lying in bed, intubated and sedated. HEENT: Normocephalic, atraumatic. External ears without defect. Pupils equal, round, and reactive to light. Anicteric sclerae, moist conjunctivae, and no lid lag. Endotracheal and OG tubes in place. Neck: Supple. Cardiovascular: Irregular rhythm without murmurs, rubs, or gallops appreciated. Left chest tube with dressing in place. Pulmonary: Clear to auscultation bilaterally. No wheeze or crackle. Abdomen: Soft, nondistended, bowel sounds active. Genitourinary: Johnson catheter in place. Extremities: No edema, cyanosis, or clubbing. Neurologic: Somnolent but arousable. Ventilator settings: PRVC. Tidal volume 340. Respiratory rate 8. FiO2 35%. PEEP 7.0. Peak 28. Plateau 21. ABG: PH 7.462. PCO2 52.1. PO2 62.6. HCO3 36.7. On PRVC with an FiO2 35%, PEEP of 7.0, and SPO2 93.6%. IV drips and Sedatives: Precedex 0.9 mcg/kg/hr and Fentanyl 50 mcg/hr. IV lines: Left foot and right hand peripheral IV's. I&O: Net + 60077 mL. . IVs and Medications Medications Reviewed: Medications were reviewed in detail Lab and Diagnostics Item Value Date Time Calcium Level 8.7 mg/dL 01/05/17417 Phosphorus Level 2.7 mg/dL 01/05/17417 Magnesium Level 2.1 mg/dL 01/05/17417 Total Bilirubin 0.7 mg/dL 01/05/17417 Aspartate Amino Transf (AST/SGOT) 38 U/L 01/05/178 Alanine Aminotransferase (ALT/SGPT) 30 U/L 01/05/17417 Alkaline Phosphatase 39 U/L 01/05/17417 Total Protein 4.6 g/dL L 01/05/178 Albumin 2.5 g/dL L 01/05/17417 Result Diagram: 01/05/1741701/05/17417 Microbiology Sputum culture is to grew light normal prince. Repeat sputum culture grew Lashae albicans. MRSA screen negative. Strep coccus pneumoniae and legionella urine antigens negative. Respiratory viral PCR negative. Blood culture 4 has no growth after 5 days. Fungal blood culture positive 4 for Lashae albicans. Repeat fungal blood culture x1 is negative since 01/01/17 and x2 are negative since 01/03/17 and x 2 01/03/17. Pleural fungal culture negative. Pleural acid-fast culture negative. Catheter tip has no growth after 48 hours. . X-Rays, CTs and MRIs X-RAY CHEST ONE VIEW, PORTABLE IMPRESSION: Stable chest. Dictated by: Shankar BARRETO Interpreted: Santiago Montanez MD on 01/04/2017 at 10:30 CT CHEST, ABDOMEN AND PELVIS WTIH CONTRAST IMPRESSION: 1. Marked fluid distention of the colon most prominent within the cecum. No bowel wall thickening or evidence of small bowel obstruction. The findings are nonspecific and differential considerations include an ileus or functional obstruction distally versus Anjali's syndrome. 2. Small to moderate bilateral pleural effusions with associated compressive atelectasis. 3. Small clustered bilateral pulmonary nodules likely represent a mild infectious or inflammatory process. 4. Diffuse anasarca. Dictated by: Ravin Joshua M.D. on 01/01/2017 at 15:58 US ABDOMEN, LIMITED IMPRESSION: No free intraperitoneal fluid identified. If indicated CT could be performed to further assess for possible intraperitoneal or retroperitoneal bleed Dictated by: Shankar BARRETO Interpreted: Harshil Pacheco MD on 12/28/2016 at 9: 55 US CHEST/PLEURAL SONOGRAM IMPRESSION: Small loculated complex left pleural effusion consistent with hemothorax. Dictated by: Santiago Montanez M.D. on 12/27/2016 at 13:19 CT ANGIO CHEST PULMONARY EMBOLISM IMPRESSION: 1. No pulmonary embolus. 2. Mild pulmonary edema associated with small bilateral pleural effusions. 3. Small amount of ascites. 4. Coronary artery disease. Cardiomegaly. Right heart failure. Dictated by: Julieta Gunn M.D. on 12/23/2016 at 13:33 US VENOUS LEG DUPLEX BILATERAL IMPRESSION: No deep venous thrombosis identified within either the left or right lower extremities. Dictated by: Shankar BARRETO Interpreted: Sobia Plunkett MD on 12/23/2016 at 9: 58 CT BRAIN WITHOUT CONTRAST IMPRESSION: No acute intracranial disease process. Dictated by: Rosaura Wisdom MD, PhD on 12/22/2016 at 20:12 X-RAY CHEST ONE VIEW, PORTABLE IMPRESSION: Small patchy airspace opacities in the right lung base and small right-sided pleural effusion suspicious for pneumonia. Dictated by: Rosaura Wisdom MD, PhD on 12/22/2016 at 18:51 Approved by: Rosaura Wisdom MD, PhD on 12/22/2016 at 18:52 . Cardiac Echo Impressions Limited Echocardiogram Interpretation Summary: No evidence of endocarditis, consider ANA ROSA if clinically indicated. Electronically signed by: Isra Valdez on Reading Physician:01/03/2017 11:42 AM Limited Echocardiogram Interpretation Summary: Probable large left abdominal ascites possibly surrounding the spleen. There are moderate-sized bilateral pleural effusions noted. There is no thrombus seen in the right ventricle. A calcified moderator band and papillary muscle are visualized. Borderline right ventricular enlargement. Right ventricular systolic function is mild to moderately reduced. The right ventricular systolic pressure is estimated at 68 mmHg assuming a right atrial pressure of 15 mm Hg. RVSP has increased increase since prior study. Reading Physician:PM Echocardiogram Interpretation Summary: The ejection fraction is estimated to be 55-60%. Flattened septum is consistent with RV pressure/volume overload. The right ventricle is moderately dilated. Right ventricular systolic function is moderately reduced. The aortic valve is slightly calcified. The aortic valve is not well visualized. There is moderate tricuspid regurgitation. Right ventricular systolic pressure is estimated to be 39 mmHg plus the clinically estimated CVP which cannot be estimated on this exam. RV thrombus is suspected. Electronically signed by: Isra Valdez on Reading Physician:12/23/2016 11:08 AM . Assessment & Plan Virginia Ling is a 66-year-old female with a past medical history significant for hypertension and COPD who was brought to [facility] Emergency Department due to unresponsiveness requiring intubation and thought to be secondary to acute on chronic hypoxemic hypercapnic respiratory failure, hyponatremia and possibly hepatic encephalopathy. Now being treated additionally for fungemia. Hospital day and ventilator day #15. 1. Acute fungemia, not present on admission. Active. - Likely secondary to broad spectrum antibiotics. - Fungal blood culture x 3 and sputum culture positive for Lashae albicans. 3 fungal blood cultures are negative to date. - Continue micafungin x 2 weeks after negative fungal blood cultures are obtained and have patient receive a dilated eye exam per ID. - Consulted cardiology, Dr. Pace, for ANA ROSA as another fungal blood culture resulted per ID. - Central venous line removed and sent for culture without growth, as above. - CT showed probable ileus without evidence of perforation, as above. Received one time dose of Relistor with moderate BM. Continue scheduled bowel regimen and tube feeds now at goal. - Repeat limited echocardiogram showed no evidence of fungal endocarditis. - ID consulted and following we appreciate their time and care of the patient. 2. Acute on chronic hypoxemic and hypercapnia respiratory failure, present on admission. Active. - Patient does have a history of COPD with significant pulmonary hypertension as evident on echocardiogram. - Initial echocardiogram revealed RVSP of 34 mmHg with evidence of RV overload and septal flattening with suspected thrombus, as above. Repeat limited echocardiogram revealed worsening RV overload with increased RVSP of 64 mmHg without evidence of RV thrombus, as above. - CT angiography was negative for PE and revealed mild pulmonary edema associated with small bilateral pleural effusions and right heart failure, as above. - Repeat sputum culture grew Lashae albicans, as above. Continue micafungin per ID. - Received a sufficient course of Solu-Medrol for COPD exacerbation. - Chest x-ray continues to demonstrate clear lungs bilaterally, as above. - Continue ipratropium every 4 hours and budesonide twice daily. - Continue to monitor ABG daily for ventilator management. - The patient continues to have airway issue secondary to severe COPD, therefore , considering tracheostomy. However, due to fungemia and volume overload surgery is reluctant to place a tracheostomy. - Continue Precedex gtt and fentanyl gtt, as above. Continue sedation vacation and PST daily. - ID consulted and following we appreciate their time and care of the patient. 3. Pulmonary hypertension, acuity unknown, present on admission. Active. - Likely secondary to COPD. PE/RV thrombus was suspected early oon in hospitalization but ruled out with CTA and repeat echocardiogram. - Repeat limited echocardiogram revealed worsening RV overload with increased RVSP of 64 mmHg without evidence of RV thrombus, as above. - Discontinued diuresis with Lasix 40 mg IV twice a day as patient BP is . 4. Acute left sided hemothorax, status post chest tube, not present on admission. Resolving. - Initial echocardiogram was read as suspected right ventricular thrombus, therefore, a heparin gtt was initiated. - Decreasing hemoglobin from 12/25/2016 with hemoglobin of 14 to 12/27/2016 with hemoglobin of 7.6. Heparin drip discontinued and the patient was given 2 units of PRBCs. - Chest x-ray on 12/27/2016 demonstrated an acute worsening left pleural effusion with an ultrasound revealing small loculated complex left pleural effusion consistent with hemothorax, as above. - General surgery was consulted for chest tube placement with 2 L of blood status post placement. Given 2 units of PRBCs and 1 unit of platelets. - Hemoglobin and hematocrit stable status post transfusions. Continue to monitor H&H daily. - Remove the chest tube (now set to water seal) today as output is negligible. 5. Acute hypomagnesemia, present on admission. Active. - Thought initially to be secondary to beer potomania but diuresis is also contributing. - Replete as needed. - Monitor magnesium level daily. 6. Acute hypokalemia, present on admission. Active. - Thought initially to be secondary to beer potomania but diuresis is also contributing. - Continue potassium 20 mEq PO daily with additional repletion as necessary. - Monitor potassium level daily. 7. Acute blood loss anemia, not present on admission. Resolved. - Likely secondary to hyperfibrinolysis from liver disease and heparin gtt. - Chest x-ray on 12/27/2016 demonstrated an acute worsening left pleural effusion with an ultrasound revealing small loculated complex left pleural effusion consistent with hemothorax. - General surgery was consulted for chest tube placement with 2 L of blood status post placement. Given 2 units of PRBCs and 1 unit of platelets. - Hemoglobin and hematocrit stable status post transfusions. 8. Acute shock, unclear etiology, present on admission. Resolved. - Likely secondary to cardiogenic shock but there may have been a mixed etiology with an obstructive/cardiogenic component, hypovolemia from acute blood loss, and possibly septic as VBG showed an sVO2 of 78% although infectious source was not clear. - Patient clinically volume overloaded with JVD and peripheral edema with echocardiographic and radiographic evidence of right sided heart failure. - Repeat limited echocardiogram revealed worsening RV overload with increased RVSP of 64 mmHg without evidence of RV thrombus, as above. - Off phenylephrine for vasopressor support but needed this for extended period of approximately 8 days. - Discontinued IV fluids with LR at 100 mL/hr. Had to be cautious with IV fluid resuscitation due to RV overload and to avoid to rapid over correction of sodium level and central pontine myelinosis. 9. Alcohol dependency, present on admission. Presumed stable. - CIWA protocol was in place but outside of withdrawal window at this point. - Valium is ordered per CIWA protocol as needed for agitation or anxiety. - Continue thiamine IV daily. 10. Acute encephalopathy, present on admission. Presumed stable. - Likely multifactorial and related to her hypercapnia, hyponatremia and possibly hepatic encephalopathy (CT showed abdominal ascites and history of alcohol use on HPI). Less likely PE. Unlikely differentials include overdose and epilepsy. No trauma. - CT brain without contrast was negative for any acute intracranial abnormality , as above. Patient was also non-focal on exam, therefore, CVA very unlikely. - Alcohol level and urine drug screen negative. - Received IV fluids throughout course but were cautious with IV fluid resuscitation due to RV overload and to avoid to rapid over correction of sodium level and central pontine myelinosis. - Continue Precedex and fentanyl for sedation. 11. Acute respiratory alkalosis with partial metabolic compensation, present on admission. Resolved. - Continue ventilator with settings as above. - Treat COPD as above under problem #2. - Also treat underlying etiology of shock under problem #1. 12. Atrial fibrillation with RVR, acuity unknown, present on admission. Active. - Unclear if she has a history of atrial fibrillation. - RV thrombus possible based on echocardiogram. CTA revealed no PE. - Serial troponins have been negative. - Continue amiodarone switch from PO to IV due to ileus for rhythm control per primary medical team. 13. Acute hyponatremia, present on admission. Resolved. - Likely related to dehydration and possibly beer potomania. - Monitor sodium level closely to avoid to rapid over correction central pontine myelinosis. - Monitor sodium level daily. Chronic problems with management per primary team. Disposition: Several days and depending upon clinical course. Total critical care time spent 60 minutes. . GI Prophylaxis: H2 cielo VTE Prophylaxis: Sub-Q Heparin (Unfractionated), SCDs VTE Mechanical Devices: Intermittant Pneumatic CD Resuscitation Status: DNR/DNI:Do Not Resuscitate/Intubate Attending Statement I have seen and examined this patient with the resident physician. Vital signs , labs, imaging have been reviewed. I agree with the assessment and plan above. Please refer to my separately dictated progress note for any modifications to above. Yamini Fischer M.D. Pulmonary and Critical Care medicine Pager [phone] Nneka Greene DO Jan 05, 2017 09:42 Yamini Fischer MD Jan 06, 2017 08:20
--- NOTE | 2017-01-05 10:32 | DRSVH ---
PROCEDURE: X-RAY CHEST ONE VIEW, PORTABLE ([id number]) INDICATIONS: SOB, intubated TECHNIQUE: One view of the chest was acquired. COMPARISON: [facility], CR, XR CHEST 1VW (PORTABLE), 01/03/2017, 13:45. [facility], CR, XR CHEST 1VW (PORTABLE), 01/04/2017, 5:22. FINDINGS: Surgical changes and devices: Left chest tube is present. Stable positioning of ETT and nasogastric tube has been placed tip extending beyond the GE junction. Lungs and pleura: No pleural effusions or pneumothorax. Lungs are clear. Mediastinum: Mediastinal contours appear normal. Heart size is normal. Bones and chest wall: No suspicious bony lesions. Overlying soft tissues appear unremarkable. IMPRESSION: Stable chest compared to prior exam. Dictated by: Shankar Mandujano RRA Interpreted: Santiago Montanez MD on 01/05/2017 at 10:32 Transcribed by: LEANNA on 01/05/2017 at 10:32 Approved by: Santiago Montanez M.D. on 01/05/2017 at 12:06
--- NOTE | 2017-01-05 11:13 | PROG NOTE ---
[address] [address] PROGRESS NOTE PATIENT: RAPHAEL SLATER : 1950 MR#: [id number] ADMIT: 12/22/2016 JOB ID: [id number] DATE: 01/05/2017 PULMONARY CRITICAL CARE PROGRESS NOTE: The patient is a 66-year-old woman admitted to the hospital on December 22, intubated for COPD exacerbation in the setting of cor pulmonale. Her hospital stay has been complicated by spontaneous left hemopneumothorax while on heparin drip, fungemia and persistent respiratory failure. The patient was seen and evaluated with resident physician, Nneka Greene. Please refer to her separate detailed note for additional information. INTERVAL HISTORY: Fever 38.4 yesterday afternoon. She tolerated a pressure support trial of 13/7 yesterday, but is doing poorly on a trial of /7 right now with tidal volumes only around 200. REVIEW OF SYSTEMS: Could not be obtained. PHYSICAL EXAM: Notable for T-max 38.4, FiO2 35% PEEP of 7 cm. Pulse is in the 60s at rest, but whenever she is awake, more agitated jumps quickly into the 180s in AFib. General: Asleep right now but opens her eyes to voice. Chest: Bilateral wheezing as always. Abdomen: Slightly distended but nontender. LABORATORIES: Reviewed. WBC 11.7, coming down. Chemistry also reviewed. Procalcitonin 0.1. Cultures last positive blood culture for Lashae albicans is from January 03. This is now the third set of cultures that are persistently positive. Chest x-ray shows clear pulmonary parenchyma. Left-sided chest tube in appropriate position and it put out only 30 cc in the last 24 hours. ASSESSMENT AND RECOMMENDATIONS: 1. Acute hypoxic respiratory failure on mechanical ventilation since December 22. 2. 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 3. Right heart failure and cor pulmonale. 4. Chronic obstructive pulmonary disease exacerbation. 5. Severe sepsis. 6. Hemothorax while on heparin drip with chest tube placed on the left December 27. 7. Atrial fibrillation with rapid ventricular response. 8. Paralytic ileus. This complex patient with multiple medical issues as above remains vent dependent. She tolerated a pressure support of 13/7 yesterday but is not doing so well on 09/15. She has been diuresed quite aggressively and became hypotensive yesterday because of which her Lasix was held and she actually had to get some fluid back. We stopped her Lasix at this point since I believe her to be euvolemic. With regards to her AFib, she is getting amiodarone and cardiology verbally recommended adding digoxin to her current regimen so we will do that. With regards to her fungemia, I am now extremely worried that there is a source of untreated fungal infection. Granted fungemia does not clear very quickly but we have already taken her central line out last week. She had a TTE to look at her valves for fungal endocarditis and that was negative a few days ago and now this is the third set of blood cultures that are positive for fungus after five days or more of micafungin. We will ask Cardiology to consult to do a ANA ROSA to rule out fungal endocarditis. We also need to take a closer look and make sure she does not have any hardware that could get infected. With regard to her respiratory status, she cannot have a tracheostomy while septic obviously. Her legal next of kin is her brother but she does live with her partner for 20 years who unfortunately does not have a power of city attorney to make medical decisions. I did speak to this gentleman yesterday at length and while he initially started out saying that she would never want to be kept on a machine, he finally ended up saying that if that is the only way to keep her alive, then she would accept it. I think, at this point, we are a way from getting a tracheostomy. I do think we should remove the left-sided chest tube since it has not put anything out in 48 hours and we will ask surgery to that. We will keep trying pressure support trials while waiting for the . CRITICAL CARE TIME: 45 minutes.
--- NOTE | 2017-01-05 11:48 | PCM.PALLBR ---
Palliative Care Recommendation 66-year-old woman with history of COPD, chronic and ongoing tobacco use, hypertension, possible chronic alcohol abuse- admitted from home where she had become progressively lethargic over several days. Intubated in the emergency department due to her decreased level of consciousness and evidence of hypercarbic respiratory failure. Status post left chest tube placement for apparent hemothorax on 12/28. Clinically slightly improved today. Palliative medicine consulted to assist the patient's family and determination of goals of care Both patient's brother and the significant other indicated today that they would prefer she be extubated as expeditiously as possible, not be a candidate for reintubation or tracheostomy, and that this approach would be best in keeping with her previously expressed wishes. Both understand that she may not survive extubation and still feel strongly that she would not want to remain on ventilatory support any longer. (See below for additional details of my lengthy conversations with them today.) Summary of palliative recommendations: -Symptom management (Pain/other)- no evidence of distress at this time. Continued management per her medical/critical care teams. -DPOA/Advanced Directives/POLST- Ezio and the patient never and so her brother Nicolas Ling is default POA. I reviewed her status in detail with Mr. Ling and Mr. Robles again today. Ezio tells me that the patient had told him in the past that she never wanted to be in the hospital on machines; this has also been her brother's perception of her wishes, though there is no documentation regarding these wishes. Consistent with the patient's previously stated wishes and with the agreement of both her significant other Ezio and her brother/POA Nicolas, her CODE STATUS continues to be DO NOT RESUSCITATE/DO NOT REINTUBATE, which best reflects her previously stated wishes. If she recovers sufficiently to participate in discussions, we will review these decisions with her when she is decisional. -Family/emotional support- both patient's brother and significant other plan on visiting the hospital on 01/06 -Spiritual support- offered and declined Contact info: Ezio Robles (significant other/house mate though they have no legal andrade) [phone] (Note that Ezio admits that he cannot read or write and does not understand much of what is going on, so very willingly deferred decision-making to patient's brother) Nicolas Ling (brother, closest biological relative) [phone](lives in [place])(he does not drive and so needs to arrange special transportation to get here) Patient Goals: 1. Patient's family wants to be told the truth about her illness, even if it is unpleasant. 2. Patient's family would like to be told prognosis when it can be predicted, to better guide treatment decisions. Additional Medical Diagnoses with primary management by Hospitalist team include : 1. Acute shock, present on admission, ongoing. 2. Acute blood loss anemia, not present on admission 3. Acute on chronic respiratory failure with hypoxia and hypercapnia, present on admission, ongoing. 4. Possible Right ventricular thrombus (now disproved) 5. Possible pneumonia, present on admission, improving. 6. Atrial fibrillation with rapid ventricular response, acute, present on admission, improving. 7. Hyponatremia, acute, present on admission, improving. 8. Alcohol dependency, present on admission, unstable 9. Hypokalemia, acute, present on admission. Ongoing. 10. Hypothyroidism, acute, present on admission. 11. Possible adrenal insufficiency, acute, present on admission. 12. Acute encephalopathy, present on admission, considered stable 13. Left hemothorax, status post chest tube placement Problems: End of Life Preferences DO NOT RESUSCITATE/DO NOT REINTUBATE- continue other current medical treatment Disposition To be determined Resuscitation Status Resuscitation Status: DNR/DNI:Do Not Resuscitate/Intubate POLST Updates/Changes Previous POLST?: No . Pain: None Symptom management: Agitation Total time 60 minutes; >50% face to face with patient and family, providing counselling regarding plans and recommendations, and in care coordination with her medical teams. Of the above total time, 30 minutes counseling for advanced care planning with the patient's family members Palliative Brief Note Date of Service Jan 05, 2017 . Returned to reevaluate patient at request of her medical team. Palliative medicine had followed previously and signed off. Asked to reengage in light of the patient's persistent requirement for ventilator support. Reviewed her records in the EMR since our last visit in detail, as well as reviewed her status with her medical and critical care providers. Also reviewed her situation in detail with her bedside nurse. When I entered the room, patient is lying in bed, one eye open, not responsive to verbal stimulation. Note that she received IV lorazepam last evening. Appears to be in no significant distress. Vital signs noted. Skin is warm and dry. Head and neck exam without acute focal findings. Lungs with diminished breath sounds diffusely and a few scattered crackles. Left chest tube remains in place with minimal output. Abdomen is soft and nontender. Extremities with disuse puffiness. Neurologic exam limited. Labs and imaging studies reviewed in detail. I then contacted by phone and spoke at length with both her brother Nicolas Ling (who is her formal POA by default) and her housemate/significant other Ezio Robles. Reviewed in detail for both of them her course over the last several days, her concerns her pulmonary team has regarding extubation, and discussed decisions that will need to be made in the next several days- whether to extubate (and if she fails, whether to reintubate) versus tracheostomy placement and transition to long-term ventilator weaning. Both the patient's brother and significant other feel strongly that the patient would not have wanted to be on ventilator support for this long (if at all) and that she definitely would not want to either be reintubated or have tracheostomy /ongoing breathing support. The patient has seemingly indicated in the last several days that she wanted to be extubated as well (though obviously her decisional capacity is in question). Both the patient's brother and significant other feel strongly that she has indicated in the past that she would not want to find herself in this sort of protracted hospitalization situation and definitely would not want to remain on ventilator support. Both gentlemen understand that if she is extubated and does not wish to be reintubated that she may , possibly within hours, and both accept this and think that would be more in keeping with her wishes. Manuel Calzada MD Jan 05, 2017 11:48 Manuel Calzada MD Jan 05, 2017 11:48
[2017-01-05] MEDS ORDERED: Vancomycin 1 Gm/200 mL NS Premix IV SCH (12:00)
[2017-01-05] MEDS: Lactated Ringer's 1,000 ML IV SCH (12:25)
[2017-01-05] MEDS: fentaNYL 2,500 mCg/250 mL 2,500 MCG in IV Premix 1 EACH IV SCH (14:17)
[2017-01-05] MEDS: Dexmedetomidine 400 mCg/100 mL 400 MCG in IV Premix 1 EACH IV SCH ×2 (14:50→20:30)
[2017-01-05] MEDS ORDERED: 0.9% Sodium Chloride 500 ML IV ONE (15:55)
--- NOTE | 2017-01-05 16:40 | PCM.PROC ---
Procedure Note Date of Service: Jan 05, 2017 Pre Procedure Diagnosis: Primary diagnoses: 1. Left hemothorax 2. Acute fungemia 3. Acute on chronic hypoxemic and hypercapnic respiratory failure. 4. Acute blood loss anemia 5. Acute shock cardiogenic/obstructive/hypovolemic 6. Acute encephalopathy 7. Atrial fibrillation with RVR Other diagnoses: 1. COPD 2. Pulmonary Hypertension 3. Daily cigarette smoker 4. Alcohol dependency Post Procedure Diagnosis: Same Procedure: Left chest tube removal Provider and Band Sawyer: Mati Jj PA-C Indication for Procedure: Hemothorax has resolved, lung is inflated and chest tube is no longer draining. Procedural Analgesia: None Procedure Details: Chest tube suture was cut. Chest tube was removed while on the ventilator with a cycle during inspiration and the patient was asked to hold her breath (she was able to cooperate). An occlusive dressing of 4 x 4, Xeroform gauze, and bacitracin ointment was applied. The patient did not suck air during the procedure. The procedure was well-tolerated. Specimen: None Post Procedure Plan: Chest tube dressing will remain in place for 24 hours. Mati Jj PA-C Jan 05, 2017 16:40
[2017-01-05] MEDS: Digoxin 0.25 mg/mL 2 mL Inj IV SCH ×2 (17:23→22:17)
--- NOTE | 2017-01-05 18:28 | PCM.PNMED ---
Subjective Date of Service Jan 05, 2017 Subjective overnight: Patient was given a 1 time dose of lorazepam 1 mg IV at approximately 19:00 PM with improved agitation overnight compared to previous nights. No acute events otherwise noted. Today: Patient to be continued on pressure support trials with goal of extubation. General surgery consulted and consideration was made to remove the chest to today given the limited output over the last several days. No acute events and the patient tolerated the procedure well. Blood cultures from 2016 continue to be negative for Angela. The patient will have a transesophageal echo on 01/06/2017 for possible angela endocarditis evaluation. Patient was started on digoxin IV for atrial fibrillation with significant right heart failure. Exam Vital Signs Vital Sign - Last Date Time Temp Pulse Resp B/P Pulse Ox O2 Delivery O2 Flow Rate FiO2 01/05/17 05:16 98 104/59 95 30 01/05/17 04:30 Ventilator 01/05/17 04:30 37.9 12 Intake and Output 01/04/17 01/04/17 01/05/17 Cumulative From/Thru 15:00 23:00 07:00 12/22/16 18:16 - 01/05/17 05:44 Intake Total 1563 ml 1510 ml 58072 ml Output Total 1880 ml 420 ml 31488 ml Balance -317 ml 1090 ml 84754 ml Intake Oral 0 ml 0 ml IV Total 1563 ml 1028 ml 48733 ml Tube Feeding 317 ml 8446 ml Packed Cells 280 ml FFP 215 ml Platelets 792 ml Tube Irrigant 165 ml 2470 ml Output Urine Total 1750 ml 400 ml 26147 ml Gastric Drainage Total 100 ml 570 ml Chest Tube Drainage Total 30 ml 20 ml 3497 ml # Voids 0 # Bowel Movements 4 Exam Performed prior to chest tube removal General: thin female appearing older than stated age lying in bed intubated and sedated Eyes: PERRLA. Anicteric sclerae, moist noninjected conjunctivae HENT: Normocephalic, atraumatic. Endotracheal and oropharyngeal tube in place. External ears without defect. Neck: Supple, mild JVD, trachea midline, No lymphadenopathy or thyromegaly. Cardiovascular: Tachycardia with Irregular rhythm tachycardia without murmurs, rubs, or gallops appreciated. Pulmonary: Mild coarse breath sounds bilaterally with mild decreased air movement on the left lower axillary base with clean dry bandage and chest tube with serosanguineous fluid and limited tidal volume variation in tubing. No wheezing noted Abdomen: Moderately distention, tympanic to percussion, bowel sounds hypoactive Genitourinary: Johnson catheter in place. Extremities: pulses intact at radial bilaterally and and decreased dorsalis pedis bilaterally, mild cyanosis noted in the fingertips and toes bilaterally Neuro: Pupils equal round reactive to light, not following commands at this time Psych: Unable to obtain IVs and Medications Medications Reviewed: Medications were reviewed in detail Lab and Diagnostics Result Diagram: 01/05/1741701/05/17417 Microbiology Repeat sputum culture has no growth to date. Sputum culture grew light normal prince. MRSA screen negative. Streptococcus pneumoniae and Legionella urine antigens negative. Respiratory viral PCR negative. _ Microbiology DAVE CULT BLOOD FUNGUS Preliminary 01/01/1722 Organism 1 ANGELA ALBICANS ISOLATED FROM ONE OF THREE BOTTLES COLLECTED 12/27/16 _ X-Rays, CTs and MRIs CT BRAIN WITHOUT CONTRAST IMPRESSION: No acute intracranial disease process. Dictated by: Rosaura Wisdom MD, PhD on 12/22/2016 at 20:12 VENOUS LEG DUPLEX BILATERAL IMPRESSION: No deep venous thrombosis identified within either the left or right lower extremities. Dictated by: Shankar BARRETO Interpreted: Sobia Plunkett MD on 12/23/2016 at 9: 58 CT ANGIO CHEST PULMONARY EMBOLISM IMPRESSION: 1. No pulmonary embolus. 2. Mild pulmonary edema associated with small bilateral pleural effusions. 3. Small amount of ascites. 4. Coronary artery disease. Cardiomegaly. Right heart failure. Dictated by: Julieta Gunn M.D. on 12/23/2016 at 13:33 X-RAY CHEST ONE VIEW, PORTABLE IMPRESSION: Placement of left pleural drain with significant reduction in size of loculated left pleural effusion. No pneumothorax. Dictated by: Shankar Mandujano RRAisha Interpreted: Harshil Pacheco MD on 12/28/2016 at 17 :10 CT CHEST, ABDOMEN AND PELVIS WTIH CONTRAST IMPRESSION: 1. Marked fluid distention of the colon most prominent within the cecum. No bowel wall thickening or evidence of small bowel obstruction. The findings are nonspecific and differential considerations include an ileus or functional obstruction distally versus Anjali's syndrome. 2. Small to moderate bilateral pleural effusions with associated compressive atelectasis. 3. Small clustered bilateral pulmonary nodules likely represent a mild infectious or inflammatory process. 4. Diffuse anasarca. Dictated by: Ravin Joshua M.D. on 01/01/2017 at 15:58 Cardiac Echo Impressions Echocardiogram Report Interpretation Summary Probable large left abdominal ascites possibly surrounding the spleen. There are moderate-sized bilateral pleural effusions noted. There is no thrombus seen in the right ventricle. A calcified moderator band and papillary muscle are visualized. Borderline right ventricular enlargement. Right ventricular systolic function is mild to moderately reduced. The right ventricular systolic pressure is estimated at 68 mmHg assuming a right atrial pressure of 15 mm Hg. RVSP has increased increase since prior study. Echocardiogram Report Interpretation Summary No evidence of endocarditis, consider ANA ROSA if clinically indicated. Electronically signed by: Isra Valdez on Reading Physician:01/03/2017 11:42 AM Additional Diagnostics ABG DateTimeAnalyzed 05:13:00 -_ pH ____7.464 - 7.350 7.450 pCO2 ___55.2__ -mmHg 35.0 45.0 pO2 ___78.8__ -mmHg 69.0 116 HCO3- ___39.0__ -mmol/L 22.0 26.0 Assessment & Plan Patient is a 66-year-old female with past medical history remarkable for COPD, hypertension, and alcohol dependency presents to schedule an hospital with acute respiratory failure secondary to right heart failure and cor pulmonale. Hospital day 14. 1. Acute on chronic respiratory failure with hypoxia and hypercapnia, present on admission, ongoing. - Patient does have a history of COPD/emphysema and she is likely CO2 retainer. Likely secondary to cor pulmonale. - Echocardiograms show pulmonary hypertension with right ventricular dilation and moderate reduced ejection fraction - ABG to be done in AM and as needed for ventilator management. - Patient sedated with fentanyl drip and Precedex drip and with lorazepam 0.5 mg IV push as available for agitation. Continue daily sedation vacations. - Continue solu-medrol 40 mg daily. - Budesonide nebulizer twice a day and Atrovent nebs Q4. - Pulmonology has been consulted for assistance with vent management and we appreciate their assistance. - Family meeting with brother and medical decision maker on 01/02/2017 patient will continue to be treated with goals of extubation 2. Right heart failure and cor pulmonale, presume chronic, present on admission. - Uncertain of the precise etiology but patient has significant alcohol history as well as emphysema. - This will increase the morbidity and mortality of the patient in the setting of this prolonged ICU stay. - Dr. Pinto has been consulted and we appreciate her recommendations. - continue Lasix given for anasarca associated with right heart failure - Patient started on digoxin with hopeful improvement in right heart cardiac contractility 3. Fungemia, likely present on admission, under evaluation - Infectious disease following and we appreciate Dr. Magallanes's recommendations. - Angela is not a likely pathogen that causes pneumonia. Central venous line removed and sent for culture currently negative - Repeat blood cultures drawn on 01/01 have resulted in a positive Angela, these will be redrawn serially until a negative culture is obtained - Repeat blood cultures from 01/03/2017 currently negative - continue micafungin for 2 weeks after first negative culture currently 2016 based off of negative culture on January 03 - Infectious disease recommends Transesophageal echocardiogram to be performed on 01/06/2017 for possible fungal endocarditis - Patient will also require an ophthalmologic exam at some point in the future - Consider adding amphotericin if patient does not clear angela within next day or so 4. Atrial fibrillation with rapid ventricular response, acute (new onset), present on admission, improving. - Notable right heart failure - Patient's blood pressure has not tolerated the use of beta blockers. - Continue Amiodarone loading drip - Given atrial fibrillation with right heart failure digoxin IV has been started - Dr. Pinto (Cardiology) has been consulted and we appreciate her recommendations. 5. Likely ileus, not present on admission, under evaluation - CT abdomen and pelvis performed on 01/02 showed distended loops of bowel, FMS was withdrawn and tube feedings held for several days during evaluation - C. difficile PCR ordered and negative - Tube feeding continued at goal, residuals are minimal with 10 cc - methylnaltrexone seems to have improved the patient's ileus, consider every 48 hours dosing in the future given fentanyl drip 6. Leukocytosis, not present on admission, improving stable - Initially thought to be secondary to IV Solu-Medrol steroids - Currently likely to be secondary to fungemia as well as continued steroid use - Monitor daily CBC and pro-calcitonin - Continue serial fungal blood cultures until negative - Fungemia as above 7. Alcohol dependency, present on admission, stable - CIWA protocol ordered at admission - Continue thiamine daily. 8. Hyponatremia, acute, present on admission, monitoring - May be related to dehydration - Continue to monitor and replete as necessary 9. Hypokalemia, acute, present on admission. Resolved monitoring - Continue to monitor with BMP and replete as needed. 10. Hypothyroidism, acute, present on admission. - Likely secondary to being critically ill. - Will need follow up labs approximately 6-8 weeks after hospital discharge. 11. Possible adrenal insufficiency, acute, present on admission, stable - ACTH-stim test shows low level of cortisol. - Patient already undergoing treatment with IV steroids. - Will need to plan for slow taper and close outpatient follow up. 12. Acute encephalopathy, present on admission, considered stable - Possibly related to her hypercapnia but must also consider reversible other etiologies such as toxic ingestion - Patient remains intubated and mildly sedated at this time so this is difficult to fully evaluate. - Patient sedated with fentanyl drip and Precedex drip with lorazepam 0.5 mg IV push as available for agitation Resolved conditions 13. Unlikely Right ventricular thrombus, present on admission, resolved - Seen on initial echocardiogram ordered for apparent volume overload due to right heart failure. - Discontinue Heparin PE protocol drip for presumed RV thrombus. - Limited echo performed later to confirm thrombosis failed to reveal right ventricular thrombus - Consideration for either no thrombus on initial echo versus less likely dislodge of thrombi/PE given no increased oxygen requirements 14. Acute shock, present on admission, resolved - Multifactorial with elements of septic and cardiogenic shock. - Patient appeared volume overloaded at admission with JVD and peripheral edema consistent with right heart failure. 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 Acute blood loss anemia, not present on admission, resolved - Initial echo showed possible right ventricular thrombus AND a Heparin drip was initiated for possible right ventricular thrombus - Decreasing hemoglobin from 12/25/2016 with hemoglobin of 14, to 12/27/2016 with hemoglobin of 7.6 heparin drip discontinued packed RBCs given - Chest x-ray on 12/27/2016 shows a worsening left pleural effusion, ultrasound used to fine fluid collection shows moderate loculations consistent with hemothorax - DIC panel ordered 12/27 with note of bleeding from all IV sites; Haptoglobin increased, fibrinogen decreased but above 100, elevated d-dimer, elevated PT, INR, and PTT consistent with acute DIC - General surgery placed a left-sided chest tube 12/28 with 2 L of blood it out immediately. 2 units of packed RBCs given with 1 unit of platelets and 1 unit of fresh frozen plasma given - Chest tube pulled on 01/05/2017, continue to monitor with daily chest x-rays while on vent 16. Left sided Hemothorax, not present on admission, resolved - General surgery placed a left-sided chest tube 12/28/2016 with 2 L of blood it out immediately. 2 units of packed RBCs given with 1 unit of platelets - Initial pleural fluid protein evaluation 3.5 compared to total protein of blood 4.3 consistent with exudative effusion - Substantial RBCs consistent with hemothorax. - Pleural fluid sent for cultures remains negative - Consider likely secondary to heparin drip, which has been stopped. - Gen. surgery decided to leave the chest tube in place after return of 200 mL of serosanguineous fluid with repositioning of the patient yesterday - Gen. surgery to evaluate for removal of the chest tube today depending on evaluation of chest x-ray after hours of waterseal on 17. Unlikely pneumonia, present on admission, resolved - Patient initially presented with a possibility of pneumonia however after being treated with Zosyn for 1 week and remaining with negative procalcitonin, pneumonia was considered less likely - increasing white blood cell counts could be attributed to an infection or steroid use for COPD exacerbation - Left lower quadrant consolidation visualized with ultrasound showed moderate loculations consistent with hemothorax possible developing empyema however has remained culture negative after chest tube placement - Yeast in blood not consistent with pneumonia as a source, candidiasis does not cause pneumonia - Antiemetic available PRN. - Antacid available PRN. - Bowel regimen available PRN. - Tylenol available PRN mild pain, fever. Disposition: patient will likely continue to be in the CCU for several more days of mechanical ventilation given severe COPD with emphysema, cor pulmonale, right-sided heart failure and now new possible bilateral nodular pneumonia. Patient was declined for transfer to [facility]. Patient's case and medical management discussed with critical care (Dr. Fischer). Pain Evaluation: Adequate Pain Control GI Prophylaxis: H2 cielo VTE Prophylaxis: Sub-Q Heparin (Unfractionated), SCDs VTE Mechanical Devices: Intermittant Pneumatic CD Resuscitation Status: DNR/DNI:Do Not Resuscitate/Intubate Time spent greater than 40 minutes Attending Statement The patient was seen and examined together with Dr. Lomas on 01/05/17 and I have added additional information to the note above. Parth Schneider DO Jan 05, 2017 06:40 Madeline Ayala DO Jan 07, 2017 15:02
[2017-01-06] VITALS (14 sets, daily range): BP systolic 87–120; BP diastolic 43–60; PULSE 56–74; RESP 13–21; O2SAT 56–100
[2017-01-06] MEDS: Chlorhexidine 0.12% 15 mL Oral Solution MT SCH ×7 (00:06→23:57)
[2017-01-06] MEDS: Ipratropium 0.02% 0.5 mg/2.5 mL Inhalation Solution NEB SCH ×6 (02:08→20:41)
[2017-01-06] MEDS: Insulin Human REGular 300 Unit/3 mL Inj SUBQ SCH ×4 (02:30→20:30)
[2017-01-06] MEDS: Dexmedetomidine 400 mCg/100 mL 400 MCG in IV Premix 1 EACH IV SCH ×4 (03:58→23:57)
[2017-01-06] MEDS: Digoxin 0.25 mg/mL 2 mL Inj IV SCH (04:39)
--- NOTE | 2017-01-06 04:41 | ABG ---
DateTimeAnalyzed 04:37:00 -_ pH ____7.430 - 7.350 7.450 pCO2 ___53.1__ -mmHg 35.0 45.0 pO2 ___98.6__ -mmHg 69.0 116 HCO3- ___34.6__ -mmol/L 22.0 26.0 ABE ____9.3__ -mmol/L -2.0 2.0 tHb ____9.6__ -g/dL O2Hb ___96.4__ -% COHb ____1.1__ -% MetHb ____0.8__ -% sO2 ___98.3__ -% FIO2 ___35.0__ -% PRVC 8 - PEEP ____7.0__ -cmH2O Set_RR ____8.0__ -b/min Vt __340.0__ -L Drawn By MK - Date/Time Notified____ 04:40:00 -_ Spontaneous_RR ___16.0__ -b/min Oxygen Device 1 VENTILATOR - Notified By MK - Notified Whom Raven, RN - B 758 -mmHg tO2 ___13.2__ -Vol% Lance test N/A -
[2017-01-06] MEDS: Micafungin Inj 150 MG in 0.9% Sodium Chloride 100 ML IV SCH (07:43)
[2017-01-06] MEDS: Polyethylene Glycol (PEG) 17 Gm Powder PO SCH ×2 (07:44→20:11)
[2017-01-06] MEDS: Heparin 5,000 Unit/mL Inj SUBQ SCH ×2 (07:44→20:11)
[2017-01-06] MEDS: Famotidine Inj 20 MG in IV Premix 1 EACH IV SCH ×2 (07:46→20:18)
[2017-01-06 07:59] LABS: BASOPHILS % (AUTO) 0.1 % (0-3); EOSINOPHILS % (AUTO) 0.6 % (0-5); MONOCYTES % (AUTO) 3.9 % (4-12); Mean Corpuscular Volume 97.4 fL (81-100); NEUTROPHILS % (AUTO) 87.9 % (40-74); Platelet Count 186 bil/L (150-400)
[2017-01-06] MEDS: Budesonide 0.5 mg/2 mL Inhalation Solution NEB SCH ×2 (08:02→20:41)
--- NOTE | 2017-01-06 08:11 | PCM.PNMED ---
Subjective Date of Service Jan 06, 2017 Subjective Intensive Care/Pulmonology Consultation Note: Attending Dr. Aaliyah Ling is a 66-year-old female with a past medical history significant for hypertension and COPD who was brought to [facility] Emergency Department due to unresponsiveness requiring intubation and thought to be secondary to hypercapnia, hyponatremia and possibly hepatic encephalopathy. Now being treated for fungemia and acute on chronic hypoxemic hypercapnic respiratory failure Hospital day/ventilator day #16. Overnight: The patient was agitated again overnight and received 0.5 mg of Ativan for which she rested very well. Telemetry overnight: Atrial fibrillation , baseline heart rate 30 to 70's, with RVR this morning up to 120's. Subjective exam and review of systems are unobtainable as the patient is intubated and sedated. The patient had a PST of 09/15 with an FiO2 of 35% that lasted for 55 minutes yesterday with low tidal volumes in the 200's and she was put back on PRVC for desaturation. The patient continues to be rather somnolent but arousable this morning. . Exam Vital Signs Vital Sign - Last Date Time Temp Pulse Resp B/P Pulse Ox O2 Delivery O2 Flow Rate FiO2 01/06/17 04:39 68 01/06/17 04:30 37.7 16 109/52 96 Mechanical Ventilator 35 Intake and Output 01/05/17 01/05/17 01/06/17 Cumulative From/Thru 15:00 23:00 07:00 12/22/16 18:16 - 01/06/17 05:31 Intake Total 2434 ml 1784 ml 43396 ml Output Total 550 ml 400 ml 55242 ml Balance 1884 ml 1384 ml 05586 ml Intake Oral 0 ml IV Total 1720 ml 1316 ml 17604 ml Tube Feeding 594 ml 428 ml 9468 ml Packed Cells 280 ml FFP 215 ml Platelets 792 ml Tube Irrigant 120 ml 40 ml 2630 ml Output Urine Total 400 ml 400 ml 56736 ml Gastric Drainage Total 120 ml 690 ml Chest Tube Drainage Total 30 ml 3527 ml # Voids 0 # Bowel Movements 0 4 Exam General: Middle-aged thin female lying in bed, intubated and sedated. HEENT: Normocephalic, atraumatic. External ears without defect. Pupils equal, round, and reactive to light. Anicteric sclerae, moist conjunctivae, and no lid lag. Endotracheal and OG tubes in place. Neck: Supple. Cardiovascular: Irregular rhythm without murmurs, rubs, or gallops appreciated. Left chest tube removed with dressing in place. Pulmonary: Clear to auscultation bilaterally. No wheeze or crackle. Abdomen: Soft, nondistended, bowel sounds active. Genitourinary: Johnson catheter in place. Extremities: No edema, cyanosis, or clubbing. Neurologic: Somnolent but arousable. Ventilator settings: PRVC. Tidal volume 340. Respiratory rate 8. FiO2 35%. PEEP 7.0. Peak 25. Plateau 19. ABG: PH 7.430. PCO2 53.1. PO2 98.6. HCO3 34.6. On PRVC with an FiO2 35%, PEEP of 7.0, and SPO2 98.3%. IV drips and Sedatives: Precedex 0.9 mcg/kg/hr and Fentanyl 50 mcg/hr. IV lines: Left foot and right hand peripheral IV's. I&O: Net + 42194 mL. . IVs and Medications Medications Reviewed: Medications were reviewed in detail Lab and Diagnostics Result Diagram: 01/06/17 0730 01/05/17 0418 Microbiology Sputum culture is to grew light normal prince. Repeat sputum culture grew Lashae albicans. MRSA screen negative. Strep coccus pneumoniae and legionella urine antigens negative. Respiratory viral PCR negative. Blood culture 4 has no growth after 5 days. Fungal blood culture positive 4 for Lashae albicans. Repeat fungal blood culture x1 is negative since 01/01/17 and x2 are negative since 01/03/17 and x 2 01/03/17. Pleural fungal culture negative. Pleural acid-fast culture negative. Catheter tip has no growth after 48 hours. . X-Rays, CTs and MRIs X-RAY CHEST ONE VIEW, PORTABLE IMPRESSION: Stable chest. Dictated by: Shankar Mandujano [facility] Interpreted: Santiago Montanez MD on 01/04/2017 at 10:30 CT CHEST, ABDOMEN AND PELVIS [facility] CONTRAST IMPRESSION: 1. Marked fluid distention of the colon most prominent within the cecum. No bowel wall thickening or evidence of small bowel obstruction. The findings are nonspecific and differential considerations include an ileus or functional obstruction distally versus Anjali's syndrome. 2. Small to moderate bilateral pleural effusions with associated compressive atelectasis. 3. Small clustered bilateral pulmonary nodules likely represent a mild infectious or inflammatory process. 4. Diffuse anasarca. Dictated by: Ravin Joshua M.D. on 01/01/2017 at 15:58 US ABDOMEN, LIMITED IMPRESSION: No free intraperitoneal fluid identified. If indicated CT could be performed to further assess for possible intraperitoneal or retroperitoneal bleed Dictated by: Shankar BARRETO Interpreted: Harshil Pacheco MD on 12/28/2016 at 9: 55 US CHEST/PLEURAL SONOGRAM IMPRESSION: Small loculated complex left pleural effusion consistent with hemothorax. Dictated by: Santiago Montanez M.D. on 12/27/2016 at 13:19 CT ANGIO CHEST PULMONARY EMBOLISM IMPRESSION: 1. No pulmonary embolus. 2. Mild pulmonary edema associated with small bilateral pleural effusions. 3. Small amount of ascites. 4. Coronary artery disease. Cardiomegaly. Right heart failure. Dictated by: Julieta Gunn M.D. on 12/23/2016 at 13:33 US VENOUS LEG DUPLEX BILATERAL IMPRESSION: No deep venous thrombosis identified within either the left or right lower extremities. Dictated by: Shankar BARRETO Interpreted: Sobia Plunkett MD on 12/23/2016 at 9: 58 CT BRAIN WITHOUT CONTRAST IMPRESSION: No acute intracranial disease process. Dictated by: Rosaura Wisdom MD, PhD on 12/22/2016 at 20:12 X-RAY CHEST ONE VIEW, PORTABLE IMPRESSION: Small patchy airspace opacities in the right lung base and small right-sided pleural effusion suspicious for pneumonia. Dictated by: Rosaura Wisdom MD, PhD on 12/22/2016 at 18:51 Approved by: Rosaura Wisdom MD, PhD on 12/22/2016 at 18:52 . Cardiac Echo Impressions Limited Echocardiogram Interpretation Summary: No evidence of endocarditis, consider ANA ROSA if clinically indicated. Electronically signed by: Isra Valdez on Reading Physician:01/03/2017 11:42 AM Limited Echocardiogram Interpretation Summary: Probable large left abdominal ascites possibly surrounding the spleen. There are moderate-sized bilateral pleural effusions noted. There is no thrombus seen in the right ventricle. A calcified moderator band and papillary muscle are visualized. Borderline right ventricular enlargement. Right ventricular systolic function is mild to moderately reduced. The right ventricular systolic pressure is estimated at 68 mmHg assuming a right atrial pressure of 15 mm Hg. RVSP has increased increase since prior study. Reading Physician:PM Echocardiogram Interpretation Summary: The ejection fraction is estimated to be 55-60%. Flattened septum is consistent with RV pressure/volume overload. The right ventricle is moderately dilated. Right ventricular systolic function is moderately reduced. The aortic valve is slightly calcified. The aortic valve is not well visualized. There is moderate tricuspid regurgitation. Right ventricular systolic pressure is estimated to be 39 mmHg plus the clinically estimated CVP which cannot be estimated on this exam. RV thrombus is suspected. Electronically signed by: Isra Valdez on Reading Physician:12/23/2016 11:08 AM . Assessment & Plan Virginia Ling is a 66-year-old female with a past medical history significant for hypertension and COPD who was brought to [facility] Emergency Department due to unresponsiveness requiring intubation and thought to be secondary to acute on chronic hypoxemic hypercapnic respiratory failure, hyponatremia and possibly hepatic encephalopathy. Now being treated additionally for fungemia. Hospital day and ventilator day #16. 1. Acute fungemia, not present on admission. Active. - Likely secondary to broad spectrum antibiotics. - Fungal blood culture x 3 and sputum culture positive for Lashae albicans. 3 fungal blood cultures are negative to date. - Switch micafungin to fluconazole as this is susceptible and continue for 2 weeks after negative fungal blood cultures are obtained and have patient receive a dilated eye exam per ID. Placing a PICC today. - Consulted cardiology, Dr. Pace, for ANA ROSA, however, the repeat fungal blood cultures have been negative to date and there is no concern for fungal endocarditis per ID . - Central venous line removed and sent for culture without growth, as above. - CT showed probable ileus without evidence of perforation, as above. Received one time dose of Relistor with moderate BM. Continue scheduled bowel regimen and tube feeds now at goal. - Repeat limited echocardiogram showed no evidence of fungal endocarditis. - ID consulted and following we appreciate their time and care of the patient. 2. Acute on chronic hypoxemic and hypercapnia respiratory failure, present on admission. Active. - Patient does have a history of COPD with significant pulmonary hypertension as evident on echocardiogram. - Initial echocardiogram revealed RVSP of 34 mmHg with evidence of RV overload and septal flattening with suspected thrombus, as above. Repeat limited echocardiogram revealed worsening RV overload with increased RVSP of 64 mmHg without evidence of RV thrombus, as above. - CT angiography was negative for PE and revealed mild pulmonary edema associated with small bilateral pleural effusions and right heart failure, as above. - Repeat sputum culture grew Lashae albicans, as above. Switch micafungin to fluconazole as this is susceptible per ID. - Received a sufficient course of Solu-Medrol for COPD exacerbation. - Chest x-ray continues to demonstrate clear lungs bilaterally, as above. - Continue ipratropium every 4 hours and budesonide twice daily. - Continue to monitor ABG daily for ventilator management. - The patient continues to have airway issue secondary to severe COPD, therefore , considering tracheostomy. However, due to fungemia and volume overload surgery is reluctant to place a tracheostomy. - Continue Precedex gtt and fentanyl gtt, as above. Continue sedation vacation and PST daily when patient is awake and alert. - ID consulted and following we appreciate their time and care of the patient. 3. Pulmonary hypertension, acuity unknown, present on admission. Active. - Likely secondary to COPD. PE/RV thrombus was suspected early oon in hospitalization but ruled out with CTA and repeat echocardiogram. - Repeat limited echocardiogram revealed worsening RV overload with increased RVSP of 64 mmHg without evidence of RV thrombus, as above. - Discontinued diuresis with Lasix 40 mg IV twice a day as patient BP is . 4. Acute left sided hemothorax, status post chest tube, not present on admission. Resolved. - Initial echocardiogram was read as suspected right ventricular thrombus, therefore, a heparin gtt was initiated. - Decreasing hemoglobin from 12/25/2016 with hemoglobin of 14 to 12/27/2016 with hemoglobin of 7.6. Heparin drip discontinued and the patient was given 2 units of PRBCs. - Chest x-ray on 12/27/2016 demonstrated an acute worsening left pleural effusion with an ultrasound revealing small loculated complex left pleural effusion consistent with hemothorax, as above. - General surgery was consulted for chest tube placement with 2 L of blood status post placement. Given 2 units of PRBCs and 1 unit of platelets. - Hemoglobin and hematocrit stable status post transfusions. Continue to monitor H&H daily. - Chest tube removed and chest xray shows no sign of pneumothorax. 5. Acute hypomagnesemia, present on admission. Active. - Thought initially to be secondary to beer potomania but diuresis is also contributing. - Replete as needed. - Monitor magnesium level daily. 6. Acute hypokalemia, present on admission. Active. - Thought initially to be secondary to beer potomania but diuresis is also contributing. - Continue potassium 20 mEq PO daily with additional repletion as necessary. - Monitor potassium level daily. 7. Acute blood loss anemia, not present on admission. Resolved. - Likely secondary to hyperfibrinolysis from liver disease and heparin gtt. - Chest x-ray on 12/27/2016 demonstrated an acute worsening left pleural effusion with an ultrasound revealing small loculated complex left pleural effusion consistent with hemothorax. - General surgery was consulted for chest tube placement with 2 L of blood status post placement. Given 2 units of PRBCs and 1 unit of platelets. - Hemoglobin and hematocrit stable status post transfusions. 8. Acute shock, unclear etiology, present on admission. Resolved. - Likely secondary to cardiogenic shock but there may have been a mixed etiology with an obstructive/cardiogenic component, hypovolemia from acute blood loss, and possibly septic as VBG showed an sVO2 of 78% although infectious source was not clear. - Patient clinically volume overloaded with JVD and peripheral edema with echocardiographic and radiographic evidence of right sided heart failure. - Repeat limited echocardiogram revealed worsening RV overload with increased RVSP of 64 mmHg without evidence of RV thrombus, as above. - Off phenylephrine for vasopressor support but needed this for extended period of approximately 8 days. - Discontinued IV fluids with LR at 100 mL/hr. Had to be cautious with IV fluid resuscitation due to RV overload and to avoid to rapid over correction of sodium level and central pontine myelinosis. 9. Alcohol dependency, present on admission. Presumed stable. - CIWA protocol was in place but outside of withdrawal window at this point. - Valium is ordered per CIWA protocol as needed for agitation or anxiety. - Continue thiamine IV daily. 10. Acute encephalopathy, present on admission. Presumed stable. - Likely multifactorial and related to her hypercapnia, hyponatremia and possibly hepatic encephalopathy (CT showed abdominal ascites and history of alcohol use on HPI). Less likely PE. Unlikely differentials include overdose and epilepsy. No trauma. - CT brain without contrast was negative for any acute intracranial abnormality , as above. Patient was also non-focal on exam, therefore, CVA very unlikely. - Alcohol level and urine drug screen negative. - Received IV fluids throughout course but were cautious with IV fluid resuscitation due to RV overload and to avoid to rapid over correction of sodium level and central pontine myelinosis. - Continue Precedex and fentanyl for sedation. 11. Acute respiratory alkalosis with partial metabolic compensation, present on admission. Resolved. - Continue ventilator with settings as above. - Treat COPD as above under problem #2. - Also treat underlying etiology of shock under problem #1. 12. Atrial fibrillation with RVR, acuity unknown, present on admission. Active. - Unclear if she has a history of atrial fibrillation. - RV thrombus possible based on echocardiogram. CTA revealed no PE. - Serial troponins have been negative. - Continue amiodarone switch from PO to IV due to ileus for rhythm control per primary medical team. 13. Acute hyponatremia, present on admission. Resolved. - Likely related to dehydration and possibly beer potomania. - Monitor sodium level closely to avoid to rapid over correction central pontine myelinosis. - Monitor sodium level daily. Chronic problems with management per primary team. Disposition: Several days and depending upon clinical course. Total critical care time spent 60 minutes. . GI Prophylaxis: H2 cielo VTE Prophylaxis: Sub-Q Heparin (Unfractionated), SCDs VTE Mechanical Devices: Intermittant Pneumatic CD Resuscitation Status: DNR/DNI:Do Not Resuscitate/Intubate Attending Statement I have seen and examined this patient with the resident physician. Vital signs , labs, imaging have been reviewed. I agree with the assessment and plan above. Please refer to my separately dictated progress note for any modifications to above. Yamini Fischer M.D. Pulmonary and Critical Care medicine Pager [phone] Nneka Greene DO Jan 06, 2017 08:08 Yamini Fischer MD Jan 07, 2017 13:40
[2017-01-06 08:39] LABS: Phosphorus 2.1 mg/dL (2.5-4.9)
--- NOTE | 2017-01-06 09:02 | PROG NOTE ---
[address] [address] PROGRESS NOTE PATIENT: RAPHAEL SLATER : 1950 MR#: [id number] ADMIT: 12/22/2016 JOB ID: [id number] DATE: 01/06/2017 INFECTIOUS DISEASE FOLLOW UP NOTE: REASON FOR FOLLOW UP: Fungemia. INTERVAL HISTORY: The patient remains intubated and non interactive in the ICU. She is somewhat sedated but does not rouse at all during the examination. No additional history obviously can be obtained from this patient. PHYSICAL EXAMINATION: Reveals a woman who was febrile again yesterday afternoon to 38.7, though she has been afebrile now for almost 24 hours. Currently 37.7, pulse 75, blood pressure 113/60, saturating well on 35% and seven of PEEP on the ventilator. She does not rouse at all during the examination. Eyes without change. Oral endotracheal tube, oral gastric tube in good position. She has a peripheral IV in the left foot and there is increasing erythema around that IV at this time. Also has a peripheral IV in her upper extremity which appears benign. Neck without abnormality. Lungs: A few crackles at the bases. Cardiac tones without significant new murmur. Abdomen slightly distended, but soft and nontender. Johnson catheter is present. LABORATORIES: Include a white count stable at 12,500, 87% segs are noted. Creatinine 0.82. LFTs completely normal yesterday, not repeated yet today. No new micro is available. Recall that we had multiple positive cultures for yeast in the blood which turns out to be Lashae albicans which is fluconazole susceptible. These cultures were obtained on the and with antifungal therapy starting on the . Since the , we have all negative fungal blood cultures including some from the , and now the . Chest x-ray was reviewed on the computer and compared to prior films. It shows very little overall change from recent days. There is really no evidence for pulmonary infiltrate. IMPRESSION: The patient seems relatively stable today. She is not on vasopressor agents and is saturating well on low levels of inspired oxygen and PEEP. Her mental status is still much decreased and she is not interactive or awake at all this morning. The single blood cultures obtained for coag-negative staph from the can be considered contaminants. Her fungemia has resolved and we have not had any positive blood cultures for yeast now for several days. Given the fact that her organism is sensitive to fluconazole and the literature suggests there is no difference between fluconazole and micafungin, we can go ahead and make the transition to fluconazole at this point. RECOMMENDATIONS: 1. Assuming there is no drug interactions, which I will be checking, will go ahead and switch from micafungin to fluconazole. 2. The total duration of fluconazole should be through about January 19 to complete two weeks of therapy from the first negative blood culture for yeast. 3. I would strongly consider removing the IV from the patient's foot and this case discussed with the ICU team.
[2017-01-06] MEDS ORDERED: Sodium Chloride LOK Flush 10 mL Syringe IVFLUSH PRN ×2 (09:05)
[2017-01-06] MEDS: Lactated Ringer's 1,000 ML IV SCH (09:32)
--- NOTE | 2017-01-06 10:05 | DRSVH ---
PROCEDURE: X-RAY CHEST ONE VIEW, PORTABLE ([id number]) INDICATIONS: hemothorax TECHNIQUE: One view of the chest was acquired. COMPARISON: [facility], CR, XR CHEST 1VW (PORTABLE), 01/05/2017, 4:52. FINDINGS: Surgical changes and devices: Left chest tube has been removed. Stable positioning of ETT and nasoga stric tube has been placed tip extending beyond the GE junction. Lungs and pleura: No pleural effusions or pneumothorax. Lungs are clear. Mediastinum: Mediastinal contours appear normal. Heart size is normal. Bones and chest wall: No suspicious bony lesions. Overlying soft tissues appear unremarkable. IMPRESSION: Stable chest. Of note, there is gaseous distention of bowel loops within the upper abdom en. Correlate clinically. Dictated by: Shankar Mandujano [facility] Interpreted: Rosaura Wisdom MD on 01/06/2017 at 10:03 Transcribed by: JENNIFER on 01/06/2017 at 10:04 Approved by: Rosaura Wisdom MD, PhD on 01/06/2017 at 16:31
--- NOTE | 2017-01-06 11:23 | PCM.PNSURG ---
Subjective Date of Service: Jan 06, 2017 Date of Service: Jan 06, 2017 Visit Information: Reason for Visit Altered Mental Status, Pneumonia, Afib With Rvr Surgery/Surgery Date Post-Op Day # Date of Admission: Dec 22, 2016 at 20:56 Hospital Day # Subjective: Pt seen today in ccu 1 day after removing chest tube. Pt intubated and therefore unable to answer questions. Postop General: No Complaints (unable to verbalize complaints at this time.) Objective Vital Sign- Last 8 Hours Date Time Temp Pulse Resp B/P Pulse Ox O2 Delivery O2 Flow Rate FiO2 01/06/17 10:32 19 21 97/52 98 35 01/06/17 08:02 75 113/60 97 35 01/06/17 08:00 Ventilator 01/06/17 08:00 37.7 61 17 103/55 97 Mechanical Ventilator 35 01/06/17 04:39 68 01/06/17 04:30 37.7 58 16 109/52 96 Mechanical Ventilator 35 01/06/17 04:30 Ventilator 01/06/17 04:25 55 103/46 97 35 Intake and Output- Last 8 Hour 01/06/17 Cumulative From/Thru 07:00 12/22/16 18:16 - 01/06/17 05:31 Intake Total 1784 ml 73021 ml Output Total 400 ml 75731 ml Balance 1384 ml 20455 ml Intake Oral 0 ml IV Total 1316 ml 32465 ml Tube Feeding 428 ml 9468 ml Packed Cells 280 ml FFP 215 ml Platelets 792 ml Tube Irrigant 40 ml 2630 ml Output Urine Total 400 ml 45572 ml Gastric Drainage Total 690 ml Chest Tube Drainage Total 3527 ml # Voids 0 # Bowel Movements 0 4 Lungs: Clear to Auscultation Heart: Other (irregularly irregular rhythm) SURGICAL WOUND : Wound General Appearence: No Erythema, No Discharge, Wound under dressing Dressing & Drainage Status: Intact, No Purulent Drainage, No Odor Result Diagram: 01/06/1772901/06/17 0730 Assessment & Plan Plan Patient stable 1 day after removal of chest tube. PEEP continues at 7. SpO2 96- 100. Dressing over chest tube site may be removed this PM. General Surgery will sign off. Please re-consult for any further needs. VTE Prophylaxis: Sub-Q Heparin (Unfractionated), SCDs Resuscitation Status: DNR/DNI:Do Not Resuscitate/Intubate Puente,Kobe L PA-C Jan 06, 2017 11:23
--- NOTE | 2017-01-06 11:59 | PROG NOTE ---
[address] [address] PROGRESS NOTE PATIENT: RAPHAEL SLATER : 1950 MR#: [id number] ADMIT: 12/22/2016 JOB ID: [id number] DATE: 01/06/2017 PULMONARY CRITICAL CARE PROGRESS NOTE: The patient is a 66-year-old woman with history of COPD, cor pulmonale, who presented to the hospital with respiratory failure requiring mechanical ventilation on December 22. Her hospital stay has been complicated by a spontaneous left hemopneumothorax while on heparin drip, fungemia and persistent respiratory failure. The patient was seen and evaluated with resident physician, Nneka Greene DO. Refer to her separate detailed note for additional information. INTERVAL HISTORY: Continues to be febrile with temperatures to 38.7 yesterday. She tolerated a pressure support of 12/7 yesterday but her tidal volumes were extremely low. Heart rate is well controlled at baseline but continues to jump up from the 70s to as high as 170s to 180s with AFib periodically. REVIEW OF SYSTEMS: Unable to obtain. PHYSICAL EXAMINATION: Vital signs reviewed and most notable for T-max of 38.7 yesterday. FiO2 of 35%, PEEP of 7. General: Eyes open. Tries to communicate but unable to. Chest: Bilateral wheezing. LABORATORIES: Reviewed. WBC 12.5. Cultures notable for blood culture from January 03 with coag-negative staph; not yeast, which I mistakenly thought it was as of yesterday. Chest x-ray: Chest tube out on the left now. Lungs are clear. ASSESSMENT AND RECOMMENDATIONS: 1. Acute hypoxic respiratory failure, on mechanical ventilation since December 22. 2. Lashae albicans bacteremia with positive cultures on December 27 and again on January 01. 3. Coag-negative staphylococcus blood culture positive on January 03 -- likely contaminant. 4. Atrial fibrillation with rapid ventricular response. 5. Ileus. 6. Chronic obstructive pulmonary disease exacerbation. 7. Hemothorax, on heparin drip -- chest tube placed December 27, removed January 05. 8. Systemic inflammatory response syndrome, with recurrent fever. It appears I was mistaken about the positive blood culture from January 03 being yeast, it is in fact coag-negative staphylococcus, which is most likely a contaminant. For this reason, we spoke to Dr. Ruiz and asked him to cancel our request for transesophageal echocardiography. Her chest tube is out as of yesterday, and I am hoping that with her fungemia under control and the chest tube out, that she is able to make some improvement with regards to her pressure support trial. She is back on 09/15 today and her tidal volumes are in the mid to high 200s, which is not great, but she seems comfortable on it. We will continue this for at least a couple of hours as long as she tolerates it. Actually, I would like to get a blood gas on this to see if she is getting hypercarbic with these low tidal volumes. With regards to diuresis, I think she is euvolemic because she has gotten Lasix repeatedly until two days ago and then became hypotensive, for which we actually had to give her some fluid back. She is not longer on steroids because she has gotten them for almost two weeks for chronic obstructive pulmonary disease exacerbation. She is on no antibiotics other than micafungin for her fungemia. According to Dr. Magallanes, we do have sensitivities back from the [place], and this organism is sensitive to fluconazole. So, he is considering switching her to fluconazole but this does interact with amiodarone, so it gives us some pause and we will check her QT intervals first. She is on amiodarone, and digoxin has been added per cardiology recommendations for controlling her atrial fibrillation. Dr. Calzada with palliative care apparently spoke to her legal next of kin who is her brother and also her significant other who she has been living with for the last 20 years. I have been told that at the end of the conversation the family was not sure about pursuing tracheostomy or pursuing indefinite ventilator support and was considering making her do not reintubate post attempt at extubation at some point. I would like to continue with pressure support trials over the next 2-3 days and see if we make any progress, so that I can give the family more accurate information on what to expect. She is on appropriate deep venous thrombosis and gastrointestinal prophylaxis. She is a FULL CODE at this point. CRITICAL CARE TIME: 45 minutes.
[2017-01-06] MEDS ORDERED: Digoxin 0.25 mg/mL 2 mL Inj IV SCH (12:00)
[2017-01-06] MEDS: Amiodarone 150 mg/100 mL D5W 150 MG in IV Premix 1 EACH IV SCH (12:00)
[2017-01-06] MEDS: fentaNYL 2,500 mCg/250 mL 2,500 MCG in IV Premix 1 EACH IV SCH ×2 (13:10→20:14)
--- NOTE | 2017-01-06 14:22 | PCM.PNMED ---
Subjective Date of Service Jan 06, 2017 Subjective overnight: The patient remained afebrile overnight. Patient received Ativan 0.5 mg at 11 PM for agitation and had a significant drop in heart rate but not blood pressure. The patient was able to rest without issue. No acute events otherwise noted. Today: The patient no longer requiring a transesophageal echocardiogram to assess for possible angela endocarditis given no recent cultures positive since 01/01/2017. She will still require a dilated ophthalmologic exam. The patient's left lower extremity peripheral IV site appears to have some lymphangitis consistent with possible infection. A PICC will be placed given the patient's recent culture negative angela, and the peripheral IV site will be discontinued. Susceptibilities of returned on the angela with the possibility of switching from micafungin to fluconazole. However the patient remains on amiodarone currently and there is a significant interaction between amiodarone and fluconazole. The patient is recently been started on digoxin per cardiology's recommendations given atrial fibrillation with right heart failure. Palliative team has discussed with the family and the patient would not want to be left on a trach and PEG at all and especially not for an extended period of time as appears to be the case currently. A family meeting will be held on 01/07/2017 at 5 PM to discuss the patient's prognosis. Exam Vital Signs Vital Sign - Last Date Time Temp Pulse Resp B/P Pulse Ox O2 Delivery O2 Flow Rate FiO2 01/06/17 04:39 68 01/06/17 04:30 37.7 16 109/52 96 Mechanical Ventilator 35 Intake and Output 01/05/17 01/05/17 01/06/17 Cumulative From/Thru 15:00 23:00 07:00 12/22/16 18:16 - 01/06/17 05:31 Intake Total 2434 ml 1784 ml 67988 ml Output Total 550 ml 400 ml 64620 ml Balance 1884 ml 1384 ml 77980 ml Intake Oral 0 ml IV Total 1720 ml 1316 ml 44907 ml Tube Feeding 594 ml 428 ml 9468 ml Packed Cells 280 ml FFP 215 ml Platelets 792 ml Tube Irrigant 120 ml 40 ml 2630 ml Output Urine Total 400 ml 400 ml 94321 ml Gastric Drainage Total 120 ml 690 ml Chest Tube Drainage Total 30 ml 3527 ml # Voids 0 # Bowel Movements 0 4 Exam General: thin female appearing older than stated age lying in bed intubated and sedated Eyes: PERRLA. Anicteric sclerae, moist noninjected conjunctivae HENT: Normocephalic, atraumatic. Endotracheal and oropharyngeal tube in place. External ears without defect. Neck: Supple, mild JVD, trachea midline, No lymphadenopathy or thyromegaly. Cardiovascular: Tachycardia with Irregular rhythm tachycardia without murmurs, rubs, or gallops appreciated. Pulmonary: Mild coarse breath sounds bilaterally with mild decreased air movement on the left lower axillary base and mild intermittent wheezing noted in both left and right lung wooten with clean dry bandage covering chest tube site. Abdomen: Moderately distention, tympanic to percussion, bowel sounds hypoactive Genitourinary: Johnson catheter in place. Extremities: Wrist restraints in place. Pulses intact at radial bilaterally and and decreased dorsalis pedis bilaterally, mild cyanosis noted in the fingertips and toes bilaterally. Mild lymphangitis noted from left foot dorsal surface peripheral IV. Neuro: Pupils equal round reactive to light, not following commands at this time Psych: Unable to obtain IVs and Medications Medications Reviewed: Medications were reviewed in detail Lab and Diagnostics Result Diagram: 01/05/17 0418 01/05/17 0418 Microbiology _ Microbiology DAVE CULT BLOOD FUNGUS Preliminary 01/01/17 Organism 1 ANGELA ALBICANS ISOLATED FROM ONE OF THREE BOTTLES COLLECTED 12/27/16 _ X-Rays, CTs and MRIs CT BRAIN WITHOUT CONTRAST IMPRESSION: No acute intracranial disease process. Dictated by: Rosaura Wisdom MD, PhD on 12/22/2016 at 20:12 VENOUS LEG DUPLEX BILATERAL IMPRESSION: No deep venous thrombosis identified within either the left or right lower extremities. Dictated by: Shankar BARRETO Interpreted: Sobia Plunkett MD on 12/23/2016 at 9: 58 CT ANGIO CHEST PULMONARY EMBOLISM IMPRESSION: 1. No pulmonary embolus. 2. Mild pulmonary edema associated with small bilateral pleural effusions. 3. Small amount of ascites. 4. Coronary artery disease. Cardiomegaly. Right heart failure. Dictated by: Julieta Gunn M.D. on 12/23/2016 at 13:33 X-RAY CHEST ONE VIEW, PORTABLE IMPRESSION: Placement of left pleural drain with significant reduction in size of loculated left pleural effusion. No pneumothorax. Dictated by: Shankar BARRETO Interpreted: Harshil Pacheco MD on 12/28/2016 at 17 :10 CT CHEST, ABDOMEN AND PELVIS WTIH CONTRAST IMPRESSION: 1. Marked fluid distention of the colon most prominent within the cecum. No bowel wall thickening or evidence of small bowel obstruction. The findings are nonspecific and differential considerations include an ileus or functional obstruction distally versus Anjali's syndrome. 2. Small to moderate bilateral pleural effusions with associated compressive atelectasis. 3. Small clustered bilateral pulmonary nodules likely represent a mild infectious or inflammatory process. 4. Diffuse anasarca. Dictated by: Ravin Joshua M.D. on 01/01/2017 at 15:58 Cardiac Echo Impressions Echocardiogram Report Interpretation Summary Probable large left abdominal ascites possibly surrounding the spleen. There are moderate-sized bilateral pleural effusions noted. There is no thrombus seen in the right ventricle. A calcified moderator band and papillary muscle are visualized. Borderline right ventricular enlargement. Right ventricular systolic function is mild to moderately reduced. The right ventricular systolic pressure is estimated at 68 mmHg assuming a right atrial pressure of 15 mm Hg. RVSP has increased increase since prior study. Echocardiogram Report Interpretation Summary No evidence of endocarditis, consider ANA ROSA if clinically indicated. Electronically signed by: Isra Valdez on Reading Physician:01/03/2017 11:42 AM Additional Diagnostics ABG DateTimeAnalyzed 05:13:00 -_ pH ____7.464 - 7.350 7.450 pCO2 ___55.2__ -mmHg 35.0 45.0 pO2 ___78.8__ -mmHg 69.0 116 HCO3- ___39.0__ -mmol/L 22.0 26.0 Assessment & Plan Patient is a 66-year-old female with past medical history remarkable for COPD, hypertension, and alcohol dependency presents to schedule an hospital with acute respiratory failure secondary to right heart failure and cor pulmonale. Hospital day 14. 1. Acute on chronic respiratory failure with hypoxia and hypercapnia, present on admission, ongoing. - Patient does have a history of COPD/emphysema and she is likely CO2 retainer. Likely secondary to cor pulmonale. - Echocardiograms show pulmonary hypertension with right ventricular dilation and moderate reduced ejection fraction - ABG to be done in AM and as needed for ventilator management. - Patient sedated with fentanyl drip and Precedex drip and with lorazepam 0.5 mg IV push as available for agitation. Continue daily sedation vacations. - Continue solu-medrol 40 mg daily. - Budesonide nebulizer twice a day and Atrovent nebs Q4. - Pulmonology has been consulted for assistance with vent management and we appreciate their assistance. - Family meeting with brother and medical decision maker on 01/02/2017 patient will continue to be treated with goals of extubation - Another family meeting will be held with the brother on 01/06/2017 to discuss the likely needs for possible trach and PEG with the family stated goal but she would never want to be on a ventilator long-term. 2. Right heart failure and cor pulmonale, presume chronic, present on admission. - Uncertain of the precise etiology but patient has significant alcohol history as well as emphysema. - This will increase the morbidity and mortality of the patient in the setting of this prolonged ICU stay. - Dr. Pinto has been consulted and we appreciate her recommendations. - continue Lasix given for anasarca associated with right heart failure - Patient started on digoxin per cardiology recommendations with hopeful improvement in right heart cardiac contractility 3. Fungemia, likely present on admission, under evaluation - Infectious disease following and we appreciate Dr. Magallanes's recommendations. - Angela is not a likely pathogen that causes pneumonia. Central venous line removed and sent for culture currently negative - Repeat blood cultures drawn on 01/01 have resulted in a positive Angela, these will be redrawn serially until a negative culture is obtained - Repeat blood cultures from 01/03/2017 currently negative - continue micafungin for 2 weeks after first negative culture currently 2016 based off of negative culture on January 03 - Infectious disease recommends canceling Transesophageal echocardiogram for possible fungal endocarditis given no recent positive cultures - Patient will still require an ophthalmologic exam at some point in the future - Sensitivities returned and this version of Angela is sensitive to fluconazole - Currently cannot start fluconazole given patient's requirement for amiodarone for rhythm control 4. Atrial fibrillation with rapid ventricular response, acute, present on admission, improving. - No clear history of atrial fibrillation. - Notable right heart failure - Patient's blood pressure has not tolerated the use of beta blockers. - Continue Amiodarone 150 mg IV every 18 hours - Given atrial fibrillation with right heart failure digoxin IV has been started per cardiology recommendations - Dr. Pinto has been consulted and we appreciate her recommendations. 5. Likely ileus, not present on admission, under evaluation - CT abdomen and pelvis performed on 01/02 showed distended loops of bowel, FMS was withdrawn and tube feedings held for several days during evaluation - C. difficile PCR ordered and negative - Tube feeding continued at goal, residuals are minimal with 10 cc - methylnaltrexone seems to have improved the patient's ileus, consider every 48 hours dosing in the future given continual fentanyl drip for sedation 6. Leukocytosis, not present on admission, improving stable - Initially thought to be consistent sitter secondary to IV Solu-Medrol steroids - Currently likely to be secondary to fungemia as well as continued steroid use - Monitor daily CBC and pro-calcitonin - Continue serial fungal blood cultures until negative - Fungemia as above 7. Alcohol dependency, present on admission, stable - CIWA protocol ordered at admission - Continue thiamine daily. 8. Hyponatremia, acute, present on admission, monitoring - May be related to dehydration - Continue to monitor and replete as necessary 9. Hypokalemia, acute, present on admission. Resolved monitoring - Continue to monitor with BMP and replete as needed. 10. Hypothyroidism, acute, present on admission. - Likely secondary to being critically ill. - Will need follow up labs approximately 6-8 weeks after hospital discharge. 11. Possible adrenal insufficiency, acute, present on admission, stable - ACTH-stim test shows low level of cortisol. - Patient already undergoing treatment with IV steroids. - Will need to plan for slow taper and close outpatient follow up. 12. Acute encephalopathy, present on admission, considered stable - Possibly related to her hypercapnia but must also consider reversible other etiologies such as toxic ingestion - Patient remains intubated and mildly sedated at this time so this is difficult to fully evaluate. - Patient sedated with fentanyl drip and Precedex drip with lorazepam 0.25 mg IV push as available for agitation Resolved conditions 13. Unlikely Right ventricular thrombus, present on admission, resolved - Seen on initial echocardiogram ordered for apparent volume overload due to right heart failure. - Discontinue Heparin PE protocol drip for presumed RV thrombus. - Limited echo performed later to confirm thrombosis failed to reveal right ventricular thrombus - Consideration for either no thrombus on initial echo versus less likely dislodge of thrombi/PE given no increased oxygen requirements 14. Acute shock, present on admission, resolved - Multifactorial with elements of septic and cardiogenic shock. - Patient appeared volume overloaded at admission with JVD and peripheral edema consistent with right heart failure. 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 Acute blood loss anemia, not present on admission, resolved - Initial echo showed possible right ventricular thrombus AND a Heparin drip was initiated for possible right ventricular thrombus - Decreasing hemoglobin from 12/25/2016 with hemoglobin of 14, to 12/27/2016 with hemoglobin of 7.6 heparin drip discontinued packed RBCs given - Chest x-ray on 12/27/2016 shows a worsening left pleural effusion, ultrasound used to fine fluid collection shows moderate loculations consistent with hemothorax - DIC panel ordered 12/27 with note of bleeding from all IV sites; Haptoglobin increased, fibrinogen decreased but above 100, elevated d-dimer, elevated PT, INR, and PTT consistent with acute DIC - General surgery placed a left-sided chest tube 12/28 with 2 L of blood it out immediately. 2 units of packed RBCs given with 1 unit of platelets and 1 unit of fresh frozen plasma given - Chest tube pulled on 01/05/2017, continue to monitor with daily chest x-rays while on vent 16. Left sided Hemothorax, not present on admission, resolved - General surgery placed a left-sided chest tube 12/28/2016 with 2 L of blood it out immediately. 2 units of packed RBCs given with 1 unit of platelets - Initial pleural fluid protein evaluation 3.5 compared to total protein of blood 4.3 consistent with exudative effusion - Substantial RBCs consistent with hemothorax. - Pleural fluid sent for cultures remains negative - Consider likely secondary to heparin drip, which has been stopped. - Gen. surgery decided to leave the chest tube in place after return of 200 mL of serosanguineous fluid with repositioning of the patient yesterday - Gen. surgery to evaluate for removal of the chest tube today depending on evaluation of chest x-ray after hours of waterseal on 17. Unlikely pneumonia, present on admission, resolved - Patient initially presented with a possibility of pneumonia however after being treated with Zosyn for 1 week and remaining with negative procalcitonin, pneumonia was considered less likely - increasing white blood cell counts could be attributed to an infection or steroid use for COPD exacerbation - Left lower quadrant consolidation visualized with ultrasound showed moderate loculations consistent with hemothorax possible developing empyema however has remained culture negative after chest tube placement - Yeast in blood not consistent with pneumonia as a source, candidiasis does not cause pneumonia - Antiemetic available PRN. - Antacid available PRN. - Bowel regimen available PRN. - Tylenol available PRN mild pain, fever. Disposition: patient will likely continue to be in the CCU for several more days of mechanical ventilation given severe COPD with emphysema, cor pulmonale, right-sided heart failure and now new possible bilateral nodular pneumonia. Patient was declined for transfer to [facility]. Patient's case and medical management discussed with critical care (Dr. Fischer). GI Prophylaxis: H2 cielo VTE Prophylaxis: Sub-Q Heparin (Unfractionated), SCDs VTE Mechanical Devices: Intermittant Pneumatic CD Resuscitation Status: DNR/DNI:Do Not Resuscitate/Intubate Time spent greater than 40 minutes. Attending Statement The patient was seen and examined together with Dr. Lomas on 01/06/17 and I have added additional information to the note above. Parth Schneider DO Jan 06, 2017 06:47 Madeline Ayala DO Jan 07, 2017 15:12
--- NOTE | 2017-01-06 16:58 | DRSVH ---
PROCEDURE: X-RAY PICC LINE PLACEMENT BY NURSE ([id number]) INDICATIONS: IV access COMPARISON: None. FINDINGS: PICC was placed by the intravenous therapy team from the right side. Fluoroscopic spot fi lm demonstrates tip projected over the lower SVC. IMPRESSION: Tip of PICC projected over the lower SVC . Dictated by: Shankar BARRETO Interpreted: Julieta Gunn MD on 01/06/2017 at 16:58 Transcribed by: ROB on 01/06/2017 at 16:58 Approved by: Julieta Gunn M.D. on 01/07/2017 at 16:22
[2017-01-06] MEDS ORDERED: Vancomycin Serum Trough XX ONE (23:30)
[2017-01-07] VITALS (15 sets, daily range): BP systolic 96–127; BP diastolic 52–61; PULSE 85–106; RESP 13–28; O2SAT 89–100
[2017-01-07] MEDS: Ipratropium 0.02% 0.5 mg/2.5 mL Inhalation Solution NEB SCH ×6 (00:24→20:17)
[2017-01-07] MEDS: Insulin Human REGular 300 Unit/3 mL Inj SUBQ SCH ×4 (02:30→20:30)
[2017-01-07 02:47] LABS: BASOPHILS % (AUTO) 0.1 % (0-3); EOSINOPHILS % (AUTO) 0.3 % (0-5); MONOCYTES % (AUTO) 3.7 % (4-12); Mean Corpuscular Hemoglobin 31.3 pg (27.0-35.0); NEUTROPHILS % (AUTO) 90.2 % (40-74); Platelet Count 163 bil/L (150-400)
[2017-01-07] MEDS: Chlorhexidine 0.12% 15 mL Oral Solution MT SCH ×5 (04:42→19:58)
[2017-01-07] MEDS: Budesonide 0.5 mg/2 mL Inhalation Solution NEB SCH ×2 (04:59→20:17)
--- NOTE | 2017-01-07 05:10 | ABG ---
DateTimeAnalyzed 05:07:00 -_ pH ____7.437 - 7.350 7.450 pCO2 ___51.9__ -mmHg 35.0 45.0 pO2 ___75.0__ -mmHg 69.0 116 HCO3- ___34.4__ -mmol/L 22.0 26.0 ABE ____9.3__ -mmol/L -2.0 2.0 tHb ____9.9__ -g/dL O2Hb ___94.1__ -% COHb ____1.3__ -% MetHb ____1.0__ -% sO2 ___96.3__ -% FIO2 ___30.0__ -% PEEP ____7.0__ -cmH2O Set_RR ____8.0__ -b/min Vt __340.0__ -L Drawn By MD - Date/Time Notified____ 05:10:00 -_ Spontaneous_RR ____8.0__ -b/min Oxygen Device 1 VENTILATOR - Notified By MD - B 767 -mmHg tO2 ___13.1__ -Vol% Lance test N/A -
[2017-01-07] MEDS: Amiodarone 150 mg/100 mL D5W 150 MG in IV Premix 1 EACH IV SCH (06:36)
[2017-01-07] MEDS: Polyethylene Glycol (PEG) 17 Gm Powder PO SCH ×2 (07:27→19:47)
[2017-01-07] MEDS: Heparin 5,000 Unit/mL Inj SUBQ SCH ×2 (08:23→19:57)
[2017-01-07] MEDS: Dexmedetomidine 400 mCg/100 mL 400 MCG in IV Premix 1 EACH IV SCH ×2 (08:23→16:04)
[2017-01-07] MEDS: Micafungin Inj 150 MG in 0.9% Sodium Chloride 100 ML IV SCH (08:25)
[2017-01-07] MEDS: Famotidine Inj 20 MG in IV Premix 1 EACH IV SCH ×2 (08:25→19:58)
--- NOTE | 2017-01-07 08:42 | PROG NOTE ---
[address] [address] PROGRESS NOTE PATIENT: RAPHAEL SLATER : 1950 MR#: [id number] ADMIT: 12/22/2016 JOB ID: [id number] DATE: 01/07/2017 INFECTIOUS DISEASE FOLLOW UP NOTE: REASON FOR FOLLOW UP: Fungemia. INTERVAL HISTORY: Overnight, the patient has remained relatively stable. She continues to be on the ventilator, FiO2 of 30, PEEP of 7 and oxygenating fairly well. She does not require any vasopressor agents. She has not had any temperatures greater than 38 degrees for 44 hours, though her temperature is consistently 37.8. This case was discussed at the bedside with the nurses as well as the ICU team The patient herself is intubated and sedated and cannot give any additional history and there are no family members available. Temperature consistently 37.8, pulse 85, blood pressure running systolic 90-115. Pulse is irregular. Saturating very well on 30% and 7 of PEEP. The patient, as noted, is sedated and does not rouse at all this morning. Eyes without conjunctivitis. Oral endotracheal tube, oral gastric tube in good position. She has no significant skin rash. Lungs with a few crackles at the bases. Cardiac tones irregularly irregular with a soft systolic murmur. Abdomen is slightly distended without focal masses or apparent tenderness. Johnson catheter is present. Left chest tube is present at the site of the left hemothorax. The feet are as always somewhat mottled and cool but no worse than before. LABORATORIES: Include a white count stable at 14,500, 90% segs. Creatinine 0.64. LFTs normal. Procalcitonin continues negative at 0.1. Urine white cells negative. QuantiFERON Gold indeterminate. Hep B, hep C negative. Our last positive fungal culture was back on January 01. Since then we have many negative blood fungal cultures. There is a single coag-negative staph in a blood culture from the which I would consider a contaminant. The fungal susceptibilities have not apparently been reported in the computer but I was notified by the micro lab that they have been received and the organism was quite susceptible including susceptible to fluconazole. IMPRESSION: The patient remains stable and off vasopressor agents. She is ventilating easily and has relatively clear lungs though still on the ventilator. She is still difficult to arouse and I cannot arouse her at all this morning though I understand at times she is somewhat awake. She did have a significant fungemia with positive blood cultures between the and which resolved with removal of the central line and instituting micafungin. Yesterday I talked about switching her to fluconazole which is an easier drug to use in many respects but it turns out, her QT is prolonged and there is a very significant drug interaction between fluconazole and amiodarone so we will avoid the drug interactions and continue with micafungin. RECOMMENDATIONS: 1. I would continue with micafungin as her sole antifungal drug. Because of the drug interactions with amiodarone and other issues, I think I would just use micafungin through January 17 as our final day of treatment. 2. I understand that there will be discussions about whether or not this patient will undergo tracheostomy and how aggressive to be in her continued support going forward given her multiplicity of medical problems. 3. ID will continue to follow along with you.
[2017-01-07 09:00] LABS: Phosphorus 1.9 mg/dL (2.5-4.9)
[2017-01-07] MEDS: Lactated Ringer's 1,000 ML IV SCH (09:21)
--- NOTE | 2017-01-07 09:54 | DRSVH ---
PROCEDURE: X-RAY CHEST ONE VIEW, PORTABLE ([id number]) INDICATIONS: acute respiratory failure TECHNIQUE: One view of the chest was acquired. COMPARISON: [facility], CR, XR CHEST 1VW (PORTABLE), 01/06/2017, 4:59. FINDINGS: Surgical changes and devices: Stable position the ETT and nasogastric tube. Right PICC has been plac ed in the interval tip projected over the mid superior vena cava Lungs and pleura: No pleural effusions or pneumothorax. Lungs are clear. Mild gaseous distention o f bowel loops within the upper abdomen redemonstrated. Mediastinum: Mediastinal contours appear normal. Heart size is normal. Bones and chest wall: No suspicious bony lesions. Overlying soft tissues appear unremarkable. IMPRESSION: 1. Placement of of right PICC otherwise stable chest. Dictated by: Shankar Mandujano RRA Interpreted: Rosaura Wisdom MD on 01/07/2017 at 9:53 Transcribed by: JENNIFER on 01/07/2017 at 9:54 Approved by: Rosaura Wisdom MD, PhD on 01/07/2017 at 16:35
--- NOTE | 2017-01-07 10:59 | PCM.PNMED ---
Subjective Date of Service Jan 07, 2017 Subjective Intensive Care/Pulmonology Consultation Note: Attending Dr. Aaliyah Ling is a 66-year-old female with a past medical history significant for hypertension and COPD who was brought to [facility] Emergency Department due to unresponsiveness requiring intubation and thought to be secondary to hypercapnia, hyponatremia and possibly hepatic encephalopathy. Now being treated for fungemia and acute on chronic hypoxemic hypercapnic respiratory failure Hospital day/ventilator day #17. Overnight: The patient was anxious and tachycardic with turns. She had 2 large liquid bowel movements. Telemetry overnight: Atrial fibrillation, baseline heart rate 80 and 90's, with RVR this morning up to 120's. Subjective exam and review of systems are unobtainable as the patient is intubated and sedated. The patient had a PST of 09/15 with an FiO2 of 35% that lasted for 1 hour and 13 minutes yesterday with tidal volumes in the 260's and she was put back on PRVC for tachypnea. The patient continues to be rather somnolent but arousable this morning. . Exam Vital Signs Vital Sign - Last Date Time Temp Pulse Resp B/P Pulse Ox O2 Delivery O2 Flow Rate FiO2 01/07/17 07:35 85 97/52 99 30 01/07/17 04:30 37.8 13 Mechanical Ventilator Intake and Output 01/06/17 01/06/17 01/07/17 Cumulative From/Thru 15:00 23:00 07:00 12/22/16 18:16 - 01/07/17 05:09 Intake Total 1451 ml 1046 ml 18723 ml Output Total 500 ml 450 ml 72181 ml Balance 951 ml 596 ml 27269 ml Intake Oral 0 ml IV Total 591 ml 340 ml 92247 ml Tube Feeding 780 ml 586 ml 56971 ml Packed Cells 280 ml FFP 215 ml Platelets 792 ml Tube Irrigant 80 ml 120 ml 2830 ml Output Urine Total 500 ml 450 ml 29395 ml Gastric Drainage Total 0 ml 690 ml Chest Tube Drainage Total 0 ml 3527 ml # Voids 0 # Bowel Movements 1 5 Exam General: Middle-aged thin female lying in bed, intubated and sedated. HEENT: Normocephalic, atraumatic. External ears without defect. Pupils equal, round, and reactive to light. Anicteric sclerae, moist conjunctivae, and no lid lag. Endotracheal and OG tubes in place. Neck: Supple. Cardiovascular: Irregular rhythm without murmurs, rubs, or gallops appreciated. Left chest tube removed with dressing in place. Pulmonary: Clear to auscultation bilaterally. No wheeze or crackle. Abdomen: Soft, nondistended, bowel sounds active. Genitourinary: Johnson catheter in place. Extremities: No edema, cyanosis, or clubbing. Neurologic: Somnolent but arousable. Ventilator settings: PRVC. Tidal volume 340. Respiratory rate 8. FiO2 30%. PEEP 7.0. Peak 27. Plateau 22. ABG: PH 7.437. PCO2 51.9. PO2 75. HCO3 34.4. On PRVC with an FiO2 30%, PEEP of 7.0, and SPO2 96.3%. IV drips and Sedatives: Precedex 0.8 mcg/kg/hr and Fentanyl 25 mcg/hr. IV lines: Right PICC line. I&O: Net + 85922 mL. . IVs and Medications Medications Reviewed: Medications were reviewed in detail Lab and Diagnostics Item Value Date Time Calcium Level 8.3 mg/dL L 01/07/17234 Phosphorus Level 1.9 mg/dL L 01/07/17234 Magnesium Level 2.0 mg/dL 01/07/17234 Total Bilirubin 0.6 mg/dL 01/07/17234 Aspartate Amino Transf (AST/SGOT) 29 U/L 01/07/17234 Alanine Aminotransferase (ALT/SGPT) 24 U/L 01/07/17234 Alkaline Phosphatase 41 U/L 01/07/17234 Total Protein 4.1 g/dL L 01/07/17234 Albumin 2.5 g/dL L 01/07/17234 Procalcitonin 0.10 ng/mL H 01/07/17234 Result Diagram: 01/07/1723401/07/17234 Microbiology Sputum culture is to grew light normal prince. Repeat sputum culture grew Angela albicans. MRSA screen negative. Strep coccus pneumoniae and legionella urine antigens negative. Respiratory viral PCR negative. Blood culture 4 has no growth after 5 days. Fungal blood culture positive 4 for Angela albicans. Multiple repeat fungal blood cultures are negative since 01/01. Pleural fungal culture negative. Pleural acid-fast culture negative. Catheter tip has no growth after 48 hours. . X-Rays, CTs and MRIs CT BRAIN WITHOUT CONTRAST IMPRESSION: No acute intracranial disease process. Dictated by: Rosaura Wisdom MD, PhD on 12/22/2016 at 20:12 US VENOUS LEG DUPLEX BILATERAL IMPRESSION: No deep venous thrombosis identified within either the left or right lower extremities. Dictated by: Shankar BARRETO Interpreted: Sobia Plunkett MD on 12/23/2016 at 9: 58 CT ANGIO CHEST PULMONARY EMBOLISM IMPRESSION: 1. No pulmonary embolus. 2. Mild pulmonary edema associated with small bilateral pleural effusions. 3. Small amount of ascites. 4. Coronary artery disease. Cardiomegaly. Right heart failure. Dictated by: Julieta Gunn M.D. on 12/23/2016 at 13:33 X-RAY CHEST ONE VIEW, PORTABLE IMPRESSION: Placement of left pleural drain with significant reduction in size of loculated left pleural effusion. No pneumothorax. Dictated by: Shankar BARRETO Interpreted: Harshil Pacheco MD on 12/28/2016 at 17 :10 CT CHEST, ABDOMEN AND PELVIS WTIH CONTRAST IMPRESSION: 1. Marked fluid distention of the colon most prominent within the cecum. No bowel wall thickening or evidence of small bowel obstruction. The findings are nonspecific and differential considerations include an ileus or functional obstruction distally versus Anjali's syndrome. 2. Small to moderate bilateral pleural effusions with associated compressive atelectasis. 3. Small clustered bilateral pulmonary nodules likely represent a mild infectious or inflammatory process. 4. Diffuse anasarca. Dictated by: Ravin Joshua M.D. on 01/01/2017 at 15:58 Cardiac Echo Impressions Echocardiogram Report Interpretation Summary Probable large left abdominal ascites possibly surrounding the spleen. There are moderate-sized bilateral pleural effusions noted. There is no thrombus seen in the right ventricle. A calcified moderator band and papillary muscle are visualized. Borderline right ventricular enlargement. Right ventricular systolic function is mild to moderately reduced. The right ventricular systolic pressure is estimated at 68 mmHg assuming a right atrial pressure of 15 mm Hg. RVSP has increased increase since prior study. Echocardiogram Report Interpretation Summary No evidence of endocarditis, consider ANA ROSA if clinically indicated. Electronically signed by: Isra Valdez on Reading Physician:01/03/2017 11:42 AM Assessment & Plan Virginia Ling is a 66-year-old female with a past medical history significant for hypertension and COPD who was brought to [facility] Emergency Department due to unresponsiveness requiring intubation and thought to be secondary to acute on chronic hypoxemic hypercapnic respiratory failure, hyponatremia and possibly hepatic encephalopathy. Now being treated additionally for fungemia. Hospital day and ventilator day #17. 1. Acute fungemia, not present on admission. Active. - Likely secondary to broad spectrum antibiotics. - Fungal blood culture x 3 and sputum culture positive for Angela albicans. 3 fungal blood cultures are negative to date. - Continue micafungin x 2 weeks after negative fungal blood cultures are obtained and have patient receive a dilated eye exam per ID. Of not angela albicans is sensitive to fluconazole but there is a major interaction between amiodarone and fluconazole causing amiodarone toxicity and life threatening arrhythmias. - Central venous line removed and sent for culture without growth, as above. - CT showed probable ileus without evidence of perforation, as above. Received one time dose of Relistor with moderate BM. Continue scheduled bowel regimen and tube feeds now at goal. - Repeat limited echocardiogram showed no evidence of fungal endocarditis. - ID consulted and following we appreciate their time and care of the patient. 2. Acute on chronic hypoxemic and hypercapnia respiratory failure, present on admission. Active. - Patient does have a history of COPD with significant pulmonary hypertension as evident on echocardiogram. - Initial echocardiogram revealed RVSP of 34 mmHg with evidence of RV overload and septal flattening with suspected thrombus, as above. Repeat limited echocardiogram revealed worsening RV overload with increased RVSP of 64 mmHg without evidence of RV thrombus, as above. - CT angiography was negative for PE and revealed mild pulmonary edema associated with small bilateral pleural effusions and right heart failure, as above. - Repeat sputum culture grew Angela albicans, as above. Continue micafungin per ID. - Received a sufficient course of Solu-Medrol for COPD exacerbation. - Chest x-ray continues to demonstrate clear lungs bilaterally, as above. - Continue ipratropium every 4 hours and budesonide twice daily. - Continue to monitor ABG daily for ventilator management. - The patient continues to have airway issue secondary to severe COPD, therefore , considering tracheostomy. However, due to fungemia and volume overload surgery is reluctant to place a tracheostomy. - Continue Precedex gtt and fentanyl gtt, as above. Continue sedation vacation and PST daily when patient is awake and alert. - ID consulted and following we appreciate their time and care of the patient. 3. Pulmonary hypertension, acuity unknown, present on admission. Active. - Likely secondary to COPD. PE/RV thrombus was suspected early oon in hospitalization but ruled out with CTA and repeat echocardiogram. - Repeat limited echocardiogram revealed worsening RV overload with increased RVSP of 64 mmHg without evidence of RV thrombus, as above. - Discontinued diuresis with Lasix 40 mg IV twice a day as patient BP is . 4. Acute left sided hemothorax, status post chest tube, not present on admission. Resolved. - Initial echocardiogram was read as suspected right ventricular thrombus, therefore, a heparin gtt was initiated. - Decreasing hemoglobin from 12/25/2016 with hemoglobin of 14 to 12/27/2016 with hemoglobin of 7.6. Heparin drip discontinued and the patient was given 2 units of PRBCs. - Chest x-ray on 12/27/2016 demonstrated an acute worsening left pleural effusion with an ultrasound revealing small loculated complex left pleural effusion consistent with hemothorax, as above. - General surgery was consulted for chest tube placement with 2 L of blood status post placement. Given 2 units of PRBCs and 1 unit of platelets. - Hemoglobin and hematocrit stable status post transfusions. Continue to monitor H&H daily. - Chest tube removed and chest xray shows no sign of pneumothorax. 5. Acute hypomagnesemia, present on admission. Active. - Thought initially to be secondary to beer potomania but diuresis is also contributing. - Replete as needed. - Monitor magnesium level daily. 6. Acute hypokalemia, present on admission. Active. - Thought initially to be secondary to beer potomania but diuresis is also contributing. - Continue potassium 20 mEq PO daily with additional repletion as necessary. - Monitor potassium level daily. 7. Acute blood loss anemia, not present on admission. Resolved. - Likely secondary to hyperfibrinolysis from liver disease and heparin gtt. - Chest x-ray on 12/27/2016 demonstrated an acute worsening left pleural effusion with an ultrasound revealing small loculated complex left pleural effusion consistent with hemothorax. - General surgery was consulted for chest tube placement with 2 L of blood status post placement. Given 2 units of PRBCs and 1 unit of platelets. - Hemoglobin and hematocrit stable status post transfusions. 8. Acute shock, unclear etiology, present on admission. Resolved. - Likely secondary to cardiogenic shock but there may have been a mixed etiology with an obstructive/cardiogenic component, hypovolemia from acute blood loss, and possibly septic as VBG showed an sVO2 of 78% although infectious source was not clear. - Patient clinically volume overloaded with JVD and peripheral edema with echocardiographic and radiographic evidence of right sided heart failure. - Repeat limited echocardiogram revealed worsening RV overload with increased RVSP of 64 mmHg without evidence of RV thrombus, as above. - Off phenylephrine for vasopressor support but needed this for extended period of approximately 8 days. - Discontinued IV fluids with LR at 100 mL/hr. Had to be cautious with IV fluid resuscitation due to RV overload and to avoid to rapid over correction of sodium level and central pontine myelinosis. 9. Alcohol dependency, present on admission. Presumed stable. - CIWA protocol was in place but outside of withdrawal window at this point. - Valium is ordered per CIWA protocol as needed for agitation or anxiety. - Continue thiamine IV daily. 10. Acute encephalopathy, present on admission. Presumed stable. - Likely multifactorial and related to her hypercapnia, hyponatremia and possibly hepatic encephalopathy (CT showed abdominal ascites and history of alcohol use on HPI). Less likely PE. Unlikely differentials include overdose and epilepsy. No trauma. - CT brain without contrast was negative for any acute intracranial abnormality , as above. Patient was also non-focal on exam, therefore, CVA very unlikely. - Alcohol level and urine drug screen negative. - Received IV fluids throughout course but were cautious with IV fluid resuscitation due to RV overload and to avoid to rapid over correction of sodium level and central pontine myelinosis. - Continue Precedex and fentanyl for sedation. 11. Acute respiratory alkalosis with partial metabolic compensation, present on admission. Resolved. - Continue ventilator with settings as above. - Treat COPD as above under problem #2. - Also treat underlying etiology of shock under problem #1. 12. Atrial fibrillation with RVR, acuity unknown, present on admission. Active. - Unclear if she has a history of atrial fibrillation. - RV thrombus possible based on echocardiogram. CTA revealed no PE. - Serial troponins have been negative. - Continue amiodarone IV . Discontinue digoxin as the patient was severely bradycardic in the low 30's. Will also check a digoxin level to assess toxicity in light of ileus several days ago and potential poor absorption. 13. Acute hyponatremia, present on admission. Resolved. - Likely related to dehydration and possibly beer potomania. - Monitor sodium level closely to avoid to rapid over correction central pontine myelinosis. - Monitor sodium level daily. Chronic problems with management per primary team. Disposition: Several days and depending upon clinical course. Total critical care time spent 60 minutes. . GI Prophylaxis: H2 cielo VTE Prophylaxis: Sub-Q Heparin (Unfractionated), SCDs VTE Mechanical Devices: Intermittant Pneumatic CD Resuscitation Status: DNR/DNI:Do Not Resuscitate/Intubate Attending Statement I have seen and examined this patient with the resident physician. Vital signs , labs, imaging have been reviewed. I agree with the assessment and plan above. Please refer to my separately dictated progress note for any modifications to above. Yamini Fischer M.D. Pulmonary and Critical Care medicine Pager [phone] Nneka Greene DO Jan 07, 2017 08:27 Yamini Fischer MD Jan 07, 2017 13:51
[2017-01-07] MEDS ORDERED: Potassium Phos (mEq) Inj 40 MEQ in Dextrose 5% 500 ML IV ONE (11:00)
[2017-01-07] MEDS: KCl 40 mEq/100 mL (CENTRAL) 40 MEQ in IV Premix 1 EACH IV ONE ×2 (11:34→11:54)
--- NOTE | 2017-01-07 11:35 | PROG NOTE ---
[address] [address] PROGRESS NOTE PATIENT: RAPHAEL SLATER : 1950 MR#: [id number] ADMIT: 12/22/2016 JOB ID: [id number] DATE: 01/07/2017 PULMONARY CRITICAL CARE PROGRESS NOTE: The patient is a 66-year-old woman admitted to the hospital on December 22 with acute respiratory failure requiring mechanical ventilation and cor pulmonale. The patient was seen and evaluated with resident physician, nNeka Greene. Please refer to her separate detailed note for additional information. INTERVAL HISTORY: She only tolerated about an hour or hour and a half of pressure support trial of 12/7 yesterday before she developed tachypnea and respiratory distress and it had to be stopped. She has been afebrile for more than 24 hours for the first time in many days. REVIEW OF SYSTEMS: Unable to obtain. PHYSICAL EXAMINATION: Vital signs notable for T-max of 37.9, which is improved. She is on 35% FiO2 and 7 of PEEP. General: As usual she opens her eyes, tries to communicate. Chest: Bilateral wheezing. LABORATORIES: Notable for WBC 14.5 from 12.5. Chemistries are okay. Cultures: Fungal cultures have been negative for many days now. Last positive was on January 01. Chest x-ray is clear. Chest tube has been out for a couple of days. ASSESSMENT AND RECOMMENDATIONS: 1. Acute hypoxic respiratory failure on mechanical ventilation since December 22. 2. Lashae albicans bacteremia last positive culture on January 01. 3. Atrial fibrillation with RVR-now bradycardic. 4. Ileus. 5. Chronic obstructive pulmonary disease exacerbation. 6. Hemothorax while on heparin drip with chest tube placed December 27 and removed January 05. She is finally resolving her fevers and these can be likely attributed to her persistent fungemia which seems to have improved. Cultures have been negative now for over five days. Continue micafungin since fluconazole has a significant interaction with amiodarone and patient's QT is too long to have both medications on board. She is on both amiodarone and digoxin was added recently for persistent AFib, but she has been bradycardic as low as the 30s so were going to stop digoxin and check a level to make sure she is not toxic. Continue pressure support trials as tolerated while Palliative Care is kindly speaking with her brother who is legal next of kin and her significant other and trying to get a sense of goals of care. Tracheostomy has been on hold until now because of active fungemia and I think we should reassess for this early next week based on how she does over the weekend with pressure support trials and also based on what the family decides to do. She is DNR. She is on appropriate DVT and GI prophylaxis. CRITICAL CARE TIME: 45 minutes.
--- NOTE | 2017-01-07 13:30 | PCM.PALLBR ---
Palliative Care Recommendation 66-year-old woman with history of COPD, chronic and ongoing tobacco use, hypertension, possible chronic alcohol abuse- admitted from home where she had become progressively lethargic over several days. Intubated in the emergency department due to her decreased level of consciousness and evidence of hypercarbic respiratory failure. Status post left chest tube placement for apparent hemothorax on 12/28. Clinically slightly improved today. Palliative medicine consulted to assist the patient's family and determination of goals of care Both patient's brother and the significant other indicated today that they would prefer she be extubated as expeditiously as possible, not be a candidate for reintubation or tracheostomy, and that this approach would be best in keeping with her previously expressed wishes. Both understand that she may not survive extubation and still feel strongly that she would not want to remain on ventilatory support any longer. (See below for additional details of my lengthy conversations with them today.) Summary of palliative recommendations: 01/07/17-Brother Nicolas has good grasp of severity of disease. Reviewed by phone and he is planning on visiting this evening. He understands that she is unlikely to survive extubation and that she may need sedation for comfort. He reiterates that she would not want to be on vent support detention and he thinks Ezio understood all this too. Reviewed that she will have another pressure support trial today. Dr. Schneider will review with Dr. Fischer this afternoon regarding likelihood of safe extubation. There may be an option of a few more days trial or it may be evident from today that compassionate extubation may be the most appropriate option. Use of light sedation for comfort if goal is to see if she can make this but if thought is it would only cause suffering- she should get premedication which can be increasing her already present fentanyl drip. She is sensitive to lorazepam and 1-2 mg IV push most likely will suffice. -Symptom management (Pain/other)- no evidence of distress at this time. Continued management per her medical/critical care teams. -DPOA/Advanced Directives/POLST- Ezio and the patient never and so her brother Nicolas Ling is default POA. I reviewed her status in detail with Mr. Ling and Mr. Robles again today. Ezio tells me that the patient had told him in the past that she never wanted to be in the hospital on machines; this has also been her brother's perception of her wishes, though there is no documentation regarding these wishes. Consistent with the patient's previously stated wishes and with the agreement of both her significant other Ezio and her brother/ROBERT Valenzuela, her CODE STATUS continues to be DO NOT RESUSCITATE/DO NOT REINTUBATE, which best reflects her previously stated wishes. If she recovers sufficiently to participate in discussions, we will review these decisions with her when she is decisional. -Family/emotional support- both patient's brother and significant other plan on visiting the hospital on 01/06 -Spiritual support- offered and declined Contact info: Ezio Robles (significant other/house mate though they have no legal andrade) [phone] (Note that Ezio admits that he cannot read or write and does not understand much of what is going on, so very willingly deferred decision-making to patient's brother) Nicolas Ling (brother, closest biological relative) [phone](lives in [place])(he does not drive and so needs to arrange special transportation to get here) Patient Goals: 1. Patient's family wants to be told the truth about her illness, even if it is unpleasant. 2. Patient's family would like to be told prognosis when it can be predicted, to better guide treatment decisions. Additional Medical Diagnoses with primary management by Hospitalist team include : 1. Acute shock, present on admission, ongoing. 2. Acute blood loss anemia, not present on admission 3. Acute on chronic respiratory failure with hypoxia and hypercapnia, present on admission, ongoing. 4. Possible Right ventricular thrombus (now disproved) 5. Possible pneumonia, present on admission, improving. 6. Atrial fibrillation with rapid ventricular response, acute, present on admission, improving. 7. Hyponatremia, acute, present on admission, improving. 8. Alcohol dependency, present on admission, unstable 9. Hypokalemia, acute, present on admission. Ongoing. 10. Hypothyroidism, acute, present on admission. 11. Possible adrenal insufficiency, acute, present on admission. 12. Acute encephalopathy, present on admission, considered stable 13. Left hemothorax, status post chest tube placement Problems: End of Life Preferences DO NOT RESUSCITATE/DO NOT REINTUBATE- continue other current medical treatment Disposition To be determined Resuscitation Status Resuscitation Status: DNR/DNI:Do Not Resuscitate/Intubate POLST Updates/Changes Previous POLST?: No POLST Discussed with: Health Care Agent (DPOAHC) Total time 40 minutes; >50% face to face with patient and/or family, providing counselling regarding plans and recommendations, and in care coordination with his/her medical teams. primarily coordination of care and review of options with her brother regarding potential withdrawal of care I also spent an additional [ ] minutes counseling for advanced care planning with the patient/the patients family/the surrogate decision maker. Palliative Brief Note Date of Service Jan 07, 2017 . 66 yo patient with hx possible ETOH abuse, cardiomyopathy and COPD who was admitted with respiratory distress and has required ventilatory support now for 17 days. Request by her brother-Nicolas and SO Ezio has been not to do further aggressive interventions such as tracheostomy. See Dr. Calzada's note date 01/05/17. Hospital course continues with improvement in control of fungemia but no progress in vent weaning trials. Pt becomes extremely agitated if sedation is lightened and has made attempts to extubate herself. She is sedated, not arousable with mottled extremities. rhythm afib 70-100 BP 97/-127/ diminished BS throughout. chest tube gone. Josiane Eaton MD Jan 07, 2017 13:30
--- NOTE | 2017-01-07 17:50 | PCM.ADCARE ---
Tiffanie Pierce DO 01/07/17 1750: Advance Care Planning Note Purpose of Encounter: Active Diagnoses: Acute on chronic hypoxic respiratory failure on mechanical ventilation since December 22 Lashae albicans bacteremia with last positive culture on January 01 Atrial fibrillation with RVR - now with bradycardia These active diagnoses are of sufficient risk that focused discussion on advance care planning is needed to consider personal goals of care. Parties in Attendance: Nicolas Ling (brother of patient, patient's decision maker), Dr. Madeline Ayala , Dr. Tiffanie Pierce Decisional Capacity: Patient intubated and sedated and could not participate in the conversation Plan: We reviewed the prognosis and ongoing need for mechanical ventilation in light of the patient's acute on chronic respiratory failure. The patient continues to undergo pressure support trials on the ventilator. The patient has done well on some trials and does very poorly on others. Because of the intermittent nature of her success, her prognosis is quite guarded. Over the weekend, we will continue to try to perform trials to prepare the patient for extubation. Tracheostomy and PEG tube placement have been declined. On Tuesday, further conversation should be had to confirm any progress made or not made over the weekend. If no progress is made then there will be consideration for compassionate extubation as it is known that the patient would not want to have her life prolonged on machines. If the patient is extubated and does poorly, she is not to be reintubated. The patient continues to be DNR/DNI. CODE STATUS: DNR/DNI Time Spent Adv.Care Planning: Total time spent in [id number] education and discussion directly related to advance care plannin minutes Madeline Ayala DO 01/08/17 1627: Advance Care Planning Note Adv. Care Plan Documenation: The patient was seen and examined together with Dr. Pierce on 01/07/17 and I agree with the history, exam and plan as outlined in the note above. Tiffanie Pierce DO Jan 07, 2017 17:50 Madeline Ayala DO Jan 08, 2017 16:27
--- NOTE | 2017-01-07 18:17 | PCM.PNMED ---
Subjective Date of Service Jan 07, 2017 Subjective overnight: No acute events overnight Today: The patient has remained afebrile for more than 48 hours consistent with currently treat fungemia. Micafungin will be continued given severe adverse reactions with amiodarone and fluconazole with significant QT prolongation. The transesophageal echocardiogram will no longer be required per infectious disease however if the patient improves enough to be considered for tracheostomy and PEG a dilated eye exam by an research administrator will need to be performed. The patient has had significant bradycardia since beginning digoxin therapy so this medication will now be discontinued. We will continue pressure support trials with recommendations by pulmonary to make it easy and up that the patient will not fail for 2 hour period. A family meeting will be held with the brother today to discuss the patient's prognosis and future treatment options. Exam Vital Signs Vital Sign - Last Date Time Temp Pulse Resp B/P Pulse Ox O2 Delivery O2 Flow Rate FiO2 01/07/17 05:00 83 96/53 98 30 01/07/17 04:30 37.8 13 Mechanical Ventilator Intake and Output 01/06/17 01/06/17 01/07/17 Cumulative From/Thru 15:00 23:00 07:00 12/22/16 18:16 - 01/07/17 05:09 Intake Total 1451 ml 1046 ml 05168 ml Output Total 500 ml 450 ml 17192 ml Balance 951 ml 596 ml 31109 ml Intake Oral 0 ml IV Total 591 ml 340 ml 94381 ml Tube Feeding 780 ml 586 ml 09028 ml Packed Cells 280 ml FFP 215 ml Platelets 792 ml Tube Irrigant 80 ml 120 ml 2830 ml Output Urine Total 500 ml 450 ml 93012 ml Gastric Drainage Total 0 ml 690 ml Chest Tube Drainage Total 0 ml 3527 ml # Voids 0 # Bowel Movements 1 5 Exam General: thin female appearing older than stated age lying in bed intubated and sedated Eyes: PERRLA. Anicteric sclerae, moist noninjected conjunctivae HENT: Normocephalic, atraumatic. Endotracheal and oropharyngeal tube in place. External ears without defect. Neck: Supple, mild JVD, trachea midline, No lymphadenopathy or thyromegaly. Cardiovascular: Normal rate with Irregular rhythm without murmurs, rubs, or gallops appreciated. Pulmonary: Mild coarse breath sounds bilaterally with mild decreased air movement on the left lower axillary base and mild intermittent wheezing noted in both left and right lung wooten with clean dry bandage covering chest tube site. Abdomen: Moderately distention, tympanic to percussion, bowel sounds hypoactive Genitourinary: Johnson catheter in place. Extremities: Wrist restraints in place. Pulses intact at radial bilaterally and and decreased dorsalis pedis bilaterally, mild cyanosis noted in the fingertips and toes bilaterally. Significant edema likely anasarca noted in gravity dependent areas most notable in the thighs and flanks. Neuro: Pupils equal round reactive to light, not following commands at this time Psych: Unable to obtain IVs and Medications Medications Reviewed: Medications were reviewed in detail Lab and Diagnostics Result Diagram: 01/07/1723401/07/175 Microbiology _ Microbiology DAVE CULT BLOOD FUNGUS Preliminary 01/01/17 Organism 1 LASHAE ALBICANS ISOLATED FROM ONE OF THREE BOTTLES COLLECTED 12/27/16 _ X-Rays, CTs and MRIs CT BRAIN WITHOUT CONTRAST IMPRESSION: No acute intracranial disease process. Dictated by: Rosaura Wisdom MD, PhD on 12/22/2016 at 20:12 VENOUS LEG DUPLEX BILATERAL IMPRESSION: No deep venous thrombosis identified within either the left or right lower extremities. Dictated by: Shankar BARRETO Interpreted: Sobia Plunkett MD on 12/23/2016 at 9: 58 CT ANGIO CHEST PULMONARY EMBOLISM IMPRESSION: 1. No pulmonary embolus. 2. Mild pulmonary edema associated with small bilateral pleural effusions. 3. Small amount of ascites. 4. Coronary artery disease. Cardiomegaly. Right heart failure. Dictated by: Julieta Gunn M.D. on 12/23/2016 at 13:33 X-RAY CHEST ONE VIEW, PORTABLE IMPRESSION: Placement of left pleural drain with significant reduction in size of loculated left pleural effusion. No pneumothorax. Dictated by: Shankar Mandujano RRAisha Interpreted: Harshil Pacheco MD on 12/28/2016 at 17 :10 CT CHEST, ABDOMEN AND PELVIS WTIH CONTRAST IMPRESSION: 1. Marked fluid distention of the colon most prominent within the cecum. No bowel wall thickening or evidence of small bowel obstruction. The findings are nonspecific and differential considerations include an ileus or functional obstruction distally versus Hartland's syndrome. 2. Small to moderate bilateral pleural effusions with associated compressive atelectasis. 3. Small clustered bilateral pulmonary nodules likely represent a mild infectious or inflammatory process. 4. Diffuse anasarca. Dictated by: Ravin Joshua M.D. on 01/01/2017 at 15:58 Cardiac Echo Impressions Echocardiogram Report Interpretation Summary Probable large left abdominal ascites possibly surrounding the spleen. There are moderate-sized bilateral pleural effusions noted. There is no thrombus seen in the right ventricle. A calcified moderator band and papillary muscle are visualized. Borderline right ventricular enlargement. Right ventricular systolic function is mild to moderately reduced. The right ventricular systolic pressure is estimated at 68 mmHg assuming a right atrial pressure of 15 mm Hg. RVSP has increased increase since prior study. Echocardiogram Report Interpretation Summary No evidence of endocarditis, consider ANA ROSA if clinically indicated. Electronically signed by: Isra Valdez on Reading Physician:01/03/2017 11:42 AM Additional Diagnostics ABG DateTimeAnalyzed 05:13:00 -_ pH ____7.464 - 7.350 7.450 pCO2 ___55.2__ -mmHg 35.0 45.0 pO2 ___78.8__ -mmHg 69.0 116 HCO3- ___39.0__ -mmol/L 22.0 26.0 Assessment & Plan Patient is a 66-year-old female with past medical history remarkable for COPD, hypertension, and alcohol dependency presents to schedule an hospital with acute respiratory failure secondary to right heart failure and cor pulmonale. Hospital day 14. 1. Acute on chronic respiratory failure with hypoxia and hypercapnia, present on admission, ongoing. - Patient does have a history of COPD/emphysema and she is likely CO2 retainer. Likely secondary to cor pulmonale. - Echocardiograms show pulmonary hypertension with right ventricular dilation and moderate reduced ejection fraction - ABG to be done in AM and as needed for ventilator management. - Patient sedated with fentanyl drip and Precedex drip and with lorazepam 0.5 mg IV push as available for agitation. Continue daily sedation vacations. - Continue solu-medrol 40 mg daily. - Budesonide nebulizer twice a day and Atrovent nebs Q4. - Pulmonology has been consulted for assistance with vent management and we appreciate their assistance. - Family meeting with brother and medical decision maker on 01/02/2017 patient will continue to be treated with goals of extubation - Another family meeting will be held with the brother on 01/07/2017 to discuss the likely needs for possible trach and PEG with the family stated goal but she would never want to be on a ventilator long-term. 2. Right heart failure and cor pulmonale, presume chronic, present on admission. - Uncertain of the precise etiology but patient has significant alcohol history as well as emphysema. - This will increase the morbidity and mortality of the patient in the setting of this prolonged ICU stay. - Cardiology following -Hold Lasix as patient has been hypotensive - Patient started on digoxin per cardiology recommendations will be discontinued given significant bradycardia today 3. Fungemia, likely present on admission, under evaluation - Infectious disease following and we appreciate Dr. Magallanes's recommendations. - Lashae is not a likely pathogen that causes pneumonia. Central venous line removed and sent for culture currently negative - Repeat blood cultures drawn on 01/01 have resulted in a positive Lashae, these will be redrawn serially until a negative culture is obtained - Repeat blood cultures from 01/03/2017 currently negative - continue micafungin for 2 weeks after first negative culture currently 2016 based off of negative culture on January 03 - Infectious disease recommends canceling Transesophageal echocardiogram for possible fungal endocarditis given no recent positive cultures since January 01 - Patient will still require an ophthalmologic exam at some point in the future if her prognosis improves - Sensitivities returned and this version of Lashae is sensitive to fluconazole - Currently cannot start fluconazole given patient's requirement for amiodarone for rhythm control 4. Atrial fibrillation with rapid ventricular response, acute, present on admission, improving. - No clear history of atrial fibrillation. - Notable right heart failure - Patient's blood pressure has not tolerated the use of beta blockers. - Continue Amiodarone 150 mg IV every 18 hours - Discontinue digoxin IV given bradycardia - Cardiology has been consulted and we appreciate her recommendations. 5. Likely ileus, not present on admission, under evaluation - CT abdomen and pelvis performed on 01/02 showed distended loops of bowel, FMS was withdrawn and tube feedings held for several days during evaluation - C. difficile PCR ordered and negative - Tube feeding continued at goal, residuals are minimal with 10 cc - methylnaltrexone seems to have improved the patient's ileus, we will consider future dosing given continual fentanyl drip for sedation 6. Leukocytosis, not present on admission, improving stable - Initially thought to be consistent sitter secondary to IV Solu-Medrol steroids - Currently likely to be secondary to fungemia as well as continued steroid use - Monitor daily CBC and pro-calcitonin - Continue serial fungal blood cultures until negative - Fungemia as above 7. Alcohol dependency, present on admission, stable - CIWA protocol ordered at admission - Continue thiamine daily. 8. Hyponatremia, acute, present on admission, monitoring - May be related to dehydration - Continue to monitor and replete as necessary 9. Hypokalemia, acute, present on admission. Resolved monitoring - Continue to monitor with BMP and replete as needed. 10. Hypothyroidism, acute, present on admission. - Likely secondary to being critically ill. - Will need follow up labs approximately 6-8 weeks after hospital discharge. 11. Possible adrenal insufficiency, acute, present on admission, stable - ACTH-stim test shows low level of cortisol. - Patient already undergoing treatment with IV steroids. - Will need to plan for slow taper and close outpatient follow up. 12. Acute encephalopathy, present on admission, considered stable - Possibly related to her hypercapnia but must also consider reversible other etiologies such as toxic ingestion - Patient remains intubated and mildly sedated at this time so this is difficult to fully evaluate. - Patient sedated with fentanyl drip and Precedex drip with lorazepam 0.25 mg IV push as available for agitation Resolved conditions 13. Unlikely Right ventricular thrombus, present on admission, resolved - Seen on initial echocardiogram ordered for apparent volume overload due to right heart failure. - Discontinue Heparin PE protocol drip for presumed RV thrombus. - Limited echo performed later to confirm thrombosis failed to reveal right ventricular thrombus - Consideration for either no thrombus on initial echo versus less likely dislodge of thrombi/PE given no increased oxygen requirements 14. Acute shock, present on admission, resolved - Multifactorial with elements of septic and cardiogenic shock. - Patient appeared volume overloaded at admission with JVD and peripheral edema consistent with right heart failure. 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 Acute blood loss anemia, not present on admission, resolved - Initial echo showed possible right ventricular thrombus AND a Heparin drip was initiated for possible right ventricular thrombus - Decreasing hemoglobin from 12/25/2016 with hemoglobin of 14, to 12/27/2016 with hemoglobin of 7.6 heparin drip discontinued packed RBCs given - Chest x-ray on 12/27/2016 shows a worsening left pleural effusion, ultrasound used to fine fluid collection shows moderate loculations consistent with hemothorax - DIC panel ordered 12/27 with note of bleeding from all IV sites; Haptoglobin increased, fibrinogen decreased but above 100, elevated d-dimer, elevated PT, INR, and PTT consistent with acute DIC - General surgery placed a left-sided chest tube 12/28 with 2 L of blood it out immediately. 2 units of packed RBCs given with 1 unit of platelets and 1 unit of fresh frozen plasma given - Chest tube pulled on 01/05/2017, continue to monitor with daily chest x-rays while on vent 16. Left sided Hemothorax, not present on admission, resolved - General surgery placed a left-sided chest tube 12/28/2016 with 2 L of blood it out immediately. 2 units of packed RBCs given with 1 unit of platelets - Initial pleural fluid protein evaluation 3.5 compared to total protein of blood 4.3 consistent with exudative effusion - Substantial RBCs consistent with hemothorax. - Pleural fluid sent for cultures remains negative - Consider likely secondary to heparin drip, which has been stopped. - Gen. surgery decided to leave the chest tube in place after return of 200 mL of serosanguineous fluid with repositioning of the patient yesterday - Gen. surgery to evaluate for removal of the chest tube today depending on evaluation of chest x-ray after hours of waterseal on 17. Unlikely pneumonia, present on admission, resolved - Patient initially presented with a possibility of pneumonia however after being treated with Zosyn for 1 week and remaining with negative procalcitonin, pneumonia was considered less likely - increasing white blood cell counts could be attributed to an infection or steroid use for COPD exacerbation - Left lower quadrant consolidation visualized with ultrasound showed moderate loculations consistent with hemothorax possible developing empyema however has remained culture negative after chest tube placement - Yeast in blood not consistent with pneumonia as a source, candidiasis does not cause pneumonia - Antiemetic available PRN. - Antacid available PRN. - Bowel regimen available PRN. - Tylenol available PRN mild pain, fever. Disposition: patient will likely continue to be in the CCU for several more days of mechanical ventilation given severe COPD with emphysema, cor pulmonale, right-sided heart failure and now new possible bilateral nodular pneumonia. Patient was declined for transfer to [place]. GI Prophylaxis: H2 cielo VTE Prophylaxis: Sub-Q Heparin (Unfractionated), SCDs VTE Mechanical Devices: Intermittant Pneumatic CD Resuscitation Status: DNR/DNI:Do Not Resuscitate/Intubate Time spent Greater than 35 minutes Attending Statement The patient was seen and examined together with Dr. Lomas on 01/07/17 and I have added additional information to the note above. Parth Schneider DO Jan 07, 2017 07:46 Madeline Ayala DO Jan 08, 2017 16:24
[2017-01-07] MEDS ORDERED: 0.9% Sodium Chloride 250 ML ONE (19:50)
[2017-01-07] MEDS: fentaNYL 2,500 mCg/250 mL 2,500 MCG in IV Premix 1 EACH IV SCH (20:09)
[2017-01-08] VITALS (15 sets, daily range): BP systolic 107–143; BP diastolic 56–80; PULSE 80–128; RESP 15–26; O2SAT 95–100
[2017-01-08] MEDS: Dexmedetomidine 400 mCg/100 mL 400 MCG in IV Premix 1 EACH IV SCH ×2 (00:40→09:44)
[2017-01-08] MEDS: Chlorhexidine 0.12% 15 mL Oral Solution MT SCH ×6 (00:48→19:27)
[2017-01-08] MEDS: Amiodarone 150 mg/100 mL D5W 150 MG in IV Premix 1 EACH IV SCH ×2 (00:48→19:24)
[2017-01-08] MEDS: Ipratropium 0.02% 0.5 mg/2.5 mL Inhalation Solution NEB SCH ×7 (01:02→23:55)
[2017-01-08] MEDS: Insulin Human REGular 300 Unit/3 mL Inj SUBQ SCH ×4 (03:49→19:30)
[2017-01-08 04:05] LABS: BASOPHILS % (AUTO) 0.1 % (0-3); EOSINOPHILS % (AUTO) 0.6 % (0-5); MONOCYTES % (AUTO) 3.7 % (4-12); Mean Corpuscular Hemoglobin 30.9 pg (27.0-35.0); Mean Corpuscular Volume 97.7 fL (81-100); NEUTROPHILS % (AUTO) 89.6 % (40-74); Platelet Count 144 bil/L (150-400)
--- NOTE | 2017-01-08 04:18 | ABG ---
DateTimeAnalyzed 04:12:24 -_ pH ____7.519 - pCO2 ___44.4__ -mmHg pO2 ___67.5__ -mmHg HCO3- ___36.1__ -mmol/L ABE ___12.1__ -mmol/L tHb ____9.8__ -g/dL O2Hb ___94.5__ -% COHb ____2.2__ -% MetHb ___-0.2__ -% sO2 ___96.4__ -% FIO2 ___25.0__ -% PRVC 15 - PEEP ____5.0__ -cmH2O Vt __340.0__ -L Drawn By RB - Date/Time Notified____ 04:17:00 -_ Spontaneous_RR 8 -b/min Oxygen Device 1 VENTILATOR - Notified By RB - Notified Whom JOSHUA F, RN - B 759 -mmHg K+ ____4.3__ -mmol/L tO2 ___13.1__ -Vol% Lance test _Positive -
[2017-01-08 04:28] LABS: Magnesium 1.9 mg/dL (1.6-2.6); Phosphorus 2.6 mg/dL (2.5-4.9)
--- NOTE | 2017-01-08 06:55 | DRSVH ---
PROCEDURE: X-RAY CHEST ONE VIEW, PORTABLE ([id number]) INDICATIONS: 66-year-old female with acute respiratory failure. TECHNIQUE: One view of the chest was acquired. COMPARISON: [facility], CR, XR CHEST 1VW (PORTABLE), 01/07/2017, 5:32. [facility], CR, XR CHEST 1VW (PORTABLE), 01/06/2017, 4:59. [facility], CR, XR CHEST 1VW (BEE BLE), 01/05/2017, 4:52. FINDINGS: Surgical changes and devices: Endotracheal tube and nasogastric tube remain in expected positions. Right PICC remains in expected position. Lungs and pleura: No pleural effusions or pneumothorax. Lungs are clear. Mediastinum: Mediastinal contours appear normal. Heart size is normal. There is aortic atheroscler osis. Bones and chest wall: No suspicious bony lesions. Overlying soft tissues appear unremarkable. IMPRESSION: No acute cardiopulmonary disease. Endotracheal tube remains in expected position. Dictated by: Flip Heath M.D. on 01/08/2017 at 6:53 Approved by: Flip Heath M.D. on 01/08/2017 at 6:54
[2017-01-08] MEDS: Budesonide 0.5 mg/2 mL Inhalation Solution NEB SCH ×2 (07:25→19:38)
[2017-01-08] MEDS: Heparin 5,000 Unit/mL Inj SUBQ SCH ×2 (07:57→19:30)
[2017-01-08] MEDS: Famotidine Inj 20 MG in IV Premix 1 EACH IV SCH ×2 (07:57→19:26)
[2017-01-08] MEDS: Polyethylene Glycol (PEG) 17 Gm Powder PO SCH ×2 (07:57→19:28)
[2017-01-08] MEDS: Micafungin Inj 150 MG in 0.9% Sodium Chloride 100 ML IV SCH (08:26)
[2017-01-08] MEDS ORDERED: Furosemide 10 mg/mL 4 mL Inj IVPUSH ONE (08:30)
[2017-01-08] MEDS: Lactated Ringer's 1,000 ML IV SCH (10:30)
--- NOTE | 2017-01-08 13:12 | PROG NOTE ---
[address] [address] PROGRESS NOTE PATIENT: RAPHAEL SLATER : 1950 MR#: [id number] ADMIT: 12/22/2016 JOB ID: [id number] DATE: 01/08/2017 PULMONARY CRITICAL CARE PROGRESS NOTE: The patient is a 66-year-old woman with COPD and cor pulmonale admitted to the hospital on December 20 with acute respiratory failure requiring mechanical ventilation. DATE: INTERVAL HISTORY: Primary team spoke to the patient's brother who is legal next of kin yesterday evening and he indicated that he would not want her to have a tracheostomy or prolonged life support and that this would be most consistent with her wishes. She is DNR/DNI. She had a pressure support trial of 17/6 this morning and did okay for a couple of hours on this. Her digoxin was stopped yesterday and with that overnight and this morning she has had runs of tachycardia into the 140s. REVIEW OF SYSTEMS: Unable to obtain. PHYSICAL EXAMINATION: Vital signs reviewed. Temperature max 38, pulse 80, respirations 26, BP 119/67, sats 97% on 25% FiO2 and 5 cm of PEEP. General: Intubated, sedated. Chest: Bilateral wheezes. LABORATORIES: Reviewed. Notable for digoxin level of 0.9. WBC 13.9. Chest x-ray today reviewed and shows no acute change compared to prior. Lungs are clear. ASSESSMENT AND RECOMMENDATIONS: 1. Acute hypoxic respiratory failure intubated since December 22. 2. Lashae albicans bacteremia-last positive blood culture on January 01. 3. Atrial fibrillation with rapid ventricular response. 4. Chronic obstructive pulmonary disease exacerbation. 5. Hemothorax while on heparin drip. The chest tube placed December 27, removed January 05. 6. Ileus. Fever curve is going down and fungemia appears to have resolved with last positive culture on January 01. She remains on micafungin because of an interaction between fluconazole and amiodarone. We stopped her digoxin yesterday because she was bradycardic and today she is back to being tachycardic with baseline heart rate around 100 and jumping up to the 140s periodically. I wonder if the digoxin dose was too high so instead of 0.25 daily I have restarted 0.125 daily. She is also on amiodarone as before. Per conversation with her brother who is her legal next of kin yesterday by primary team, Dr. Ayala and Dr. Schneider, the plan is to continue pressure support trials as tolerated and see if she can be extubated. If she does not pass, then the plan would be to transition to comfort measures and extubate her as of Tuesday or Tuesday. Family does want to be notified and they want to be here if the plan is extubation to comfort measures. They are strongly opposed to tracheostomy as of the last conversation yesterday. She is DNR. CRITICAL CARE TIME: 40 minutes. ANN MARIE
[2017-01-08] MEDS: Digoxin 0.25 mg/mL 2 mL Inj IV SCH (13:15)
--- NOTE | 2017-01-08 13:59 | PCM.PNMED ---
Subjective Date of Service Jan 08, 2017 Subjective overnight: No acute events overnight Today: The patient was started on a pressure support trial this morning 01/05 given pulmonology recommendations for the patient to undergo at least 2 hours of continuous spontaneous respirations without failure. The primary team yesterday discussed with the patient's DPOA brother that the patient would not want to have a tracheostomy and continued ventilator support. The goal will be for possible extubation within the next day or two, prior to consideration for possible extubation to comfort care on January 10. Exam Vital Signs Vital Sign - Last Date Time Temp Pulse Resp B/P Pulse Ox O2 Delivery O2 Flow Rate FiO2 01/08/17 04:03 87 117/65 98 25 01/08/17 03:53 Ventilator 01/08/17 03:53 36.6 15 Intake and Output 01/07/17 01/07/17 01/08/17 Cumulative From/Thru 15:00 23:00 07:00 12/22/16 18:16 - 01/08/17 05:08 Intake Total 1645 ml 1242 ml 36880 ml Output Total 500 ml 475 ml 53022 ml Balance 1145 ml 767 ml 03102 ml Intake Oral 0 ml IV Total 906 ml 572 ml 27711 ml Tube Feeding 634 ml 550 ml 52414 ml Packed Cells 280 ml FFP 215 ml Platelets 792 ml Tube Irrigant 105 ml 120 ml 3055 ml Output Urine Total 500 ml 475 ml 85288 ml Gastric Drainage Total 690 ml Chest Tube Drainage Total 3527 ml # Voids 0 # Bowel Movements 0 5 Exam General: thin female appearing older than stated age lying in bed intubated and sedated Eyes: PERRLA. Anicteric sclerae, moist noninjected conjunctivae HENT: Normocephalic, atraumatic. Endotracheal and oropharyngeal tube in place. External ears without defect. Neck: Supple, mild JVD, trachea midline, No lymphadenopathy or thyromegaly. Cardiovascular: Normal rate with Irregular rhythm without murmurs, rubs, or gallops appreciated. Pulmonary: Mild coarse breath sounds bilaterally with mild decreased air movement on the left lower axillary base and mild intermittent wheezing noted in both left and right lung wooten Abdomen: Moderately distention, tympanic to percussion, bowel sounds hypoactive Genitourinary: Johnson catheter in place. Extremities: Wrist restraints in place. Pulses intact at radial bilaterally and and decreased dorsalis pedis bilaterally, mild cyanosis noted in the fingertips and toes bilaterally. Significant edema likely anasarca noted in gravity dependent areas most notable in the thighs and flanks. Neuro: Pupils equal round reactive to light, not following commands at this time Psych: Unable to obtain IVs and Medications Medications Reviewed: Medications were reviewed in detail Lab and Diagnostics Result Diagram: 01/08/17 0345 01/08/17 0345 Microbiology _ Microbiology DAVE CULT BLOOD FUNGUS Preliminary 01/01/17 Organism 1 LASHAE ALBICANS ISOLATED FROM ONE OF THREE BOTTLES COLLECTED 12/27/16 _ X-Rays, CTs and MRIs CT BRAIN WITHOUT CONTRAST IMPRESSION: No acute intracranial disease process. Dictated by: Rosaura Wisdom MD, PhD on 12/22/2016 at 20:12 US VENOUS LEG DUPLEX BILATERAL IMPRESSION: No deep venous thrombosis identified within either the left or right lower extremities. Dictated by: Shankar PELAEZ Interpreted: Sobia Plunkett MD on 12/23/2016 at 9: 58 CT ANGIO CHEST PULMONARY EMBOLISM IMPRESSION: 1. No pulmonary embolus. 2. Mild pulmonary edema associated with small bilateral pleural effusions. 3. Small amount of ascites. 4. Coronary artery disease. Cardiomegaly. Right heart failure. Dictated by: Julieta Gunn M.D. on 12/23/2016 at 13:33 X-RAY CHEST ONE VIEW, PORTABLE IMPRESSION: Placement of left pleural drain with significant reduction in size of loculated left pleural effusion. No pneumothorax. Dictated by: Shankar BARRETO Interpreted: Harshil Pacheco MD on 12/28/2016 at 17 :10 CT CHEST, ABDOMEN AND PELVIS WTIH CONTRAST IMPRESSION: 1. Marked fluid distention of the colon most prominent within the cecum. No bowel wall thickening or evidence of small bowel obstruction. The findings are nonspecific and differential considerations include an ileus or functional obstruction distally versus Berry's syndrome. 2. Small to moderate bilateral pleural effusions with associated compressive atelectasis. 3. Small clustered bilateral pulmonary nodules likely represent a mild infectious or inflammatory process. 4. Diffuse anasarca. Dictated by: Ravin Joshua M.D. on 01/01/2017 at 15:58 Cardiac Echo Impressions Echocardiogram Report Interpretation Summary Probable large left abdominal ascites possibly surrounding the spleen. There are moderate-sized bilateral pleural effusions noted. There is no thrombus seen in the right ventricle. A calcified moderator band and papillary muscle are visualized. Borderline right ventricular enlargement. Right ventricular systolic function is mild to moderately reduced. The right ventricular systolic pressure is estimated at 68 mmHg assuming a right atrial pressure of 15 mm Hg. RVSP has increased increase since prior study. Echocardiogram Report Interpretation Summary No evidence of endocarditis, consider ANA ROSA if clinically indicated. Electronically signed by: Isra Valdez on Reading Physician:01/03/2017 11:42 AM Additional Diagnostics ABG DateTimeAnalyzed 05:13:00 -_ pH ____7.464 - 7.350 7.450 pCO2 ___55.2__ -mmHg 35.0 45.0 pO2 ___78.8__ -mmHg 69.0 116 HCO3- ___39.0__ -mmol/L 22.0 26.0 Assessment & Plan Patient is a 66-year-old female with past medical history remarkable for COPD, hypertension, and alcohol dependency presents to schedule an hospital with acute respiratory failure secondary to right heart failure and cor pulmonale. Hospital day 15. 1. Acute on chronic respiratory failure with hypoxia and hypercapnia, present on admission, ongoing. - Patient has a history of COPD/emphysema and she is a CO2 retainer. Likely secondary to cor pulmonale. - Echocardiograms show pulmonary hypertension with right ventricular dilation and moderate reduced ejection fraction - ABG to be done in AM and as needed for ventilator management. - Patient sedated with fentanyl drip and Precedex drip and with lorazepam 0.5 mg IV push as available for agitation. Continue daily sedation vacations. - Continue solu-medrol 40 mg daily. - Budesonide nebulizer twice a day and Atrovent nebs Q4. - Pulmonology has been consulted for assistance with vent management and we appreciate their assistance. - Family meeting with brother and medical decision maker on 01/02/2017 patient will continue to be treated with goals of extubation - family meeting with brother and medical decision maker on 01/07/2017 the patient would not want to have a tracheostomy and be on a ventilator long-term, our goal will be to attempt to improve the patient's respiratory status with goals of extubation within the next several days, even if it is extubation to comfort care. - Pressure support trial 01/08 with support settings of 23/7 to be held for 2 hours per pulmonology recommendations 2. Right heart failure and cor pulmonale, presume chronic, present on admission. - Uncertain of the precise etiology but patient has significant alcohol history as well as emphysema. - This will increase the morbidity and mortality of the patient in the setting of this prolonged ICU stay. - Dr. Pinto has been consulted and we appreciate her recommendations. - Lasix given as needed one time doses given considerations for blood pressure management as well as anasarca associated with right heart failure - Patient started on digoxin per cardiology recommendations will be discontinued given significant bradycardia 3. Fungemia, likely present on admission, under evaluation - Infectious disease following and we appreciate Dr. Magallanes's recommendations. - Lashae is not a likely pathogen that causes pneumonia. Central venous line removed and sent for culture currently negative - Repeat blood cultures drawn on 01/01 have resulted in a positive Lashae, these will be redrawn serially until a negative culture is obtained - Repeat blood cultures from 01/03/2017 currently negative - continue micafungin for 2 weeks after first negative culture currently 2016 based off of negative culture on January 03 - Infectious disease recommends canceling Transesophageal echocardiogram for possible fungal endocarditis given no recent positive cultures since January 01 - Patient will still require an ophthalmologic exam at some point in the future if her prognosis improves - Sensitivities returned and this version of Lashae is sensitive to fluconazole - Currently cannot start fluconazole given patient's requirement for amiodarone for rhythm control 4. Atrial fibrillation with rapid ventricular response, acute, present on admission, improving. - No clear history of atrial fibrillation. - Notable right heart failure - Patient's blood pressure has not tolerated the use of beta blockers. - Continue Amiodarone 150 mg IV every 18 hours - Discontinue digoxin IV given bradycardia - Cardiology has been consulted and we appreciate her recommendations. 5. Likely ileus, not present on admission, under evaluation - CT abdomen and pelvis performed on 01/02 showed distended loops of bowel, FMS was withdrawn and tube feedings held for several days during evaluation - C. difficile PCR ordered and negative - Tube feeding continued at goal, residuals are minimal with 10 cc - methylnaltrexone seems to have improved the patient's ileus, we will consider future dosing given continual fentanyl drip for sedation 6. Leukocytosis, not present on admission, improving stable - Initially thought to be secondary to IV Solu-Medrol steroids - Currently likely to be secondary to fungemia as well as continued steroid use - Monitor daily CBC and pro-calcitonin - Continue serial fungal blood cultures until negative - Fungemia as above 7. Alcohol dependency, present on admission, stable - CIWA protocol ordered at admission - Continue thiamine daily. 8. Hyponatremia, acute, present on admission, monitoring - May be related to dehydration - Continue to monitor and replete as necessary 9. Hypokalemia, acute, present on admission. Resolved monitoring - Continue to monitor with BMP and replete as needed. 10. Hypothyroidism, acute, present on admission. - Likely secondary to being critically ill. - Will need follow up labs approximately 6-8 weeks after hospital discharge. 11. Possible adrenal insufficiency, acute, present on admission, stable - ACTH-stim test shows low level of cortisol. - Patient already undergoing treatment with IV steroids. - Will need to plan for slow taper and close outpatient follow up. 12. Acute encephalopathy, present on admission, considered stable - Possibly related to her hypercapnia but must also consider reversible other etiologies such as toxic ingestion - Patient remains intubated and mildly sedated at this time so this is difficult to fully evaluate. - Patient sedated with fentanyl drip and Precedex drip with lorazepam 0.25 mg IV push as available for agitation Resolved conditions 13. Unlikely Right ventricular thrombus, present on admission, resolved - Seen on initial echocardiogram ordered for apparent volume overload due to right heart failure. - Discontinue Heparin PE protocol drip for presumed RV thrombus. - Limited echo performed later to confirm thrombosis failed to reveal right ventricular thrombus - Consideration for either no thrombus on initial echo versus less likely dislodge of thrombi/PE given no increased oxygen requirements 14. Acute shock, present on admission, resolved - Multifactorial with elements of septic and cardiogenic shock. - Patient appeared volume overloaded at admission with JVD and peripheral edema consistent with right heart failure. 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 Acute blood loss anemia, not present on admission, resolved - Initial echo showed possible right ventricular thrombus AND a Heparin drip was initiated for possible right ventricular thrombus - Decreasing hemoglobin from 12/25/2016 with hemoglobin of 14, to 12/27/2016 with hemoglobin of 7.6 heparin drip discontinued packed RBCs given - Chest x-ray on 12/27/2016 shows a worsening left pleural effusion, ultrasound used to fine fluid collection shows moderate loculations consistent with hemothorax - DIC panel ordered 12/27 with note of bleeding from all IV sites; Haptoglobin increased, fibrinogen decreased but above 100, elevated d-dimer, elevated PT, INR, and PTT consistent with acute DIC - General surgery placed a left-sided chest tube 12/28 with 2 L of blood it out immediately. 2 units of packed RBCs given with 1 unit of platelets and 1 unit of fresh frozen plasma given - Chest tube pulled on 01/05/2017, continue to monitor with daily chest x-rays while on vent 16. Left sided Hemothorax, not present on admission, resolved - General surgery placed a left-sided chest tube 12/28/2016 with 2 L of blood it out immediately. 2 units of packed RBCs given with 1 unit of platelets - Initial pleural fluid protein evaluation 3.5 compared to total protein of blood 4.3 consistent with exudative effusion - Substantial RBCs consistent with hemothorax. - Pleural fluid sent for cultures remains negative - Consider likely secondary to heparin drip, which has been stopped. - Gen. surgery decided to leave the chest tube in place after return of 200 mL of serosanguineous fluid with repositioning of the patient yesterday - Gen. surgery to evaluate for removal of the chest tube today depending on evaluation of chest x-ray after hours of waterseal on 17. Unlikely pneumonia, present on admission, resolved - Patient initially presented with a possibility of pneumonia however after being treated with Zosyn for 1 week and remaining with negative procalcitonin, pneumonia was considered less likely - increasing white blood cell counts could be attributed to an infection or steroid use for COPD exacerbation - Left lower quadrant consolidation visualized with ultrasound showed moderate loculations consistent with hemothorax possible developing empyema however has remained culture negative after chest tube placement - Yeast in blood not consistent with pneumonia as a source, candidiasis does not cause pneumonia - Antiemetic available PRN. - Antacid available PRN. - Bowel regimen available PRN. - Tylenol available PRN mild pain, fever. Disposition: patient will likely continue to be in the CCU for several more days with goals of increasing respiratory functional status prior to extubation on January 10. Per the DPOA the patient may be extubated to comfort care status if her health will not allow for meaningful recovery prior to need for tracheostomy. Pain Evaluation: Adequate Pain Control GI Prophylaxis: H2 cielo VTE Prophylaxis: Sub-Q Heparin (Unfractionated), SCDs VTE Mechanical Devices: Intermittant Pneumatic CD Resuscitation Status: DNR/DNI:Do Not Resuscitate/Intubate Time spent Greater than 35 minutes Attending Statement The patient was seen and examined together with Dr. Lomas on 01/08/17 and I have added additional information to the note above. Parth Schneider DO Jan 08, 2017 07:24 Madeline Ayala DO Jan 08, 2017 17:00
[2017-01-08] MEDS: fentaNYL 2,500 mCg/250 mL 2,500 MCG in IV Premix 1 EACH IV SCH (19:23)
[2017-01-08] MEDS ORDERED: 0.9% Sodium Chloride 250 ML ONE (19:36)
[2017-01-09] VITALS (15 sets, daily range): BP systolic 93–160; BP diastolic 52–91; PULSE 64–87; RESP 14–30; O2SAT 94–99
[2017-01-09] MEDS: Chlorhexidine 0.12% 15 mL Oral Solution MT SCH ×6 (00:11→19:22)
[2017-01-09] MEDS: Dexmedetomidine 400 mCg/100 mL 400 MCG in IV Premix 1 EACH IV SCH ×3 (02:34→17:39)
[2017-01-09] MEDS: Insulin Human REGular 300 Unit/3 mL Inj SUBQ SCH ×3 (04:14→14:03)
[2017-01-09] MEDS: Ipratropium 0.02% 0.5 mg/2.5 mL Inhalation Solution NEB SCH ×5 (04:18→20:00)
[2017-01-09 04:22] LABS: BASOPHILS % (AUTO) 0.1 % (0-3); EOSINOPHILS % (AUTO) 0.6 % (0-5); MONOCYTES % (AUTO) 4.7 % (4-12); Mean Corpuscular Volume 97.1 fL (81-100); NEUTROPHILS % (AUTO) 85.5 % (40-74); Platelet Count 136 bil/L (150-400)
[2017-01-09 05:35] LABS: Magnesium 1.9 mg/dL (1.6-2.6); Phosphorus 2.8 mg/dL (2.5-4.9)
[2017-01-09] MEDS: Budesonide 0.5 mg/2 mL Inhalation Solution NEB SCH ×2 (07:30→20:00)
[2017-01-09] MEDS: Digoxin 0.25 mg/mL 2 mL Inj IV SCH (08:13)
[2017-01-09] MEDS: Polyethylene Glycol (PEG) 17 Gm Powder PO SCH ×2 (08:13→19:05)
[2017-01-09] MEDS: Famotidine Inj 20 MG in IV Premix 1 EACH IV SCH ×2 (08:13→19:25)
[2017-01-09] MEDS: Heparin 5,000 Unit/mL Inj SUBQ SCH ×2 (08:14→19:25)
--- NOTE | 2017-01-09 08:23 | PCM.PNMED ---
Subjective Date of Service Jan 09, 2017 Subjective Patient intubated and sedated in the ICU so no detailed ROS obtained. Does nod head to answer a few questions - denies abdominal pain and generalized pain. Overnight, patient noted to be overbreathing the vent. She was quite awake and followed commands. She also answered questions and continued to indicate wanting to be extubated. She is tolerating tube feeding well. Her heart rate was well controlled overnight. Exam Vital Signs Vital Sign - Last Date Time Temp Pulse Resp B/P Pulse Ox O2 Delivery O2 Flow Rate FiO2 01/09/17 08:13 62 01/09/17 07:30 106/58 99 25 01/09/17 04:30 Ventilator 01/09/17 04:30 37.5 18 Intake and Output 01/08/17 01/08/17 01/09/17 Cumulative From/Thru 15:00 23:00 07:00 12/22/16 18:16 - 01/09/17 05:56 Intake Total 971 ml 1255 ml 21947 ml Output Total 1450 ml 500 ml 47135 ml Balance -479 ml 755 ml 90218 ml Intake Oral 0 ml IV Total 278 ml 478 ml 13442 ml Tube Feeding 588 ml 607 ml 53080 ml Packed Cells 280 ml FFP 215 ml Platelets 792 ml Tube Irrigant 105 ml 170 ml 3330 ml Output Urine Total 1450 ml 500 ml 16108 ml Gastric Drainage Total 690 ml Chest Tube Drainage Total 3527 ml # Voids 0 # Bowel Movements 0 0 5 Exam General: thin female appearing older than stated age lying in ICU bed intubated and sedated Eyes: PERRLA. Anicteric sclerae, moist noninjected conjunctivae HENT: Normocephalic, atraumatic. Endotracheal and oropharyngeal tube in place. External ears without defect. No oral thrush appreciated in oral cavity. Neck: Supple, no JVD noted, trachea midline, No lymphadenopathy or thyromegaly. Cardiovascular: Normal rate with Irregular rhythm without murmurs, rubs, or gallops appreciated. Pulmonary: Relatively clear breath sounds in the anterior lungs wooten Abdomen: Moderate distention, tympanic to percussion, bowel sounds normoactive Genitourinary: Johnson catheter in place. Extremities: Mild cyanosis noted in the fingertips and toes bilaterally. Significant edema likely anasarca noted in gravity dependent areas most notable in the thighs and flanks. Right PICC line. Pulses intact at radial bilaterally and and decreased dorsalis pedis bilaterally. Neuro: patient able to answer questions by nodding and follow commands, tracking with her eyes as I move about the room IVs and Medications Medications Reviewed: Medications were reviewed in detail Lab and Diagnostics Result Diagram: 01/09/175 01/09/17 0405 X-Rays, CTs and MRIs CT BRAIN WITHOUT CONTRAST IMPRESSION: No acute intracranial disease process. Dictated by: Rosaura Wisdom MD, PhD on 12/22/2016 at 20:12 VENOUS LEG DUPLEX BILATERAL IMPRESSION: No deep venous thrombosis identified within either the left or right lower extremities. Dictated by: Shankar Mandujano RR Interpreted: Sobia Plunkett MD on 12/23/2016 at 9: 58 CT ANGIO CHEST PULMONARY EMBOLISM IMPRESSION: 1. No pulmonary embolus. 2. Mild pulmonary edema associated with small bilateral pleural effusions. 3. Small amount of ascites. 4. Coronary artery disease. Cardiomegaly. Right heart failure. Dictated by: Julieta Gunn M.D. on 12/23/2016 at 13:33 CT CHEST, ABDOMEN AND PELVIS WTIH CONTRAST IMPRESSION: 1. Marked fluid distention of the colon most prominent within the cecum. No bowel wall thickening or evidence of small bowel obstruction. The findings are nonspecific and differential considerations include an ileus or functional obstruction distally versus Anjali's syndrome. 2. Small to moderate bilateral pleural effusions with associated compressive atelectasis. 3. Small clustered bilateral pulmonary nodules likely represent a mild infectious or inflammatory process. 4. Diffuse anasarca. Dictated by: Ravin Joshua M.D. on 01/01/2017 at 15:58 PROCEDURE: X-RAY CHEST ONE VIEW, PORTABLE IMPRESSION: No acute cardiopulmonary disease. Endotracheal tube remains in expected position. Dictated by: Flip Heath M.D. on 01/08/2017 at 6:53 Cardiac Echo Impressions Echocardiogram Report Interpretation Summary Probable large left abdominal ascites possibly surrounding the spleen. There are moderate-sized bilateral pleural effusions noted. There is no thrombus seen in the right ventricle. A calcified moderator band and papillary muscle are visualized. Borderline right ventricular enlargement. Right ventricular systolic function is mild to moderately reduced. The right ventricular systolic pressure is estimated at 68 mmHg assuming a right atrial pressure of 15 mm Hg. RVSP has increased increase since prior study. Echocardiogram Report Interpretation Summary No evidence of endocarditis, consider ANA ROSA if clinically indicated. Electronically signed by: Isra Valdez on Reading Physician:01/03/2017 11:42 AM Assessment & Plan Patient is a 66-year-old female with past medical history remarkable for COPD, hypertension, and alcohol dependency presents to schedule an hospital with acute respiratory failure secondary to right heart failure and cor pulmonale. Hospital day 19. 1. Acute on chronic respiratory failure with hypoxia and hypercapnia, present on admission, ongoing. - Patient has a history of COPD/emphysema and she is a CO2 retainer. Likely secondary to cor pulmonale. - Echocardiograms show pulmonary hypertension with right ventricular dilation and moderate reduced ejection fraction - ABG to be done in AM and as needed for ventilator management. - Patient sedated with fentanyl drip and Precedex drip and with lorazepam 0.25 mg IV push PRN agitation. Continue daily sedation vacations. - Budesonide nebulizer twice a day and Atrovent nebs Q4. - Pulmonology has been consulted for vent management and we appreciate their assistance. - Plan for pressure support trial today as tolerated by the patient. Plan for compassionate extubation tomorrow (01/10/17) around 1400 when family estimates they will be present again. 2. Right heart failure and cor pulmonale, presume chronic, present on admission , ongoing. - Uncertain of the precise etiology but patient has significant alcohol history as well as emphysema. - Lasix given in one time doses PRN given considerations for blood pressure management as well as anasarca associated with right heart failure. 3. Fungemia, likely present on admission, improving. - Infectious disease following and we appreciate Dr. Magallanes's recommendations. - Repeat fungal blood cultures from 01/03/2017 negative. Continue micafungin for 2 weeks - until 01/17/2017. - ANA ROSA deferred as cultures on 01/03/17 were negative. - Patient will still require an outpatient ophthalmologic exam at some point in the future if her prognosis improves. - Sensitivities returned and this version of Lashae is sensitive to fluconazole. Currently cannot start fluconazole given patient's requirement for amiodarone for rhythm control. 4. Atrial fibrillation with rapid ventricular response, acute, present on admission, improving. - No clear history of atrial fibrillation but notable right heart failure. - Patient's blood pressure has not tolerated the use of beta blockers. - Continue Amiodarone 150 mg IV every 18 hours - Continue digoxin 0.125 mg daily as tolerated by patient. 5. Likely ileus, not present on admission, improving. - CT abdomen and pelvis performed on 01/02 showed distended loops of bowel, FMS was withdrawn and tube feedings held for several days during evaluation. - Patient is passing stool again. Continue bowel regimen including Relistor PRN , Miralax and enemas. - Continue tube feeding as tolerated. 6. Leukocytosis, not present on admission, improving. - Likely secondary to fungemia. - Monitor daily CBC. - Continue to treat the underlying fungemia as above in #3. 7. Alcohol dependency, present on admission, stable - [facility] protocol never used as patient intubated and sedated at time of admission. - Ativan available PRN. - Continue thiamine daily. 8. Hyponatremia, acute, present on admission, resolved. - Likely secondary to fluid depletion and chronic alcoholism. - Continue to monitor BMP. 9. Hypokalemia, acute, present on admission, resolved. - Continue to monitor with BMP and replete as needed. 10. Hypothyroidism, acute, present on admission. - Likely secondary to being critically ill. - Will need follow up labs approximately 6-8 weeks after hospital discharge. 11. Possible adrenal insufficiency, acute, present on admission, resolved. - ACTH-stim test shows low level of cortisol. - Patient already undergoing treatment with IV steroids. - Will need to plan for slow taper and close outpatient follow up. 12. Acute encephalopathy, present on admission, presume resolved. - Possibly related to her hypercapnia but must also consider reversible other etiologies such as toxic ingestion. - Patient remains intubated and mildly sedated at this time so this is difficult to fully evaluate. - Patient sedated with fentanyl drip and Precedex drip with lorazepam 0.25 mg IV push as available for agitation. 13. Right ventricular thrombus, present on admission, resolved. - Seen on initial echocardiogram ordered for apparent volume overload due to right heart failure. Limited echo performed later to confirm thrombosis failed to reveal right ventricular thrombus. Consideration for either no thrombus on initial echo versus less likely dislodge of thrombi/PE given no increased oxygen requirements. - PE protocol heparin drip discontinued. On DVT prophylaxis alone at this time. 14. Acute shock, present on admission, resolved. - Multifactorial with elements of septic and cardiogenic shock. - Norepinephrine stopped and switched to phenylephrine drip which was able to be discontinued 12/29/2016. - Continue to monitor closely. 15. Acute blood loss anemia, not present on admission, resolved. - Likely secondary to use of heparin drip PE protocol. - Chest x-ray on 12/27/2016 shows a worsening left pleural effusion, ultrasound used to fine fluid collection shows moderate loculations consistent with hemothorax. General surgery placed a left-sided chest tube 12/28 with 2 L of blood it out immediately. 2 units of packed RBCs given with 1 unit of platelets and 1 unit of fresh frozen plasma given. - Chest tube pulled on 01/05/2017, continue to monitor with daily chest x-rays while on vent. 16. Left sided Hemothorax, not present on admission, resolved. - Likely secondary to use of heparin drip PE protocol. - General surgery placed a left-sided chest tube 12/28/2016 with 2 L of blood it out immediately. 2 units of packed RBCs given with 1 unit of platelets. Chest tube removed 01/05/17. - Initial pleural fluid protein evaluation 3.5 compared to total protein of blood 4.3 consistent with exudative effusion - Substantial RBCs consistent with hemothorax. 17. Community acquired pneumonia, present on admission, resolved. - Patient initially presented with a possibility of pneumonia however after being treated with Zosyn for 1 week and remaining with negative procalcitonin, pneumonia was considered less likely. - Left lower quadrant consolidation visualized with ultrasound showed moderate loculations consistent with hemothorax possible developing empyema however has remained culture negative after chest tube placement. - Yeast in blood not consistent with pneumonia as a source, candidiasis does not cause pneumonia. - Antiemetic available PRN. - Tylenol available PRN mild pain, fever. Disposition: patient will likely continue to be in the CCU for several more days with goals of increasing respiratory functional status prior to extubation on January 10. Per the DPOA the patient may be extubated to comfort care status if her health will not allow for meaningful recovery prior to need for tracheostomy. GI Prophylaxis: H2 cielo VTE Prophylaxis: Sub-Q Heparin (Unfractionated), SCDs VTE Mechanical Devices: Intermittant Pneumatic CD Resuscitation Status: DNR/DNI:Do Not Resuscitate/Intubate Time spent 40 minutes Attending Statement The patient was seen and examined together with Dr. Pierce on 01/09/17 and I agree with the history, exam and plan as outlined in the note above. Tiffanie Pierce DO Jan 09, 2017 08:23 Madeline Ayala DO Jan 09, 2017 15:50 blood 4.3 consistent with exudative effusion - Substantial RBCs consistent with hemothorax. - Pleural fluid sent for cultures remains negative - Consider likely secondary to heparin drip, which has been stopped. - Gen. surgery decided to leave the chest tube in place after return of 200 mL of serosanguineous fluid with repositioning of the patient yesterday - Gen. surgery to evaluate for removal of the chest tube today depending on evaluation of chest x-ray after hours of waterseal on . Unlikely pneumonia, present on admission, resolved - Patient initially presented with a possibility of pneumonia however after being treated with Zosyn for 1 week and remaining with negative procalcitonin, pneumonia was considered less likely - increasing white blood cell counts could be attributed to an infection or steroid use for COPD exacerbation - Left lower quadrant consolidation visualized with ultrasound showed moderate loculations consistent with hemothorax possible developing empyema however has remained culture negative after chest tube placement - Yeast in blood not consistent with pneumonia as a source, candidiasis does not cause pneumonia - Antiemetic available PRN. - Antacid available PRN. - Bowel regimen available PRN. - Tylenol available PRN mild pain, fever. Disposition: patient will likely continue to be in the CCU for several more days with goals of increasing respiratory functional status prior to extubation on January 10. Per the DPOA the patient may be extubated to comfort care status if her health will not allow for meaningful recovery prior to need for tracheostomy. GI Prophylaxis: H2 cielo VTE Prophylaxis: Sub-Q Heparin (Unfractionated), SCDs VTE Mechanical Devices: Intermittant Pneumatic CD Resuscitation Status: DNR/DNI:Do Not Resuscitate/Intubate Tiffanie Pierce DO Jan 09, 2017 08:23
[2017-01-09] MEDS: Micafungin Inj 150 MG in 0.9% Sodium Chloride 100 ML IV SCH (08:24)
[2017-01-09] MEDS ORDERED: Furosemide 10 mg/mL 2 mL Inj IVPUSH ONE (09:55)
[2017-01-09] MEDS: Lactated Ringer's 1,000 ML IV SCH (10:30)
[2017-01-09] MEDS: Amiodarone 150 mg/100 mL D5W 150 MG in IV Premix 1 EACH IV SCH (11:43)
--- NOTE | 2017-01-09 14:24 | PROG NOTE ---
[address] [address] PROGRESS NOTE PATIENT: RAPHAEL SLATER : 1950 MR#: [id number] ADMIT: 12/22/2016 JOB ID: [id number] DATE: 01/09/2017 PULMONARY CRITICAL CARE PROGRESS NOTE: The patient is a 66-year-old woman with known COPD, cor pulmonale, admitted to the hospital on December 22 with acute hypoxic respiratory failure requiring mechanical ventilation. INTERVAL HISTORY: Continues to do pressure support trials at 16/7 and then down to 13/5 today, with tidal volumes in the mid 200 range. Respiratory rate is mostly in the 20s but sometimes jumps up into the 30s. Per discussion with family, she is a do not trach/DNR, but we are continuing with the pressure support trials. REVIEW OF SYSTEMS: Unable to obtain. PHYSICAL EXAMINATION: Vital signs reviewed. Temperature 37, pulse 72, respirations 30, BP 102/64, sats 98% on 25% FiO2. General: Intubated, sedated. Chest: Bilateral wheezes as always. Abdomen: Distended and somewhat firm, as before. LABORATORIES: Reviewed. WBC down to 11.2. Chemistry also reviewed. Procalcitonin 0.12. Cultures: No new positive cultures. IMAGING: Chest x-ray reviewed and shows no change, relatively clear lungs. ASSESSMENT AND RECOMMENDATIONS: 1. Acute hypoxic respiratory failure, on mechanical ventilation since December 22. 2. Lashae albicans bacteremia. Last positive culture on January 01. 3. Atrial fibrillation with rapid ventricular response. 4. Chronic obstructive pulmonary disease exacerbation. 5. Hemothorax while on heparin drip with chest tube from December 27 to January 05. 6. Paralytic ileus. The patient is a 66-year-old woman with known COPD and biventricular failure admitted with respiratory failure and difficulty weaning from the vent. Her hospital stay has been complicated by a hemothorax while on a heparin drip, for which she had a chest tube in place; also by fungemia with persistent positive Lashae albicans, cultures that finally cleared after January 01. She continues to do not so well on her pressure support trials. She was on 16/5 for a while and then now on 13/5 seems to be doing okay with respiratory rate in the high 20s and tidal volume in the mid 200s. I still do not know that this is good enough for her to be able to do well post extubation. Per primary team's conversation with the family, the plan is to try to extubate her regardless on Tuesday or Tuesday. If she is doing poorly, then the family would like to be present if she is going to be on comfort measures. Regardless, she is DNR/DNI as in DO NOT REINTUBATE. Dr. Cevallos takes over the pulmonary service tomorrow. CRITICAL CARE TIME: 35 minutes.
[2017-01-09] MEDS: 0.9% Sodium Chloride 250 ML ONE ×2 (19:22→19:29)
[2017-01-09] MEDS: fentaNYL 2,500 mCg/250 mL 2,500 MCG in IV Premix 1 EACH IV SCH (19:26)
[2017-01-10] VITALS (7 sets, daily range): BP systolic 114–159; BP diastolic 65–96; PULSE 85–97; RESP 17–18; O2SAT 93–97
[2017-01-10] MEDS: Ipratropium 0.02% 0.5 mg/2.5 mL Inhalation Solution NEB SCH ×4 (00:18→12:30)
[2017-01-10] MEDS: Chlorhexidine 0.12% 15 mL Oral Solution MT SCH ×5 (00:48→16:05)
[2017-01-10] MEDS: Dexmedetomidine 400 mCg/100 mL 400 MCG in IV Premix 1 EACH IV SCH (00:49)
[2017-01-10] MEDS: Amiodarone 150 mg/100 mL D5W 150 MG in IV Premix 1 EACH IV SCH (06:10)
[2017-01-10 06:45] LABS: BASOPHILS % (AUTO) 0.2 % (0-3); EOSINOPHILS % (AUTO) 0.9 % (0-5); MONOCYTES % (AUTO) 5.9 % (4-12); Mean Corpuscular Hemoglobin 31.9 pg (27.0-35.0); Mean Corpuscular Volume 97.5 fL (81-100); NEUTROPHILS % (AUTO) 84.8 % (40-74); Platelet Count 147 bil/L (150-400)
[2017-01-10 07:03] LABS: Phosphorus 3.2 mg/dL (2.5-4.9)
[2017-01-10] MEDS: Budesonide 0.5 mg/2 mL Inhalation Solution NEB SCH (07:27)
[2017-01-10] MEDS: Digoxin 0.25 mg/mL 2 mL Inj IV SCH (07:32)
[2017-01-10] MEDS: Famotidine Inj 20 MG in IV Premix 1 EACH IV SCH (07:33)
[2017-01-10] MEDS: Heparin 5,000 Unit/mL Inj SUBQ SCH (07:33)
[2017-01-10] MEDS: Micafungin Inj 150 MG in 0.9% Sodium Chloride 100 ML IV SCH (07:33)
[2017-01-10] MEDS: Lactated Ringer's 1,000 ML IV SCH (07:34)
[2017-01-10] MEDS: Polyethylene Glycol (PEG) 17 Gm Powder PO SCH (07:34)
--- NOTE | 2017-01-10 08:37 | DRSVH ---
PROCEDURE: X-RAY CHEST ONE VIEW, PORTABLE ([id number]) INDICATIONS: pt intubated; monitor tubes, lines TECHNIQUE: One view of the chest was acquired. COMPARISON: [facility], CR, XR CHEST 1VW (PORTABLE), 01/08/2017, 5:36. FINDINGS: Surgical changes and devices: Endotracheal tube nasogastric tube and right PICC line are unchanged. Lungs and pleura: There is a slightly improved appearance of increased pulmonary vascularity. Mediastinum: Mediastinal contours appear normal. Heart size is normal. Bones and chest wall: No suspicious bony lesions. Overlying soft tissues appear unremarkable. IMPRESSION: Slightly improved, although persistent appearance of increased pulmonary vascularity. Dictated by: Sobia Plunkett M.D. on 01/10/2017 at 8:35 Approved by: Sobia Plunkett M.D. on 01/10/2017 at 8:36
--- NOTE | 2017-01-10 10:47 | PROG NOTE ---
[address] [address] PROGRESS NOTE PATIENT: RAPHAEL SLATER : 1950 MR#: [id number] ADMIT: 12/22/2016 JOB ID: [id number] DATE: 01/10/2017 REASON FOR FOLLOW UP: Fungemia. INTERVAL HISTORY: Over the weekend, the patient has been relatively stable, though she remains on the ventilator. The patient has been weaned down to 25% FiO2 and only 5 of PEEP, and is saturating well on these levels, but as noted, has not been awake enough or done well enough with her spontaneous breathing trials to be extubated. She has now been in the hospital 19 days, going on 20 today. The patient is intubated and sedated, and no additional history can be gleaned from her. This case was discussed with the ICU team. PHYSICAL EXAMINATION: Reveals a woman who is now consistently and totally afebrile. Her last temperature was 38.1 back on the first, and she has been afebrile since. Current temp 36.8, pulse 81, respiratory rate 17, blood pressure 131/81, saturating well on 25 and 5 of PEEP. Eyes are mid-range with respect to pupils. No conjunctivitis or scleral icterus. Oral endotracheal tube, orogastric tube in good position. Right upper extremity PICC line looks good, though there is some erythema of the forearm distal to that. This appears to be neither warm nor does it appear to be tender. The patient's lungs are notable for a lot of transmitted upper airway sounds but fairly clear bilaterally beyond that. Cardiac tones irregular rate and rhythm with atrial fibrillation flutter on the monitor. Abdomen is distended but without focal mass. The patient has a Johnson catheter. Her legs and feet continue to be somewhat mottled and cool as they have been throughout this hospital stay. LABORATORY STUDIES: White count has dropped to 9000, which is really the first time in weeks it has been normal. The diff is relatively normal, though, with 85% segs. Creatinine stable at 0.69. No new micro is available. Recall that she had positive blood cultures for yeast December 27-. Since then, all negative for yeast. A couple of blood cultures did grow coag-negative Staph on the , which are regarded as a contaminant. Chest x-ray done two days ago basically remains clear. Today's has just been done and is not available to review at this time. IMPRESSION: This has been an extremely complex case since the beginning of a 66-year-old woman with respiratory failure and critical illness, who has improved considerably and did suffer a nosocomial fungemia, but who now is at a point where she is at the cusp of being extubated, but has so far failed to achieve the threshold in mental status and sustained spontaneous breathing trials that would be required for extubation. She has suffered a fungemia and we are about residential through our two week treatment with micafungin. We were unable to add fluconazole instead of micafungin, even though the organism is susceptible, because of very long QT interval and the need for amiodarone for rhythm control. RECOMMENDATIONS: 1. Will continue with the micafungin as her sole antimicrobial drug, and this will go through January 17, the last day. 2. Discussions continue about trach versus comfort care and another options. 3. From an Infectious Disease point of view, I see no need for additional cultures or other maneuvers today as we finally achieve normal white blood count and the patient has also finally been afebrile for at least 48 hours straight.
--- NOTE | 2017-01-10 12:07 | PCM.PALLBR ---
Palliative Care Recommendation 66-year-old woman with history of COPD, chronic and ongoing tobacco use, hypertension, possible chronic alcohol abuse- admitted from home where she had become progressively lethargic over several days. Intubated in the emergency department due to her decreased level of consciousness and evidence of hypercarbic respiratory failure. Status post left chest tube placement for apparent hemothorax on 12/28. Clinically slightly improved today. Palliative medicine consulted to assist the patient's family and determination of goals of care Both patient's brother and the significant other indicated today that they would prefer she be extubated as expeditiously as possible, not be a candidate for reintubation or tracheostomy, and that this approach would be best in keeping with her previously expressed wishes. Both understand that she may not survive extubation and still feel strongly that she would not want to remain on ventilatory support any longer. (See below for additional details of my lengthy conversations with them today.) Patient extubated and given adequate meds for comfort. Her brother is at her side. Summary of palliative recommendations: 01/10/17 Compassionate extubation and d/c of FT completed. Patient comfortable, unresponsive with shallow respirations. Her brother Nicolas is at her bedside. Mediation continues with fentanyl IV continuous infusion and lorazepam. Goal was to d/c Precedex. Nicolas is comfortable with this course. He believes it is consistent with her wishes. 01/07/17-Brother Nicolas has good grasp of severity of disease. Reviewed by phone and he is planning on visiting this evening. He understands that she is unlikely to survive extubation and that she may need sedation for comfort. He reiterates that she would not want to be on vent support longterm and he thinks Ezio understood all this too. Reviewed that she will have another pressure support trial today. Dr. Schneider will review with Dr. Fischer this afternoon regarding likelihood of safe extubation. There may be an option of a few more days trial or it may be evident from today that compassionate extubation may be the most appropriate option. Use of light sedation for comfort if goal is to see if she can make this but if thought is it would only cause suffering- she should get premedication which can be increasing her already present fentanyl drip. She is sensitive to lorazepam and 1-2 mg IV push most likely will suffice. -Symptom management (Pain/other)- no evidence of distress at this time. Continued management per her medical/critical care teams. -DPOA/Advanced Directives/POLST- Ezio and the patient never and so her brother Nicolas Ling is default POA. I reviewed her status in detail with Mr. Ling and Mr. Robles again today. Ezio tells me that the patient had told him in the past that she never wanted to be in the hospital on machines; this has also been her brother's perception of her wishes, though there is no documentation regarding these wishes. Consistent with the patient's previously stated wishes and with the agreement of both her significant other Ezio and her brother/POA Nicolas, her CODE STATUS continues to be DO NOT RESUSCITATE/DO NOT REINTUBATE, which best reflects her previously stated wishes. If she recovers sufficiently to participate in discussions, we will review these decisions with her when she is decisional. -Family/emotional support- both patient's brother and significant other plan on visiting the hospital on 01/06 -Spiritual support- offered and declined Contact info: Ezio Robles (significant other/house mate though they have no legal andrade) [phone] (Note that Ezio admits that he cannot read or write and does not understand much of what is going on, so very willingly deferred decision-making to patient's brother) Nicolas Ling (brother, closest biological relative) [phone](lives in [place])(he does not drive and so needs to arrange special transportation to get here) Patient Goals: 1. Patient's family wants to be told the truth about her illness, even if it is unpleasant. 2. Patient's family would like to be told prognosis when it can be predicted, to better guide treatment decisions. Additional Medical Diagnoses with primary management by Hospitalist team include : 1. Acute shock, present on admission, ongoing. 2. Acute blood loss anemia, not present on admission 3. Acute on chronic respiratory failure with hypoxia and hypercapnia, present on admission, ongoing. 4. Possible Right ventricular thrombus (now disproved) 5. Possible pneumonia, present on admission, improving. 6. Atrial fibrillation with rapid ventricular response, acute, present on admission, improving. 7. Hyponatremia, acute, present on admission, improving. 8. Alcohol dependency, present on admission, unstable 9. Hypokalemia, acute, present on admission. Ongoing. 10. Hypothyroidism, acute, present on admission. 11. Possible adrenal insufficiency, acute, present on admission. 12. Acute encephalopathy, present on admission, considered stable 13. Left hemothorax, status post chest tube placement Problems: End of Life Preferences DO NOT RESUSCITATE/DO NOT REINTUBATE- Comfort Care Goals of Care Comfort Disposition Likely to in hospital Resuscitation Status Resuscitation Status: DNR/DNI:Do Not Resuscitate/Intubate POLST Updates/Changes Previous POLST?: No Artificially Admin Nutrition: No Artifical Nutrition by Tube POLST Discussed with: Health Care Agent ([facility]) (Brother) . Advanced Care Planning Address: Comfort care Total time 70 minutes; >50% face to face with patient and/or family, providing counselling regarding plans and recommendations, and in care coordination with his/her medical teams. Time including team consultation and coordination with premedication, conference with Nicolas- DPOADEBORAH. I also spent an additional [ ] minutes counseling for advanced care planning with the patient/the patients family/the surrogate decision maker. Palliative Brief Note Date of Service Jan 10, 2017 . 66 yo patient with severe COPD who had been having deterioration in her general status over the past 6 months. She was found unresponsive and intubated. She has had a complicated hospital course including L hemothorax requiring a chest tube and the development of fungemia thought due to her central line. This has all been successfully managed but the patient's lung disease has thwarted attempts at PST/weaning. Discussions with family- Nicolas- brother who is DPOAHC and SO Ezio. They are very sure that she would not want to get a trach or be on a vent if even for a few months (with the knowledge that it could be longer). Due to her weakness and inability to succeed on PST- decision was made to give her a compassionate extubation. Discussion with Dr. Cevallos and hospital team with agreement regarding compassionate extubation. It is thought that trach and vent support for months would be likely alternative and patient communicated to her brother and SO that was not what she would want. She has shown very minimal if any progress in weaning trials. Dr. Cevallos's opinion is that BIPAP would not be sustainable for this patient. Major component for consideration is significant decline in status at home over past 6 months raising issue of quality of life and irreversibility of disease. Her brother comfirms request for comfort care only. She has been unresponsive this AM- fentanyl drip increased and she has been premedicated with lorazepam and she is now extubated with shallow respirations but comfortable. Her brother Nicolas is at her bedside. Her SO Ezio has gone home. Josiane Eaton MD Jan 10, 2017 12:07
[2017-01-10] MEDS: fentaNYL 2,500 mCg/250 mL 2,500 MCG in IV Premix 1 EACH IV SCH (16:41)
--- NOTE | 2017-01-10 17:10 | PROG NOTE ---
[address] [address] PROGRESS NOTE PATIENT: RAPHAEL SLATER : 1950 MR#: [id number] ADMIT: 12/22/2016 JOB ID: [id number] DATE: 01/10/2017 PROBLEM LIST: 1. Ventilatory failure. 2. Lashae fungemia, resolving. 3. Atrial fibrillation. 4. COPD. 5. Hemothorax, on heparin. 6. Ileus. SUBJECTIVE: None. OBJECTIVE: Temperature 38.3, pulse 81-97, respiratory rate 18, blood pressure 159/96, O2 sat on FiO2 of 25%, PEEP of 5 is 96%. I and O shows 2.5 L in, 1.4 L out. General appearance: Chronically ill-appearing. Sedated. On ventilator. Rather malnourished. Chest: Fair breath sounds bilaterally. Somewhat of a bronchial quality to the breath sounds. Some expiratory pulmonary adventitial sounds. Vent settings show a tidal volume of 340 with a PEEP of 5 resulting in a peak pressure of 28, a plateau of about 22. PEEP is set at 5, measured at 4. Heart: Somewhat irregular rhythm. Heart tones seem otherwise normal. Abdomen distended, possibly slightly tender. Relatively quiet. Extremities. pretibial edema. Toes are cyanotic, cool, with obvious poor distal perfusion. LABORATORY: Shows a white count of 9000, with 84 polymorphonuclears, no bands, 7 lymphs, 5 monos. Hemoglobin stable at 10.1. Platelet count relatively stable at 147,000. Sodium 140, potassium 4, chloride 99, CO2 30. BUN 36 and relatively stable. Creatinine 0.6 and stable. Calcium 8.7 with albumin of 2.7. Phosphorus normal at 3.2. Magnesium normal at 2. Total bilirubin normal at 0.6. Transaminases are normal as is alkaline phosphatase. Procalcitonin is 0.12 and relatively stable. Chest x-ray of January 10, 2017, shows slightly improved pulmonary markings. ASSESSMENT: Chronic obstructive pulmonary disease. Doing rather poorly with pressure support trials. Respiratory therapy says that at pressure support of 13/5, she is able to tolerate three pressure support trials, but with the pressure is decreased, even just to 12/5, that her tidal volume plummets, her respiratory rate increases markedly. Patient is obviously quite dyspneic and agitated. This has been the case for quite a while, now with her on day 20 of ventilatory support. Rediscussed the situation with the patient's brother. He states for the past 5-6 months the patient has been declining visually, doing less and less. Rather sedentary at work and certainly sedentary at home. In addition, she has been failing in front of him over the past six months or so. Able to do less and less. They have had [id number] discussions with the patient, and tracheostomy, even for a somewhat limited time, possibly a few months, is not an option. Discussed BiPAP with him. What the family is seeking is comfort for the patient. Her brother was not enamored of the BiPAP mask, when I explained the problems associated with it, with his goal being primarily making sure she is not anxious or in distress. That would be difficult with the BiPAP mask and nursing does not think she would tolerate the mask very well at all, being intolerant of minimal interventions at this time. Spoke with the palliative care service. I think best plan would be to extubate the patient to comfort measures, making sure she is neither dyspneic nor in any other discomfort nor anxious in any way. Expect that she will fail and pass. Brother is content with that, seeing her declining health in the past six months, and him being in possession of her thoughts and wishes prior to this event. PLAN: I think, at this point, the best plan would be compassionate extubation. Will discuss this with Palliative Care, the medical service, as well as with the family at the upcoming family conference. Time spent so far in critical care 39 minutes.
--- NOTE | 2017-01-10 20:51 | PCM.PNMED ---
Subjective Date of Service Jan 10, 2017 Subjective Overnight: Pt tolerated Vent with out any significant events. Pt remained in a calm and restful state throughout the night. Today: Pt scheduled for compassionate extubation this afternoon. Remains sedated and non responsive to voice. Exam Vital Signs Vital Sign - Last Date Time Temp Pulse Resp B/P Pulse Ox O2 Delivery O2 Flow Rate FiO2 01/10/17 12:20 93 114/66 93 25 01/10/17 08:30 38.3 18 Mechanical Ventilator Intake and Output 01/09/17 01/09/17 01/10/17 Cumulative From/Thru 14:59 22:59 06:59 12/22/16 18:16 - 01/10/17 05:08 Intake Total 1268 ml 1080 ml 15768 ml Output Total 900 ml 375 ml 59466 ml Balance 368 ml 705 ml 29846 ml Intake Oral 0 ml IV Total 564 ml 398 ml 33856 ml Tube Feeding 559 ml 562 ml 69254 ml Packed Cells 280 ml FFP 215 ml Platelets 792 ml Tube Irrigant 145 ml 120 ml 3595 ml Output Urine Total 900 ml 375 ml 24126 ml Gastric Drainage Total 690 ml Chest Tube Drainage Total 3527 ml # Voids 1 1 # Bowel Movements 0 5 Exam General: No acute distress, Resting in bed. minimally responsive to voice. Exam done post extubation HEENT: Normocephalic, atraumatic. Cardiovascular: Regular rate with irregular rhythm Pulmonary: Agonal breathing. With wheezing appreciated in the upper anterior lung wooten. Abdomen: Soft to palpation. Lab and Diagnostics Result Diagram: 01/10/17 0631 01/10/17 0631 X-Rays, CTs and MRIs CT BRAIN WITHOUT CONTRAST IMPRESSION: No acute intracranial disease process. Dictated by: Rosaura Wisdom MD, PhD on 12/22/2016 at 20:12 VENOUS LEG DUPLEX BILATERAL IMPRESSION: No deep venous thrombosis identified within either the left or right lower extremities. Dictated by: Shankar Mandujano RRAisha Interpreted: Sobia Plunkett MD on 12/23/2016 at 9: 58 CT ANGIO CHEST PULMONARY EMBOLISM IMPRESSION: 1. No pulmonary embolus. 2. Mild pulmonary edema associated with small bilateral pleural effusions. 3. Small amount of ascites. 4. Coronary artery disease. Cardiomegaly. Right heart failure. Dictated by: Julieta Gunn M.D. on 12/23/2016 at 13:33 CT CHEST, ABDOMEN AND PELVIS WTIH CONTRAST IMPRESSION: 1. Marked fluid distention of the colon most prominent within the cecum. No bowel wall thickening or evidence of small bowel obstruction. The findings are nonspecific and differential considerations include an ileus or functional obstruction distally versus Anjali's syndrome. 2. Small to moderate bilateral pleural effusions with associated compressive atelectasis. 3. Small clustered bilateral pulmonary nodules likely represent a mild infectious or inflammatory process. 4. Diffuse anasarca. Dictated by: Ravin Joshua M.D. on 01/01/2017 at 15:58 PROCEDURE: X-RAY CHEST ONE VIEW, PORTABLE IMPRESSION: No acute cardiopulmonary disease. Endotracheal tube remains in expected position. Dictated by: Flip Heath M.D. on 01/08/2017 at 6:53 Cardiac Echo Impressions Echocardiogram Report Interpretation Summary Probable large left abdominal ascites possibly surrounding the spleen. There are moderate-sized bilateral pleural effusions noted. There is no thrombus seen in the right ventricle. A calcified moderator band and papillary muscle are visualized. Borderline right ventricular enlargement. Right ventricular systolic function is mild to moderately reduced. The right ventricular systolic pressure is estimated at 68 mmHg assuming a right atrial pressure of 15 mm Hg. RVSP has increased increase since prior study. Echocardiogram Report Interpretation Summary No evidence of endocarditis, consider ANA ROSA if clinically indicated. Electronically signed by: Isra Valdez on Reading Physician:01/03/2017 11:42 AM Assessment & Plan Patient is a 66-year-old female with past medical history remarkable for COPD, hypertension, and alcohol dependency presents to schedule an hospital with acute respiratory failure secondary to right heart failure and cor pulmonale. Hospital day 20. Compassionate extubation today with Pt moved to comfort care measures. Problem list during hospital stay as follows. 1. Acute shock, present on admission, ongoing. 2. Acute blood loss anemia, not present on admission 3. Acute on chronic respiratory failure with hypoxia and hypercapnia, present on admission, ongoing. 4. Possible Right ventricular thrombus (now disproved) 5. Possible pneumonia, present on admission, improving. 6. Atrial fibrillation with rapid ventricular response, acute, present on admission, improving. 7. Hyponatremia, acute, present on admission, improving. 8. Alcohol dependency, present on admission, unstable 9. Hypokalemia, acute, present on admission. Ongoing. 10. Hypothyroidism, acute, present on admission. 11. Possible adrenal insufficiency, acute, present on admission. 12. Acute encephalopathy, present on admission, considered stable 13. Left hemothorax, status post chest tube placement Disposition: Expectant demise overnight Pain Evaluation: Adequate Pain Control GI Prophylaxis: H2 cielo VTE Prophylaxis: Sub-Q Heparin (Unfractionated), SCDs VTE Mechanical Devices: Intermittant Pneumatic CD Resuscitation Status: DNR/DNI:Do Not Resuscitate/Intubate Attending Statement The patient was seen and examined together with Dr. Chaudhry on 01/10/2017 and I agree with the history, exam and plan as outlined in the note above. . TERESA CHAUDHRY DO Jan 10, 2017 20:07 Feliz Rawls MD Jan 11, 2017 07:36
[2017-01-11] MEDS: fentaNYL 2,500 mCg/250 mL 2,500 MCG in IV Premix 1 EACH IV SCH (06:27)
[2017-01-11] MEDS: Lactated Ringer's 1,000 ML IV SCH (10:30)
--- NOTE | 2017-01-11 10:50 | PCM.PALLBR ---
Palliative Care Recommendation 66-year-old woman with history of COPD, chronic and ongoing tobacco use, hypertension, possible chronic alcohol abuse- admitted from home where she had become progressively lethargic over several days. Intubated in the emergency department due to her decreased level of consciousness and evidence of hypercarbic respiratory failure. Status post left chest tube placement for apparent hemothorax on 12/28. Clinically slightly improved today. Palliative medicine consulted to assist the patient's family and determination of goals of care Both patient's brother and the significant other indicated today that they would prefer she be extubated as expeditiously as possible, not be a candidate for reintubation or tracheostomy, and that this approach would be best in keeping with her previously expressed wishes. Both understand that she may not survive extubation and still feel strongly that she would not want to remain on ventilatory support any longer. (See below for additional details of my lengthy conversations with them today.) Patient extubated and given adequate meds for comfort. Her brother is at her side. Summary of palliative recommendations: Goal of comfort. Patient is likely to in the next few hours. Offered support for her brother. He has a lot of knowledge and experience around the dying process by now. Will continue comfort meds. 01/10/17 Compassionate extubation and d/c of FT completed. Patient comfortable, unresponsive with shallow respirations. Her brother Nicolas is at her bedside. Medication continues with fentanyl IV continuous infusion and lorazepam. Goal was to d/c Precedex. Nicolas is comfortable with this course. He believes it is consistent with her wishes. 01/07/17-Brother Nicolas has good grasp of severity of disease. Reviewed by phone and he is planning on visiting this evening. He understands that she is unlikely to survive extubation and that she may need sedation for comfort. He reiterates that she would not want to be on vent support superintendent terminal and he thinks Ezio understood all this too. Reviewed that she will have another pressure support trial today. Dr. Schenider will review with Dr. Fischer this afternoon regarding likelihood of safe extubation. There may be an option of a few more days trial or it may be evident from today that compassionate extubation may be the most appropriate option. Use of light sedation for comfort if goal is to see if she can make this but if thought is it would only cause suffering- she should get premedication which can be increasing her already present fentanyl drip. She is sensitive to lorazepam and 1-2 mg IV push most likely will suffice. -Symptom management (Pain/other)- no evidence of distress at this time. Continued management per her medical/critical care teams. -DPOA/Advanced Directives/POLST- Ezio and the patient never and so her brother Nicolas Ling is default POA. I reviewed her status in detail with Mr. Ling and Mr. Robles again today. Ezio tells me that the patient had told him in the past that she never wanted to be in the hospital on machines; this has also been her brother's perception of her wishes, though there is no documentation regarding these wishes. Consistent with the patient's previously stated wishes and with the agreement of both her significant other Ezio and her brother/POA Nicolas, her CODE STATUS continues to be DO NOT RESUSCITATE/DO NOT REINTUBATE, which best reflects her previously stated wishes. If she recovers sufficiently to participate in discussions, we will review these decisions with her when she is decisional. -Family/emotional support- both patient's brother and significant other plan on visiting the hospital on 01/06 -Spiritual support- offered and declined Contact info: Ezio Robles (significant other/house mate though they have no legal andrade) (Note that Ezio admits that he cannot read or write and does not understand much of what is going on, so very willingly deferred decision-making to patient's brother) Nicolas Ling (brother, closest biological relative) [phone](lives in [place])(he does not drive and so needs to arrange special transportation to get here) Patient Goals: 1. Patient's family wants to be told the truth about her illness, even if it is unpleasant. 2. Patient's family would like to be told prognosis when it can be predicted, to better guide treatment decisions. Additional Medical Diagnoses with primary management by Hospitalist team include : 1. Acute shock, present on admission, ongoing. 2. Acute blood loss anemia, not present on admission 3. Acute on chronic respiratory failure with hypoxia and hypercapnia, present on admission, ongoing. 4. Possible Right ventricular thrombus (now disproved) 5. Possible pneumonia, present on admission, improving. 6. Atrial fibrillation with rapid ventricular response, acute, present on admission, improving. 7. Hyponatremia, acute, present on admission, improving. 8. Alcohol dependency, present on admission, unstable 9. Hypokalemia, acute, present on admission. Ongoing. 10. Hypothyroidism, acute, present on admission. 11. Possible adrenal insufficiency, acute, present on admission. 12. Acute encephalopathy, present on admission, considered stable 13. Left hemothorax, status post chest tube placement Problems: End of Life Preferences DO NOT RESUSCITATE/DO NOT REINTUBATE- Comfort Care Goals of Care Comfort Disposition Likely to in hospital Resuscitation Status Resuscitation Status: DNR/DNI:Do Not Resuscitate/Intubate POLST Updates/Changes Previous POLST?: No Artificially Admin Nutrition: No Artifical Nutrition by Tube POLST Discussed with: Health Care Agent (DPOAHC) (Brother) . Advanced Care Planning Address: Comfort care Total time 20 minutes; >50% face to face with patient and/or family, providing counselling regarding plans and recommendations, and in care coordination with his/her medical teams. I also spent an additional [ ] minutes counseling for advanced care planning with the patient/the patients family/the surrogate decision maker. Palliative Brief Note Date of Service Jan 11, 2017 . 66 yo with severe COPD who was extubated yesterday due to inability to wean from ventilator after 3 weeks with request by family that she not be superintendent terminal vent patient. Much discussion had and patient and communicated to her brother and SO of her request not to be on a vent in the recent past. She had also been deteriorating in health over the last 6 months. Her brother relates that their brother of rapid CA (3 weeks from dx), another brother unexpectedly and 1 sister after chronic illness--all in the past 14 months. He is the only surviving sibling. Brother at bedside. Patient's respiratory status is agonal and she is cyanotic. She is unresponsive and calm. He states they have no need for monogram maker for support -not involved in shinto. Josiane Eaton MD Jan 11, 2017 10:50
--- NOTE | 2017-01-12 17:19 | PCM.DC.MED ---
Discharge Summary Date of Service Jan 12, 2017 Dates of Hospitalization Date of Hospital Admission Dec 22, 2016 at 20:56 Date of Discharge: Jan 11, 2017 Providers: Admitting Physician: Ramona Soto MD Primary Care Physician: Feliz Mays MD Attending Physician: Ramona Soto MD Diagnosis at Time of Discharge Diagnosis at Time of Discharge 1. Acute shock, present on admission, ongoing. 2. Acute blood loss anemia, not present on admission 3. Acute on chronic respiratory failure with hypoxia and hypercapnia, present on admission, ongoing. 4. Possible Right ventricular thrombus (now disproved) 5. Possible pneumonia, present on admission, improving. 6. Atrial fibrillation with rapid ventricular response, acute, present on admission, improving. 7. Hyponatremia, acute, present on admission, improving. 8. Alcohol dependency, present on admission, unstable 9. Hypokalemia, acute, present on admission. Ongoing. 10. Hypothyroidism, acute, present on admission. 11. Possible adrenal insufficiency, acute, present on admission. 12. Acute encephalopathy, present on admission, considered stable 13. Left hemothorax, status post chest tube placement Consultations Palliative Care Recommendation 66-year-old woman with history of COPD, chronic and ongoing tobacco use, hypertension, possible chronic alcohol abuse- admitted from home where she had become progressively lethargic over several days. Intubated in the emergency department due to her decreased level of consciousness and evidence of hypercarbic respiratory failure. Status post left chest tube placement for apparent hemothorax on 12/28. Clinically slightly improved today. Palliative medicine consulted to assist the patient's family and determination of goals of care Both patient's brother and the significant other indicated today that they would prefer she be extubated as expeditiously as possible, not be a candidate for reintubation or tracheostomy, and that this approach would be best in keeping with her previously expressed wishes. Both understand that she may not survive extubation and still feel strongly that she would not want to remain on ventilatory support any longer. (See below for additional details of my lengthy conversations with them today.) Patient extubated and given adequate meds for comfort. Her brother is at her side. Summary of palliative recommendations: Goal of comfort. Patient is likely to in the next few hours. Offered support for her brother. He has a lot of knowledge and experience around the dying process by now. Will continue comfort meds. 01/10/17 Compassionate extubation and d/c of FT completed. Patient comfortable, unresponsive with shallow respirations. Her brother Nicolas is at her bedside. Medication continues with fentanyl IV continuous infusion and lorazepam. Goal was to d/c Precedex. Nicolas is comfortable with this course. He believes it is consistent with her wishes. 01/07/17-Brother Nicolas has good grasp of severity of disease. Reviewed by phone and he is planning on visiting this evening. He understands that she is unlikely to survive extubation and that she may need sedation for comfort. He reiterates that she would not want to be on vent support terminal system operator and he thinks Ezio understood all this too. Reviewed that she will have another pressure support trial today. Dr. Schneider will review with Dr. Fischer this afternoon regarding likelihood of safe extubation. There may be an option of a few more days trial or it may be evident from today that compassionate extubation may be the most appropriate option. Use of light sedation for comfort if goal is to see if she can make this but if thought is it would only cause suffering- she should get premedication which can be increasing her already present fentanyl drip. She is sensitive to lorazepam and 1-2 mg IV push most likely will suffice. -Symptom management (Pain/other)- no evidence of distress at this time. Continued management per her medical/critical care teams. -DPOA/Advanced Directives/POLST- Ezio and the patient never and so her brother Nicolas Ling is default POA. I reviewed her status in detail with Mr. Ling and Mr. Robles again today. Ezio tells me that the patient had told him in the past that she never wanted to be in the hospital on machines; this has also been her brother's perception of her wishes, though there is no documentation regarding these wishes. Consistent with the patient's previously stated wishes and with the agreement of both her significant other Ezio and her brother/POA Nicolas, her CODE STATUS continues to be DO NOT RESUSCITATE/DO NOT REINTUBATE, which best reflects her previously stated wishes. If she recovers sufficiently to participate in discussions, we will review these decisions with her when she is decisional. -Family/emotional support- both patient's brother and significant other plan on visiting the hospital on 01/06 -Spiritual support- offered and declined Contact info: Ezio Robles (significant other/house mate though they have no legal andrade) (Note that Ezio admits that he cannot read or write and does not understand much of what is going on, so very willingly deferred decision-making to patient's brother) Nicolas Ling (brother, closest biological relative) [phone](lives in [place])(he does not drive and so needs to arrange special transportation to get here) Patient Goals: 1. Patient's family wants to be told the truth about her illness, even if it is unpleasant. 2. Patient's family would like to be told prognosis when it can be predicted, to better guide treatment decisions. Additional Medical Diagnoses with primary management by Hospitalist team include : 1. Acute shock, present on admission, ongoing. 2. Acute blood loss anemia, not present on admission 3. Acute on chronic respiratory failure with hypoxia and hypercapnia, present on admission, ongoing. 4. Possible Right ventricular thrombus (now disproved) 5. Possible pneumonia, present on admission, improving. 6. Atrial fibrillation with rapid ventricular response, acute, present on admission, improving. 7. Hyponatremia, acute, present on admission, improving. 8. Alcohol dependency, present on admission, unstable 9. Hypokalemia, acute, present on admission. Ongoing. 10. Hypothyroidism, acute, present on admission. 11. Possible adrenal insufficiency, acute, present on admission. 12. Acute encephalopathy, present on admission, considered stable 13. Left hemothorax, status post chest tube placement Problems: End of Life Preferences DO NOT RESUSCITATE/DO NOT REINTUBATE- Comfort Care Goals of Care Comfort Disposition Likely to in hospital Resuscitation Status Resuscitation Status: DNR/DNI:Do Not Resuscitate/Intubate POLST Updates/Changes Previous POLST?: No Artificially Admin Nutrition: No Artifical Nutrition by Tube POLST Discussed with: Health Care Agent (DPOAHC) (Brother) . Advanced Care Planning Address: Comfort care Total time 20 minutes; >50% face to face with patient and/or family, providing counselling regarding plans and recommendations, and in care coordination with his/her medical teams. I also spent an additional [ ] minutes counseling for advanced care planning with the patient/the patients family/the surrogate decision maker. Palliative Brief Note Date of Service Jan 11, 2017 . 66 yo with severe COPD who was extubated yesterday due to inability to wean from ventilator after 3 weeks with request by family that she not be terminal system operator vent patient. Much discussion had and patient and communicated to her brother and SO of her request not to be on a vent in the recent past. She had also been deteriorating in health over the last 6 months. Her brother relates that their brother of rapid CA (3 weeks from dx), another brother unexpectedly and 1 sister after chronic illness--all in the past 14 months. He is the only surviving sibling. Brother at bedside. Patient's respiratory status is agonal and she is cyanotic. She is unresponsive and calm. He states they have no need for forklift technician for support -not involved in yazidi. Josiane Eaton MD Jan 11, 2017 10:50 <Electronically signed by Josiane Eaton MD> 01/11/17 1053 Report status: Signed Transcribed by: JULIANE 01/11/17 1050 REPORT#: [id number] cc: Feliz Mays MD; Ramona Soto MD; Josiane Eaton MD Procedures XRay, CTs & MRIs CT BRAIN WITHOUT CONTRAST IMPRESSION: No acute intracranial disease process. Dictated by: Rosaura Wisdom MD, PhD on 12/22/2016 at 20:12 US VENOUS LEG DUPLEX BILATERAL IMPRESSION: No deep venous thrombosis identified within either the left or right lower extremities. Dictated by: Shankar Mandujano RRA Interpreted: Sobia Plunkett MD on 12/23/2016 at 9: 58 CT ANGIO CHEST PULMONARY EMBOLISM IMPRESSION: 1. No pulmonary embolus. 2. Mild pulmonary edema associated with small bilateral pleural effusions. 3. Small amount of ascites. 4. Coronary artery disease. Cardiomegaly. Right heart failure. Dictated by: Julieta Gunn M.D. on 12/23/2016 at 13:33 CT CHEST, ABDOMEN AND PELVIS WTIH CONTRAST IMPRESSION: 1. Marked fluid distention of the colon most prominent within the cecum. No bowel wall thickening or evidence of small bowel obstruction. The findings are nonspecific and differential considerations include an ileus or functional obstruction distally versus Hom[place]'s syndrome. 2. Small to moderate bilateral pleural effusions with associated compressive atelectasis. 3. Small clustered bilateral pulmonary nodules likely represent a mild infectious or inflammatory process. 4. Diffuse anasarca. Dictated by: Ravin Joshua M.D. on 01/01/2017 at 15:58 PROCEDURE: X-RAY CHEST ONE VIEW, PORTABLE IMPRESSION: No acute cardiopulmonary disease. Endotracheal tube remains in expected position. Dictated by: Flip Heath M.D. on 01/08/2017 at 6:53 Cardiac Echo Impression Echocardiogram Report Interpretation Summary Probable large left abdominal ascites possibly surrounding the spleen. There are moderate-sized bilateral pleural effusions noted. There is no thrombus seen in the right ventricle. A calcified moderator band and papillary muscle are visualized. Borderline right ventricular enlargement. Right ventricular systolic function is mild to moderately reduced. The right ventricular systolic pressure is estimated at 68 mmHg assuming a right atrial pressure of 15 mm Hg. RVSP has increased increase since prior study. Echocardiogram Report Interpretation Summary No evidence of endocarditis, consider ANA ROSA if clinically indicated. Electronically signed by: Isra Valdez on Reading Physician:01/03/2017 11:42 AM Brief History Per admission H&P: 66-year-old female who does have a history of COPD by previous records appears to not be steroid and O2 dependent. I am not able to get a history from her as she is intubated and is not reachable at this point in time. Apparently he did call 911 because his was having increasing lethargy over the past few days. When EMS got there her room air sat was 62%. She became less responsive while here and required intubation for respiratory failure and also for protection of her airway. Her chest x-ray did show possible right lower lobe infiltrate with right pleural effusion. EKG showed A. fib at a rate of 132. No old EKG for comparison. She has been afebrile here. Blood pressure initially 160/104 with a respiratory rate of 33. White count is 8.7 with 58% polys 25% lymphs. She was noted to be hyponatremic to 122 with a potassium of 3.0 chloride was 73 bicarbonate was 34. BUN was 18 creatinine 0.54 with a calculated GFR of 163. LFTs were normal troponin was less than 0.010. ProBNP was 7256. Lactic acid was 1.3. Patient has remained intubated and mechanically ventilated. She has developed persistent fevers with slowly rising WBC and modest elevation of procalcitonin, as well as enlarging left pleural effusion, raising concerns of empyema or other infection. Her level of consciousness has deteriorated since admission as well. Palliative medicine was consulted to assist patient's family in determination of goals of care. Prior to visiting, I reviewed her records in the EMR in detail, spoke with her medical/critical care teams as well as her bedside nurse. On my arrival, patient is sedated, unresponsive, lying in bed, intubated. No evidence of distress at this time. Through the day, I made multiple attempts to contact her spouse/significant other Ezio Robles but was unable to reach him. He had spoken with nurse in the cabinet installer and left new contact phone number, for which voicemail is, unfortunately, not enabled. I was able to eventually reach her brother Nicolas Ling, however, and I reviewed her current status with him in detail, answered questions he had, and obtained more social history from him. Contact info: Ezio Robles [phone] Nicolas Ling [phone] Hospital Course Patient is a 66-year-old female with past medical history remarkable for COPD, hypertension, and alcohol dependency presents to schedule an hospital with acute respiratory failure secondary to right heart failure and cor pulmonale. Hospital day 20. Compassionate extubation today with Pt moved to comfort care measures. Problem list during hospital stay as follows. 1. Acute shock, present on admission, ongoing. 2. Acute blood loss anemia, not present on admission 3. Acute on chronic respiratory failure with hypoxia and hypercapnia, present on admission, ongoing. 4. Possible Right ventricular thrombus (now disproved) 5. Possible pneumonia, present on admission, improving. 6. Atrial fibrillation with rapid ventricular response, acute, present on admission, improving. 7. Hyponatremia, acute, present on admission, improving. 8. Alcohol dependency, present on admission, unstable 9. Hypokalemia, acute, present on admission. Ongoing. 10. Hypothyroidism, acute, present on admission. 11. Possible adrenal insufficiency, acute, present on admission. 12. Acute encephalopathy, present on admission, considered stable 13. Left hemothorax, status post chest tube placement Patient was treated for above conditions but ultimately failed and underwent change to comfor care only, with compasionate extubation, continuation of IV Fentanyl and Ativan. Patient 11:50 AM 01-11-17. Patient was kept comfortable and family aware. Exam Vital Signs (Last) Date Time Temp Pulse Resp B/P Pulse Ox O2 Delivery O2 Flow Rate FiO2 01/10/17 12:20 93 114/66 93 25 01/10/17 08:30 38.3 18 Mechanical Ventilator Exam Patient maintained comfortable throughout the dying process. Test 12/22/16 18:30 12/22/16 20:06 12/22/16 21:07 12/22/16 21:21 Hemoglobin A1c 6.0% (4.8-5.6) Alcohols < 10mg/dL (0-10) Thyroid Stimulating Hormone (TSH) 0.012uIU/mL (0.450-4.500) Free Thyroxine Index 2.8 (1.2-4.9) Thyroxine (T4) 7.1ug/dL (4.5-12.0) Triiodothyronine (T3) Uptake 39% (24-39) Urine Legionella pneumophilia Ag Negative (Negative) Urine Opiates Screen Negative Urine Methadone Screen Negative Urine Barbiturates Screen Negative Urine Amphetamines Screen Negative Urine Benzodiazepines Screen Negative Urine Cocaine Metabolite Screen Negative Urine Cannabinoids Screen Negative Test 12/23/16 02:00 12/23/16 11:20 12/26/16 03:45 12/27/16 05:50 Cortisol Baseline 9.4ug/dL (.) Cortisol Stimulation Collect Time 2 8.8ug/dL (Not Estab.) Cortisol Stimulation Collect Time 3 8.7ug/dL (Not Estab.) Troponin T < 0.010ug/L (0.0-0.011) Prealbumin 14mg/dL (20-40) Lactic Acid Level 1.4mmol/L (0.4-2.0) Lactate Dehydrogenase 172U/L (100-190) Lipase 90U/L (13-60) Test 12/27/16 10:15 12/27/16 11:15 12/27/16 12:00 12/27/16 16:55 Ammonia 83ug/dL (18-53) Cryptococcus Antigen Negative (Negative) Aspergillus flavus Antibody Negative (Neg:<1:1) Aspergillus fumigatus Antibody Negative (Neg:<1:1) Aspergillus galactomannan Antigen 0.11Index (0.00-0.49) Aspergillus niger Antibody Negative (Neg:<1:1) TB Test (QFT) Gold In Tube Indeterminate (Negative) TB Test (QFT) Incubation Comment (.) TB Test (QFT) Mitogen 0.07IU/mL (.) TB Test (QFT) Antigen 0.06IU/mL (.) TB Test (QFT) Antigen Minus Nil <0.00IU/mL (.) TB Test (QFT) TB - Nil 0.14IU/mL (.) TB Test (QFT) Positive Criteria Comment (.) TB Test (QFT) Interpretation Comment (.) Hold Blue Top Tube Received (Received) Haptoglobin 81mg/dL (34-200) Heparin-PF4 Ab Optical Density 0.057OD (<0.4) Heparin-PF4 Antibody Interpretation Not indicated Test 12/28/16 06:10 12/28/16 13:45 12/29/16 04:00 12/30/16 05:30 Activated Partial Thromboplast Time 26.8sec (22.8-33.0) Fibrinogen 148mg/dL (157-380) D-Dimer 1.8mg/L (<0.50) Body Fluid Source Pleural fluid Body Fluid Color Red (Clear) Body Fluid Appearance Bloody Body Fluid pH 7.3 (Not Estab.) Body Fluid WBC 1889/mm3 Body Fluid RBC 998264/mm3 Body Fluid Polynuclear WBCs 92% Body Fluid Lymphocytes 4% Body Fluid Monocytes 4% Body Fluid Eosinophils 0% Body Fluid Basophils 0% Body Fluid Lactate Dehydrogenase 649U/L Pleural Fluid Total Protein 3.5g/dL Pleural Fluid Glucose 99mg/dL Hepatitis A IgM Antibody Negative (Negative) Hepatitis B Surface Antigen Negative (Negative) Hepatitis B Core IgM Antibody Negative (Negative) Hepatitis C Antibody <0.1s/co ratio (0.0-0.9) Hepatitis C Comment Comment (.) Band Neutrophils % 4% (1-5) Test 12/31/16 04:57 01/01/17 15:25 01/07/17 02:35 01/09/17 04:05 Erythrocyte Sedimentation Rate 24mm/hr (0-40) Prothrombin Time 11.3sec (8.1-12.5) Prothromb Time International Ratio 1.05ratio C-Reactive Protein 1.5mg/dL (0.0-0.5) Urine Color Yellow (YELLOW) Urine Appearance Clear (CLEAR,HAZY) Urine pH 6.0 (5.0-8.0) Urine Specific [place] <1.005 (1.003-1.035) Urine Protein Tracemg/dL (NEG,TRACE) Urine Glucose (UA) Negativemg/dL (NEGATIVE) Urine Ketones Negativemg/dL (NEGATIVE) Urine Occult Blood Negative (NEGATIVE) Urine Nitrite Negative (NEGATIVE) Urine Bilirubin Negative (NEGATIVE) Urine Urobilinogen Normalmg/dL (NORMAL) Urine Leukocyte Esterase Negative (NEGATIVE) Urine RBC 0-2/hpf (0-2) Urine WBC 0-5/hpf (0-5) Urine Epithelial Cells Occasional/hpf (NONE-MOD) Urine Crystals None seen (NONE SEEN) Urine Bacteria None/hpf (NONE-FEW) Urine Hyaline Casts None/lpf (NONE) Urine Granular Casts None seen (NONE SEEN) Urine Waxy Casts None seen (NONE SEEN) Urine Red Blood Cell Casts None seen (NONE SEEN) Urine White Blood Cell Casts None seen (NONE SEEN) Urine Mucus None seen (None Seen) Urine Trichomonas None seen (NONE SEEN) Urine Yeast None (NONE SEEN) Urinalysis Comment None Urine Culture Reflexed Not indicated Digoxin Level 0.9nG/mL (0.9-2.0) Pro-B-Type Natriuretic Peptide 2091pg/mL (0-287) Procalcitonin 0.12ng/mL (0.00-0.08) Test 01/10/17 06:31 White Blood Count 9.0th/mm3 (3.8-10.1) Red Blood Count 3.17mil/mm3 (3.90-5.20) Hemoglobin 10.1g/dL (12.0-15.6) Hematocrit 30.9% (35.0-46.0) Mean Corpuscular Volume 97.5fL (81-100) Mean Corpuscular Hemoglobin 31.9pg (27.0-35.0) Mean Corpuscular Hemoglobin Concent 32.7% (32.0-37.0) Red Cell Distribution Width 15.8% (12.3-15.4) Platelet Count 147bil/L (150-400) Neutrophils (%) (Auto) 84.8% (40-74) Lymphocytes (%) (Auto) 7.9% (14-46) Monocytes (%) (Auto) 5.9% (4-12) Eosinophils (%) (Auto) 0.9% (0-5) Basophils (%) (Auto) 0.2% (0-3) Sodium Level 140mEq/L (134-144) Potassium Level 4.0mEq/L (3.5-5.2) Chloride Level 99mEq/L (97-108) Carbon Dioxide Level 30mmol/L (18-29) Blood Urea Nitrogen 36mg/dL (8-27) Creatinine 0.69mg/dL (0.57-1.00) Estimat Glomerular Filtration Rate 123mL/min (>59) Glucose Level 100mg/dL (60-99) Calcium Level 8.7mg/dL (8.5-10.1) Phosphorus Level 3.2mg/dL (2.5-4.9) Magnesium Level 2.0mg/dL (1.6-2.6) Total Bilirubin 0.6mg/dL (0.0-1.2) Aspartate Amino Transf (AST/SGOT) 35U/L (0-50) Alanine Aminotransferase (ALT/SGPT) 24U/L (0-32) Alkaline Phosphatase 48U/L (25-165) Total Protein 4.7g/dL (6.4-8.4) Albumin 2.7g/dL (3.4-5.0) Discharge Medications Discharge Medications Hydrochlorothiazide (Hydrochlorothiazide) 25 Mg Tablet 25 MG PO QAM (Reported) Lisinopril (Lisinopril) 40 Mg Tablet 40 MG PO HS (Reported) Metoprolol Tartrate (Metoprolol Tartrate) 50 Mg Tablet 100 MG PO QAM (Reported) TAKE METOPROLOL 100 MG PO QAM, AND 50 MG PO QHS Metoprolol Tartrate (Metoprolol Tartrate) 50 Mg Tablet 50 MG PO QPM (Reported) TAKE METOPROLOL 100 MG PO QAM, AND 50 MG PO QHS Tiotropium [place] (Spiriva Respimat) 4 Gm Mist.inhal 2 PUFFS INHALATION DAILY ( Reported) As needed Albuterol Sulfate (Ventolin HFA Inhaler) 200 Puff/18 Gm Inhaler 2 PUFFS INHALATION Q4H PRN PRN For Shortness of Breath (Reported) copies to: Feliz Pruitt MD, D Geoffrey MD Jan 12, 2017 17:19
--- NOTE | 2017-01-12 17:22 | PCM.DIMED ---
Discharge Instructions Date of Service Jan 11, 2017 Dates of Hospitalization Dec 22, 2016 at 20:56 Discharge Diagnosis Discharge Diagnosis 1. Acute shock, present on admission, ongoing. 2. Acute blood loss anemia, not present on admission 3. Acute on chronic respiratory failure with hypoxia and hypercapnia, present on admission, ongoing. 4. Possible Right ventricular thrombus (now disproved) 5. Possible pneumonia, present on admission, improving. 6. Atrial fibrillation with rapid ventricular response, acute, present on admission, improving. 7. Hyponatremia, acute, present on admission, improving. 8. Alcohol dependency, present on admission, unstable 9. Hypokalemia, acute, present on admission. Ongoing. 10. Hypothyroidism, acute, present on admission. 11. Possible adrenal insufficiency, acute, present on admission. 12. Acute encephalopathy, present on admission, considered stable 13. Left hemothorax, status post chest tube placement Patient on 01-11-17 at 11:50 AM. Saritha Orr MD Jan 12, 2017 17:22
== END 2017-01-11 11:20 | disposition expired | DRG 130 ==
LOC: SED 18:09 → CCU 20:56 → PCC 01-10 12:42 → MPC 01-10 17:27
PROVIDERS: ADMIT Specialist; ATTEND Specialist
PROC: 5A1955Z Respiratory Ventilation, Greater than 96 Consecutive Hours (ICD-10-PCS; principal; 2016-12-22)
PROC: 4A033R1 Measurement of Arterial Saturation, Peripheral, Percutaneous Approach (ICD-10-PCS; 2016-12-22)
PROC: 0BH17EZ Insertion of Endotracheal Airway into Trachea, Via Natural or Artificial Opening (ICD-10-PCS; 2016-12-22)
PROC: 30233N1 Transfusion of Nonautologous Red Blood Cells into Peripheral Vein, Percutaneous Approach (ICD-10-PCS; 2016-12-27)
PROC: 30233K1 Transfusion of Nonautologous Frozen Plasma into Peripheral Vein, Percutaneous Approach (ICD-10-PCS; 2016-12-27)
PROC: 0W9B30Z Drainage of Left Pleural Cavity with Drainage Device, Percutaneous Approach (ICD-10-PCS; 2016-12-28)
PROC: 30233N1 Transfusion of Nonautologous Red Blood Cells into Peripheral Vein, Percutaneous Approach (ICD-10-PCS; 2016-12-28)
PROC: 30233R1 Transfusion of Nonautologous Platelets into Peripheral Vein, Percutaneous Approach (ICD-10-PCS; 2016-12-28)
DX: J96.21 Acute and chronic respiratory failure with hypoxia (principal); R57.0 Cardiogenic shock; G93.40 Encephalopathy, unspecified; J18.9 Pneumonia, unspecified organism; J90 Pleural effusion, not elsewhere classified; J94.2 Hemothorax; E87.2 Acidosis; B49 Unspecified mycosis; I42.6 Alcoholic cardiomyopathy; I50.22 Chronic systolic (congestive) heart failure; E87.1 Hypo-osmolality and hyponatremia; D62 Acute posthemorrhagic anemia; F10.230 Alcohol dependence with withdrawal, uncomplicated; J44.1 Chronic obstructive pulmonary disease with (acute) exacerbation; K56.7 Ileus, unspecified; I27.81 Cor pulmonale (chronic); I48.91 Unspecified atrial fibrillation; J96.22 Acute and chronic respiratory failure with hypercapnia; E03.9 Hypothyroidism, unspecified; I10 Essential (primary) hypertension; F17.210 Nicotine dependence, cigarettes, uncomplicated; E87.6 Hypokalemia; Z51.5 Encounter for palliative care